=== PATIENT | female | born 1965 | race Caucasian/White ===

== ENCOUNTER → 2018-08-07 13:21 | Outpatient (CLI) | payer OTHER, SELFPAY ==
[2018-08-07 13:27] LABS: MANUAL DIFFERENTIAL MANUAL DIFFERENTIAL (MANUAL DIFF)
[2018-08-07 13:51] LABS: Basophils % 0.6 % (0.1-2.0); Eosinophils # 0.3 K/mm3 (0.0-0.4); Eosinophils % 3.3 % (0.1-12.0); Lymphocytes # 1.8 K/mm3 (0.7-4.5); Lymphocytes % 22.5 % (10-50); Monocytes # 0.5 K/mm3 (0.1-1.0); Monocytes % 5.6 % (1.7-9.3); Neutrophils # 5.5 K/mm3 (1.8-7.8); Platelet Count 286 K/mm3 (142-424); Red Blood Count 4.84 M/mm3 (4.20-5.40); Red Cell Distribution Width 13.7 % (11.5-17.5); White Blood Count 8.1 K/mm3 (4.8-10.8)
[2018-08-07 14:05] LABS: Alanine Aminotransferase 40 U/L (12-78); Albumin/Globulin Ratio 1.1 (1.1-1.8); Alkaline Phosphatase 102 U/L (46-116); Anion Gap 13.7 mEq/L (5-15); Aspartate Amino Transferase 18 U/L (15-37); Bilirubin,Total 0.4 mg/dL (0.2-1.0); Blood Urea Nitrogen 17 mg/dL (7-18); Calcium 9.5 mg/dL (8.5-10.1); Carbon Dioxide 28 mmol/L (21.0-32.0); Chloride 103 mmol/L (98-107); Chol/HDL Ratio 3.2 (1-3.5); Cholesterol 177 mg/dL (140-200); Creatinine,Serum 0.75 mg/dL (0.55-1.02); Estimated Glomerular Filt Rate 81 ml/min (>60); Free T4 (Free Thyroxine) 1.14 ng/dl (0.76-1.46); GFR (African American) 99 ML/MIN (>60); Globulin 3.5 gm/dl (1.3-3.2); Glucose 96 mg/dL (74-106); HDL Cholesterol 55 mg/dL (29-89); LDL Cholesterol 100 mg/dL (0-130); Potassium 4.7 mmoL/L (3.5-5.1); Sodium 140 mmol/L (136-145); Thyroid Stimulating Hormone 3.02 uIU/ml (0.358-3.740); Total Protein,Serum 7.5 gm/dL (6.4-8.2); Triglycerides 112 mg/dL (30-200); VLDL Cholesterol 22 mg/dL (0-40)
[2018-08-07 17:03] LABS: Lymphocytes % 17 % (10-50); Monocytes % 11 % (2-9); Neutrophils % 69 % (42-76); Total Cells Counted 100
[2018-08-07 17:07] LABS: Platelet Estimate Normal; RBC Morphology Normal
[2018-08-13 17:09] LABS: 1,25-Dihydroxy, Vitamin D-2 <10 pg/mL (.)
[2018-08-14 12:56] LABS: 1,25 Dihydroxy Vitamin D 43 pg/mL (.); 1,25-Dihydroxy, Vitamin D-3 43 pg/mL (.)
== END ==
PROVIDERS: Visit Provider Physician Assistant
DX: E03.9 Hypothyroidism, unspecified (principal); I10 Essential (primary) hypertension; K21.9 Gastro-esophageal reflux disease without esophagitis; E66.01 Morbid (severe) obesity due to excess calories; Z68.41 Body mass index [BMI] 40.0-44.9, adult
CPT/HCPCS: 80053; 80061; 82652; 84439; 84443; 85007; 85014; 85018; 85048; 85049

== ENCOUNTER → 2019-01-30 11:03 | Outpatient (CLI) | payer OTHER, SELFPAY ==
--- NOTE | 2019-01-30 11:10 | XR_ITS ---
PROCEDURE: XR FOOT LT MIN 3V CLINICAL INDICATION: pain COMPARISON: No exams were available for comparison FINDINGS: No fracture or dislocation. No lytic or blastic change. There is normal mineralization. Mild osteoarthritic changes are present at the talonavicular joint and at the posterior subtalar joint with a prominent posterior talar process of the talus. There is mild osteoarthritis also of the anterior aspect of the ankle joint. There is a small calcaneal spur Other findings:None. IMPRESSION: Osteoarthritic changes as described above Dictated by: Luis Keita MD 01/30/2019 15:17 Electronically signed by Luis Keita MD in [place] 01/30/2019 15:17
== END ==
PROVIDERS: PCP Emergency Medicine; Visit Provider Nurse Practitioner Family
DX: M79.672 Pain in left foot (principal)
CPT/HCPCS: 73630

== ENCOUNTER → 2019-02-09 14:46 | Outpatient (CLI) | payer OTHER, SELFPAY ==
--- NOTE | 2019-02-09 14:48 | US_ITS ---
APPROVED REPORT Exam Type: Lower Extremity Segmental Pressures Exhibitions Curator: Jadyn Blankenship RDCS Indications Claudication: Rest Pain: Edema Current Smoker Risk Factors Obesity Pressures/Indices Right Indices Left Indices Brachial 129.00 mmHg Brachial 127.00 mmHg Low Thigh 141.00 mmHg 1.09 Low Thigh 138.00 mmHg 1.07 Calf 117.00 mmHg 0.91 Calf 120.00 mmHg 0.93 Ankle(PT) 132.00 mmHg 1.02 Ankle(PT) 130.00 mmHg 1.01 Ankle(DP) 132.00 mmHg 1.02 Ankle(DP) 125.00 mmHg 0.97 Digit 99.00 mmHg 0.77 Digit 116.00 mmHg 0.90 Findings R DANIELITO 1.0 L DANIELITO 1.0 R TBI .8 L TBI .9 NORMAL PULSES AND WAVEFORMS Conclusion No evidence significant arterial disease throughout the right and left lower extremities as evidenced by normal resting PVR waveforms and normal resting indices. Electronically signed by : Luis Keita MD 02/10/2019 15:45:23
== END ==
PROVIDERS: PCP Emergency Medicine; Visit Provider Nurse Practitioner Family
DX: R60.9 Edema, unspecified (principal); M79.604 Pain in right leg; M79.605 Pain in left leg
CPT/HCPCS: 93923

== ENCOUNTER → 2019-06-16 08:42 | Outpatient (CLI) | payer MEDICAID, SELFPAY ==
--- NOTE | 2019-06-16 08:45 | XR_ITS ---
PROCEDURE: XR KNEE LT 4V CLINICAL INDICATION: left knee pain COMPARISON: No exams were available for comparison FINDINGS: No fracture or dislocation. No lytic or blastic change. There is normal mineralization. There are mild tricompartmental osteoarthritic changes. IMPRESSION: Osteoarthritis Dictated by: Luis Keita MD 06/16/2019 15:08 Electronically signed by Luis Keita MD in [place] 06/16/2019 15:08
== END ==
PROVIDERS: PCP Emergency Medicine; Visit Provider Orthopaedic Surgery
DX: M25.562 Pain in left knee (principal)
CPT/HCPCS: 73564

== ENCOUNTER → 2019-06-29 12:52 | Outpatient (CLI) | payer MEDICAID, SELFPAY ==
--- NOTE | 2019-06-29 12:52 | MR_ITS ---
PROCEDURE: MR KNEE LT WO CON CLINICAL INDICATION: evaluate for a meniscal tear Knee pain and instability, anterior and posterior pain COMPARISON: XR KNEE LT 4V from 06/16/2019 TECHNIQUE: Routine multiplanar multi echo sequences are performed without gadolinium enhancement. FINDINGS: Cruciate ligaments are intact. Collateral ligaments, patellar tendon, and quadriceps tendon are intact. There is some scattered T2 hyperintensity in the patellar tendon and may be due to an area of tendinosis/tendinopathy. There is a complex tear involving the posterior horn of the medial meniscus. The lateral meniscus has an unremarkable appearance as does the anterior horn of the medial meniscus. There is thinning of the patellar cartilage with some increased T2 signal along the posterior aspect of the patella. There are osteoarthritic changes involving all 3 compartments with a small knee joint effusion noted. IMPRESSION: 1. Complex tear involves the posterior horn of the medial meniscus. 2. Tricompartmental osteoarthritis with knee joint effusion Dictated by: Luis Keita MD 06/30/2019 10:27 Electronically signed by Luis Keita MD in [place] 06/30/2019 10:27
== END ==
PROVIDERS: PCP Nurse Practitioner Family; Visit Provider Orthopaedic Surgery
DX: M25.562 Pain in left knee (principal)
CPT/HCPCS: 73721

== ENCOUNTER → 2019-07-13 12:54 | Outpatient (POV) | payer MEDICAID, SELFPAY ==
[2019-07-13 13:06] VITALS: BP 138/69; PULSE 85; RESP 18; O2SAT 99; BMI 42.7
--- NOTE | 2019-07-14 09:32 | HMH.PMCON ---
Assessment and Plan (1) Degenerative joint disease (DJD) of lumbar spine Current visit: Yes Status: Chronic Qualifiers: Spinal osteoarthritis complication: with radiculopathy Qualified Code(s): M47.26 - Other spondylosis with radiculopathy, lumbar region Category: Medical Code(s): M47.816 - Spondylosis without myelopathy or radiculopathy, lumbar region - Assessment and plan all Dx Assessment and Plan for all problems:: We will plan an L4-L5 lumbar epidural steroid injection for the patient. Given the efficacy of this in the past I believe it would be beneficial. Patient is not on any anticoagulation therapy. I will follow-up with her after injection reassess her symptoms at that time she has been instructed to call the office if she has any issues prior to her next appointment. Dr. Beck has reviewed this note and agrees with this plan of care. This note was dictated using voice recognition software and may contain errors or omissions HPI - Data of Consult Consult date: 07/13/19 Requesting Physician: Shanita Liang APRN Primary Care Provider: Adrian Johnson APRN - Consult Narrative Reason for consult: Back pain, leg pain History of present illness: Ms. Moody is a 54 year old female who presents today for consultation in regards to her low back and leg pain. Patient does have an MRI showing degenerative changes. She used to get epidural injections from Dr. Toure and did extremely well with that getting up to 80% relief of her symptomology. She would like to continue this plan of care at our office to see if it gives her the same benefit. She rates her pain today a 4 out of 10. She is tried physical therapy along with massage therapy and other therapies with minimal relief. She is not on any anticoagulation therapy. CC: Shanita Liang APRN [facility] History I have reviewed the patient's past medical history: Yes Medical History: Reports:: Depression, Gastroesophageal Reflux Disease(GERD), Hypertension, Ulcer *Have you ever received a pneumonia vaccine?: Yes *Have you received a flu vaccine this season?: Yes Other Medical History: Reports: Arthritis, Hypothyroidism Laterality Cases: Bilateral: Tonsillectomy Other Surgeries: Yes: Colonoscopy, Hysterectomy-Partial, Other Amputation: No Fractures: Yes (ring finger,left hand) - *Social History Smoking Status: Current every day smoker Tobacco Type: cigarettes # Packs/Day (cigarettes): 1 Alcohol Intake: never Alcohol Intake Frequency:: holidays/special occasions only Substance Use Type: denies use *Occupational Status:: other Housing: house Household Members: significant other *Travel in the last 8 weeks: None - Psychiatric History Pschychiatric History:: Reports:: Depression Family Hx:: Unable to obtain Review of Systems - Review of Systems ROS General: no recent weight change, no fever, no sleep disturbances Respiratory: no cough, no shortness of air, no recurring pulmonary infections Cardiovascular/Peripheral Vascular: No chest pain, No palpitations, no edema, no shortness of breath. Gastrointestinal: no new onset incontinence, normal bowel movements reported Genitourinary: no new onset incontinence Musculoskeletal: Back pain, leg pain Psychiatric: normal mood/ affect, Neurological: [denies new onset weakness in extremities], [denies new onset balance issues] Meds Home Medications Medication Instructions Recorded Confirmed Type fluticasone propionate 50 1 spray INTRANASAL QDAY 30 Days 10/17/18 06/16/19 Rx mcg/actuation nasal #9.9 g spray,suspension amitriptyline 10 mg tablet 10 mg PO QHS #90 tab 01/26/19 06/16/19 Rx diclofenac sodium 1 % topical gel 4 g TOPICAL QID PRN 30 Days #100 g 03/17/19 06/16/19 Rx magnesium oxide 400 mg (241.3 mg 400 mg PO #30 tab 03/17/19 06/16/19 History magnesium) tablet meloxicam 7.5 mg tablet 7.5 mg PO DAILY 30 Days #30 tab 03/17/19 06/16/19 Rx bupropion HCl 150 mg 24 hr tabl
== END ==
PROVIDERS: PCP Nurse Practitioner Family; Visit Provider Clinical Nurse Specialist Family Health
DX: M47.26 Other spondylosis with radiculopathy, lumbar region (principal)
CPT/HCPCS: 99202

== ENCOUNTER → 2019-07-17 11:36 | Outpatient (CLI) | payer MEDICAID, SELFPAY ==
--- NOTE | 2019-07-17 11:54 | ECG_ITS ---
APPROVED REPORT Exam: Resting ECG HR:75 bpm ECG Measurements Heart Rate 75 AXES CO 150 P 71 QRSd 86 QRS 79 QT 368 T 57 QTc 410 <Conclusion> Normal sinus rhythm Normal ECG Electronically signed by : Aleksandar Crum, 07/17/2019 18:26:31
--- NOTE | 2019-07-17 12:21 | XR_ITS ---
PROCEDURE: XR CHEST 2V CLINICAL HISTORY: HTN, TOBACCO USE, PREOP Tobacco use COMPARISON: No exams were available for comparison FINDINGS: The cardiomediastinal silhouette and pulmonary vascularity are within normal limits. The lungs are clear without infiltrates, suspicious nodules, or pleural effusions. No acute bony abnormalities. IMPRESSION: No acute findings. Dictated by: Luis Keita MD 07/17/2019 13:05 Electronically signed by uLis Keita MD in [place] 07/17/2019 13:05
[2019-07-17 13:01] LABS: Basophils # 0.1 K/mm3 (0-0.2); Basophils % 1.1 % (0.1-2.0); Eosinophils # 0.2 K/mm3 (0.0-0.4); Eosinophils % 1.9 % (0.1-12.0); Hematocrit 46.9 % (37.0-47.0); Lymphocytes # 2.3 K/mm3 (0.7-4.5); Lymphocytes % 24.8 % (10-50); Mean Corpuscular HGB Conc 32.1 g/dL (31.8-35.4); Mean Corpuscular Hemoglobin 30.7 pg (27.0-31.2); Mean Corpuscular Volume 95.7 fl (81-99); Monocytes # 0.6 K/mm3 (0.1-1.0); Monocytes % 5.9 % (1.7-9.3); Neutrophils # 6.2 K/mm3 (1.8-7.8); Neutrophils % 66.4 % (37.0-80.0); Platelet Count 316 K/mm3 (142-424); Red Blood Count 4.91 M/mm3 (4.20-5.40); Red Cell Distribution Width 13.3 % (11.5-17.5); White Blood Count 9.3 K/mm3 (4.8-10.8)
[2019-07-17 14:44] LABS: Alanine Aminotransferase 32 U/L (12-78); Albumin Level 4.5 g/dl (3.5-5.0); Albumin/Globulin Ratio 1.9 (1.1-1.8); Alkaline Phosphatase 82 U/L (38-126); Anion Gap 13.4 mEq/L (5-15); Aspartate Amino Transferase 27 U/L (14-36); Bilirubin,Total 0.2 mg/dl (0.2-1.3); Blood Urea Nitrogen 19 mg/dl (7-17); Calcium 9.6 mg/dl (8.4-10.2); Carbon Dioxide 26 mmol/L (22.0-30.0); Chloride 102 mmol/L (98-107); Estimated Glomerular Filt Rate 88 ml/min (>60); GFR (African American) 106 ML/MIN (>60); Globulin 2.4 g/dL (1.3-3.2); Glucose 77 mg/dl (74-100); Potassium 4.4 mmoL/L (3.5-5.1); Sodium 137 mmol/L (136-145); Total Protein,Serum 6.9 g/dl (6.3-8.2)
== END ==
PROVIDERS: PCP Emergency Medicine; Visit Provider Orthopaedic Surgery
DX: Z01.818 Encounter for other preprocedural examination (principal); S83.232D Complex tear of medial meniscus, current injury, left knee, subsequent encounter; M25.562 Pain in left knee
CPT/HCPCS: 36415; 71046; 80053; 85025; 93005

== ENCOUNTER → 2019-08-18 11:27 | Outpatient (POV) | payer MEDICAID, SELFPAY ==
--- NOTE | 2019-08-18 12:37 | HMH.VVPMSO ---
[facility] Virtual Visit SOAP Consent for virtual visit:: With the recent concerns about the COVID-19, we are trying to minimize exposure to you by shifting to telehealth appointments whenever possible. It restricts me from seeing you in person, but the trade off is protecting you during this pandemic. Can you see and hear me okay, and do you consent to this option? If not, I would be happy to see if we can reschedule your appointment in the future, when feasible. Has patient consented to this virtual visit?: Yes Subjective:: This visit was performed via telemedicine. The patient has chosen to have telemedicine visit for his/her symptoms due to risk associated with COVID19 Patient is a pleasant 54-year-old white female who presents today via telemedicine visit. She is being treated for low back pain with lower extremity pain. Patient recently underwent a lumbar epidural steroid injection for which she does says she got approximately 90% relief for up to 2 weeks. She says her pain has slowly returned over the last 2 to 3 days. She says that it is worse in her low back. The pain does worsen in her lower extremities with walking and standing. Patient says that her pain is a 6 out of 10 today. She has taken diclofenac in the past which is giving her some relief for her arthritic pain. She says it does not give a great deal of relief for her low back pain, however. She would like to resume diclofenac, if possible. She denies any allergies to any medications. Patient says that she does not have any renal insufficiency or history of bleeding. She continues with a home stretching program and ice and heat therapies. She has undergone physical therapy. Review of Systems General: No recent weight changes, no fever, no sleep disturbances Respiratory: No cough, no shortness of air, no recurring pulmonary infections Cardiovascular/peripheral vascular: No chest pain, no palpitations, no edema, no shortness of breath Gastrointestinal: No new onset incontinence, normal bowel movements reported Genitourinary: No new onset incontinence Musculoskeletal: Low back pain, leg pain Psychiatric: Normal mood/affect Neurological: [Denies weakness in extremities], [denies balance issues] Objective:: Constitutional: Healthy appearing, well-developed, alert and oriented, no acute distress noted Psychiatric: Judgment and insight intact. Mood normal, affect appropriate Head: Normocephalic, atraumatic, extraocular movement intact Respiratory: Nonlabored, non-dyspneic Cardiovascular: No cyanosis, no clubbing, no edema observed Skin: Head and neck, no lesions or rashes noted. Bilateral upper extremities no lesions or rashes noted Gait: Able to walk without assist of heel and toe walk Neurological: Sensation grossly intact per patient C3-T1 Musculoskeletal: Full range of motion, positive straight leg raise Assessment:: Degenerative disc disease lumbar spine with lumbar radiculopathy symptoms Plan:: The patient would likely benefit from another lumbar epidural steroid injection at L4-L5. She did get relief with the initial injection, however, her pain has returned. Unfortunately, we are unable to perform any injective therapies at this time secondary to the pandemic restrictions. She does understand once the restrictions are lifted, we will proceed with a lumbar epidural steroid injection at L4-L5. She is not on any anticoagulation therapy. We will prescribe the patient diclofenac 75 mg 1 tablet p.o. twice daily and Flexeril 10 mg 1 tablet p.o. 3 times daily. We will give HER-2 months worth of medication. We will plan to follow-up with the patient following her injection to reassess her symptoms. She has been instructed to contact clinic if she has any concerns before next appointment. Dr. Beck has reviewed this note and agrees with this plan of care. This note was dictated using voice recognition software and make contain errors or omission
== END ==
PROVIDERS: Visit Provider Clinical Nurse Specialist Family Health
DX: M51.16 Intervertebral disc disorders with radiculopathy, lumbar region (principal)
CPT/HCPCS: 99211

== ENCOUNTER → 2019-09-22 09:33 | Outpatient (CLI) | payer MEDICAID, SELFPAY ==
[2019-09-22 10:33] LABS: Basophils # 0.1 K/mm3 (0-0.2); Basophils % 0.8 % (0.1-2.0); Eosinophils # 0.1 K/mm3 (0.0-0.4); Eosinophils % 1.7 % (0.1-12.0); Hematocrit 44.7 % (37.0-47.0); Hemoglobin 14.9 g/dL (12.2-16.2); Lymphocytes # 1.8 K/mm3 (0.7-4.5); Lymphocytes % 22.3 % (10-50); Mean Corpuscular HGB Conc 33.4 g/dL (31.8-35.4); Mean Corpuscular Hemoglobin 31.7 pg (27.0-31.2); Mean Corpuscular Volume 94.8 fl (81-99); Mean Platelet Volume 9.2 fl (7.4-10.4); Monocytes # 0.4 K/mm3 (0.1-1.0); Monocytes % 4.6 % (1.7-9.3); Neutrophils # 5.6 K/mm3 (1.8-7.8); Neutrophils % 70.5 % (37.0-80.0); Platelet Count 266 K/mm3 (142-424); Red Blood Count 4.72 M/mm3 (4.20-5.40); Red Cell Distribution Width 13.1 % (11.5-17.5)
[2019-09-22 11:17] LABS: Alanine Aminotransferase 39 U/L (12-78); Albumin Level 4.7 g/dl (3.5-5.0); Albumin/Globulin Ratio 1.7 (1.1-1.8); Alkaline Phosphatase 96 U/L (38-126); Anion Gap 9.3 mEq/L (5-15); Aspartate Amino Transferase 29 U/L (14-36); Bilirubin,Total 0.2 mg/dl (0.2-1.3); Blood Urea Nitrogen 19 mg/dl (7-17); Calcium 10.3 mg/dl (8.4-10.2); Carbon Dioxide 30 mmol/L (22.0-30.0); Chloride 101 mmol/L (98-107); Estimated Glomerular Filt Rate 75 ml/min (>60); GFR (African American) 91 ML/MIN (>60); Globulin 2.7 g/dL (1.3-3.2); Glucose 107 mg/dl (74-100); Potassium 4.3 mmoL/L (3.5-5.1); Sodium 136 mmol/L (136-145); Total Protein,Serum 7.4 g/dl (6.3-8.2)
[2019-09-23 13:53] LABS: Covid-19 Nasal PCR Sendout Lex NOT DETECTED
--- NOTE | 2019-09-23 15:42 | PC.NURSE ---
notified pt and Maureen RN of negative COVID 19 results.
== END ==
PROVIDERS: Visit Provider Orthopaedic Surgery
DX: Z01.818 Encounter for other preprocedural examination (principal)
CPT/HCPCS: 36415; 80053; 85025; U0003

== ENCOUNTER 2019-09-24 07:44 | Day surgery (SDC) | payer MEDICAID, SELFPAY ==
--- NOTE | 2019-09-21 12:45 | SUR.PREOP ---
09/21/19 @ 1462--PHONE CALL MADE TO PATIENT. PATIENT UNDERSTANDS THAT LAB WORK AND COVID TESTING NEEDS TO BE COMPLETED @ 0930 ON 09/22/19. PATIENT UNDERSTANDS IF LAB WORK AND COVID-19 TESTS ARE NOT COMPLETED BY 12PM ON THAT DATE, THE SURGERY SCHEDULED WILL BE CANCELLED AND RESCHEDULED FOR ANOTHER TIME.
[2019-09-22 13:24] VITALS: BMI 41.1
[2019-09-24] VITALS (16 sets, daily range): BP systolic 107–148; BP diastolic 61–86; PULSE 70–103; RESP 14–18; TEMP 36.4–43; O2SAT 92–98
--- NOTE | 2019-09-24 11:14 | P.PN_ITS ---
[facility] Anesthesia Checklist - Patient Identification Patient Identification: Arm Band, Verbal (Name & ) - Structural Data Admitted From: Home Planned Operative Procedure/s: Left knee arthroscopy Verified Documents: Surgical Consent, History and Physical - NPO Status Verified Time NPO: 00:00 - Chart Verification Results Verified: CBC (Negative Covid19), BMP - Additional verifications Anesthesia Reactions: No Hx Blood Transfusions: No Blood Transfusion Reaction: No - Airway Assessment C-Spine Mobility Assessed: Yes TMJ Mobility Assessed: Yes Dentition: Dentures-good fit (upper denture, lower paritail both removed) - Neurological Assessment Level of Consciousness: Awake, Alert, Appropriate, Follows Commands Hx Seizures: No Numbness or tingling in extremities: No - Anesthesia Plan Anesthesia Risk discussed: Yes Anesthesia Plan: Verified ASA Class: III Anesthesia Type: General (LMA) [facility] History I have reviewed the patient's past medical history: Yes Medical History: Reports:: Anxiety, Gastroesophageal Reflux Disease(GERD), Hypertension, Ulcer Denies:: Cancer, Diabetes Mellitus Type 1, Diabetes Mellitus Type 2, Internal Pacemaker, MRSA, Seizures *Have you ever received a pneumonia vaccine?: No *Have you received a flu vaccine this season?: No Other Medical History: Reports: Arthritis, Hypothyroidism. Denies: Blood Transfusion Reaction Comment:: morbid obesity, KARLI complaint use of CPAP Anesthesia experience/problems:: none Laterality Cases: Bilateral: Tonsillectomy Other Surgeries: Yes: Colonoscopy, Hysterectomy-Partial, Other. No: Pacemaker Amputation: No Fractures: Yes (ring finger,left hand) - *Social History Educational Level: Attended High School Smoking Status: Current every day smoker Tobacco Type: cigarettes # Packs/Day (cigarettes): 1 Alcohol Intake: current Alcohol Intake Frequency:: holidays/special occasions only Substance Use Type: denies use *Occupational Status:: unemployed Housing: [facility] Household Members: significant other *Travel in the last 8 weeks: None - Psychiatric History Pschychiatric History:: Reports:: Depression Family Hx:: Hypertension, Thyroid Disorder
--- NOTE | 2019-09-24 12:54 | HMH.ANESI ---
[facility] Anesthesia Record Part I Intake, IV Amount: 900 Estimated blood loss (mL): 25 Urine output (mL): 0 (NM) Blood Products used (#): none Blood Pressure: 148/86 SaO2: 94 Pulse Rate: 88 Respiratory Rate: 14 Temperature: 98.0 F Patient is:: Awake, Drowsy, Stable Stable to PACU at:: 12:47
--- NOTE | 2019-09-24 14:50 | SUR.PHASEII ---
1440 Dr. Hartmann up to see pt prior to discharge, polar marah was ordered and retrieved. Instructions given to pt and SO on use.Sent with pt at discharge. T-scope brace on pt at discharge and crutches with pt. All discharge info discussed with SO at car, verbalized understanding to all.
--- NOTE | 2019-09-24 14:56 | HMH.OPNOTE ---
Date of procedure: 09/24/19 Pre-op Diagnosis:: 1. Medial meniscal tear, LEFT knee 2. Osteoarthritis, LEFT knee Post-op Diagnosis:: 1. Complex degenerative tear of medial meniscus, LEFT knee 2. Osteoarthritis, LEFT knee 3. Pathological medial plica, LEFT knee Procedure performed:: 1. Examination of LEFT knee under anesthesia 2. Partial medial meniscectomy, LEFT knee 3. Chondroplasty, LEFT knee 4. Microfracture to medial femoral condyle, left knee 5. Resection of medial plica, LEFT knee Surgeon:: Roc Hartmann MD Form Raiser(s):: Karla Hale GRANITE FABRICATOR:: Tomas Castellanos Anesthesia: LMA Estimated blood loss (mL): 5 Clinical Note:: The patient is a 54-year-old male with chronic LEFT knee pain unresponsive to conservative management and evidence of a complex medial meniscal tear and early arthritic changes on imaging. Clinically her symptoms are consistent with the above diagnosis. Resection of the torn medial meniscus, chondroplasty and debridement is indicated to relieve the pain and improve function of the knee. Please refer to my office note for full details. Operative findings:: Examination of the left knee under anesthesia, showed a stable knee joint. There is small amount of knee joint effusion. Knee range of motion is from 0-120? of flexion. Operative findings showed diffuse grade 2-3 degenerative changes over the patellofemoral articular surfaces and medial compartment; an area of focal full-thickness cartilage loss was present over the medial femoral condyle. The lateral compartment was relatively well preserved. A fairly large thickened and hyperemic medial plica was noted and its corresponding abrasion area on the edge of the medial femoral condyle noted as well. The medial meniscus had a complex degenerate tear involving the body and posterior horn. The medial tibial plateau articular surface was also relatively well preserved. The anterior cruciate ligament and posterior cruciate ligaments were intact. No loose bodies were noted. Moderate synovitis was noted in the knee. Operative note:: On the day of the procedure the patient was met in the preoperative area and positively identified. A physical examination was performed and documented. The operative site and side was marked and initialed by me. I again discussed the diagnosis, management options including both nonsurgical and surgical. I discussed the proposed surgical procedure, risks and benefits and alternatives in detail. The complications discussed include but are not limited to infection, injury to nerves and blood vessels, injury to the ligaments and tendons, knee stiffness, arthrofibrosis, incomplete relief, incomplete functional recovery, DVT, PE, CRPS, complications related to anesthesia including heart attack, stroke and even . I have also discussed about the likely need for further surgery in future. I told her that there were no guarantees with surgery; she could be no better or even worse. We also discussed the postoperative recovery and rehabilitation protocol. I believe the patient to be well informed with regard to the proposed surgery. I told her that it would take few months for full recovery of the knee after surgery. She expressed a full understanding and wished to proceed with the planned surgery. Patient understood the risks, agreed to proceed with surgery, and no guarantees or assurances were given or implied. Patient was brought to the operating room and placed supine on the operating table. All the bony prominences were appropriately padded. A general anesthesia was administered by the roll panner. A well-padded tourniquet cuff was placed over the left upper thigh. Examination of the left knee under anesthesia was performed. A small knee effusion was noted. Knee range of motion was 0-120 degrees of flexion. Knee joint is noted to be ligamentously stable. The left knee was then prepped and draped in the usual sterile fashion. A preprocedure timeout was performed as pe
--- NOTE | 2019-09-24 15:25 | SUR.PHASEI ---
Patient to be transferred to post op at 1317, but Dr Hartmann in to PACU with verbal order requesting T-scope knee brace and crutches. Physical therapy was called and Tyron Montague came up to PACU with T-scope knee brace and asked what the settings would be, Dr Hartmann had to be contacted. Once brace was applied and paperwork copied for insurance, it was [id number]. Then patient became nauseous on way to post op.
--- NOTE | 2019-09-24 16:50 | P.PN_ITS ---
[facility] Anesthesia Record Part II Discharge Time: 14:40 Destination: home PACU nurse assessment reviewed?: Yes Patient Condition:: Good Anesthesia Complications:: None Swallowing reflex intact?: Yes Cyanosis?: No Blood Pressure: 120/80 Pulse Rate: 70 Temperature: 97.6 F Mental Status: Alert & Oriented Pain level:: 0 Nausea and/or vomitting:: Nauseated Intake, IV Amount: 0
== END 2019-09-24 14:40 | disposition home or self-care (01) ==
LOC: OR 07:45
PROVIDERS: PCP Emergency Medicine; Visit Provider Orthopaedic Surgery
PROC: (CPT 29870; principal; 2019-09-24 09:30)
DX: M17.12 Unilateral primary osteoarthritis, left knee (principal); M23.232 Derangement of other medial meniscus due to old tear or injury, left knee; M67.52 Plica syndrome, left knee
CPT/HCPCS: 29879; 29881; 96374; J2405

== ENCOUNTER 2019-11-13 09:41 | Day surgery (SDC) | payer MEDICAID, SELFPAY ==
[2019-11-13 10:12] VITALS: BP 168/81; PULSE 87; RESP 18; TEMP 36.6; O2SAT 96; BMI 41.1
[2019-11-13 10:45] VITALS: BP 151/87; PULSE 81; RESP 18
[2019-11-13 10:46] VITALS: BP 152/87; PULSE 85; RESP 18; O2SAT 98
--- NOTE | 2019-11-13 10:48 | P.PCN_ITS ---
- Procedure Date: 11/13/19 Time: 10:49 Anesthesiologist:: Dionte Beck MD Complications:: None Pre-procedure Diagnosis:: Degenerative disc disease of lumbar spine with lumbar radiculopathy symptoms Post-procedure Diagnosis:: Same Indications for Procedure:: This patient is a pleasant 54-year-old white female who we are treating for low back pain with lumbar radiculopathy symptoms. She did great after her last lumbar epidural steroid injection she was 80 to 90% better for up to 2 weeks. Her pain is now returning. We will do repeat lumbar epidural steroid injection under fluoroscopy today. Procedure Details:: Lumbar epidural steroid injection under fluoroscopy Informed consent was obtained and the risk and benefits of the procedure was explained to the patient. The patient was taken to the procedure room. The patient was placed prone on the procedure table. The patient was prepped and draped in sterile fashion. C-arm fluoroscopy was used to view the lumbar spine. Skin and subcutaneous tissues were anesthetized using lidocaine. I placed an 18-gauge epidural needle and advanced into the L4-L5 interspace using fluoroscopic guidance and [id number] to air. After confirmation of needle placement in the epidural space with dye I injected 2 mL of lidocaine 1.5% with Depo-Medrol 80 mg. Patient tolerated the procedure well with no co mplications. Plan and Disposition:: We will follow-up with her in 2 weeks. Will reevaluate her symptoms at that time.
[2019-11-13 10:55] VITALS: BP 124/69; PULSE 80; RESP 18; O2SAT 96
== END 2019-11-13 10:55 | disposition home or self-care (01) ==
LOC: SC.PAINP 09:42
PROVIDERS: PCP Emergency Medicine; Visit Provider Anesthesiology
DX: M51.16 Intervertebral disc disorders with radiculopathy, lumbar region (principal); I10 Essential (primary) hypertension; Z72.0 Tobacco use; Z87.19 Personal history of other diseases of the digestive system; Z90.89 Acquired absence of other organs; Z87.39 Personal history of other diseases of the musculoskeletal system and connective tissue; G25.81 Restless legs syndrome; G47.33 Obstructive sleep apnea (adult) (pediatric); E03.9 Hypothyroidism, unspecified; Z79.899 Other long term (current) drug therapy
CPT/HCPCS: 62323; J1040; Q9966

== ENCOUNTER → 2019-12-03 11:46 | Outpatient (POV) | payer MEDICAID, SELFPAY ==
[2019-12-03 12:18] VITALS: BP 136/58; PULSE 71; RESP 18; TEMP 36.9; O2SAT 98; BMI 41.1
--- NOTE | 2019-12-03 13:27 | HMH.PAINSOAP ---
[facility] Pain Management SOAP Note Subjective:: Patient is a pleasant 54-year-old white female who presents today for follow-up after a lumbar epidural steroid injection. Patient is being treated for low back pain with lumbar radiculopathy symptoms. Patient says she did get relief up to 90% following her injection, however, she is having some low back pain with radiation into bilateral hips. She says the pain is different than it was prior to the injection. Patient also reports to have undergone a left knee replacement over the last year. She says that she thinks this is contributed to a lot of the pain in her low back area. She does rate her pain a 6 out of 10 today. Patient does have point tenderness noted over her bilateral SI joints. She also has a positive Elda, Renetta's, distraction test. Review of Systems General: No recent weight changes, no fever, no sleep disturbances Respiratory: No cough, no shortness of air, no recurring pulmonary infections Cardiovascular/peripheral vascular: No chest pain, no palpitations, no edema, no shortness of breath Gastrointestinal: No new onset incontinence, normal bowel movements reported Genitourinary: No new onset incontinence Musculoskeletal: Low back pain with radiation into her bilateral hips Psychiatric: Normal mood/affect Neurological: [Denies weakness in extremities], [denies balance issues] Objective:: Physical exam General: Alert and oriented x3, no acute distress, pleasant and cooperative, [on room air] Lungs: Respirations even and unlabored, symmetrical chest expansion Eyes: PERRL Musculoskeletal: Flexion and extension of lumbar spine somewhat guarded secondary to pain, deep tendon reflexes normal, strength in upper and lower extremities [5/5], gait noted, positive Renetta's test, distraction test, positive Tupelo's test Neurological: Speech clear, 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 We will schedule her for bilateral SI joint injections. She is taking diclofenac. We will give her some Zanaflex 4 mg 1 tablet p.o. twice daily. She will stop taking her Flexeril. She says this has caused her to get very groggy when taking the medication. We will see if this gives her any relief until her injection. We will see her back in the clinic after her injection to reassess her symptoms. The patient and I specifically discussed risk factors for COVID19. These risks include, but are not limited to age greater than 60, heart or lung disease, diabetes, immunosuppression, and travel. We also discussed NSAIDs may worsen COVID19 infection or symptoms. Patient should not use NSAIDs to treat COVID19 signs or symptoms. Patient was also informed that any type of corticosteroid of any form (oral or injection) will decrease the patient's immune system response and may increase the likelihood of COVID19 [address] symptoms[address] Beck has reviewed this note and agrees with this plan of care. This note was dictated using voice recognition software and make contain errors or omissions. [facility] History I have reviewed the patient's past medical history: Yes Medical History: Reports:: Anxiety, Depression, Gastroesophageal Reflux Disease(GERD), Hypertension, Ulcer Denies:: Cancer, Diabetes Mellitus Type 1, Diabetes Mellitus Type 2, Internal Pacemaker, MRSA, Seizures *Have you ever received a pneumonia vaccine?: Yes *Have you received a flu vaccine this season?: Yes Other Medical History: Reports: Arthritis, Hypothyroidism, Thyroid Disease. Denies: Blood Transfusion Reaction Laterality Cases: Left: Arthroscopy Knee, Bilateral: Tonsillectomy Other Surgeries: Yes: Colonoscopy, Hysterectomy-Partial, Sinus Surgery, Other. No: Pacemaker Amputation: No Fractures: Yes (ring finger,le
== END ==
PROVIDERS: PCP Emergency Medicine; Visit Provider Clinical Nurse Specialist Family Health
DX: M51.16 Intervertebral disc disorders with radiculopathy, lumbar region (principal); M46.1 Sacroiliitis, not elsewhere classified
CPT/HCPCS: 99212

== ENCOUNTER → 2019-12-09 12:36 | Outpatient (CLI) | payer MEDICAID, SELFPAY ==
--- NOTE | 2019-12-09 12:39 | XR_ITS ---
PROCEDURE: XR KNEE LT 4V CLINICAL INDICATION: sp LT knee scope Pain COMPARISON: XR KNEE LT 4V from 06/16/2019 FINDINGS: No fracture or dislocation. No lytic or blastic change. There is normal mineralization. There are mild osteoarthritic changes of the medial compartment and to lesser degree of the lateral compartment and patellofemoral joint. No acute fracture or dislocation is evident. There are small calcific densities along the posterior aspect of the proximal tibia suggesting small loose bodies 1 of which projects over the medial aspect of the medial tibial spine. Other findings:None. IMPRESSION: Mild osteoarthritis with loose bodies as described above. Dictated by: Luis Keita MD 12/09/2019 13:43 Electronically signed by Luis Keita MD in [place] 12/09/2019 13:43
== END ==
PROVIDERS: PCP Emergency Medicine; Visit Provider Orthopaedic Surgery
DX: Z09 Encounter for follow-up examination after completed treatment for conditions other than malignant neoplasm (principal)
CPT/HCPCS: 73564

== ENCOUNTER 2019-12-11 13:30 | Outpatient (RCR) | payer MEDICAID, SELFPAY ==
--- NOTE | 2019-11-10 17:41 | HMH.PTOPEV ---
PT Outpatient Evaluation Rehab PT Outpatient Evaluation Start: 11/10/19 17:08 Freq: Status: Active Protocol: Document 11/10/19 17:19 MIASHOK (Rec: 11/10/19 17:41 DENNYGEORGE [id number]) Electronically Signed By Mehul Montague PT 11/10/19 17:19 Outpatient Therapy Subjective History Subjective History This is the initial Physical Therapy evaluation for Saritha Moody due to L knee pain s/p sx. Pt reports she had L knee surgery ~ 7 weeks ago. MD order states pt had partial medial menisectomy, chondroplasty, medial femoral microfx, and medial plica resection. Pt reports she does not know when or what the original injury was but she thinks it was due to stepping down onto concrete hard. Pt reports she was NWB for ~ 2 weeks, then TTWB for 2 weeks with continuation to FWB. Pt now reports to PT for c/o L knee pain, weakness and decreased ROM Chief Complaint Pain,Stiff,Swelling Symptom Type Ache,Throb Symptoms Relieved By Rest/Positioning,Ice Symptoms Aggravated By Standing,Physical Activity, Walking Prior Functional Limitations None Current Functional Limitations Housework,Standing,Squatting, Recreation Activity,Walking, Stairs Symptom Description Constant but Variable Level of pain today (0-10) 6 Pain scale - at its best (0-10) 3 Pain scale - at its worst (0-10) 9 Hip/Knee Eval Gait Observation General Gait Pattern Observation Antalgic Gait,Decrease Weight Bear (L) Palpation Tenderness left Knee Palpation Finding Tenderness MMT Knee Extension Strength Grade 4- Good- Knee Flexion Strength Grade 4 Good ROM Knee Extension Active Range of Motion ( 0 degrees) Knee Flexion Active Range of Motion ( 105 degrees) Outpatient Therapy Assessment Impairments Problems/Impairmments Palpation Tenderness,Impaired Range of Motion,Impaired Strength,Impaired Walking, Impaired Standing,Impaired Household Care,Impaired Stair Climbing,Impai
== END 2019-12-11 13:35 | disposition home or self-care (01) ==
LOC: PT 13:30
PROVIDERS: PCP Emergency Medicine; Visit Provider Orthopaedic Surgery
DX: M25.562 Pain in left knee (principal)
CPT/HCPCS: 97010; 97014; 97016; 97033; 97110; 97163; G0283

== ENCOUNTER 2019-12-14 13:52 | Day surgery (SDC) | payer MEDICAID, SELFPAY ==
[2019-12-14 14:21] VITALS: BP 131/53; PULSE 73; RESP 18; TEMP 36.7; O2SAT 98; BMI 41.1
[2019-12-14 14:37] VITALS: BP 125/88; BP 128/89; PULSE 85; PULSE 89; RESP 18; O2SAT 98
--- NOTE | 2019-12-14 14:40 | P.PCN_ITS ---
- Procedure Date: 12/14/19 Time: 14:40 Anesthesiologist:: Laverne Wiggins APRN Complications:: None Pre-procedure Diagnosis:: Bilateral sacroiliitis Post-procedure Diagnosis:: Same Indications for Procedure:: Patient is a 54-year-old white female who presents today for bilateral SI joint injections. She is having bilateral lower back pain with radiation into her buttocks bilaterally as well as her hips. She rates her pain an 8 out of 10 today. She will undergo bilateral SI injection see if she gets relief. Patient says she is having some tenderness over bilateral SI joints. She also has a positive Elda, Renetta's, distraction test. 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 The patient was taken to the procedure room on the right and noninvasive monitors were placed including a noninvasive blood pressure cuff and pulse oximeter. Patient was placed prone on the procedure table. The lower back was cleansed using chlorhexidine as a cleansing solution. C-arm fluoroscopy was used to view the right sacroiliac joint. The skin and subcutaneous tissues were anesthetized Using lidocaine 1.5% and a 25-gauge needle. After this, a 22-gauge spinal needle was inserted using fluoroscopic guidance into the inferior aspect of the right sacroiliac joint. Omnipaque dye was injected and good spread was seen throughout the joint. After this, approximately mL of bupivacaine 0.25% and Depo-Medrol 0 40 mg was incrementally injected into the right sacroiliac joint. We then moved to the left sacroiliac joint. The skin and subcutaneous tissues were anesthetized using lidocaine 1.5% and a 25-gauge needle. After this a 22- gauge spinal needle was inserted under fluoroscopic guidance into the inferior aspect of the left sacroiliac joint. After this approximately 5 mL of bupivacaine 0.25% and Depo-Medrol 40 mg was incrementally injected into the left sacroiliac joint. The patient tolerated the procedure well without complications. The patient was observed in the pain clinic for period of time and was then discharged home neurologically intact. Plan and Disposition:: We will see the patient back in the clinic in 2 weeks to reassess her symptoms. She has been instructed to contact the clinic if she has any concerns before her next appointment. The patient and I specifically discussed risk factors for COVID19. These risks include, but are not limited to age greater than 60, heart or lung disease, diabetes, immunosuppression, and travel. We also discussed NSAIDs may worsen COVID19 infection or symptoms. Patient should not use NSAIDs to treat COVID19 signs or symptoms. Patient was also informed that any type of corticosteroid of any form (oral or injection) will decrease the patient's immune system response and may increase the likelihood of COVID19 infection [address] symptoms[address] Beck has reviewed this note and agrees with this plan of care. This note was dictated using voice recognition software and make contain errors or omissions.
[2019-12-14 14:50] VITALS: BP 146/71; PULSE 69; RESP 18; O2SAT 98
== END 2019-12-14 14:50 | disposition home or self-care (01) ==
LOC: SC.PAINP 13:54
PROVIDERS: PCP Emergency Medicine; Visit Provider Clinical Nurse Specialist Family Health
DX: M46.07 Spinal enthesopathy, lumbosacral region (principal); Z72.0 Tobacco use; I10 Essential (primary) hypertension; Z90.89 Acquired absence of other organs; Z87.39 Personal history of other diseases of the musculoskeletal system and connective tissue; Z79.899 Other long term (current) drug therapy; F32.9 Major depressive disorder, single episode, unspecified; Z87.898 Personal history of other specified conditions; M47.816 Spondylosis without myelopathy or radiculopathy, lumbar region; E03.9 Hypothyroidism, unspecified; G47.33 Obstructive sleep apnea (adult) (pediatric); M47.26 Other spondylosis with radiculopathy, lumbar region
CPT/HCPCS: 27096; G0260; J1030; Q9966

== ENCOUNTER → 2019-12-31 14:54 | Outpatient (CLI) | payer MEDICAID, SELFPAY ==
[2019-12-31 16:10] LABS: Free T4 (Free Thyroxine) 1.36 ng/dl (0.78-2.19)
[2019-12-31 16:25] LABS: Thyroid Stimulating Hormone 1.79 uIU/mL (0.465-4.68)
[2020-01-02 13:06] LABS: Thyroid Peroxidase Antibodies 125 IU/mL (0-34)
[2020-01-05 02:54] LABS: Thyroid Stimulating Immunoglob <0.10 IU/L (0.00-0.55)
== END ==
PROVIDERS: Visit Provider Otolaryngology
DX: E03.9 Hypothyroidism, unspecified (principal)
CPT/HCPCS: 36415; 84439; 84443; 84445; 86376

== ENCOUNTER → 2020-01-06 09:26 | Outpatient (CLI) | payer MEDICAID, SELFPAY ==
--- NOTE | 2020-01-06 09:26 | US_ITS ---
PROCEDURE: US THYROID CLINICAL INDICATION: hypothyroidism COMPARISON: No exams were available for comparison FINDINGS: Right lobe: 2.6 x 0.9 x 0.9 cm Left lobe: 2.5 x 0.8 x 0.9 cm Isthmus: 3 mm in thickness Additional findings: There is heterogeneous echogenicity bilaterally but no discrete nodule or mass evident. No abnormal fluid collections. IMPRESSION: Heterogeneous echogenicity of the thyroid gland without discrete nodule. Dictated by: Luis Keita MD 01/06/2020 15:57 Luis Keita MD in [place] 01/06/2020 15:57
== END ==
PROVIDERS: PCP Emergency Medicine; Visit Provider Otolaryngology
DX: E03.9 Hypothyroidism, unspecified (principal)
CPT/HCPCS: 76536

== ENCOUNTER → 2020-01-07 15:43 | Outpatient (POV) | payer MEDICAID, SELFPAY ==
[2020-01-07 15:50] VITALS: BP 132/77; PULSE 74; RESP 18; TEMP 36.2; O2SAT 98; BMI 41.1
--- NOTE | 2020-01-07 16:00 | HMH.PAINSOAP ---
[facility] Pain Management SOAP Note Subjective:: Patient is a pleasant 54-year-old white female who presents today for follow-up after bilateral SI joint injections. She is being treated for low back pain with radiation into her bilateral hips and legs. Patient rates her pain a 5 out of 10. She says she did not get any relief after the injections. She says her pain is actually worse following the injections. Patient says that her pain is with walking and standing and does improve with sitting, however, she does have to reposition often with sitting. He has tried anti-inflammatories along with a continued home stretching program. Review of Systems General: No recent weight changes, no fever, no sleep disturbances Respiratory: No cough, no shortness of air, no recurring pulmonary infections Cardiovascular/peripheral vascular: No chest pain, no palpitations, no edema, no shortness of breath Gastrointestinal: No new onset incontinence, normal bowel movements reported Genitourinary: No new onset incontinence Musculoskeletal: Low back pain radiating into bilateral hips and legs Psychiatric: Normal mood/affect Neurological: [Denies weakness in extremities], [denies balance issues] Objective:: Physical exam General: Alert and oriented x3, no acute distress, pleasant and cooperative, [on room air] Lungs: Respirations even and unlabored, symmetrical chest expansion Eyes: PERRL Musculoskeletal: Flexion and extension of lumbar spine somewhat guarded secondary to pain, deep tendon reflexes normal, strength in upper and lower extremities [5/5], [abnormal gait noted] Neurological: Speech clear, glass bulb silverer equal, no gross sensory deficit Assessment:: Degenerative disc disease lumbar spine with lumbar radiculopathy symptoms Plan:: We will schedule the patient for a lumbar epidural steroid injection at L4-L5. Patient did not get relief from her bilateral SI joint injections. We will plan to see her back in the clinic after her injections to reassess her symptoms. She is not on any anticoagulation therapy. She has been instructed to contact clinic if she has any concerns before next appointment. The patient and I specifically discussed risk factors for COVID19. These risks include, but are not limited to age greater than 60, heart or lung disease, diabetes, immunosuppression, and travel. We also discussed NSAIDs may worsen COVID19 infection or symptoms. Patient should not use NSAIDs to treat COVID19 signs or symptoms. Patient was also informed that any type of corticosteroid of any form (oral or injection) will decrease the patient's immune system response and may increase the likelihood of COVID19 [address] Beck has reviewed this note and agrees with this plan of care. This note was dictated using voice recognition software and make contain errors or omissions. [facility] History I have reviewed the patient's past medical history: Yes Medical History: Reports:: Anxiety, Depression, Gastroesophageal Reflux Disease(GERD), Hypertension, Ulcer Denies:: Cancer, Diabetes Mellitus Type 1, Diabetes Mellitus Type 2, Internal Pacemaker, MRSA, Seizures *Have you ever received a pneumonia vaccine?: Yes *Have you received a flu vaccine this season?: Yes Other Medical History: Reports: Arthritis, Hypothyroidism, Thyroid Disease. Denies: Blood Transfusion Reaction Laterality Cases: Left: Arthroscopy Knee, Bilateral: Tonsillectomy Other Surgeries: Yes: Colonoscopy, Hysterectomy-Partial, Sinus Surgery, Other. No: Pacemaker Amputation: No Fractures: Yes (ring finger,left hand) - *Social History Smoking Status: Current every day smoker Tobacco Type: cigarettes # Packs/Day (cigarettes): 1 Alcohol Intake: never Alcohol Intake Frequency:: holidays/special occasions only Substance Use Type: denies use *Occupational Status:: other [facility]: [facility] Household Members: significant other *Travel in the last 8 weeks: None - Psychiatric History
== END ==
PROVIDERS: PCP Emergency Medicine; Visit Provider Clinical Nurse Specialist Family Health
DX: M51.16 Intervertebral disc disorders with radiculopathy, lumbar region (principal)
CPT/HCPCS: 99212

== ENCOUNTER 2020-01-22 09:49 | Day surgery (SDC) | payer MEDICAID, SELFPAY ==
[2020-01-22 10:25] VITALS: BP 138/81; PULSE 78; RESP 18; TEMP 36.7; O2SAT 99; BMI 41.1
[2020-01-22 11:15] VITALS: BP 142/77; PULSE 74; RESP 18; O2SAT 99
[2020-01-22 11:16] VITALS: BP 143/79; PULSE 85; RESP 18; O2SAT 99
[2020-01-22 11:35] VITALS: BP 150/90; PULSE 68; RESP 18; O2SAT 99
--- NOTE | 2020-01-22 12:11 | HMH.PMPROC ---
- Procedure Date: 01/22/20 Time: 12:11 Anesthesiologist:: Dionte Beck MD Complications:: None Pre-procedure Diagnosis:: Degenerative disc disease of lumbar spine with lumbar radiculopathy symptoms Post-procedure Diagnosis:: Same Indications for Procedure:: This patient is a pleasant 54-year-old white female who we are treating for low back pain with lumbar radiculopathy symptoms and bilateral hip pain with sacroiliitis bilaterally. She did get bilateral SI joint injections. This did not give her much relief of her pain symptoms. She presents for lumbar epidural steroid injection under fluoroscopy today. Procedure Details:: Lumbar epidural steroid injection under fluoroscopy Informed consent was obtained and the risk and benefits of the procedure was explained to the patient. The patient was taken to the procedure room. The patient was placed prone on the procedure table. The patient was prepped and draped in sterile fashion. C-arm fluoroscopy was used to view the lumbar spine. Skin and subcutaneous tissues were anesthetized using lidocaine. I placed an 18-gauge epidural needle and advanced into the L4-L5 interspace using fluoroscopic guidance and [id number] to air. After confirmation of needle placement in the epidural space with dye I injected 2 mL of lidocaine 1.5% with Depo-Medrol 80 mg. Patient tolerated the procedure well with no complications. Plan and Disposition:: We will follow-up with her in 2 weeks. Will reevaluate symptoms at that time.
== END 2020-01-22 11:35 | disposition home or self-care (01) ==
LOC: SC.PAINP 09:50
PROVIDERS: PCP Emergency Medicine; Visit Provider Anesthesiology
DX: M51.16 Intervertebral disc disorders with radiculopathy, lumbar region (principal); I10 Essential (primary) hypertension; E03.9 Hypothyroidism, unspecified; Z72.0 Tobacco use; F41.9 Anxiety disorder, unspecified; F32.9 Major depressive disorder, single episode, unspecified; Z87.39 Personal history of other diseases of the musculoskeletal system and connective tissue; Z90.89 Acquired absence of other organs; Z79.899 Other long term (current) drug therapy
CPT/HCPCS: 62323; J1040; Q9966

== ENCOUNTER → 2020-02-18 10:42 | Outpatient (POV) | payer MEDICAID, SELFPAY ==
[2020-02-18 11:11] VITALS: BP 158/74; PULSE 85; RESP 18; TEMP 37; O2SAT 98; BMI 41.1
--- NOTE | 2020-02-18 12:14 | HMH.PAINSOAP ---
[facility] Pain Management SOAP Note Subjective:: Patient is a 55-year-old white female who presents today for follow-up. She is being treated for low back pain with lumbar radiculopathy symptoms. Patient recently had a lumbar epidural steroid injection for which she did get some relief, however, she is continued to have right low back pain with radiation into her right buttock and right hip. The pain does radiate into her right leg. Patient says that the pain is gradually worsening. She says she got about 60% relief with the epidural steroid injection. She feels her pain is now different. She rates her pain an 8 out of 10. She is currently taking diclofenac that she says is not helping her. Continue with a home stretching program and has tried physical therapy in the past with no relief. She also uses ice and heat therapies. Review of Systems General: No recent weight changes, no fever, no sleep disturbances Respiratory: No cough, no shortness of air, no recurring pulmonary infections Cardiovascular/peripheral vascular: No chest pain, no palpitations, no edema, no shortness of breath Gastrointestinal: No new onset incontinence, normal bowel movements reported Genitourinary: No new onset incontinence Musculoskeletal: Right low back pain with radiation into right buttock and right hip. Psychiatric: Normal mood/affect Neurological: [Denies weakness in extremities], [denies balance issues] Objective:: Physical exam General: Alert and oriented x3, no acute distress, pleasant and cooperative, [on room air] Lungs: Respirations even and unlabored, symmetrical chest expansion Eyes: PERRL Musculoskeletal: Flexion and extension of lumbar spine somewhat guarded secondary to pain, deep tendon reflexes normal, strength in upper and lower extremities [5/5], [abnormal gait noted], positive Orma's test, positive Renetta's test, positive distraction test Neurological: Speech clear, fig caprifier equal, no gross sensory deficit Assessment:: Right sacroiliitis Plan:: We will schedule the patient for a right SI joint injection to see if she gets relief. We will also order her Celebrex 100 mg 1 tablet p.o. daily. Patient has been encouraged to stop taking other anti-inflammatories as well as the diclofenac that was prescribed. She is in agreement. We will see if this gives her relief. Patient has been instructed to contact clinic if she has an concerns for her next ointment. The patient and I specifically discussed risk factors for COVID19. These risks include, but are not limited to age greater than 60, heart or lung disease, diabetes, immunosuppression, and travel. We also discussed NSAIDs may worsen COVID19 infection or symptoms. Patient should not use NSAIDs to treat COVID19 signs or symptoms. Patient was also informed that any type of corticosteroid of any form (oral or injection) will decrease the patient's immune system response and may increase the likelihood of COVID19 [address] Beck has reviewed this note and agrees with this plan of care. This note was dictated using voice recognition software and make contain errors or omissions. [facility] History I have reviewed the patient's past medical history: Yes Medical History: Reports:: Anxiety, Depression, Gastroesophageal Reflux Disease(GERD), Hypertension, Ulcer Denies:: Cancer, Diabetes Mellitus Type 1, Diabetes Mellitus Type 2, Internal Pacemaker, MRSA, Seizures *Have you ever received a pneumonia vaccine?: Yes *Have you received a flu vaccine this season?: Yes Other Medical History: Reports: Arthritis, Hypothyroidism, Sinus Problems, Thyroid Disease. Denies: Blood Transfusion Reaction Laterality Cases: Left: Arthroscopy Knee, Bilateral: Tonsillectomy Other Surgeries: Yes: Colonoscopy, Hysterectomy-Partial, Sinus Surgery, Other. No: Pacemaker Amputation: No Fractures: Yes (ring finger,left hand) - *Social History Smoking Status: Current every day smoker Tobacco Type: c
== END ==
PROVIDERS: PCP Emergency Medicine; Visit Provider Clinical Nurse Specialist Family Health
DX: M46.1 Sacroiliitis, not elsewhere classified (principal)
CPT/HCPCS: 99212

== ENCOUNTER 2020-03-04 11:37 | Day surgery (SDC) | payer MEDICAID, SELFPAY ==
[2020-03-04 12:00] VITALS: BP 155/73; PULSE 80; TEMP 36.7; O2SAT 99; BMI 41.1
[2020-03-04 12:16] VITALS: BP 133/88; PULSE 85; RESP 18; O2SAT 98
[2020-03-04 12:17] VITALS: BP 136/89; PULSE 85; RESP 18
[2020-03-04 12:25] VITALS: BP 154/80; PULSE 82; RESP 18; O2SAT 99
--- NOTE | 2020-03-04 12:35 | HMH.PMPROC ---
- Procedure Date: 03/04/20 Time: 12:36 Anesthesiologist:: Dionte Beck MD Complications:: None Pre-procedure Diagnosis:: Sacroiliitis Post-procedure Diagnosis:: Same Indications for Procedure:: This patient is a pleasant 55-year-old white female who we have been treating for low back pain and right-sided hip pain. She did very well after her last lumbar epidural steroid injection with about 60 to 70% relief in her pain symptoms. She still has some residual pain over her right hip. She is tender over her right SI joint. She has a positive Renetta's test on right side. She has positive SI joint compression test on right side. We will do a right SI joint injection under fluoroscopy today to help her with her pain symptoms. Procedure Details:: Right SI joint injection under fluoroscopy Informed consent was obtained and the risks and benefits of the procedure was going to the patient. Patient was taken to the procedure room. Patient was placed prone on the procedure table. The right hip was prepped using ChloraPrep. The skin and subcutaneous tissues were anesthetized using lidocaine. I placed a 22-gauge spinal needle into the inferior aspect of the right SI joint. Needle placement was confirmed with dye. After this we injected 5 mL bupivacaine 0.25% and Depo-Medrol 40 mg into the right SI joint. The patient tolerated the procedure well with no complication. Plan and Disposition:: We will follow-up with her in 2 weeks. Will reevaluate symptoms at that time.
== END 2020-03-04 12:25 | disposition home or self-care (01) ==
LOC: SC.PAINP 11:37
PROVIDERS: PCP Emergency Medicine; Visit Provider Anesthesiology
DX: M46.1 Sacroiliitis, not elsewhere classified (principal); I10 Essential (primary) hypertension; F32.9 Major depressive disorder, single episode, unspecified; E03.9 Hypothyroidism, unspecified; F41.9 Anxiety disorder, unspecified; Z87.39 Personal history of other diseases of the musculoskeletal system and connective tissue; Z90.89 Acquired absence of other organs
CPT/HCPCS: 27096; G0260; J1040; Q9966

== ENCOUNTER → 2020-03-31 12:53 | Outpatient (POV) | payer MEDICAID, SELFPAY ==
[2020-03-31 13:28] VITALS: BP 125/93; PULSE 77; RESP 18; TEMP 36.6; O2SAT 98; BMI 42.9
--- NOTE | 2020-04-03 14:03 | HMH.PAINSOAP ---
[facility] Pain Management SOAP Note Subjective:: Patient is a pleasant 55-year-old white female who we are treating for low back pain and right-sided hip pain. Patient is following up after right SI joint injection. Patient got significant relief with her injection. Patient overall doing well. She would like to repeat this injection in several weeks when her pain begins to slowly return. She does write her pain a 6 out of 10. She got 80% relief of her symptomology after her injection. Patient does have a positive SI joint compression test Renetta's test Elda test and distraction test on the right side.\ ROS General: no recent weight change, no fever, no sleep disturbances Respiratory: no cough, no shortness of air, no recurring pulmonary infections Cardiovascular/Peripheral Vascular: No chest pain, No palpitations, no edema, no shortness of breath. Gastrointestinal: no new onset incontinence, normal bowel movements reported Genitourinary: no new onset incontinence Musculoskeletal: Right SI joint pain Psychiatric: normal mood/ affect Neurological: [denies new onset weakness in extremities], [denies new onset balance issues] Objective:: physical Exam General: Alert and oriented x3, no acute distress, pleasant and cooperative, [on room air] Lungs: Resps E/U, Symmetrical chest expansion, Eyes: PERRL Musculoskeletal: Flexion and extension of lumbar spine somewhat guarded secondary to pain, deep tendon reflexes normal, strength in upper and lower extremities [5/5], slightly antalgic gait noted Neurological: 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 I will follow-up with her after this reassess her symptoms at that time she has been instructed to call the office if she has any issues prior to her next appointment. Dr. Beck has reviewed this note and agrees with this plan of care. This note was dictated using voice recognition software and may contain errors or omissions [facility] History I have reviewed the patient's past medical history: Yes Medical History: Reports:: Anxiety, Depression, Gastroesophageal Reflux Disease(GERD), Hypertension, Ulcer Denies:: Cancer, Diabetes Mellitus Type 1, Diabetes Mellitus Type 2, Internal Pacemaker, MRSA, Seizures *Have you ever received a pneumonia vaccine?: Yes *Have you received a flu vaccine this season?: Yes Other Medical History: Reports: Arthritis, Hypothyroidism, Sinus Problems, Thyroid Disease. Denies: Blood Transfusion Reaction Laterality Cases: Left: Arthroscopy Knee, Bilateral: Tonsillectomy Other Surgeries: Yes: Colonoscopy, Hysterectomy-Partial, Sinus Surgery, Other. No: Pacemaker Amputation: No Fractures: Yes (ring finger,left hand) - *Social History Smoking Status: Current every day smoker Tobacco Type: cigarettes # Packs/Day (cigarettes): 1 Alcohol Intake: never Alcohol Intake Frequency:: holidays/special occasions only Substance Use Type: denies use *Occupational Status:: other Housing: house Household Members: significant other *Travel in the last 8 weeks: None - Psychiatric History Pschychiatric History:: Reports:: Anxiety, Depression Family Hx:: Hypertension, Thyroid Disorder
== END ==
PROVIDERS: PCP Emergency Medicine; Visit Provider Clinical Nurse Specialist Family Health
DX: M46.1 Sacroiliitis, not elsewhere classified (principal)
CPT/HCPCS: 99212

== ENCOUNTER 2020-04-11 14:54 | Day surgery (SDC) | payer MEDICAID, SELFPAY ==
[2020-04-11 15:00] VITALS: BP 136/62; PULSE 82; RESP 18; TEMP 36.4; O2SAT 99; BMI 41.1
--- NOTE | 2020-04-11 15:22 | HMH.PMPROC ---
- Procedure Date: 04/11/20 Time: 15:30 Anesthesiologist:: Shanita Liang APRN Complications:: None Pre-procedure Diagnosis:: sacroiliitis Post-procedure Diagnosis:: same Indications for Procedure:: Patient is a pleasant 55-year-old white female who presents today for right SI joint injection. Patient got significant relief with her last right SI joint injection, her pain is beginning to come back. We will repeat a SI joint injection today. Procedure Details:: Informed consent was obtained and the risks and benefits of the procedure were explained to the patient. Patient was taken to the procedure room. Patient was placed prone on the procedure table. The [right] hip was prepped using ChloraPrep as a cleansing solution. The skin and subcutaneous tissues were anesthetized using lidocaine. Using fluoroscopic guidance I placed a 22-gauge spinal needle into the inferior aspect of the [right] SI joint. After this I injected 5 mL bupivacaine 0.25% and Depo-Medrol 40 mg into the [right] SI joint. The patient tolerated the procedure well with no complication. Plan and Disposition:: we will see the patient back in several weeks and reasses her at that time. she has been instructed to call the office if she has any issues prior to this. Dr. Beck has reviewed this note and agrees with this plan of care. This note was dictated using voice recognition software and may contain errors or omissions
[2020-04-11 15:27] VITALS: BP 138/85; PULSE 85; RESP 18
[2020-04-11 15:28] VITALS: BP 140/78; PULSE 85; RESP 18; O2SAT 98
[2020-04-11 15:40] VITALS: BP 121/54; PULSE 77; RESP 18; O2SAT 99
== END 2020-04-11 15:35 | disposition home or self-care (01) ==
LOC: SC.PAINP 14:55
PROVIDERS: PCP Emergency Medicine; Visit Provider Clinical Nurse Specialist Family Health
DX: M46.1 Sacroiliitis, not elsewhere classified (principal); Z72.0 Tobacco use; I10 Essential (primary) hypertension; K21.9 Gastro-esophageal reflux disease without esophagitis; E07.9 Disorder of thyroid, unspecified
CPT/HCPCS: 27096; G0260; J1040; Q9966

== ENCOUNTER → 2020-07-07 14:37 | Outpatient (POV) | payer MEDICAID, SELFPAY ==
[2020-07-07 14:49] VITALS: BP 135/88; PULSE 88; RESP 18; O2SAT 98; BMI 42.9
--- NOTE | 2020-07-07 15:12 | HMH.PAINSOAP ---
[facility] Pain Management SOAP Note Subjective:: Pleasant 55-year-old white female who presents today for follow-up. At her last visit she had a SI joint injection back in March 2020. Patient got good relief her pain is starting to come back at this time. She has had over 3 months relief up to 80%. Patient would like to repeat this injection given the efficacy of it. Patient has a positive Elda test Renetta's test SI joint compression test and distraction test on the right side. Patient also is continuing her Celebrex. Patient is having muscle spasms in her neck along with pain rating it a 5 out of 10. We will start her on some Flexeril to see if this is beneficial if it is not we will move forward with an MRI in the future. ROS General: no recent weight change, no fever, no sleep disturbances Respiratory: no cough, no shortness of air, no recurring pulmonary infections Cardiovascular/Peripheral Vascular: No chest pain, No palpitations, no edema, no shortness of breath. Gastrointestinal: no new onset incontinence, normal bowel movements reported Genitourinary: no new onset incontinence Musculoskeletal: Neck pain, muscle pain, SI joint pain Psychiatric: normal mood/ affect Neurological: [denies new onset weakness in extremities], [denies new onset balance issues] Objective:: Physical Exam General: Alert and oriented x3, no acute distress, pleasant and cooperative, [on room air] Lungs: Resps E/U, Symmetrical chest expansion, Eyes: PERRL Musculoskeletal: Flexion and extension of cervical and lumbar spine somewhat guarded secondary to pain, deep tendon reflexes normal, strength in upper and lower extremities [5/5], slightly antalgic gait noted Neurological: speech clear, life sciences manager equal, no gross sensory deficits Assessment:: SI joint pain, sacroiliitis, neck pain, myofascial pain Plan:: We will continue her Celebrex and add Flexeril 10 mg 1 p.o. twice daily. We will set her up for right SI joint injection. I will follow-up with her after this reassess her symptoms at that time if she is continuing to have neck pain at that time we will move forward with a neck MRI. Patient's been instructed to call the office if she has any issues prior to her next appointment. Dr. Beck has reviewed this note and agrees with this plan of care. This note was dictated using voice recognition software and may contain errors or omissions [facility] History I have reviewed the patient's past medical history: Yes Medical History: Reports:: Anxiety, Depression, Gastroesophageal Reflux Disease(GERD), Hypertension, Ulcer Denies:: Cancer, Diabetes Mellitus Type 1, Diabetes Mellitus Type 2, Internal Pacemaker, MRSA, Seizures *Have you ever received a pneumonia vaccine?: Yes *Have you received a flu vaccine this season?: Yes Other Medical History: Reports: Arthritis, Hypothyroidism, Sinus Problems, Thyroid Disease. Denies: Blood Transfusion Reaction Laterality Cases: Left: Arthroscopy Knee, Bilateral: Tonsillectomy Other Surgeries: Yes: Colonoscopy, Hysterectomy-Partial, Sinus Surgery, Other (deviated septum repair). No: Pacemaker Amputation: No Fractures: Yes (ring finger,left hand) - *Social History Smoking Status: Current every day smoker Tobacco Type: cigarettes # Packs/Day (cigarettes): 1 Alcohol Intake: never Alcohol Intake Frequency:: holidays/special occasions only Substance Use Type: denies use *Occupational Status:: employed Housing: house Household Members: significant other *Travel in the last 8 weeks: None - Psychiatric History Pschychiatric History:: Reports:: Anxiety, Depression Family Hx:: Hypertension, Thyroid Disorder
[2020-07-07 16:16] LABS: Free T4 (Free Thyroxine) 0.91 ng/dl (0.78-2.19)
[2020-07-07 16:30] LABS: Thyroid Stimulating Hormone 2.38 uIU/mL (0.465-4.68)
== END ==
PROVIDERS: Otolaryngology; PCP Emergency Medicine; Visit Provider Clinical Nurse Specialist Family Health
DX: M46.1 Sacroiliitis, not elsewhere classified (principal); M79.18 Myalgia, other site; E03.9 Hypothyroidism, unspecified; I10 Essential (primary) hypertension
CPT/HCPCS: 36415; 84439; 84443; 84445; 86376; 99212; G0463

== ENCOUNTER 2020-07-15 11:02 | Day surgery (SDC) | payer MEDICAID, SELFPAY ==
[2020-07-15 11:15] VITALS: BP 128/67; PULSE 80; RESP 18; TEMP 37.2; O2SAT 96
[2020-07-15 11:54] VITALS: BP 135/85; PULSE 85; RESP 18; O2SAT 98
[2020-07-15 11:57] VITALS: BP 140/78; PULSE 89; RESP 18; O2SAT 98
--- NOTE | 2020-07-15 12:00 | HMH.PMPROC ---
- Procedure Date: 07/15/20 Time: 12:00 Anesthesiologist:: Dionte Beck MD Complications:: None Pre-procedure Diagnosis:: Sacroiliitis Post-procedure Diagnosis:: Same Indications for Procedure:: Patient is a pleasant 55-year-old white female who we are treating for sacroiliitis. She is tender over her right SI joint. She has had SI joint injections in the past with up to 80% relief in her pain symptoms for several months. Her pain returned in her right SI joint. She has a positive Renetta's test on the right side. She is positive Elda test on the right side. She is positive SI joint compression test on the right side. She is positive distraction test on the right side. We will do a right SI joint injection under fluoroscopy today to help her with her pain symptoms. Procedure Details:: Right SI joint injection under fluoroscopy Informed consent was obtained and the risks and benefits of the procedure was going to the patient. Patient was taken to the procedure room. Patient was placed prone on the procedure table. The right hip was prepped using ChloraPrep. The skin and subcutaneous tissues were anesthetized using lidocaine. I placed a 22-gauge spinal needle into the inferior aspect of the right SI joint. Needle placement was confirmed with dye. After this we injected 5 mL bupivacaine 0.25% and Depo-Medrol 40 mg into the right SI joint. The patient tolerated the procedure well with no complication. Plan and Disposition:: We will follow-up with her in 2 weeks. Will reevaluate symptoms at that time.
[2020-07-15 12:09] VITALS: BP 144/73; PULSE 70; RESP 20; O2SAT 96
== END 2020-07-15 12:10 | disposition home or self-care (01) ==
LOC: SC.PAINP 11:05
PROVIDERS: PCP Emergency Medicine; Visit Provider Anesthesiology
DX: M46.1 Sacroiliitis, not elsewhere classified (principal); K21.9 Gastro-esophageal reflux disease without esophagitis; E03.9 Hypothyroidism, unspecified; I10 Essential (primary) hypertension; F41.9 Anxiety disorder, unspecified; F32.9 Major depressive disorder, single episode, unspecified; Z72.0 Tobacco use; Z79.899 Other long term (current) drug therapy
CPT/HCPCS: 27096; G0260; J1040; Q9966

== ENCOUNTER → 2020-08-04 13:40 | Outpatient (POV) | payer MEDICAID, SELFPAY ==
[2020-08-04 13:56] VITALS: BP 132/71; PULSE 77; RESP 18; O2SAT 98; BMI 42.0
--- NOTE | 2020-08-04 14:10 | HMH.PAINSOAP ---
[facility] Pain Management SOAP Note Subjective:: 55-year-old white female presents today for follow-up after right SI joint injection. Patient is doing much better rating her symptoms 80% improved. She is having some cervical neck pain and trapezius pain myofascial in nature. She has palpable trigger points in this area we discussed trigger point injection she is interested in moving forward with this. ROS General: no recent weight change, no fever, no sleep disturbances Respiratory: no cough, no shortness of air, no recurring pulmonary infections Cardiovascular/Peripheral Vascular: No chest pain, No palpitations, no edema, no shortness of breath. Gastrointestinal: no new onset incontinence, normal bowel movements reported Genitourinary: no new onset incontinence Musculoskeletal: Neck pain, myofascial pain Psychiatric: normal mood/ affect Neurological: [denies new onset weakness in extremities], [denies new onset balance issues] Objective:: Physical Exam General: Alert and oriented x3, no acute distress, pleasant and cooperative, [on room air] Lungs: Resps E/U, Symmetrical chest expansion Eyes: PERRL Musculoskeletal: Flexion and extension of cervical spine somewhat guarded secondary to pain, deep tendon reflexes normal, strength in upper and lower extremities [5/5], antalgic gait noted Neurological: speech clear, data specialist equal, no gross sensory deficits Assessment:: Sacroiliitis, myofascial pain syndrome Plan:: We will schedule her for bilateral cervical paraspinous and trapezius muscle trigger points I will follow-up with her after this reassess her symptoms at that time she has been instructed to call the office if she has any issues prior to her next appointment. Dr. Beck has reviewed this note and agrees with this plan of care. This note was dictated using voice recognition software and may contain errors or omissions [facility] History I have reviewed the patient's past medical history: Yes Medical History: Reports:: Anxiety, Depression, Gastroesophageal Reflux Disease(GERD), Hypertension, Ulcer Denies:: Cancer, Diabetes Mellitus Type 1, Diabetes Mellitus Type 2, Internal Pacemaker, MRSA, Seizures *Have you ever received a pneumonia vaccine?: Yes *Have you received a flu vaccine this season?: Yes Other Medical History: Reports: Arthritis, Hypothyroidism, Sinus Problems, Thyroid Disease. Denies: Blood Transfusion Reaction Laterality Cases: Left: Arthroscopy Knee, Bilateral: Tonsillectomy Other Surgeries: Yes: Colonoscopy, Hysterectomy-Partial, Sinus Surgery, Other (deviated septum repair). No: Pacemaker Amputation: No Fractures: Yes (ring finger,left hand) - *Social History Smoking Status: Current every day smoker Tobacco Type: cigarettes # Packs/Day (cigarettes): 1 Alcohol Intake: never Alcohol Intake Frequency:: holidays/special occasions only Substance Use Type: denies use *Occupational Status:: employed Housing: house Household Members: significant other *Travel in the last 8 weeks: None - Psychiatric History Pschychiatric History:: Reports:: Anxiety, Depression Family Hx:: Hypertension, Thyroid Disorder
== END ==
PROVIDERS: PCP Emergency Medicine; Visit Provider Clinical Nurse Specialist Family Health
DX: M46.1 Sacroiliitis, not elsewhere classified (principal); M79.18 Myalgia, other site
CPT/HCPCS: 99212; G0463

== ENCOUNTER 2020-08-15 14:54 | Day surgery (SDC) | payer MEDICAID, SELFPAY ==
[2020-08-15 15:01] VITALS: BP 132/75; PULSE 80; RESP 18; TEMP 36.4; O2SAT 97; BMI 41.1
[2020-08-15 15:20] VITALS: BP 132/88; PULSE 85; RESP 18; O2SAT 98
[2020-08-15 15:21] VITALS: BP 135/85; PULSE 85; RESP 18; O2SAT 98
--- NOTE | 2020-08-15 15:25 | P.PCN_ITS ---
- Procedure Date: 08/15/20 Time: 15:25 Anesthesiologist:: Shanita Liang APRN Complications:: None Pre-procedure Diagnosis:: Myofascial pain syndrome Post-procedure Diagnosis:: Same Indications for Procedure:: Patient is a pleasant 55-year-old white female who presents today for trigger point injections of her upper trapezius muscles and cervical paraspinous. Patient has palpable trigger points in these areas she rates her pain today 6 out of 10. We will move forward with trigger point injections. Procedure Details:: Procedure: Informed consent was obtained and the risk and benefits of the procedure were explained to the patient. Patient was taken to the procedure room. Bilateral cervical paraspinous and trapezius was prepped using ChloraPrep as a cleansing solution. Trigger points were palpated and marked. Each of these trigger points were injected with 3 mL's of bupivacaine 0.25 and Depo- Medrol 10 mg. A total of 80 milligrams of Depo-Medrol was used for 8 trigger points in the cervical paraspinous and bilateral trapezius muscles. Bandages were placed over the injection sites. Patient tolerated the procedure well with no complications. Plan and Disposition:: We will follow up with the patient in several weeks reassess her symptoms at that time she has been instructed to call the office if she has any issues prior to her next appointment. Dr. Beck has reviewed this note and agrees with this plan of care. This note was dictated using voice recognition software and may contain errors or omissions
[2020-08-15 15:28] VITALS: BP 147/80; PULSE 78; RESP 20; O2SAT 97
== END 2020-08-15 15:29 | disposition home or self-care (01) ==
LOC: SC.PAINP 14:55
PROVIDERS: PCP Emergency Medicine; Visit Provider Clinical Nurse Specialist Family Health
DX: M79.18 Myalgia, other site (principal); E78.5 Hyperlipidemia, unspecified; I10 Essential (primary) hypertension; K21.9 Gastro-esophageal reflux disease without esophagitis; Z87.19 Personal history of other diseases of the digestive system; M19.90 Unspecified osteoarthritis, unspecified site; G25.81 Restless legs syndrome; E03.9 Hypothyroidism, unspecified; Z79.899 Other long term (current) drug therapy
CPT/HCPCS: 20553; J1030

== ENCOUNTER → 2020-09-15 15:24 | Outpatient (CLI) | payer MEDICAID, SELFPAY ==
--- NOTE | 2020-09-15 15:26 | XR_ITS ---
PROCEDURE: XR FOOT WT BEARING RT 3V CLINICAL INDICATION: pain COMPARISON: DX XR FOOT LT MIN 3V from 01/30/2019 FINDINGS: No fracture or dislocation. No lytic or blastic change. There is normal mineralization. There is a small spur along the dorsal and distal aspect of the 1st metatarsal. Lucency is present along the proximal and anterior aspect of the navicular suggesting an ununited ossification center. There is a small calcaneal spur. IMPRESSION: Degenerative spurring of the distal 1st metatarsal Dictated by: Luis Keita MD 09/15/2020 17:38 Luis Keita MD in [place] 09/15/2020 17:38
--- NOTE | 2020-09-15 15:26 | XR_ITS ---
PROCEDURE: XR FOOT WT BEARING LT 3V CLINICAL INDICATION: pain COMPARISON: DX XR FOOT LT MIN 3V from 01/30/2019 CR XR FOOT WT BEARING RT 3V from 09/15/2020 FINDINGS: No fracture or dislocation. No lytic or blastic change. There is normal mineralization. Osteoarthritic change at the talonavicular joint with borderline pes planus. Small calcaneal spur. IMPRESSION: Mild degenerative changes with mild pes planus Dictated by: Luis Keita MD 09/15/2020 17:39 Luis Keita MD in [place] 09/15/2020 17:39
== END ==
PROVIDERS: PCP Emergency Medicine; Visit Provider Nurse Practitioner
DX: M79.671 Pain in right foot (principal); M79.672 Pain in left foot
CPT/HCPCS: 73630

== ENCOUNTER → 2020-10-04 17:10 | Outpatient (CLI) | payer MEDICAID, SELFPAY ==
[2020-10-04 17:39] LABS: Basophils # 0.1 K/mm3 (0-0.2); Basophils % 0.6 % (0.1-2.0); Eosinophils # 0.2 K/mm3 (0.0-0.4); Hematocrit 46.3 % (37.0-47.0); Hemoglobin 15.2 g/dL (12.2-16.2); Lymphocytes # 2.1 K/mm3 (0.7-4.5); Lymphocytes % 17.9 % (10-50); Mean Corpuscular HGB Conc 32.8 g/dL (31.8-35.4); Mean Corpuscular Hemoglobin 31.6 pg (27.0-31.2); Mean Corpuscular Volume 96.4 fl (81-99); Mean Platelet Volume 9.2 fl (7.4-10.4); Monocytes # 0.6 K/mm3 (0.1-1.0); Monocytes % 5.2 % (1.7-9.3); Neutrophils # 8.6 K/mm3 (1.8-7.8); Neutrophils % 74.4 % (37.0-80.0); Platelet Count 263 K/mm3 (142-424); Red Blood Count 4.81 M/mm3 (4.20-5.40); Red Cell Distribution Width 13.5 % (11.5-17.5); White Blood Count 11.6 K/mm3 (4.8-10.8)
[2020-10-04 17:55] LABS: Alanine Aminotransferase 33 U/L (12-78); Albumin Level 4.5 g/dl (3.5-5.0); Albumin/Globulin Ratio 1.7 (1.1-1.8); Alkaline Phosphatase 112 U/L (38-126); Anion Gap 12.5 mEq/L (5-15); Aspartate Amino Transferase 23 U/L (14-36); Bilirubin,Total 0.6 mg/dl (0.2-1.3); Blood Urea Nitrogen 15 mg/dl (7-17); Calcium 9.6 mg/dl (8.4-10.2); Carbon Dioxide 27 mmol/L (22.0-30.0); Chloride 103 mmol/L (98-107); Cholesterol 192 mg/dl (140-200); Estimated Glomerular Filt Rate 88 ml/min (>60); GFR (African American) 106 ML/MIN (>60); Globulin 2.7 g/dL (1.3-3.2); Glucose 94 mg/dl (74-100); HDL Cholesterol 65 mg/dl (40-60); Potassium 4.5 mmoL/L (3.5-5.1); Sodium 138 mmol/L (136-145); Total Protein,Serum 7.2 g/dl (6.3-8.2); Triglycerides 115 mg/dl (30-150); VLDL Cholesterol 23 mg/dL (0-40)
[2020-10-04 18:04] LABS: Erythrocyte Sedimentation Rate 13 mm/hr (0-30)
[2020-10-04 18:06] LABS: Direct LDL Cholesterol 96.97 mg/dL (100-129)
[2020-10-04 18:11] LABS: Free T4 (Free Thyroxine) 1.31 ng/dl (0.78-2.19)
[2020-10-04 18:27] LABS: Thyroid Stimulating Hormone 3.69 uIU/mL (0.465-4.68)
== END ==
PROVIDERS: Visit Provider Emergency Medicine
DX: I10 Essential (primary) hypertension (principal); E03.9 Hypothyroidism, unspecified; G25.81 Restless legs syndrome; E55.9 Vitamin D deficiency, unspecified
CPT/HCPCS: 80053; 80061; 82306; 84439; 84443; 85025; 85651

== ENCOUNTER → 2020-10-05 12:57 | Outpatient (CLI) | payer MEDICAID, SELFPAY ==
--- NOTE | 2020-10-05 13:01 | XR_ITS ---
PROCEDURE: XR KNEE LT 4V CLINICAL INDICATION: left knee pain, sp left knee scope 09/24/2019 COMPARISON: DX XR KNEE LT 4V from 06/16/2019 CR XR KNEE LT 4V from 12/09/2019 FINDINGS: No fracture or dislocation. No lytic or blastic change. There is normal mineralization. Mild osteoarthritic changes are present involving the medial compartment and patellofemoral joint. Small loose body is suspected posteriorly medially. There may be a small suprapatellar effusion.. Other findings:None. IMPRESSION: Mild osteoarthritis with suspected small loose body and small suprapatellar effusion Dictated by: Luis Keita MD 10/05/2020 13:32 Luis Keita MD in [place] 10/05/2020 13:32
== END ==
PROVIDERS: PCP Emergency Medicine; Visit Provider Orthopaedic Surgery
DX: M25.562 Pain in left knee (principal)
CPT/HCPCS: 73564

== ENCOUNTER → 2021-03-10 10:39 | Outpatient (CLI) | payer MEDICAID, SELFPAY ==
--- NOTE | 2021-03-10 10:42 | XR_ITS ---
PROCEDURE: XR FOOT WT BEARING RT 3V CLINICAL INDICATION: pain COMPARISON: DX XR FOOT LT MIN 3V from 01/30/2019 CR XR FOOT WT BEARING RT 3V from 09/15/2020 CR XR FOOT WT BEARING LT 3V from 09/15/2020 FINDINGS: Mild osteoarthritic changes are present at the 1st MTP joint. Mild bony hypertrophy along the anterior aspect of the navicular and along the anterior distal 1st metatarsal. There is a small calcaneal spur. Borderline pes planus. No fracture or dislocation. No lytic or blastic change IMPRESSION: Degenerative changes with borderline pes planus as described above Dictated by: Luis Keita MD 03/10/2021 11:13 Luis Keita MD in [place] 03/10/2021 11:13
--- NOTE | 2021-03-10 10:42 | XR_ITS ---
PROCEDURE: XR FOOT WT BEARING LT 3V CLINICAL INDICATION: pain COMPARISON: DX XR FOOT LT MIN 3V from 01/30/2019 CR XR FOOT WT BEARING RT 3V from 09/15/2020 CR XR FOOT WT BEARING LT 3V from 09/15/2020 FINDINGS: No fracture or dislocation. No lytic or blastic change. There is normal mineralization. There is pes planus. Osteoarthritic changes are present at the talonavicular and navicular cuneiform joint with bony hypertrophy of the anterior aspect of the cuneiform. There is a small calcaneal spur and a small spur along the anterior distal tibia. Other findings:None. IMPRESSION: Pes planus with degenerative changes. Dictated by: Luis Keita MD 03/10/2021 11:11 Luis Keita MD in [place] 03/10/2021 11:11
== END ==
PROVIDERS: PCP Emergency Medicine; Visit Provider Nurse Practitioner
DX: M79.672 Pain in left foot (principal); M79.671 Pain in right foot
CPT/HCPCS: 73630

== ENCOUNTER 2021-06-08 14:35 | Emergency (ER) | payer MEDICAID, SELFPAY ==
--- NOTE | 2021-06-08 16:54 | ED_ITS ---
[facility] [place]position Referrals: Mark Cid MD [Primary Care Provider] - [facility] [place] HPI - General Stated complaint: sinus pressure, cough Time Seen by Provider: 06/08/21 16:54 - Related Data Home Medications Medication Instructions Recorded Confirmed Fluticasone Propionate 1 spray INTRANASAL QDAY 07/24/19 04/24/21 Tizanidine HCl [Zanaflex 4mg 4 mg PO BID 12/14/19 04/24/21 tab] methocarbamol 750 mg tablet 750 mg PO tab 10/31/20 04/24/21 cetirizine 10 mg tablet 10 mg PO tab 01/09/21 04/24/21 azelastine 137 mcg (0.1 %) nasal 1 spray INTRANASAL ml 04/24/21 04/24/21 spray aerosol epinephrine 0.3 mg/0.3 mL 0.3 ml IM each 04/24/21 04/24/21 injection, auto-injector levocetirizine 5 mg tablet 5 mg PO tab 04/24/21 04/24/21 nicotine 14 mg/24 hr daily patch TRANSDERMA 04/24/21 04/24/21 transdermal patch Previous Rx's Medication Instructions Recorded cholecalciferol (vitamin D3) 25 25 mcg PO DAILY #90 tab 10/10/20 mcg (1,000 unit) chewable tablet ergocalciferol (vitamin D2) 1,250 1,250 mcg PO WEEKLY #15 cap 10/10/20 mcg (50,000 unit) capsule fexofenadine 180 mg tablet 180 mg PO DAILY #90 tab 10/31/20 bupropion HCl 150 mg 24 hr tablet, 150 mg PO DAILY #90 tab 12/21/20 extended release clonazepam 0.5 mg tablet 0.5 mg PO BID #60 tab 01/03/21 diclofenac sodium 1 % topical gel 4 g TOPICAL QID PRN 30 Days #100 g 01/09/21 meloxicam 7.5 mg tablet 7.5 mg PO DAILY #30 tab 01/09/21 hydrochlorothiazide 12.5 mg tablet 12.5 mg PO QAM #30 tab 01/13/21 levothyroxine 100 mcg tablet 100 mcg PO DAILY #90 tab 01/13/21 losartan 50 mg tablet See Rx Instructions .ROUTE 04/18/21 .COMPLEX #90 tab Allergies Allergy/AdvReac Type Severity Reaction Status Date / Time No Known Allergies Allergy Verified 04/24/21 09:45 [facility] History - Hepatitis A Screen Attestation statement:: This patient has been screened for Hepatitis A risk factors. Medical History: Reports:: Anxiety, Depression, Gastroesophageal Reflux Disease(GERD), Hyperlipidemia, Hypertension, Ulcer Denies:: Cancer, Diabetes Mellitus Type 1, Diabetes Mellitus Type 2, Internal Pacemaker, MRSA, Seizures Other Medical History: Reports: Arthritis, Hypothyroidism, Sinus Problems, Thyroid Disease. Denies: Blood Transfusion Reaction Comment: morbid obesity, KARLI complaint use of CPAP Laterality Cases: Left: Arthroscopy Knee, Bilateral: Tonsillectomy Other Surgeries: Yes: Colonoscopy, Hysterectomy-Partial, Sinus Surgery, Other (LSO). No: Pacemaker Amputation: No Fractures: Yes (ring finger,left hand) Comment: nasal Septoplasty - Social History Smoking Status: Current every day smoker Tobacco Type: cigarettes # Packs/Day (cigarettes): 1 Alcohol Intake: never Alcohol Intake Frequency:: other Substance Use Type: denies use Occupational Status: other Housing: house Household Members: spouse - Psychiatric History Pschychiatric History:: Reports:: Anxiety, Depression Family Hx:: Hypertension, Thyroid Disorder
[2021-06-08 17:16] VITALS: BP 0/0; PULSE 0; RESP 0; TEMP -17.7; TEMP 0
== END 2021-06-08 17:16 | disposition left against medical advice (07) ==
LOC: UTC 14:56
PROVIDERS: Emergency Provider Nurse Practitioner Family; PCP Emergency Medicine
DX: Z53.21 Procedure and treatment not carried out due to patient leaving prior to being seen by health care provider (principal)

== ENCOUNTER → 2021-06-09 17:45 | Outpatient (CLI) | payer MEDICAID, SELFPAY | PROVIDERS: Visit Provider Nurse Practitioner Family | DX: Z20.822 Contact with and (suspected) exposure to COVID-19 (principal); R05.9 Cough, unspecified | CPT/HCPCS: C9803; U0003; U0005 ==

== ENCOUNTER → 2021-07-21 08:15 | Outpatient (CLI) | payer MEDICAID, SELFPAY ==
--- NOTE | 2021-07-21 08:16 | MM_ITS ---
PROCEDURE INFORMATION: Exam: MG Bilateral Screening 3D Mammography Exam date and time: 07/21/2021 8:16 AM Age: 56 years old Clinical indication: Encounter for screening mammogram for malignant neoplasm of breast TECHNIQUE: Imaging protocol: Bilateral Screening tomosynthesis and 2D mammography including computer-aided detection (CAD) when performed. COMPARISON: No relevant prior studies available. FINDINGS: MAMMOGRAPHY: Breast composition: The breasts are almost entirely fatty. Mass: None. Architectural distortion: None. Calcifications: No suspicious calcifications. Asymmetric density: None. Skin thickening: None. Axillary adenopathy: None. IMPRESSION: No mammographic evidence of malignancy. Annual screening is recommended unless otherwise clinically indicated. ASSESSMENT: BI-RADS Category 1: Negative
== END ==
PROVIDERS: PCP Emergency Medicine; Visit Provider Emergency Medicine
DX: Z12.31 Encounter for screening mammogram for malignant neoplasm of breast (principal)
CPT/HCPCS: 77063; 77067

== ENCOUNTER → 2021-08-28 10:59 | Outpatient (POV) | payer MEDICAID, SELFPAY ==
[2021-08-28 11:32] VITALS: BP 148/70; PULSE 78; RESP 18; TEMP 36.3; O2SAT 99; BMI 42.4
--- NOTE | 2021-08-28 12:38 | HMH.PMCON ---
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 She cannot tolerate any prolonged activitie such as sitting, walking, and standing. She has tried physical therapy in the past with minimal relief and worsening of symptoms. Right SI is positive for TJ, [place]'s, [place]'s, [place]'s, compression, and distraction. We will schedule the patient for a right SI injection. Risks and benefits of the procedure have been explained to the patient. Patient would like to proceed with the procedure. Regarding her left knee, I discussed with the patient that we can do left genicular nerve blocks and then genicular nerve ablation when the intra-articular injections are only providing minimal relief. Follow-up after the injection. Patient has been instructed to contact the clinic with any concerns before the next appointment. Dr. Beck has reviewed this note and agrees with this plan of care. This note was dictated using voice recognition software and make contain errors or omissions. HPI - Data of Consult Patient: new to practice Consult date: 08/28/21 Requesting Physician: DEYA Wise - Consult Narrative Reason for consult: Hip pain, knee pain History of present illness: Ms. Moody is a 56 year old female who [facility] Patient is referred by Dr. Cid. Thank you for the referral. Patient presents today with worsening right hip/SI pain. We have treated this patient before with lumbar epidural steroid injection that provided significant relief. Today, patient states that she has been trouble with getting up from sitting position and with her daily activities. She cannot tolerate any prolonged activity such as sitting, standing, and walking. She states that she has radiating pain from her right upper buttock that radiates to her right posterior thigh and does not cross her knee. Denies any recent falls or traumas. Denies any loss of bowel and bladder functions. Rates pain today 7 out of 10. She is taking meloxicam for pain. Patient is also complaining of left knee pain. She is following up with Dr. Hartmann for this. She has previously had a left knee replacement. At times, she feels like her knees are getting give out on her. She is not on any scheduled medications. She does get intra-articular injections from time to time. CC: DEYA Wise [facility] History I have reviewed the patient's past medical history: Yes Medical History: Reports:: Anxiety, Depression, Gastroesophageal Reflux Disease(GERD), Hyperlipidemia, Hypertension, Ulcer Denies:: Cancer, Diabetes Mellitus Type 1, Diabetes Mellitus Type 2, Internal Pacemaker, MRSA, Seizures *Have you ever received a pneumonia vaccine?: No *Have you received a flu vaccine this season?: No Other Medical History: Reports: Arthritis, Hypothyroidism, Sinus Problems, Thyroid Disease. Denies: Blood Transfusion Reaction Laterality Cases: Left: Arthroscopy Knee, Bilateral: Tonsillectomy Other Surgeries: Yes: Colonoscopy, Hysterectomy-Partial, Sinus Surgery, Other (LSO). No: Pacemaker Amputation: No Fractures: Yes (ring finger,left hand) - *Social History Smoking Status: Current every day smoker Tobacco Type: cigarettes # Packs/Day (cigarettes): 1 Alcohol Intake: never Alcohol Intake Frequency:: other S
== END ==
PROVIDERS: Visit Provider Student in an Organized Health Care Education/Training Program
DX: M46.1 Sacroiliitis, not elsewhere classified (principal); M17.12 Unilateral primary osteoarthritis, left knee; M47.26 Other spondylosis with radiculopathy, lumbar region
CPT/HCPCS: 99202; G0463

== ENCOUNTER → 2021-08-28 16:44 | Outpatient (CLI) | payer MEDICAID, SELFPAY ==
--- NOTE | 2021-08-28 16:44 | MR_ITS ---
PROCEDURE INFORMATION: Exam: MR Lumbar Spine Without Contrast Exam date and time: 08/28/2021 4:48 PM Age: 56 years old Clinical indication: Low back pain TECHNIQUE: Imaging protocol: Multiplanar magnetic resonance images of the lumbar spine without intravenous contrast. COMPARISON: No relevant prior studies available. FINDINGS: Vertebrae: Unremarkable. Spinal cord: The conus extends inferiorly to the mid body of L1. L1-L2: No significant disc disease. No significant spinal canal stenosis. No neural foraminal stenosis. L2-L3: No significant disc disease. No significant spinal canal stenosis. No neural foraminal stenosis. L3-L4: 4 mm broad-based predominant right posterolateral combined disc protrusion and osteophytic ridge. Moderate-moderately severe right mild left neural foraminal stenosis. Small left greater than right facet joint effusions. Mild effacement of the descending right L4 nerve. L4-L5: 2.5-3 mm broad based and left lateral combined disc bulge and osteophytic ridge . Moderate-moderately severe left lateral recess and moderate left neural foraminal stenosis. Small left facet joint effusion. L5-S1: 3-3.5 mm left lateral disc protrusion. Moderate left facet hypertrophy. Moderate-moderately severe left neural foraminal stenosis with left L5 nerve impingement. Soft tissues: See L4-L5 finding. Kidneys and ureters: 2.6 cm cyst incompletely visualized arising from the lateral aspect of the midpole of the left kidney. Scoliosis of the lumbar spine convexity to the left. IMPRESSION: 1. At L3-4: 4 mm broad-based predominant right posterolateral combined disc protrusion and osteophytic ridge. Moderate-moderately severe right, mild left neural foraminal stenosis. Mild right L4 nerve effacement. 2. At L5-S1: 3-3.5 mm left lateral disc protrusion. Moderate-moderately severe left neural foraminal stenosis with left L5 nerve impingement. 3. At L4-5: 2.5-3 mm broad based and left lateral combined disc bulge and osteophytic ridge. Moderate-moderately severe left lateral recess and moderate left neural foraminal stenosis. 4. 2.6 cm cyst midpole lateral aspect left kidney.
== END ==
PROVIDERS: PCP Emergency Medicine; Visit Provider Emergency Medicine
DX: M54.50 Low back pain, unspecified (principal)
CPT/HCPCS: 72148; 76376

== ENCOUNTER 2021-09-01 08:49 | Day surgery (SDC) | payer MEDICAID, SELFPAY ==
[2021-09-01 08:58] VITALS: BP 130/67; PULSE 76; RESP 18; TEMP 36.4; O2SAT 98; BMI 42.4
[2021-09-01 09:21] VITALS: BP 165/86; PULSE 79; RESP 20; O2SAT 100
[2021-09-01 09:22] VITALS: BP 165/86; PULSE 74; RESP 20; O2SAT 100
--- NOTE | 2021-09-01 09:23 | HMH.PMPROC ---
- Procedure Date: 09/01/21 Time: 09:23 Anesthesiologist:: Ruperto Osborne CRNA Complications:: None Pre-procedure Diagnosis:: Right sacroiliitis Post-procedure Diagnosis:: Same Indications for Procedure:: Very pleasant 56-year-old white female who is having some right SI joint symptoms. She describes her right SI joint pain is constant, dull, aching. Pain increases significantly when standing and or sitting for any length of time. We will inject her right SI joint today. Procedure Details:: Procedure: Right sacroliliac joint injection under fluoroscopy Informed consent was obtained and the risk and benefits of the procedure were explained to the patient.~ The patient was taken to the procedure room and noninvasive monitors were placed including noninvasive blood pressure cuff and pulse oximeter.~ The patient was placed prone on the procedure table.~ The~ right hip was cleansed using Betadine as a cleansing solution.~ C-arm fluorosocpy was used to view the right SI joint.~ The skin and subcutaneous tissues were anesthetized using Lidocaine 1.5% and a 25-gauge needle.~ After this, a 22-gauge spinal needle was inserted under fluoroscopic guidance into the inferior aspect of the right SI joint.~ Omnipaque dye was injected and a good spread was seen throughout the joint.~ After this, approximately 5 mL of bupivacaine 0.25% and Depo-Medrol 40 mg was incrementally injected into the sacroiliac joint.~ The patient tolerated the procedure well with no complications.~ The patient was observed in the Pain Clinic, then discharged home neurologically intact.~ Plan and Disposition:: Patient was discharged 20 minutes following procedure. She reports significant provement terms of the right hip pain that she typically has day in and day out.
[2021-09-01 09:27] VITALS: BP 143/65; PULSE 76; RESP 18; O2SAT 99
== END 2021-09-01 09:28 | disposition home or self-care (01) ==
LOC: SC.PAINP 08:50
PROVIDERS: PCP Emergency Medicine; Visit Provider Nurse Anesthetist, Certified Registered
DX: M46.1 Sacroiliitis, not elsewhere classified (principal); M47.26 Other spondylosis with radiculopathy, lumbar region; K21.9 Gastro-esophageal reflux disease without esophagitis; E78.5 Hyperlipidemia, unspecified; I10 Essential (primary) hypertension; E03.9 Hypothyroidism, unspecified; M17.32 Unilateral post-traumatic osteoarthritis, left knee; F32.A Depression, unspecified; F41.9 Anxiety disorder, unspecified; Z72.0 Tobacco use
CPT/HCPCS: 27096; G0260; J1040

== ENCOUNTER → 2021-09-07 08:46 | Outpatient (CLI) | payer MEDICAID, SELFPAY ==
--- NOTE | 2021-09-07 08:48 | XR_ITS ---
FINAL REPORT CLINICAL HISTORY: knee pain COMPARISON: October 05, 2020 FINDINGS: LEFT KNEE 4 views of the left knee were obtained. There is no acute fracture or dislocation. There are stable mild degenerative changes. Soft tissues are unremarkable. IMPRESSION: Degenerative changes with no acute bony abnormality. Reviewed, Interpreted and Dictated by Elie Zhang III, MD Transcribed by Saba Macias Authenticated by Elie Zhang III, MD on 09/07/2021 09:21:[address] [facility]
== END ==
PROVIDERS: PCP Emergency Medicine; Visit Provider Orthopaedic Surgery
DX: M25.562 Pain in left knee (principal)
CPT/HCPCS: 73564

== ENCOUNTER 2021-09-25 09:11 | Emergency (ER) | payer MEDICAID, SELFPAY ==
[2021-09-25 09:15] VITALS: BP 131/60; PULSE 93; RESP 23; TEMP 37; O2SAT 97; BMI 42.4
--- NOTE | 2021-09-25 09:38 | HMH.EDUTC ---
[facility] Disposition Clinical Impression: Otitis media Qualifiers: Otitis media type: unspecified Laterality: right Qualified Code(s): H66.91 - Otitis media, unspecified, right ear Disposition: Home, Self-Care Condition on Discharge: Good Instructions: Sinusitis, Middle Ear Infection Additional Instructions: *Monitor Temp, Over the counter Motrin or Tylenol as directed/as needed Tylenol every 4 hours and Motrin every 6 hours (as long as your family doctor has told you that you can take it) for fever or pain. and straight to ER if unable to lower temp less than 101.0 after medication given *Warm salt water gargles may help to soothe the throat *Throat Lozenges *Warm fluids like tea with honey may help to soothe the throat *Sleep elevated *Humidifier/Vaporizer *Flonase 2 sprays in each nostril daily but be aware that it may take 2-3 days before you notice improvement Take your medication as prescribe *Promethazine DM cough syrup will cause drowsiness. Use only at night. No driving, operating machinery or caring for small children after taking it Follow up IMMEDIATELY for new or worsening symptoms or no Noticeable improvement over the next 48-72 hours. 911 for difficulty breathing or swallowing Prescriptions: Amoxicillin/Potassium Clav [Amox-Clav 875-125 mg Tablet] 1 tab PO BID #20 tab [facility] predniSONE [Deltasone 10mg tablet] 10 mg PO BID #10 tab Transmission Status: [facility] Promethazine/Dextromethorphan [Promethazine-Dm Syrup] 2.5 - 5 ml PO Q6H PRN #80 ml PRN Reason: Cough Transmission Status: Pending to [facility] Referrals: Mark Cid MD [Primary Care Provider] - As needed Time of Disposition: 09:47 Medical Decision Making - Daljit Inquiry Pt receiving controlled substance: No Daljit was queried for this patient: No Vital Signs: 09/25/21 09:15 Temperature 98.6 F Temperature Source Oral Pulse Rate [Right Brachial] 93 H Respiratory Rate 23 Blood Pressure [Right Arm] 131/60 Blood Pressure Mean [Right Arm] 83 Blood Pressure Source [Right Arm] Automatic Cuff Blood Pressure Position [Right Arm] Sitting 02 Sat by Pulse Oximetry 97 Oxygen Delivery Method Room Air [facility] HPI - General Stated complaint: congestion, bilateral ear pain, cough Time Seen by Provider: 09/25/21 09:38 Mode of Arrival: Ambulatory Source of Information: Patient Limitations: No Limitations Description of Symptoms (Recalled from Triage Doc. by RN): PATIENT C/O COUGH WITH GREEN/YELLOW SPUTUM, SINUS PRESSURE, HEADACHE, EAR PAIN AND WEAKNESS X 1 WEEK HEENT Symptoms (Recalled from RN notes): Yes Resp Symptoms (Recalled from RN notes): Yes Skin Symptoms (Recalled from RN notes): No MS Symptoms (Recalled from RN notes): No Functional Status (Recalled from RN notes): WNL - History of Present Illness Provider Complaint: Patient states that she has been having sinus pain and pressure along with pain in both ears and feeling of fullness States that she thought it would get better but has got worse over the last couple of days So today when she was still having pain she came in to get checked - Related Data Home Medications Medication Instructions Recorded Confirmed Fluticasone Propionate 1 spray INTRANASAL QDAY 07/24/19 09/07/21 Tizanidine HCl [Zanaflex 4mg 4 mg PO BID 12/14/19 09/07/21 tab] cetirizine 10 mg tablet 10 mg PO NEEDED PRN tab 01/09/21 09/07/21 epinephrine 0.3 mg/0.3 mL 0.3 ml IM NEEDED PRN each 04/24/21 09/07/21 injection, auto-injector levocetirizine 5 mg tablet 5 mg PO NEEDED PRN tab 04/24/21 09/07/21 albuterol sulfate 90 mcg/actuation 2 inh INHALATION NEEDED PRN g 06/19/21 09/07/21 aerosol inhaler Cholecalciferol (Vitamin D3) 25 mcg PO DAILY 08/28/21 09/07/21 [Vitamin D3 1,000 unit Chew. Tab] Ergocalciferol (Vitamin D2) 1,250 mcg PO WEEKLY 08/28/21 09/07/21 [Drisdol] Losartan Potassium [Cozaar 50
[2021-09-25 09:45] VITALS: BP 131/60; PULSE 93; RESP 23; TEMP 37; O2SAT 97
== END 2021-09-25 09:50 | disposition home or self-care (01) ==
PROVIDERS: Emergency Provider Nurse Practitioner; PCP Emergency Medicine
DX: H66.91 Otitis media, unspecified, right ear (principal)
CPT/HCPCS: 99212; G0463

== ENCOUNTER → 2021-10-02 10:17 | Outpatient (POV) | payer MEDICAID, SELFPAY ==
[2021-10-02 11:47] VITALS: BP 132/94; PULSE 71; RESP 20; TEMP 36.6; O2SAT 98; BMI 43.6
--- NOTE | 2021-10-02 12:55 | HMH.PAINSOAP ---
[facility] Pain Management SOAP Note Subjective:: Patient is a pleasant 56-year-old female who presents today for follow-up after a right SI injection on September 01, 2021. Patient is currently being treated for degenerative disc disease of the lumbar spine with lumbar radiculopathy symptoms, sacroiliitis, osteoarthritis of the left knee. After the procedure, patient had significant relief of 80 to 90%. She has done well with injective therapy in the past. We also have done lumbar epidural steroid injection that provided significant relief as well. Patient denies any issues after her procedure. She has been able to increase her activity since the injection. Rates her pain today as 6 out of 10. She is complaining more of pain around her left knee. She had a left TKA in the past. This was done by Dr. Hartmann. She was doing intra-articular injections in this knee that was providing minimal relief. [facility] [phone] with an active morphine equivalent of 0 Review of Systems: General: No recent weight changes, no fever, no sleep disturbances Respiratory: No cough, no shortness of air, no recurring pulmonary infections Cardiovascular/peripheral vascular: No chest pain, no palpitations, no edema, no shortness of breath Gastrointestinal: No new onset incontinence, normal bowel movements reported Genitourinary: No new onset incontinence Musculoskeletal: Low back pain, left knee pain, right hip pain Psychiatric: [Normal mood/affect] Neurological: [Denies weakness in extremities], [denies balance issues] Objective:: Physical Exam: General: Alert and oriented x3, no acute distress, pleasant and cooperative Lungs: Respirations even and unlabored, symmetrical chest expansion Eyes: PERRL Musculoskeletal: Flexion and extension of lumbar [spine] somewhat guarded secondary to pain, [antalgic gait noted] Neurological: Speech clear, no gross sensory deficit Assessment:: Degenerative disc disease of the lumbar spine with lumbar radiculopathy symptoms Facet arthropathy Sacroiliitis Osteoarthritis of the left knee Lumbar spondylosis Plan:: Patient had significant relief after the right-sided SI injection. Denies any issues after his procedure. She has been complaining of pain around her left knee. She had a left TKA in the past. We will schedule the patient for a left genicular nerve block. The risk and benefits of this procedure has been discussed with the patient. Patient would like to proceed with this procedure. Patient also had a recent MRI of her lumbar spine. She has been referred to neurosurgery for October 11, 2021. Lumbar MRI shows multilevel moderate to moderately severe neuroforaminal stenosis. She also has an incidental finding of a 2.6 cm cyst on her left kidney. She will follow-up with her primary care regarding this. Patient has been instructed to contact the clinic with any concerns before the next appointment. Dr. Beck has reviewed this note and agrees with this plan of care. This note was dictated using voice recognition software and make contain errors or omissions. [facility] History Medical History: Reports:: Anxiety, Depression, Gastroesophageal Reflux Disease(GERD), Hyperlipidemia, Hypertension, Ulcer Denies:: Cancer, Diabetes Mellitus Type 1, Diabetes Mellitus Type 2, Internal Pacemaker, MRSA, Seizures *Have you ever received a pneumonia vaccine?: No *Have you received a flu vaccine this season?: No Other Medical History: Reports: Arthritis, Hypothyroidism, Sinus Problems, Thyroid Disease. Denies: Blood Transfusion Reaction Laterality Cases: Left: Arthroscopy Knee, Bilateral: Tonsillectomy Other Surgeries: Yes: Colonoscopy, Hysterectomy-Partial, Sinus Surgery, Other (LSO). No: Pacemaker Amputation: No Fractures: Yes (ring finger,left hand) - *Social History Smoking Status: Current every day smoker Tobacco Type: cigarettes # Packs/Day (cigarettes): 1 Alcohol Intake: never Alcohol Intake Frequency:: other Substance Use Type: denies use
== END ==
PROVIDERS: Visit Provider Student in an Organized Health Care Education/Training Program
DX: M51.16 Intervertebral disc disorders with radiculopathy, lumbar region (principal); M46.1 Sacroiliitis, not elsewhere classified; M47.896 Other spondylosis, lumbar region; M17.12 Unilateral primary osteoarthritis, left knee
CPT/HCPCS: 99212; G0463

== ENCOUNTER 2021-10-06 11:06 | Day surgery (SDC) | payer MEDICAID, SELFPAY ==
[2021-10-06 11:18] VITALS: BP 128/70; BP 135/71; BP 141/61; PULSE 68; PULSE 76; PULSE 77; RESP 18; RESP 20; TEMP 36.7; O2SAT 100; O2SAT 98; O2SAT 99; BMI 42.4
[2021-10-06 11:41] VITALS: BP 155/86; PULSE 73; RESP 20; O2SAT 98
--- NOTE | 2021-10-06 11:44 | P.PCN_ITS ---
- Procedure Date: 10/06/21 Time: 11:44 Anesthesiologist:: Ruperto Osborne CRNA Complications:: None Pre-procedure Diagnosis:: Osteoarthritis left knee. Post-procedure Diagnosis:: Same Indications for Procedure:: This patient is a pleasant 56-year-old female who was seen in our clinic regarding chronic left knee pain. She describes the pain as constant, dull, aching. Patient reports she is unable to walk for long distance secondary to the pain in the left knee. She has tried cortisone intra-articular injections with some degree of success. However, her last injection did not last more than few days. She rates the pain 9/10. Procedure Details:: Details of the procedure were explained to the patient. The patient was placed in the supine position on the fluoroscopy table. The left knee was positioned at the 45 degree angle. The left knee was cleansed using chlorhexidine as a cleansing solution. Using fluoroscopy guidance markers were placed over the superior genicular nerve areas medial and lateral. Also inferior genicular nerve area on the lateral anterior tibia. Using a 22-gauge spinal needle the above described areas were accessed without difficulty. 3 cc of injectate containing 0.25% Marcaine +20 mg of Depo-Medrol was injected at each site. Patient tolerated the procedure without difficulty. There are no complications. Plan and Disposition:: Patient was discharged without incident. Patient was reevaluated 10 minutes post procedure. She reports essentially no pain in the left knee joint with amb ulation. Flexion and/or extension.
== END 2021-10-06 11:42 | disposition home or self-care (01) ==
LOC: SC.PAINP 11:07
PROVIDERS: PCP Emergency Medicine; Visit Provider Nurse Anesthetist, Certified Registered
DX: M17.12 Unilateral primary osteoarthritis, left knee (principal); E78.5 Hyperlipidemia, unspecified; I10 Essential (primary) hypertension; K21.9 Gastro-esophageal reflux disease without esophagitis; F41.9 Anxiety disorder, unspecified; F32.A Depression, unspecified; E03.9 Hypothyroidism, unspecified; M19.90 Unspecified osteoarthritis, unspecified site; G25.81 Restless legs syndrome
CPT/HCPCS: 64454; J1040

== ENCOUNTER → 2021-10-24 12:06 | Outpatient (CLI) | payer MEDICAID, SELFPAY ==
[2021-10-24 12:23] LABS: Basophils # 0.1 K/mm3 (0-0.2); Basophils % 1.5 % (0.1-2.0); Eosinophils # 0.2 K/mm3 (0.0-0.4); Eosinophils % 1.8 % (0.1-12.0); Hematocrit 49.1 % (37.0-47.0); Hemoglobin 15.7 g/dL (12.2-16.2); Lymphocytes # 1.7 K/mm3 (0.7-4.5); Lymphocytes % 17.3 % (10-50); Mean Corpuscular HGB Conc 31.9 g/dL (31.8-35.4); Mean Corpuscular Hemoglobin 31.5 pg (27.0-31.2); Mean Corpuscular Volume 98.7 fl (81-99); Mean Platelet Volume 9.1 fl (7.4-10.4); Monocytes # 0.6 K/mm3 (0.1-1.0); Monocytes % 6.6 % (1.7-9.3); Neutrophils # 6.9 K/mm3 (1.8-7.8); Neutrophils % 72.8 % (37.0-80.0); Platelet Count 245 K/mm3 (142-424); Red Blood Count 4.98 M/mm3 (4.20-5.40); Red Cell Distribution Width 14.1 % (11.5-17.5); White Blood Count 9.5 K/mm3 (4.8-10.8)
[2021-10-24 13:17] LABS: Chloride 104 mmol/L (98-107); Potassium 4.8 mmoL/L (3.5-5.1); Sodium 138 mmol/L (136-145)
[2021-10-24 13:19] LABS: Alanine Aminotransferase 35 U/L (12-78); Aspartate Amino Transferase 26 U/L (14-36); Blood Urea Nitrogen 10 mg/dl (7-17); Estimated Glomerular Filt Rate 87 ml/min (>60); GFR (African American) 106 ML/MIN (>60)
[2021-10-24 13:20] LABS: Albumin Level 4.3 g/dl (3.5-5.0); Albumin/Globulin Ratio 1.7 (1.1-1.8); Alkaline Phosphatase 92 U/L (38-126); Anion Gap 8.8 mEq/L (5-15); Bilirubin,Total 0.5 mg/dl (0.2-1.3); Calcium 9.7 mg/dl (8.4-10.2); Carbon Dioxide 30 mmol/L (22.0-30.0); Globulin 2.6 g/dL (1.3-3.2); Glucose 99 mg/dl (74-100); Total Protein,Serum 6.9 g/dl (6.3-8.2)
== END ==
PROVIDERS: PCP Emergency Medicine; Visit Provider Podiatrist
DX: M79.672 Pain in left foot (principal); R60.0 Localized edema; M19.072 Primary osteoarthritis, left ankle and foot
CPT/HCPCS: 36415; 80053; 83735; 85025

== ENCOUNTER → 2021-10-27 09:15 | Outpatient (CLI) | payer MEDICAID, SELFPAY ==
--- NOTE | 2021-10-27 09:15 | US_ITS ---
FINAL REPORT TECHNIQUE: Sonographic images were obtained of the retroperitoneum. CLINICAL HISTORY: .mass seen on recent mri FINDINGS: The right kidney measures 11.2 cm. The left kidney measures 11.1 cm. There is a 2.8 cm cyst in the left kidney. The spleen is borderline in size at 12.1 cm. There is mild fatty infiltration of the liver. IMPRESSION: Left renal cyst. Mild fatty liver. Reviewed, Interpreted and Dictated by Elie Zhang III, MD Transcribed by Angelo Franco Authenticated and [facility]
== END ==
PROVIDERS: PCP Emergency Medicine; Visit Provider Emergency Medicine
DX: N28.1 Cyst of kidney, acquired (principal)
CPT/HCPCS: 76770

== ENCOUNTER → 2021-10-31 10:55 | Outpatient (POV) | payer MEDICAID, SELFPAY ==
[2021-10-31 11:40] VITALS: BP 185/98; PULSE 66; RESP 18; TEMP 36.6; O2SAT 100; BMI 42.5
--- NOTE | 2021-10-31 12:10 | HMH.PAINSOAP ---
[facility] Pain Management SOAP Note Subjective:: This patient is a pleasant 56-year-old female who comes our clinic today regarding her left knee chronic pain. She is status post genicular nerve block on the left side at 10/06/2021. She reports 70% improvement. However, still complain of some left lateral knee pain when walking a long distance. Patient describes her left lateral knee pain as dull, aching. No sharp stabbing pain. Patient has not interested in knee replacement. She has tried intra-articular cortisone as well as hyaluronic acid into the left knee. She states that genicular nerve block gave her the most relief. I discussed the repeat genicular nerve block left side. She would like to repeat this however not at this time. She said is doing quite well. We have also seen the patient in the past for lumbar back pain as well as bilateral hip and leg radicular symptoms. We have given her lumbar epidural steroid injection in the past with significant improvement. Patient has undergone recent lumbar MRI August 2021. IMPRESSION: 1. At L3-4: 4 mm broad-based predominant right posterolateral combined disc protrusion and osteophytic ridge. Moderate-moderately severe right, mild left neural foraminal stenosis. Mild right L4 nerve effacement. 2. At L5-S1: 3-3.5 mm left lateral disc protrusion. Moderate-moderately severe left neural foraminal stenosis with left L5 nerve impingement. 3. At L4-5: 2.5-3 mm broad based and left lateral combined disc bulge and osteophytic ridge. Moderate-moderately severe left lateral recess and moderate left neural foraminal stenosis. She wishes to repeat the lumbar epidural steroid injection if possible. Patient currently is taking clonazepam 0.5 mg 3 times daily. Also hydrocodone 5 mg 1 p.o. twice daily. These come from her PCP. On reviewing her Daljit today #[id number] it is appropriate. Objective:: Patient is awake alert Donna x3. In no acute distress. Flexion-extension lumbar spine somewhat guarded secondary to pain. Deep tendon reflexes upper and lower extremities normal. Motor strength upper and lower extremities normal. There is no gross sensory deficit. Gait is normal. Assessment:: Degenerative disc disease lumbar spine multilevels. Lumbar radiculopathy. Osteoarthritis left knee. Plan:: We will plan for lumbar epidural steroid injection at the L4-5 level. We discussed a repeat of the genicular nerve block left knee. We will do this at a later date. Patient wants to concentrate on the low back at this time. [facility] History Medical History: Reports:: Anxiety, Depression, Gastroesophageal Reflux Disease(GERD), Hyperlipidemia, Hypertension, Ulcer Denies:: Cancer, Diabetes Mellitus Type 1, Diabetes Mellitus Type 2, Internal Pacemaker, MRSA, Seizures *Have you ever received a pneumonia vaccine?: No *Have you received a flu vaccine this season?: Yes Other Medical History: Reports: Arthritis, Hypothyroidism, Sinus Problems, Thyroid Disease. Denies: Blood Transfusion Reaction Laterality Cases: Left: Arthroscopy Knee, Bilateral: Tonsillectomy Other Surgeries: Yes: Colonoscopy, Hysterectomy-Partial, Sinus Surgery, Other (LSO). No: Pacemaker Amputation: No Fractures: Yes (ring finger,left hand) - *Social History Smoking Status: Current every day smoker Tobacco Type: cigarettes # Packs/Day (cigarettes): 1 Alcohol Intake: never Alcohol Intake Frequency:: other Substance Use Type: denies use *Occupational Status:: other Housing: house Household Members: spouse *Travel in the last 8 weeks: None - Psychiatric History Pschychiatric History:: Reports:: Anxiety, Depression Family Hx:: No significant family history
== END ==
PROVIDERS: Visit Provider Nurse Anesthetist, Certified Registered
DX: M17.12 Unilateral primary osteoarthritis, left knee (principal); M51.16 Intervertebral disc disorders with radiculopathy, lumbar region; Z72.0 Tobacco use
CPT/HCPCS: 99212; G0463

== ENCOUNTER 2021-11-10 11:42 | Day surgery (SDC) | payer MEDICAID, SELFPAY ==
[2021-11-10 11:47] VITALS: BP 125/73; PULSE 74; RESP 20; TEMP 37; O2SAT 97; BMI 42.5
[2021-11-10 11:54] VITALS: BP 140/79; PULSE 78; RESP 20; O2SAT 98
[2021-11-10 12:04] VITALS: BP 123/67; PULSE 74; RESP 18; O2SAT 98
--- NOTE | 2021-11-10 12:07 | P.PCN_ITS ---
- Procedure Date: 11/10/21 Time: 12:07 Anesthesiologist:: Dionte Beck MD Complications:: None Pre-procedure Diagnosis:: Degenerative disc disease of lumbar spine with lumbar radiculopathy symptoms Post-procedure Diagnosis:: Same Indications for Procedure:: Patient is a pleasant 56-year-old white female who we are treating for low back pain with lumbar radiculopathy symptoms. She has increasing pain radiating from her back into both hips and both legs. We will seek approval and plan on lumbar pleural steroid injection under fluoroscopy today. She has had genicular nerve blocks to her knee. Her knee is doing very well after the genicular nerve block. Procedure Details:: Informed consent was obtained and the risk and benefits of the procedure was exp lained to the patient. The patient was taken to the procedure room. The patient was placed prone on the procedure table. The patient was prepped and draped in sterile fashion. C-arm fluoroscopy was used to view the lumbar spine. Skin and subcutaneous tissues were anesthetized using lidocaine. I placed an 18-gauge epidural needle and advanced into the L4-L5 interspace using fluoroscopic guidance and [id number] to air. After confirmation of needle placement in the epidural space with dye I injected 2 mL of lidocaine 1.5% with Depo-Medrol 80 mg. Patient tolerated the procedure well with no complications. Plan and Disposition:: We will follow-up with her in 2 weeks. Will reevaluate symptoms at that time.
== END 2021-11-10 12:05 | disposition home or self-care (01) ==
LOC: SC.PAINP 11:42
PROVIDERS: PCP Emergency Medicine; Visit Provider Anesthesiology
DX: M51.16 Intervertebral disc disorders with radiculopathy, lumbar region (principal)
CPT/HCPCS: 62323; J1040; Q9966

== ENCOUNTER 2021-11-27 10:00 | Outpatient (RCR) | payer MEDICAID, SELFPAY | END 2021-11-27 10:05 | disposition home or self-care (01) | LOC: PT 10:00 | PROVIDERS: PCP Emergency Medicine; Visit Provider Podiatrist | DX: M79.672 Pain in left foot (principal); M19.072 Primary osteoarthritis, left ankle and foot | CPT/HCPCS: 97010; 97014; 97033; 97035; 97110; 97140; 97163; 97530; 97535; G0283 ==

== ENCOUNTER → 2021-11-30 09:10 | Outpatient (POV) | payer MEDICAID, SELFPAY ==
[2021-11-30 09:51] VITALS: BP 140/70; PULSE 78; RESP 20; TEMP 36.6; O2SAT 100; BMI 42.5
--- NOTE | 2021-11-30 13:34 | HMH.PAINSOAP ---
[facility] Pain Management SOAP Note Subjective:: Patient is a pleasant 56-year-old female who presents today for follow-up after a lumbar epidural steroid injection. Patient is currently being treated for degenerative disc disease of lumbar spine with lumbar radiculopathy symptoms, bilateral knee pain, sacroiliitis, greater trochanteric bursitis. After her injection, patient had significant relief of 60-70% on her back pain. Denies any side effects after this injection. Patient has been able to increase her activity since the injection. Today, she is complaining more of pain around her lower right hip/leg. She cannot tolerate any full activity such as sitting, standing, and walking. She has radiating pain from her right upper buttock that radiates down to her right posterior knee. She previously had an SI injection that significantly helped her pain. She is wanting to get a repeat injection today. Rates her pain today as 7 out of 10. Daljit [id number] with an active morphine equivalent of 0. G3 pain, Dr. Cid started her on Cary 5 mg twice a day that is somewhat helping her pain. Additionally, patient states that she has been having skin thinning and itchiness around her bilateral upper extremity especially around the forearm. She is not taking any blood thinners. She states that this started around a year ago. She is following up with her primary care regards to this. Review of Systems: General: No recent weight changes, no fever, no sleep disturbances Respiratory: No cough, no shortness of air, no recurring pulmonary infections Cardiovascular/peripheral vascular: No chest pain, no palpitations, no edema, no shortness of breath Gastrointestinal: No new onset incontinence, normal bowel movements reported Genitourinary: No new onset incontinence Musculoskeletal: Low back pain, right hip pain, bilateral knee pain Psychiatric: [Normal mood/affect] Neurological: [Denies weakness in extremities], [denies balance issues] Objective:: Physical Exam: General: Alert and oriented x3, no acute distress, pleasant and cooperative Lungs: Respirations even and unlabored, symmetrical chest expansion Eyes: PERRL Musculoskeletal: Flexion and extension of lumbar [spine] somewhat guarded secondary to pain, [antalgic gait noted]; right SI positive for TJ, Tulio's, [place]'s, Gaenslen's, compression, and distraction. Tender to palpation around the right greater trochanteric bursa. Limited range of motion bilateral knees secondary to pain Neurological: Speech clear, no gross sensory deficit Assessment:: Degenerative disease of lumbar spine with lumbar radiculopathy symptoms, bilateral knee pain, right-sided sacroiliitis, right greater trochanteric bursitis. Plan:: Patient is significant relief and continues to have relief after the lumbar epidural steroid injection. She is complaining of pain around her right hip today. She does have a positive SI exam. She has a point of tenderness around the right SI joint and right greater trochanteric bursa. We will schedule the patient for a right SI injection and record trochanteric bursa injection. Patient has been having considerable pain. I will start the patient on diclofenac 75 mg twice a day #30 tabs as needed. We will continue the patient's Cary 5 mg twice a day. Patient has been instructed to contact the clinic with any concerns before the next appointment. Dr. Beck has reviewed this note and agrees with this plan of care. This note was dictated using voice recognition software and make contain errors or omissions. [facility] History Medical History: Reports:: Anxiety, Depression, Gastroesophageal Reflux Disease(GERD), Hyperlipidemia, Hypertension, Ulcer Denies:: Cancer, Diabetes Mellitus Type 1, Diabetes Mellitus Type 2, Internal Pacemaker, MRSA, Seizures *Have you ever received a pneumonia vaccine?: No *Have you received a flu vaccine this season?: No Other Medical History: Reports: Arthritis, Hypothyroidis
== END ==
PROVIDERS: Visit Provider Student in an Organized Health Care Education/Training Program
DX: M51.16 Intervertebral disc disorders with radiculopathy, lumbar region (principal); M46.1 Sacroiliitis, not elsewhere classified; M70.61 Trochanteric bursitis, right hip; M70.62 Trochanteric bursitis, left hip; M25.562 Pain in left knee; M25.561 Pain in right knee
CPT/HCPCS: 99212; G0463

== ENCOUNTER 2021-12-08 09:02 | Day surgery (SDC) | payer MEDICAID, SELFPAY ==
[2021-12-08 09:10] VITALS: BP 142/72; PULSE 78; RESP 18; TEMP 36.4; O2SAT 96; BMI 42.5
[2021-12-08 09:23] VITALS: BP 142/86; PULSE 63; RESP 20
--- NOTE | 2021-12-08 09:30 | P.PCN_ITS ---
- Procedure Date: 12/08/21 Time: 09:30 Anesthesiologist:: Ruperto Osborne CRNA Complications:: None Pre-procedure Diagnosis:: Right sacroiliitis. Right trochanteric bursitis. Post-procedure Diagnosis:: Same Indications for Procedure:: Very pleasant 56-year-old female we been treating for quite some time for low back pain. Bilateral hip and leg radicular symptoms. Right sacroiliitis. Right trochanteric bursitis. Today she presents for right SI joint injection as well as right trochanteric bursa injection. She rates her pain 7/10. Procedure Details:: Procedure: Right sacroliliac joint injection under fluoroscopy Informed consent was obtained and the risk and benefits of the procedure were explained to the patient.~ The patient was taken to the procedure room and noninvasive monitors were placed including noninvasive blood pressure cuff and pulse oximeter.~ The patient was placed prone on the procedure table.~ The~ right hip was cleansed using Betadine as a cleansing solution.~ C-arm fluorosocpy was used to view the right SI joint.~ The skin and subcutaneous tissues were anesthetized using Lidocaine 1.5% and a 25-gauge needle.~ After this, a 22-gauge spinal needle was inserted under fluoroscopic guidance into the inferior aspect of the right SI joint.~ Omnipaque dye was injected and a good spread was seen throughout the joint.~ After this, approximately 5 mL of bupivacaine 0.25% and Depo-Medrol 40 mg was incrementally injected into the sacroiliac joint.~ The patient tolerated the procedure well with no complications.~ The patient was observed in the Pain Clinic, then discharged home neurologically intact.~ Procedure: Right trochanteric bursa injection under fluoroscopy We then moved to the right trochanteric bursa.~ C-arm fluoroscopy was used to view the left greater trochanter.~ The skin and subcutaneous tissues overlying the right greater trochanter were anesthetized using lidocaine, 1.5% and a 25- gauge needle.~ After this, a 22-gauge spinal needle was inserted and advanced until it contacted the right greater trochanter.~ Dye was injected and good spread was seen throughout the right trochanteric bursa. After this, approximately 5 mL of bupivacaine, 0.25% and Depo-Medrol, 40 mg was incrementally injected into the right right trochanteric bursa.~ The patient tolerated the procedure well with no complications. Plan and Disposition:: Patient was discharged from the without incident.
[2021-12-08 09:33] VITALS: BP 137/72; PULSE 70; RESP 18; O2SAT 99
== END 2021-12-08 09:34 | disposition home or self-care (01) ==
LOC: SC.PAINP 09:02
PROVIDERS: PCP Emergency Medicine; Visit Provider Nurse Anesthetist, Certified Registered
DX: M46.1 Sacroiliitis, not elsewhere classified (principal); M70.62 Trochanteric bursitis, left hip; K21.9 Gastro-esophageal reflux disease without esophagitis; F41.9 Anxiety disorder, unspecified; F32.A Depression, unspecified; Z72.0 Tobacco use
CPT/HCPCS: 20610; 27096; G0260; J1040

== ENCOUNTER → 2022-01-23 13:16 | Outpatient (CLI) | payer MEDICAID, SELFPAY ==
[2022-01-23 14:39] LABS: Free T4 (Free Thyroxine) 0.95 ng/dl (0.78-2.19)
[2022-01-23 14:53] LABS: Thyroid Stimulating Hormone 2.04 uIU/mL (0.465-4.68)
== END ==
PROVIDERS: PCP Emergency Medicine; Visit Provider Otolaryngology
DX: E03.9 Hypothyroidism, unspecified (principal)
CPT/HCPCS: 36415; 84439; 84443

== ENCOUNTER → 2022-02-05 13:43 | Outpatient (POV) | payer MEDICAID, SELFPAY ==
[2022-02-05 14:29] VITALS: BP 135/66; PULSE 78; RESP 18; TEMP 36.7; O2SAT 96; BMI 42.4
--- NOTE | 2022-02-05 14:40 | EXP.PAIN.SOA ---
[facility] Pain Management SOAP Note Subjective:: Patient is a pleasant 57-year-old female who presents today for follow-up. We are currently treating the patient for right trochanteric bursitis, right sacroiliitis, degenerative disc disease of lumbar spine with lumbar radiculopathy symptoms, osteoarthritis left knee. Today the patient rates her pain a 9 out of 10. She states the pain is primarily in her bilateral feet. Patient denies any new trauma or injury to the site. She states this is the same pain she has been experiencing. Patient does see Dr. Pantoja and has recently had steroid injections in her bilateral feet however she stated she did not notice any improvement of her symptoms. She states Dr. Spears is ordering her a MRI of her bilateral feet. Patient describes this as a aching sensation that is worse with increased activity. She states the pain is worse in the mornings however every step she makes causes painful sensations. Patient states she has ordered some compression socks to try at home for her pain and edema. she has tried heat and ice with some improvement of her symptoms. She is also prescribed compounding cream however she does not notice a big difference in her symptoms as well as using Biofreeze as needed. Patient has gone to physical therapy in the past that provided some improvement of her symptoms. Patient has had injective therapy in the past that is provided significant improvement of her symptoms. Recently she had a right SI and right bursa injection on 12/08/2021. Patient stated that she had significant improvement of her symptoms rating it about 70 to 80% relief and states that she feels like she is still getting continued improvement. Patient is not currently taking any scheduled medications. Her Daljit is [id number] with a morphine equivalent of 0. It is been reviewed and appropriate. Review of Systems: General: No recent weight changes, no fever, no sleep disturbances Respiratory: No cough, no shortness of air, no recurring pulmonary infections Cardiovascular/peripheral vascular: No chest pain, no palpitations, no edema, no shortness of breath Gastrointestinal: No new onset incontinence, normal bowel movements reported Genitourinary: No new onset incontinence Musculoskeletal: Bilateral feet pain Psychiatric: [Normal mood/affect] Neurological: [Denies weakness in extremities], [denies balance issues] Objective:: Physical Exam: General: Alert and oriented x3, no acute distress, pleasant and cooperative Lungs: Respirations even and unlabored, symmetrical chest expansion Eyes: PERRL Musculoskeletal: Flexion and extension of bilateral feet somewhat guarded secondary to pain, [antalgic gait noted] Neurological: Speech clear, no gross sensory deficit Assessment:: Degenerative disc disease of lumbar spine with lumbar radiculopathy symptoms, greater trochanteric bursitis, sacroiliitis, plantar fasciitis, osteoarthritis left knee Plan:: Patient continues to have significant pain in her bilateral feet due to her plantar fasciitis. I have discussed with the patient regarding a epidural steroid injection. Risk and benefits were discussed with the patient. She would like to proceed forward with this injection. She is not currently on any blood thinners. We will schedule her for a LE SI L4-L5 at today's visit. Patient has been instructed to contact the clinic with any concerns before the next appointment. Dr. Beck has reviewed this note and agrees with this plan of care. This note was dictated using voice recognition software and make contain errors or omissions. [facility] Medical History (Updated 01/23/22 @ 12:58 by Carin Moreno RN) Arthritis Asthma Chronic pain of both ears Depression Hx of ulcer disease Hypertension Hypothyroidism Obesity RLS (restless legs syndrome) Sciatica Sleep apnea TMJ (sprain of temporomandibular joint) Social History Smoking Status: Current every day smoker tobacco type: cigarettes pac
== END ==
PROVIDERS: PCP Emergency Medicine; Visit Provider Nurse Practitioner Family
DX: M51.16 Intervertebral disc disorders with radiculopathy, lumbar region (principal); M70.61 Trochanteric bursitis, right hip; M46.1 Sacroiliitis, not elsewhere classified; M72.2 Plantar fascial fibromatosis; M17.12 Unilateral primary osteoarthritis, left knee
CPT/HCPCS: 99212; G0463

== ENCOUNTER 2022-02-20 08:49 | Day surgery (SDC) | payer MEDICAID, SELFPAY ==
[2022-02-20 09:12] VITALS: BP 146/77; BP 152/81; PULSE 71; PULSE 72; RESP 18; RESP 20; TEMP 36.5; O2SAT 98; O2SAT 99; BMI 42.4
[2022-02-20 09:21] VITALS: BP 147/76; PULSE 62; RESP 18; O2SAT 99
--- NOTE | 2022-02-20 09:49 | P.PCN_ITS ---
Procedure Date: 02/20/22 Time: 09:30 Anesthesiologist:: Ruperto Osborne CRNA Complications:: None Pre-procedure Diagnosis:: Degenerative disc disease lumbar spine multilevels. Lumbar radiculopathy symptoms Post-procedure Diagnosis:: Same. Indications for Procedure:: Very pleasant 57-year-old female comes today for repeat lumbar epidural steroid injection of the 4 5 level. Patient complains of low back pain. However, more complaint regarding bilateral feet pain. She rates her pain 8/10. Procedure Details:: Procedure: Lumbar epidural steroid injection under fluoroscopy Informed consent was obtained and the risks and benefits of the procedure were explained to the patient. The patient was taken to the procedure room and noninvasive monitors placed, including noninvasive blood pressure cuff and pulse oximeter. The back was viewed using C-arm Fluoroscopy and prepped using Betadine as a cleansing solution and the L4-L5 interspace was palpated. Skin and subcutaneous tissues were anesthetized using lidocaine 1.5% and a 25-gauge nee dle. After this, an 18-gauge Touhy epidural needle was placed into the L4-L5 interspace and advanced using fluoroscopic guidance and loss of resistance to air until the epidural space was encountered. After confirmation of needle placement in the epidural space, with dye, a solution containing lidocaine 1.5%, 4 mL and Depo-Medrol 80 mg were incrementally injected into the lumbar epidural space. The patient tolerated the procedure well with no complications. The patient was observed in the Pain Clinic and then discharged home neurologically intact. Plan and Disposition:: Patient was discharged without incident
== END 2022-02-20 09:22 | disposition home or self-care (01) ==
LOC: SC.PAINP 08:50
PROVIDERS: PCP Emergency Medicine; Visit Provider Nurse Anesthetist, Certified Registered
DX: M51.16 Intervertebral disc disorders with radiculopathy, lumbar region (principal)
CPT/HCPCS: 62323; J1040

== ENCOUNTER → 2022-03-19 11:05 | Outpatient (POV) | payer MEDICAID, SELFPAY ==
[2022-03-19 11:25] VITALS: BP 148/69; PULSE 78; RESP 18; TEMP 36.6; O2SAT 98; BMI 42.0
--- NOTE | 2022-03-19 11:45 | EXP.PAIN.SOA ---
[facility] Pain Management SOAP Note Subjective:: Patient is a pleasant 57-year-old female who presents today for follow-up of lumbar epidural steroid injection on 02/20/2022. We are currently treating the patient for degenerative disc disease of lumbar spine with lumbar radiculopathy symptoms, osteoarthritis left knee, right greater trochanteric bursitis, right sacroiliitis. Today the patient states she has had at least 45% improvement following this injection and feels like it is still helping some. Today she rates her pain 8 out of 10 and states she has a lot of continued pain in her bilateral feet as well as her low back and hips. Patient denies any new trauma or injury. Patient denies any change location or type of pain she experiences. Patient states she does use a CPAP at night and often is a side sleeper which is what she contributes to her hip pain. patient has had physical therapy this year that did provide some improvement of her symptoms however she was limited how frequently she could go due to gas prices. Patient does state the pain in her feet is a numbing, tingling sensation. She does have some left foot swelling at today's visit. Patient is prescribed compounding cream from Dr. Pantoja's office that she states has not provided significant improvement of her symptoms. Patient does currently manage her pain symptoms with [id number] Aleve as needed. Patient denies any cardiac history or kidney issues. Her Daljit is [id number]. It has been reviewed and appropriate. Review of Systems: General: No recent weight changes, no fever, no sleep disturbances Respiratory: No cough, no shortness of air, no recurring pulmonary infections Cardiovascular/peripheral vascular: No chest pain, no palpitations, no edema, no shortness of breath Gastrointestinal: No new onset incontinence, normal bowel movements reported Genitourinary: No new onset incontinence Musculoskeletal: Low back pain, hip pain, feet pain Psychiatric: [Normal mood/affect] Neurological: [Denies weakness in extremities], [denies balance issues] Objective:: Physical Exam: General: Alert and oriented x3, no acute distress, pleasant and cooperative Lungs: Respirations even and unlabored, symmetrical chest expansion Eyes: PERRL Musculoskeletal: Flexion and extension of lumbar [spine] somewhat guarded secondary to pain, [antalgic gait noted] Neurological: Speech clear, no gross sensory deficit Assessment:: Degenerative disc disease of lumbar spine with lumbar radiculopathy symptoms, osteoarthritis left knee, greater trochanteric bursitis, right sacroiliitis, bilateral feet pain Plan:: Patient continues to have significant pain in her feet as well as her low back and bilateral hips. I have discussed with the patient regarding having a repeat epidural injection. Risk and benefits were discussed with the patient. She would like to proceed forward with this injection. I have also discussed with the patient regarding starting diclofenac 75 mg twice daily. I have counseled the patient to take this medication with food to help prevent GI upset as well as discontinuing all other NSAIDs while taking this medication. I will order the patient diclofenac 75 mg twice daily and provide a 1 month supply of this medication. We will schedule the patient for a lumbar epidural steroid injection at L4-L5. Patient has been instructed to contact the clinic with any concerns before the next appointment. Dr. Beck has reviewed this note and agrees with this plan of care. This note was dictated using voice recognition software and make contain errors or omissions. [facility] Medical History (Updated 02/20/22 @ 09:16 by Lucia Bah RN) Arthritis Asthma Chronic pain of both ears Depression Hx of ulcer disease Hypertension Hypothyroidism Loose total knee arthroplasty Obesity RLS (restless legs syndrome) Sciatica Sleep apnea TMJ (sprain of temporomandibular joint) Social History (Updated 02/20/22 @ 09:17 by
== END | disposition home or self-care (01) ==
PROVIDERS: PCP Emergency Medicine; Visit Provider Nurse Practitioner Family
DX: M51.16 Intervertebral disc disorders with radiculopathy, lumbar region (principal); M46.1 Sacroiliitis, not elsewhere classified; M70.60 Trochanteric bursitis, unspecified hip; M79.671 Pain in right foot; M79.672 Pain in left foot
CPT/HCPCS: 99212; G0463

== ENCOUNTER 2022-03-27 10:27 | Day surgery (SDC) | payer MEDICAID, SELFPAY ==
[2022-03-27 10:38] VITALS: BP 146/71; PULSE 76; RESP 18; TEMP 36.4; O2SAT 98; BMI 42.0
[2022-03-27 10:42] VITALS: BP 140/68; PULSE 72; RESP 18; O2SAT 97
[2022-03-27 10:43] VITALS: BP 140/68; PULSE 72; RESP 18; O2SAT 98
[2022-03-27 10:53] VITALS: BP 133/71; PULSE 75; RESP 18; O2SAT 98
--- NOTE | 2022-03-27 11:48 | P.PCN_ITS ---
Procedure Date: 03/27/22 Time: 11:00 Anesthesiologist:: Ruperto Osborne CRNA Complications:: None Pre-procedure Diagnosis:: Degenerative disc disease lumbar spine multilevels. Lumbar radiculopathy Post-procedure Diagnosis:: Same. Indications for Procedure:: Very pleasant 57-year-old female that comes our clinic today for lumbar epidural steroid injection at the L4-5 level. Patient describes low back pain as constant, dull, aching. She also complains of bilateral hip and leg radicular s ymptoms at times. She rates her pain 7/10. Procedure Details:: Procedure: Lumbar epidural steroid injection under fluoroscopy Informed consent was obtained and the risks and benefits of the procedure were explained to the patient. The patient was taken to the procedure room and noninvasive monitors placed, including noninvasive blood pressure cuff and pulse oximeter. The back was viewed using C-arm Fluoroscopy and prepped using Chloraprep as a cleansing solution and the L4-L5 interspace was palpated. Skin and subcutaneous tissues were anesthetized using lidocaine 1.5% and a 25-gauge needle. After this, an 18-gauge Touhy epidural needle was placed into the L4-L5 interspace and advanced using fluoroscopic guidance and loss of resistance to a ir until the epidural space was encountered. After confirmation of needle placement in the epidural space, with dye, a solution containing normal saline, 3 mL and Depo-Medrol 80 mg were incrementally injected into the lumbar epidural space. The patient tolerated the procedure well with no complications. The patient was observed in the Pain Clinic and then discharged home neurologically intact. Plan and Disposition:: Patient was discharged without incident.
== END 2022-03-27 10:53 | disposition home or self-care (01) ==
LOC: SC.PAINP 10:28
PROVIDERS: PCP Emergency Medicine; Visit Provider Nurse Anesthetist, Certified Registered
DX: M51.16 Intervertebral disc disorders with radiculopathy, lumbar region (principal); Z72.0 Tobacco use
CPT/HCPCS: 62323; J1040

== ENCOUNTER → 2022-04-10 14:39 | Outpatient (POV) | payer MEDICAID, SELFPAY ==
--- NOTE | 2022-04-10 14:42 | EXP.PAIN.SOA ---
[facility] Pain Management SOAP Note Subjective:: Patient is a pleasant 57-year-old female who presents today for follow-up of lumbar epidural steroid injection at L4-L5 on 03/27/2022. We are currently treating the patient for degenerative disc disease of lumbar spine with lumbar radiculopathy symptoms, osteoarthritis left knee, right greater trochanteric bursitis, right sacroiliitis. Patient states she has had at least 50% improvement following this injection lasting 1-1/2 weeks. Patient does rate her pain today a 7 out of 10. She states the pain is primarily along her right hip that radiates in and around the anterior and posterior aspect. Patient denies any new trauma or injury. Patient denies any change in location or type of pain she experiences. Patient also states that the neuropathy in her feet which had subsided following this injection did start back where it was more noticeable yesterday. Patient states she was prescribed cream from Dr. Spears's office however this did not provide significant improvement of her symptoms. At our last visit I did order her diclofenac 75 mg twice daily however she states she did not notice significant improvement and feels like the ibuprofen helped better. Patient also states she frequently has cramping in her feet and lower calves that occurs more frequently at night often causing her to get up and walk in order to relieve some of those symptoms. Her Daljit is [id number]. It has been reviewed and appropriate. Review of Systems: General: No recent weight changes, no fever, no sleep disturbances Respiratory: No cough, no shortness of air, no recurring pulmonary infections Cardiovascular/peripheral vascular: No chest pain, no palpitations, no edema, no shortness of breath Gastrointestinal: No new onset incontinence, normal bowel movements reported Genitourinary: No new onset incontinence Musculoskeletal: Low back pain Psychiatric: [Normal mood/affect] Neurological: [Denies weakness in extremities], [denies balance issues] Objective:: Physical Exam: General: Alert and oriented x3, no acute distress, pleasant and cooperative Lungs: Respirations even and unlabored, symmetrical chest expansion Eyes: PERRL Musculoskeletal: Flexion and extension of lumbar [spine] somewhat guarded secondary to pain, [antalgic gait noted] Neurological: Speech clear, no gross sensory deficit Assessment:: degenerative disc disease of lumbar spine with lumbar radiculopathy symptoms, osteoarthritis left knee, right greater trochanteric bursitis, right sacroiliitis. Plan:: Patient is experiencing significant pain in her right hip as well as continued neuropathy symptoms in her feet and cramping in her lower calves at night. I have discussed with the patient that she may benefit from a right hip intra-articular injection. Risk and benefits were discussed with the patient. She would like to proceed forward with this plan of care. I will also order the patient tizanidine 4 mg at bedtime and ibuprofen 800 mg 3 times daily as needed and provide a 30-day supply of these medications. I will also order the patient ropinirole 0.25 mg at bedtime and provide a 14-day supply of this medication. We will schedule the patient for a right hip intra-articular injection. Patient has been instructed to contact the clinic with any concerns before the next appointment. Dr. Beck has reviewed this note and agrees with this plan of care. This note was dictated using voice recognition software and make contain errors or omissions. [facility] Medical History Arthritis Asthma Chronic pain of both ears Depression Hx of ulcer disease Hypertension Hypothyroidism Loose total knee arthroplasty Obesity RLS (restless legs syndrome) Sciatica Sleep apnea TMJ (sprain of temporomandibular joint) Family History (Updated 03/27/22 @ 10:39 by Yulias Allen RN) Other No significant family history Social
[2022-04-10 14:44] VITALS: BP 135/51; PULSE 86; RESP 18; O2SAT 98; BMI 41.8
== END | disposition home or self-care (01) ==
PROVIDERS: PCP Emergency Medicine; Visit Provider Nurse Practitioner Family
DX: M51.16 Intervertebral disc disorders with radiculopathy, lumbar region (principal); M46.1 Sacroiliitis, not elsewhere classified; M70.61 Trochanteric bursitis, right hip; M17.12 Unilateral primary osteoarthritis, left knee
CPT/HCPCS: 99212; G0463

== ENCOUNTER 2022-04-24 08:48 | Day surgery (SDC) | payer MEDICAID, SELFPAY ==
[2022-04-24 09:03] VITALS: BP 119/68; PULSE 83; RESP 18; TEMP 36.9; O2SAT 100; BMI 42.0
[2022-04-24 09:14] VITALS: BP 144/75; PULSE 72; RESP 18; O2SAT 97
[2022-04-24 09:15] VITALS: BP 144/75; PULSE 72; RESP 18; O2SAT 97
[2022-04-24 09:19] VITALS: BP 151/80; PULSE 78; RESP 18; O2SAT 99
--- NOTE | 2022-04-24 12:55 | P.PCN_ITS ---
Procedure Date: 04/24/22 Time: 12:55 Anesthesiologist:: Ruperto Osborne CRNA Complications:: None Pre-procedure Diagnosis:: Osteoarthritis right hip Post-procedure Diagnosis:: Same Indications for Procedure:: Very pleasant 57-year-old female comes our clinic today for right intra- articular hip injection. Patient describes right hip pain as constant, dull, sharp and stabbing at times she rates pain 7/10. Procedure Details:: Details of the procedure were explained to the patient. The patient was taken to procedure room placed in the supine position. The area over the right hip was cleaned using chlorhexidine as a cleansing solution. Using fluoroscopy guidance a 3 and half inch 22-gauge spinal needle was used to access the right hip joint without difficulty. After negative aspiration 3 cc of 1% lidocaine +3 cc of 0.25% Marcaine and 40 mg of Depo-Medrol was injected. Needle was withdrawn. Band-Aid applied. Patient tolerated procedure without difficulty. There are no complications. Plan and Disposition:: Patient was discharged without incident.
--- NOTE | 2022-05-07 14:06 | PC.NURSE ---
called in Rx for Ibuprofen 800mg TIDP pain with no refills and Tizanadine 4mg po HS with no refills to patient's pharmacy per provider order.
== END 2022-04-24 09:19 | disposition home or self-care (01) ==
LOC: SC.PAINP 08:50
PROVIDERS: PCP Emergency Medicine; Visit Provider Nurse Anesthetist, Certified Registered
DX: M16.11 Unilateral primary osteoarthritis, right hip (principal)
CPT/HCPCS: 20610; J1040

== ENCOUNTER → 2022-06-20 11:00 | Outpatient (CLI) | payer MEDICAID, SELFPAY ==
[2022-06-20 19:12] LABS: Basophils # 0.1 K/mm3 (0-0.2); Basophils % 1.5 % (0.1-2.0); Eosinophils # 0.2 K/mm3 (0.0-0.4); Eosinophils % 1.8 % (0.1-12.0); Hematocrit 46.8 % (37.0-47.0); Hemoglobin 14.7 g/dL (12.2-16.2); Lymphocytes # 2.3 K/mm3 (0.7-4.5); Lymphocytes % 24.5 % (10-50); Mean Corpuscular HGB Conc 31.3 g/dL (31.8-35.4); Mean Corpuscular Hemoglobin 30.9 pg (27.0-31.2); Mean Corpuscular Volume 98.7 fl (81-99); Mean Platelet Volume 10.4 fl (7.4-10.4); Monocytes # 0.5 K/mm3 (0.1-1.0); Monocytes % 5.3 % (1.7-9.3); Neutrophils # 6.4 K/mm3 (1.8-7.8); Neutrophils % 66.9 % (37.0-80.0); Platelet Count 291 K/mm3 (142-424); Red Blood Count 4.75 M/mm3 (4.20-5.40); Red Cell Distribution Width 13.3 % (11.5-17.5); White Blood Count 9.5 K/mm3 (4.8-10.8)
[2022-06-20 19:23] LABS: Alanine Aminotransferase 40 U/L (12-78); Albumin Level 4.1 g/dl (3.5-5.0); Albumin/Globulin Ratio 1.6 (1.1-1.8); Alkaline Phosphatase 114 U/L (38-126); Anion Gap 9.1 mEq/L (5-15); Aspartate Amino Transferase 31 U/L (14-36); Bilirubin,Total 0.3 mg/dl (0.2-1.3); Blood Urea Nitrogen 16 mg/dl (7-17); Carbon Dioxide 27 mmol/L (22.0-30.0); Chloride 109 mmol/L (98-107); Estimated Glomerular Filt Rate 104 ml/min (>60); GFR (African American) 126 ML/MIN (>60); Globulin 2.5 g/dL (1.3-3.2); Glucose 139 mg/dl (74-100); Potassium 4.1 mmoL/L (3.5-5.1); Sodium 141 mmol/L (136-145); Total Protein,Serum 6.6 g/dl (6.3-8.2)
[2022-06-20 19:40] LABS: 25-OH Vitamin D, Total 30.9 ng/mL (30-100)
[2022-06-20 19:54] LABS: Thyroid Stimulating Hormone 2.37 uIU/mL (0.465-4.68)
[2022-06-20 20:13] LABS: Erythrocyte Sedimentation Rate 14 mm/hr (0-30); Vitamin B12 538 pg/mL (239-931)
[2022-06-21 18:35] LABS: Hemoglobin A1C 6.6 % (4.0-6.0)
[2022-06-22 18:08] LABS: Anti-Centromere B Antibodies <0.2 AI (0.0-0.9); Anti-Cyclic Citrullinated Pept 4 units (0-19); Anti-DNA (DS) Ab Qn <1 IU/mL (0-9); Anti-Jo-1 <0.2 AI (0.0-0.9); Anti-Smith Antibody <0.2 AI (0.0-0.9); Antichromatin Antibodies <0.2 AI (0.0-0.9); Antiscleroderma-70 Antibodies <0.2 AI (0.0-0.9); RA Latex Turbid. <10.0 IU/mL (<14.0); RNP Antibodies <0.2 AI (0.0-0.9); Sjogren's Anti-SS-A <0.2 AI (0.0-0.9); Sjogren's Anti-SS-B <0.2 AI (0.0-0.9)
== END ==
PROVIDERS: PCP Physician Assistant; Visit Provider Physician Assistant
DX: M25.50 Pain in unspecified joint (principal)
CPT/HCPCS: 80053; 82306; 82607; 83036; 84443; 85025; 85651; 86140; 86200; 86225; 86235; 86431

== ENCOUNTER → 2022-06-22 09:14 | Outpatient (POV) | payer MEDICAID, SELFPAY ==
[2022-06-22 09:20] VITALS: BP 153/77; PULSE 78; RESP 18; O2SAT 98; BMI 43.6
--- NOTE | 2022-06-22 09:31 | A.OFFVIS_ITS ---
[facility] Pain Management SOAP Note Subjective:: This patient is a very pleasant 57-year-old female that comes our clinic today for follow-up visit regarding chronic low back pain that she describes as constant, dull, aching. Also bilateral hip and leg radicular symptoms to the feet. Patient had lumbar epidural steroid injection 03/24/2022. She reports significant improvement in terms of her symptoms. Today she rates her pain 8/10. She recently visited with her primary care who started her on Lyrica 25 mg 1 p.o. twice daily. Patient describes some degree of relief in her radicular symptoms in her feet. Patient does have point tenderness over the midline lumbar spine. She has difficulty with flexion and/or extension. Patient de scribes ambulating is difficult due to the pain. Sitting for any length of time is difficult as well. I discussed in detail with the patient regarding a repeat of the lumbar epidural steroid injection of the L4-5 level. She wishes to proceed. Objective:: Patient is awake alert [place] x3. In no acute distress. Flexion-extension lumbar spine very guarded secondary to pain. Deep tendon reflexes upper lower extremities normal. Motor strength upper lower extremities normal. There is no gross sensory deficit. Gait is normal Assessment:: Degenerative disc disease lumbar spine multilevels. Lumbar radiculopathy. Plan:: We will plan a second lumbar epidural steroid injection of the L4-5 level. Again, patient received significant improvement 80 to 90% over her symptoms with her initial lumbar epidural steroid injection of the L4-5 level 04/10. Her Daljit #[id number] has been reviewed and appropriate. [facility] Disclaimer: The information contained in this section may have been updated after the patient was seen, as this information can be updated by other users. Medical History Arthritis Asthma Chronic pain of both ears Depression Hx of ulcer disease Hypertension Hypothyroidism Loose total knee arthroplasty Obesity RLS (restless legs syndrome) Sciatica Sleep apnea TMJ (sprain of temporomandibular joint) Family History Other No significant family history Social History Smoking Status: Current every day smoker tobacco type: cigarettes packs per day: 1 second hand exposure: Yes alcohol intake: never substance use type: denies use current occupational status: unemployed Travel in the last 8 weeks: None household members: spouse housing: house current occupational exposures/hazards: No caffeine: Yes
== END ==
PROVIDERS: PCP Emergency Medicine; Visit Provider Nurse Anesthetist, Certified Registered
DX: M51.16 Intervertebral disc disorders with radiculopathy, lumbar region (principal)
CPT/HCPCS: 99212; G0463

== ENCOUNTER 2022-07-03 08:35 | Day surgery (SDC) | payer MEDICAID, SELFPAY ==
[2022-07-03 08:40] VITALS: BP 123/84; PULSE 77; RESP 18; TEMP 36.7; O2SAT 98; BMI 42.5
[2022-07-03 08:49] VITALS: BP 142/72; PULSE 80; RESP 18; O2SAT 98
[2022-07-03 08:55] VITALS: BP 134/66; PULSE 74; RESP 18; O2SAT 98
--- NOTE | 2022-07-03 08:57 | P.PCN_ITS ---
Procedure Date: 07/03/22 Time: 09:00 Anesthesiologist:: Ruperto Osborne CRNA Complications:: None Pre-procedure Diagnosis:: Degenerative disc disease lumbar spine multilevels. Lumbar radiculopathy Post-procedure Diagnosis:: Same. Indications for Procedure:: This patient is a pleasant 57-year-old female that comes our clinic today for repeat lumbar epidural steroid injection at the L4-5 level. Patient has had this injection in the past with significant improvement terms of her low back a nd bilateral leg radicular symptoms. Today she rates her pain 6/10. Procedure Details:: Procedure: Lumbar epidural steroid injection under fluoroscopy Informed consent was obtained and the risks and benefits of the procedure were explained to the patient. The patient was taken to the procedure room and noninvasive monitors placed, including noninvasive blood pressure cuff and pulse oximeter. The back was viewed using C-arm Fluoroscopy and prepped using Chloraprep as a cleansing solution and the L4-L5 interspace was palpated. Skin and subcutaneous tissues were anesthetized using lidocaine 1.5% and a 25-gauge needle. After this, an 18-gauge Touhy epidural needle was placed into the L4-L5 interspace and advanced using fluoroscopic guidance and loss of resistance to air until the epidural space was encountered. After confirmation of needle placement in the epidural space, with dye, a solution containing normal saline, 3 mL and Depo-Medrol 80 mg were incrementally injected into the lumbar epidural space. The patient tolerated the procedure well with no complications. The patient was observed in the Pain Clinic and then discharged home n eurologically intact. Plan and Disposition:: Patient was discharged without incident.
== END 2022-07-03 08:55 | disposition home or self-care (01) ==
PROVIDERS: PCP Emergency Medicine; Visit Provider Nurse Anesthetist, Certified Registered
DX: M51.16 Intervertebral disc disorders with radiculopathy, lumbar region (principal); F17.210 Nicotine dependence, cigarettes, uncomplicated
CPT/HCPCS: 62323; J1040

== ENCOUNTER → 2022-07-17 14:03 | Outpatient (POV) | payer MEDICAID, SELFPAY ==
--- NOTE | 2022-07-17 14:58 | EXP.PAIN.SOA ---
[facility] Pain Management SOAP Note Subjective:: Patient is a pleasant 57-year-old female who presents today for follow-up of lumbar epidural steroid injection at L4-L5 on 07/03/2022. We are currently treating the patient for degenerative disc disease of lumbar spine multilevels with lumbar radiculopathy symptoms. Today she rates her pain a 7 out of 10. Patient states she had approximately 60 to 70% relief lasting 2 weeks following this injection. Patient states she was able to increase her activity and have better functionality overall following this injection. She does state that she is back to her baseline today and describes it as a aching, throbbing sensation that is worse with increased activity. Patient frequently has trouble performing activities of daily living such as cooking and cleaning. Patient does have limited flexion and extension of her lumbar spine. She was recently started on pregabalin 25 mg twice a day from her primary care doctor. She states this medication has provided significant improvement and she is requesting a refill from our office. Her Daljit is [id number]. Its been reviewed and appropriate. Review of Systems: General: No recent weight changes, no fever, no sleep disturbances Respiratory: No cough, no shortness of air, no recurring pulmonary infections Cardiovascular/peripheral vascular: No chest pain, no palpitations, no edema, no shortness of breath Gastrointestinal: No new onset incontinence, normal bowel movements reported Genitourinary: No new onset incontinence Musculoskeletal: Low back pain, leg pain Psychiatric: [Normal mood/affect] Neurological: [Denies weakness in extremities], [denies balance issues] Objective:: Physical Exam: General: Alert and oriented x3, no acute distress, pleasant and cooperative Lungs: Respirations even and unlabored, symmetrical chest expansion Eyes: PERRL Musculoskeletal: Flexion and extension of lumbar [spine] somewhat guarded secondary to pain, [antalgic gait noted] Neurological: Speech clear, no gross sensory deficit Assessment:: Degenerative disc disease of lumbar spine multilevels with lumbar radiculopathy symptoms Plan:: Patient is experiencing significant pain in her low back with radiating symptoms into her lower extremities. Patient did have 60 to 70% improvement following her last lumbar epidural steroid injection. I have discussed with the patient that she may benefit from a repeat epidural steroid injection. Risk and benefits were discussed with the patient and she would like to proceed forward with this plan of care. She is not on any blood thinners. I have counseled the patient that we will contact her primary care doctor to take over her pregabalin prescription. We will send in a refill of pregabalin 25 mg twice a day and provide a 1 month supply of this medication. We will schedule the patient for a lumbar epidural steroid injection at L4-L5. Patient has been instructed to contact the clinic with any concerns before the next appointment. Dr. Beck has reviewed this note and agrees with this plan of care. This note was dictated using voice recognition software and make contain errors or omissions. [facility] Disclaimer: The information contained in this section may have been updated after the patient was seen, as this information can be updated by other users. Medical History Arthritis Asthma Chronic pain of both ears Depression Hx of ulcer disease Hypertension Hypothyroidism Loose total knee arthroplasty Obesity RLS (restless legs syndrome) Sciatica Sleep apnea TMJ (sprain of temporomandibular joint) Family History Other No significant family history Social History Smoking Status: Current every day smoker tobacco type: cigarettes packs per day: 1 second hand exposure: Yes alcohol intake: nev
[2022-07-17 15:16] VITALS: BP 124/63; PULSE 70; RESP 20; BMI 42.9
== END | disposition home or self-care (01) ==
PROVIDERS: PCP Emergency Medicine; Visit Provider Nurse Practitioner Family
DX: M51.16 Intervertebral disc disorders with radiculopathy, lumbar region (principal)
CPT/HCPCS: 99212; G0463

== ENCOUNTER 2022-07-31 10:51 | Day surgery (SDC) | payer MEDICAID, SELFPAY ==
[2022-07-31 11:18] VITALS: BP 132/61; PULSE 70; RESP 18; TEMP 36.5; O2SAT 100; BMI 42.5
[2022-07-31 11:41] VITALS: BP 138/76; PULSE 85; RESP 18; O2SAT 96
[2022-07-31 11:42] VITALS: BP 138/76; PULSE 85; RESP 18; O2SAT 96
[2022-07-31 12:05] VITALS: BP 114/77; PULSE 73; RESP 18; O2SAT 100
--- NOTE | 2022-07-31 12:21 | EXP.PAIN.PRO ---
Procedure Date: 07/31/22 Time: 11:00 Anesthesiologist:: Ruperto Osborne CRNA Complications:: None Pre-procedure Diagnosis:: Degenerative disc disease lumbar spine multilevels. Lumbar radiculopathy. Post-procedure Diagnosis:: Same. Indications for Procedure:: Patient is a very pleasant 57-year-old female who presents today for repeat lumbar epidural steroid injections L4-5 level. Patient reports significant improvement in her low back pain as well as bilateral hip and leg radicular symptoms lasting 2 to 3 weeks with her previous lumbar epidural steroid injection. Procedure Details:: Procedure: Lumbar epidural steroid injection under fluoroscopy Informed consent was obtained and the risks and benefits of the procedure were explained to the patient. The patient was taken to the procedure room and noninvasive monitors placed, including noninvasive blood pressure cuff and pulse oximeter. The back was viewed using C-arm Fluoroscopy and prepped using Chloraprep as a cleansing solution and the L4-L5 interspace was palpated. Skin and subcutaneous tissues were anesthetized using lidocaine 1.5% and a 25-gauge needle. After this, an 18-gauge Touhy epidural needle was placed into the L4-L5 interspace and advanced using fluoroscopic guidance and loss of resistance to air until the epidural space was encountered. After confirmation of needle placement in the epidural space, with dye, a solution containing normal saline, 3 mL and Depo-Medrol 80 mg were incrementally injected into the lumbar epidural space. The patient tolerated the procedure well with no complications. The patient was observed in the Pain Clinic and then discharged home neurologically intact. Plan and Disposition:: Patient was discharged without incident.
== END 2022-07-31 12:05 | disposition home or self-care (01) ==
LOC: SC.PAINP 10:51
PROVIDERS: PCP Emergency Medicine; Visit Provider Nurse Anesthetist, Certified Registered
DX: M51.16 Intervertebral disc disorders with radiculopathy, lumbar region (principal)
CPT/HCPCS: 62323; J1040

== ENCOUNTER → 2022-08-17 11:24 | Outpatient (POV) | payer MEDICAID, SELFPAY ==
--- NOTE | 2022-08-17 11:41 | EXP.PAIN.SOA ---
[facility] Pain Management SOAP Note Subjective:: Patient is a pleasant 57-year-old female who presents today for follow-up of lumbar epidural steroid injection at L4-L5 on 07/31/2022. We are currently treating the patient for degenerative disc disease of lumbar spine multilevels with lumbar radiculopathy symptoms. Today she rates her pain an 8 out of 10. Patient denies any new trauma or injury. Patient denies any change location or type of pain she experiences. Patient does state that she had approximately 40% or more improvement following the epidural. Today she states her pain is more in her low back that runs into her hips and groin. Patient does describe this as an aching, throbbing sensation that is worse with increased activity. She cannot tolerate prolonged sitting, standing, walking due to the pain. Patient has had previous SI injections in the past that provided significant relief. Patient also states today that her left knee is starting to bother her again. She previously had a genicular nerve block at this site that provided significant relief. Patient is currently managed with pregabalin 25 mg twice a day and compounding cream. She denies any side effects from this medication however she states she has not been noticing as significant improvement with the pregabalin. Her Daljit is [id number]. Its been reviewed and appropriate. Review of Systems: General: No recent weight changes, no fever, no sleep disturbances Respiratory: No cough, no shortness of air, no recurring pulmonary infections Cardiovascular/peripheral vascular: No chest pain, no palpitations, no edema, no shortness of breath Gastrointestinal: No new onset incontinence, normal bowel movements reported Genitourinary: No new onset incontinence Musculoskeletal: Low back pain Psychiatric: [Normal mood/affect] Neurological: [Denies weakness in extremities], [denies balance issues] Objective:: Physical Exam: General: Alert and oriented x3, no acute distress, pleasant and cooperative Lungs: Respirations even and unlabored, symmetrical chest expansion Eyes: PERRL Musculoskeletal: Flexion and extension of lumbar [spine] somewhat guarded secondary to pain, [antalgic gait noted] extreme point tenderness along bilateral SIs and positive bilateral Renetta's, Tulio's, Gaenslen's, compression and distraction exam Neurological: Speech clear, no gross sensory deficit Assessment:: Degenerative disc disease of lumbar spine multilevels with lumbar radiculopathy symptoms, left knee osteoarthritis, low back pain Plan:: Patient is experiencing significant pain in her low back with limited range of motion. Patient had extreme point tenderness along bilateral SIs and positive bilateral Renetta's, Tulio's, Gaenslen's, compression and distraction exam. I have discussed with the patient that she may benefit from bilateral SI injections. Risk and benefits were discussed with the patient and she would like to proceed forward with this plan of care. I will also increase her pregabalin to 50 mg twice daily and provide a 1 month supply of this medication. I have also counseled the patient that she may benefit from a repeat left knee genicular nerve block in the future. Risk and benefits were discussed with the patient on this procedure and at the time of her upcoming injections we will discuss if she is still wanting to proceed forward with this injection next. We will schedule her for bilateral SI injections. Patient has been instructed to contact the clinic with any concerns before the next appointment. Dr. Beck has reviewed this note and agrees with this plan of care. This note was dictated using voice recognition software and make contain errors or omissions. [facility] Disclaimer: The information contained in this section may have been updated after the patient was seen, as this information can be updated by other users. Medical History Arthritis Asthma Chr
[2022-08-17 14:07] VITALS: BP 124/73; PULSE 79; RESP 18; O2SAT 97; BMI 42.0
== END | disposition home or self-care (01) ==
PROVIDERS: PCP Emergency Medicine; Visit Provider Nurse Practitioner Family
DX: M51.16 Intervertebral disc disorders with radiculopathy, lumbar region (principal); M17.12 Unilateral primary osteoarthritis, left knee
CPT/HCPCS: 99212; G0463

== ENCOUNTER 2022-08-28 09:25 | Day surgery (SDC) | payer MEDICAID, SELFPAY ==
[2022-08-28 09:44] VITALS: BP 148/70; BP 150/68; PULSE 66; PULSE 72; RESP 18; O2SAT 98; O2SAT 99; BMI 42.0
[2022-08-28 10:02] VITALS: BP 150/68; PULSE 66; RESP 18; O2SAT 98
--- NOTE | 2022-08-28 10:09 | P.PCN_ITS ---
Procedure Date: 08/28/22 Time: 09:45 Anesthesiologist:: Ruperto Osborne CRNA Complications:: None Pre-procedure Diagnosis:: Bilateral sacroiliitis. Post-procedure Diagnosis:: Same. Indications for Procedure:: Very pleasant 57-year-old female that comes our clinic today for bilateral sacroiliac joint injections. Patient has extreme point tenderness over the bilateral sacroiliac joints. She rates her pain 7/10. Patient also discussing with me regarding chronic left knee pain. She is status post 1 left genicular nerve block several months ago which she reports moderate to significant improvement terms of her overall left knee pain. Patient has had meniscal tear repair several years ago in the left knee. She has dull aching pain that she describes as 7/10. Patient has difficulty with ambulation. Patient complains of left knee pain when sitting. I discussed a repeat left genicular nerve block with her. She wishes to proceed. Procedure Details:: Procedure: Bilateral sacroiliac joint injections under fluoroscopy Informed consent was obtained and the risks and benefits of the procedure were explained to the patient.~ The patient was taken to the procedure room and noninvasive monitors were placed including a noninvasive blood pressure cuff and pulse oximeter.~ The patient was placed prone on the procedure table. Both hips were cleansed using Betadine as a cleansing solution. C-arm fluoroscopy was used to view the right sacroiliac joint.~ The skin and subcutaneous tissues were anesthetized using lidocaine 1.5% and a 25-gauge needle.~ After this, a 22-gauge spinal needle was inserted under fluoroscopic guidance into the inferior aspect of the right sacroiliac joint.~ Omnipaque dye was injected and good spread was seen throughout the joint.~ After this, approximately 5 mL of bupivacaine, 0.25% and Depo-Medrol, 40 mg was incrementally injected into the right sacroiliac joint. We then moved to the left sacroiliac joint.~ The skin and subcutaneous tissues were anesthetized using lidocaine 1.5% and a 25-gauge needle.~ After this, a 22- gauge spinal needle was inserted under fluoroscopic guidance into the inferior aspect of the left sacroiliac joint.~ Omnipaque dye was injected and good spread was seen throughout the joint. After this, approximately 5 mL of bupivacaine, 0.25% and Depo-Medrol, 40 mg was incrementally injected into the left sacroiliac joint.~ The patient tolerated the procedure well with no complications. The patient was observed in the Pain Clinic and then was discharged home neurologically intact. Plan and Disposition:: Patient was discharged without incident.
[2022-08-28 10:11] VITALS: BP 144/92; PULSE 78; RESP 18; O2SAT 98
== END 2022-08-28 10:11 | disposition home or self-care (01) ==
PROVIDERS: PCP Emergency Medicine; Visit Provider Nurse Anesthetist, Certified Registered
DX: M46.1 Sacroiliitis, not elsewhere classified (principal)
CPT/HCPCS: 27096; G0260; J1040

== ENCOUNTER 2022-09-11 08:33 | Day surgery (SDC) | payer MEDICAID, SELFPAY ==
[2022-09-11 08:42] VITALS: BP 123/60; PULSE 73; RESP 18; TEMP 36.6; O2SAT 99; BMI 41.1
[2022-09-11 08:48] VITALS: BP 147/62; PULSE 71; RESP 18; O2SAT 97
[2022-09-11 08:49] VITALS: BP 147/62; PULSE 71; RESP 18; O2SAT 97
[2022-09-11 08:57] VITALS: BP 119/63; PULSE 68; RESP 18; O2SAT 99
--- NOTE | 2022-09-11 09:00 | EXP.PAIN.PRO ---
Procedure Date: 09/11/22 Time: 08:40 Anesthesiologist:: Ruperto Osborne CRNA Complications:: None Pre-procedure Diagnosis:: Osteoarthritis left knee. Chronic left knee pain. Post-procedure Diagnosis:: Same. Indications for Procedure:: Patient is a very pleasant 57-year-old female comes our clinic today for left genicular nerve block. Patient had the same block several months ago with 90% relief in her chronic left knee pain lasting 3 months. Patient has difficulty with ambulation due to chronic left knee pain. Procedure Details:: Pre-procedure Diagnosis:: Left knee genicular block Informed consent was obtained and the risk and benefits of the procedure was explained to the patient. The patient was taken to the procedure room. The left knee was prepped using ChloraPrep. I placed 22-gauge needles into the area of the left superior medial genicular nerve, right superior lateral genicular nerve and left inferior medial genicular nerve. Needle placement was confirmed in AP and lateral views with dye. We then injected bupivacaine 0.25% 3 mL's and Depo-Medrol 25 mg into each area of the left superior medial genicular nerve, left superior lateral genicular nerve and left inferior medial genicular nerve. Patient tolerated the procedure well with no complications. Plan and Disposition:: We will follow-up with her in 2 weeks. Will reevaluate symptoms at that time. Plan and Disposition:: Patient was discharged without incident.
== END 2022-09-11 08:57 | disposition home or self-care (01) ==
PROVIDERS: PCP Emergency Medicine; Visit Provider Nurse Anesthetist, Certified Registered
DX: M17.12 Unilateral primary osteoarthritis, left knee (principal); M25.562 Pain in left knee
CPT/HCPCS: 64454; J1040

== ENCOUNTER → 2022-12-31 11:30 | Outpatient (CLI) | payer MEDICAID, SELFPAY | PROVIDERS: PCP Student in an Organized Health Care Education/Training Program; Visit Provider Student in an Organized Health Care Education/Training Program | DX: U07.1 COVID-19 (principal) | CPT/HCPCS: 87635 ==

== ENCOUNTER → 2023-01-16 23:48 | Outpatient (CLI) | payer MEDICAID, SELFPAY | PROVIDERS: PCP Nurse Practitioner Family; Visit Provider Nurse Practitioner Family | DX: U07.1 COVID-19 (principal) | CPT/HCPCS: 87635 ==

== ENCOUNTER → 2023-03-20 23:34 | Outpatient (CLI) | payer MEDICAID, SELFPAY ==
[2023-03-20 19:56] LABS: Coronavirus 19, PCR Not Detected (NotDetected); Influenza A, PCR Not Detected (NotDetected); Influenza B, PCR Not Detected (NotDetected)
== END ==
PROVIDERS: PCP Physician Assistant; Visit Provider Internal Medicine
DX: U07.1 COVID-19 (principal); Z79.899 Other long term (current) drug therapy
CPT/HCPCS: 87636

== ENCOUNTER 2023-04-14 11:29 | Emergency (ER) | payer MEDICAID, SELFPAY ==
[2023-04-14 12:30] VITALS: BP 131/72; PULSE 72; RESP 20; TEMP 36.8; O2SAT 99; BMI 37.8
--- NOTE | 2023-04-14 12:46 | EXP.UTC ---
Discharge Plan Disposition Patient Disposition: Home, Self-Care Condition: Good Prescriptions Prescriptions: New amoxicillin-pot clavulanate 875-125 mg Tablet 1 tab PO Q12H Qty: 20 0RF guaifenesin [Mucinex] 600 mg tablet extended release 12hr 600 mg PO BID PRN (Reason: cough) Qty: 20 0RF prednisone [prednisone] 20 mg tablet 20 mg PO BID 5 Days Qty: 10 0RF No Action epinephrine 0.3 mg/0.3 mL auto-injector 0.3 ml IM NEEDED PRN (Reason: .) ergocalciferol (vitamin D2) 1,250 mcg (50,000 unit) capsule 1,250 mcg PO WEEKLY Qty: 12 0RF ondansetron 4 mg tablet,disintegrating 4 mg PO Q8H Qty: 20 0RF meloxicam 15 mg tablet 15 mg PO gabapentin 300 mg capsule 300 mg PO fluticasone propionate [Flovent HFA] 220 mcg/actuation HFA aerosol inhaler 2 inh inhalation BID Qty: 12 0RF albuterol sulfate [ProAir HFA] 90 mcg/actuation HFA aerosol inhaler 2 inh IH NEEDED PRN (Reason: BREATHING) Qty: 8.5 2RF (DME) OneTouch Verio test strips Strip See Rx Instructions .ROUTE .COMPLEX Qty: 100 2RF Dose Instruction: USE TO TEST BLOOD GLUCOSE TWICE DAILY Rx Instructions: USE TO TEST BLOOD GLUCOSE TWICE DAILY cholecalciferol (vitamin D3) [Vitamin D3] 25 mcg (1,000 unit) tablet See Rx Instructions .ROUTE .COMPLEX Qty: 90 0RF Dose Instruction: TAKE 1 TABLET BY MOUTH EVERY DAY Rx Instructions: TAKE 1 TABLET BY MOUTH EVERY DAY levothyroxine 100 mcg tablet See Rx Instructions .ROUTE .COMPLEX Qty: 90 0RF Dose Instruction: TAKE 1 TABLET BY MOUTH EVERY MORNING BEFORE MEALS OR OTHER MEDICATIONS Rx Instructions: TAKE 1 TABLET BY MOUTH EVERY MORNING BEFORE MEALS OR OTHER MEDICATIONS sertraline 25 mg tablet See Rx Instructions .ROUTE .COMPLEX Qty: 90 0RF Dose Instruction: TAKE 1 TABLET BY MOUTH EVERY DAY Rx Instructions: TAKE 1 TABLET BY MOUTH EVERY DAY sulfasalazine 500 mg tablet See Rx Instructions .ROUTE .COMPLEX Qty: 30 1RF Dose Instruction: TAKE 2 TABLETS BY MOUTH ONCE DAILY WITH FOOD Rx Instructions: TAKE 2 TABLETS BY MOUTH ONCE DAILY WITH FOOD hydrochlorothiazide 12.5 mg tablet See Rx Instructions .ROUTE .COMPLEX Qty: 90 0RF Dose Instruction: TAKE 1 TABLET BY MOUTH EVERY MORNING Rx Instructions: TAKE 1 TABLET BY MOUTH EVERY MORNING losartan 50 mg tablet See Rx Instructions .ROUTE .COMPLEX Qty: 90 0RF Dose Instruction: TAKE 1 TABLET BY MOUTH EVERY DAY Rx Instructions: TAKE 1 TABLET BY MOUTH EVERY DAY Ozempic 0.25 mg or 0.5 mg (2 mg/3 mL) pen injector See Rx Instructions .ROUTE .COMPLEX Qty: 3 1RF Dose Instruction: INJECT 0.25MG SUBCUTANEOUSLY ONCE WEEKLY FOR 4 WEEKS THEN INCREASE TO INJECT 0.5MG SUBCUTANEOUSLY ONCE WEEKLY Rx Instructions: INJECT 0.25MG SUBCUTANEOUSLY ONCE WEEKLY FOR 4 WEEKS THEN INCREASE TO INJECT 0.5MG SUBCUTANEOUSLY ONCE WEEKLY ropinirole 0.25 mg tablet See Rx Instructions .ROUTE .COMPLEX Qty: 90 3RF Dose Instruction: TAKE 1 TABLET BY MOUTH AT BEDTIME. ADMINISTER 1-3 HOURS BEFORE BEDTIME Rx Instructions: TAKE 1 TABLET BY MOUTH AT BEDTIME. ADMINISTER 1-3 HOURS BEFORE BEDTIME cetirizine 10 mg tablet See Rx Instructions .ROUTE .COMPLEX Qty: 90 3RF Dose Instruction: TAKE 1 TABLET BY MOUTH ONCE A DAY Rx Instructions: TAKE 1 TABLET BY MOUTH ONCE A DAY azelastine 137 mcg (0.1 %) aerosol,spray See Rx Instructions .ROUTE .COMPLEX Qty: 30 12RF Dose Instruction: SPRAY 1-2 SPRAY INTO BOTH NOSTRILS TWICE A DAY NEEDED Rx Instructions: SPRAY 1-2 SPRAY INTO BOTH NOSTRILS TWICE A DAY NEEDED fluticasone propionate 50 mcg/actuation spray,suspension See Rx Instructions .ROUTE .COMPLEX Qty: 16 12RF Dose Instruction: INHALE 2 PUFFS IN EACH NOSTRIL EVERY DAY Rx Instructions: INHALE 2 PUFFS IN EACH NOSTRIL EVERY DAY (DME) lancets [Accu-Chek Softclix Lancets] [facility] [place]
[2023-04-14 12:57] VITALS: BP 131/72; PULSE 72; RESP 20; TEMP 36.8; O2SAT 99
== END 2023-04-14 13:00 | disposition home or self-care (01) ==
PROVIDERS: Emergency Provider Nurse Practitioner; PCP Emergency Medicine
DX: J20.9 Acute bronchitis, unspecified (principal); J01.90 Acute sinusitis, unspecified; R51.9 Headache, unspecified; R50.9 Fever, unspecified; R05.9 Cough, unspecified; R09.81 Nasal congestion; R09.89 Other specified symptoms and signs involving the circulatory and respiratory systems; F17.210 Nicotine dependence, cigarettes, uncomplicated; J45.909 Unspecified asthma, uncomplicated; E11.9 Type 2 diabetes mellitus without complications; I10 Essential (primary) hypertension; E03.9 Hypothyroidism, unspecified; E66.9 Obesity, unspecified; Z79.85 Long-term (current) use of injectable non-insulin antidiabetic drugs
CPT/HCPCS: 99212; 99214; G0463

== ENCOUNTER 2023-09-04 11:29 | Outpatient (CLI) | payer MEDICAID, SELFPAY ==
--- NOTE | 2023-09-04 11:32 | XR_ITS ---
FINAL REPORT CLINICAL HISTORY: neck pain x1 month COMPARISON: None FINDINGS: Three views of the cervical spine were obtained. There is no fracture present. There is no malalignment. There is mild anterior osteophyte formation at C5-6. There is moderate anterior osteophyte formation at C6-7. The vertebrae are normal in height. IMPRESSION: No acute process. Reviewed, Interpreted and Dictated by Wm Knox MD Transcribed by Mayr Price Authenticated and [facility]
--- NOTE | 2023-09-04 11:32 | XR_ITS ---
FINAL REPORT CLINICAL HISTORY: left shoulder pain x 1 month COMPARISON: None FINDINGS: LEFT SHOULDER 3 views of the left shoulder were obtained. There is no acute fracture or dislocation. There are mild hypertrophic changes of the acromioclavicular and glenohumeral joints. Visualized joint spaces are normally aligned. Soft tissues are unremarkable. IMPRESSION: Mild hypertrophic changes without acute bony abnormality. Reviewed, Interpreted and Dictated by Wm Knox MD Transcribed by Mary Price Authenticated and [facility]
[2023-09-04 18:20] LABS: Basophils # 0.1 K/mm3 (0-0.2); Basophils % 0.8 % (0.1-2.0); Eosinophils # 0.1 K/mm3 (0.0-0.4); Eosinophils % 1.9 % (0.1-12.0); Hematocrit 44.7 % (37.0-47.0); Hemoglobin 14.1 g/dL (12.2-16.2); Lymphocytes # 1.8 K/mm3 (0.7-4.5); Lymphocytes % 23.9 % (10-50); Mean Corpuscular HGB Conc 31.6 g/dL (31.8-35.4); Mean Corpuscular Hemoglobin 32.2 pg (27.0-31.2); Mean Corpuscular Volume 101.7 fl (81-99); Mean Platelet Volume 10.5 fl (7.4-10.4); Monocytes # 0.5 K/mm3 (0.1-1.0); Monocytes % 6.1 % (1.7-9.3); Neutrophils # 5.1 K/mm3 (1.8-7.8); Neutrophils % 67.3 % (37.0-80.0); Platelet Count 240 K/mm3 (142-424); Red Cell Distribution Width 13.6 % (11.5-17.5); White Blood Count 7.6 K/mm3 (4.8-10.8)
[2023-09-04 18:34] LABS: Alanine Aminotransferase 23 U/L (12-78); Albumin/Globulin Ratio 1.7 (1.1-1.8); Alkaline Phosphatase 100 U/L (38-126); Anion Gap 9.3 mEq/L (5-15); Aspartate Amino Transferase 26 U/L (14-36); Bilirubin,Total 0.4 mg/dl (0.2-1.3); Blood Urea Nitrogen 14 mg/dl (7-17); Calcium 9.1 mg/dl (8.4-10.2); Carbon Dioxide 26 mmol/L (22.0-30.0); Chloride 109 mmol/L (98-107); Chol/HDL Ratio 3.5 (1-3.5); Cholesterol 163 mg/dl (140-200); Estimated Glomerular Filt Rate 128 ml/min (>60); GFR (African American) 154 ML/MIN (>60); Globulin 2.3 g/dL (1.3-3.2); Glucose 90 mg/dl (74-100); HDL Cholesterol 46 mg/dl (40-60); Potassium 4.3 mmoL/L (3.5-5.1); Sodium 140 mmol/L (136-145); Total Protein,Serum 6.3 g/dl (6.3-8.2); Triglycerides 114 mg/dl (30-150); VLDL Cholesterol 23 mg/dL (0-40)
[2023-09-04 18:43] LABS: Hemoglobin A1C 5.6 % (4.0-6.0)
[2023-09-04 18:44] LABS: Direct LDL Cholesterol 82.94 mg/dL (100-129)
[2023-09-04 18:51] LABS: 25-OH Vitamin D, Total 31.4 ng/mL (30-100)
[2023-09-04 19:05] LABS: Thyroid Stimulating Hormone 1.25 uIU/mL (0.465-4.68)
== END 2023-09-04 23:59 | disposition home or self-care (01) ==
LOC: RAD 11:29
PROVIDERS: PCP Physician Assistant; Visit Provider Family Medicine
DX: M54.2 Cervicalgia (principal); R20.0 Anesthesia of skin; R20.2 Paresthesia of skin; E11.9 Type 2 diabetes mellitus without complications; E66.9 Obesity, unspecified; Z68.39 Body mass index [BMI] 39.0-39.9, adult; Z79.84 Long term (current) use of oral hypoglycemic drugs; M25.512 Pain in left shoulder
CPT/HCPCS: 72040; 73030; 80053; 80061; 82306; 83036; 84443; 85025

== ENCOUNTER 2023-09-26 11:03 | Outpatient (CLI) | payer MEDICAID, SELFPAY ==
--- NOTE | 2023-09-26 11:04 | MR_ITS ---
FINAL REPORT CLINICAL HISTORY: neck pain, numbness and tingling in arms x2 months FINDINGS: Multiplanar MR imaging of the cervical spine was performed without and with contrast. Motion artifact is identified on many of the images. On the sagittal T2-weighted images, disc degeneration is seen throughout. There is mild kyphosis centered on C4. The vertebral alignment is normal. There is no evidence of fracture. No bony mass is identified. The cervical spinal cord has an unremarkable appearance without evidence of mass, edema or syrinx. There is no evidence of significant canal stenosis. C2-3: No significant canal stenosis or neural foraminal narrowing is identified. C3-4: Small central disc protrusion is present. No significant canal stenosis or neural foraminal narrowing is identified. C4-5: An annular disc bulge is present with mild right neural foraminal narrowing. C5-6: Disc osteophyte complex is present with moderate right and mild left neural foraminal narrowing. C6-7: Disc osteophyte complex is present with moderate bilateral neural foraminal narrowing. C7-T1: No significant canal stenosis or neural foraminal narrowing is identified. No abnormal contrast enhancement is seen on the postcontrast images. IMPRESSION: Multilevel degenerative disc disease. Small central disc protrusion at C3-4. Reviewed, Interpreted and Dictated by Elie Zhang III, MD Transcribed by Latisha Michaud Authenticated and . [facility]
--- NOTE | 2023-09-26 11:29 | MR_ITS ---
FINAL REPORT CLINICAL HISTORY: arm pain/ left shoulder pain, limited ROM x2 months FINDINGS: Multiplanar MR imaging of the left shoulder was performed without contrast. Motion artifact is identified on many of the images. There is a focal full-thickness tear at the anterior footprint of the supraspinatus tendon measuring 7 mm in AP dimension. There is mild AC joint arthrosis. Spurring is seen along the undersurface of the acromion. There is a small amount of fluid in the subacromial/subdeltoid bursa. Mild glenohumeral joint degenerative changes are noted. The glenoid labrum is intact. The long head of the biceps tendon is intact. Small glenohumeral joint effusion is seen. There is no evidence of fracture or dislocation. The musculature is intact. There is no evidence of soft tissue mass. IMPRESSION: Full-thickness tear of the supraspinatus tendon. Reviewed, Interpreted and Dictated by Elie Zhang III, MD Transcribed by Latisha Michaud Authenticated and [facility]
[2023-09-26] MEDS: SODIUM CHLORIDE 0.9% 10ML SYR (RAD ONLY) 10 ML IV (12:50)
[2023-09-26] MEDS: GADOTERIDOL INJ 17ML SYRINGE 22 ML IV (12:50)
== END 2023-09-26 23:59 | disposition home or self-care (01) ==
LOC: RAD 11:04
PROVIDERS: PCP Family Medicine; Visit Provider Family Medicine
DX: M54.2 Cervicalgia (principal); M25.612 Stiffness of left shoulder, not elsewhere classified; M25.512 Pain in left shoulder; R20.0 Anesthesia of skin; R20.2 Paresthesia of skin
CPT/HCPCS: 72156; 73221; A9576

== ENCOUNTER 2023-10-22 11:00 | Outpatient (RCR) | payer MEDICAID, SELFPAY | END 2023-10-22 12:00 | disposition home or self-care (01) | LOC: OT 11:00 | PROVIDERS: Visit Provider Family Medicine | DX: M25.512 Pain in left shoulder (principal); M25.612 Stiffness of left shoulder, not elsewhere classified; R20.2 Paresthesia of skin | CPT/HCPCS: 97010; 97014; 97110; 97140; 97164; 97165; 97530; G0283 ==

== ENCOUNTER 2023-10-24 09:27 | Outpatient (CLI) | payer MEDICAID, SELFPAY ==
--- NOTE | 2023-10-24 09:30 | XR_ITS ---
FINAL REPORT CLINICAL HISTORY: left shoulder pain FINDINGS: LEFT SHOULDER 2 views of the left shoulder were obtained. There is no acute fracture or dislocation. There are mild degenerative changes of the acromioclavicular and glenohumeral joints. Visualized joint spaces are normally aligned. Soft tissues are unremarkable. IMPRESSION: No acute bony abnormality. Reviewed, Interpreted and Dictated by Elie Zhang III, MD Transcribed by Alena Davila Authenticated and [facility]
== END 2023-10-24 23:59 | disposition home or self-care (01) ==
LOC: RAD 09:27
PROVIDERS: PCP Physician Assistant; Visit Provider Orthopaedic Surgery
DX: M25.512 Pain in left shoulder (principal)
CPT/HCPCS: 73030

== ENCOUNTER 2023-11-11 08:05 | Outpatient (CLI) | payer MEDICAID, SELFPAY ==
[2023-11-11 08:20] LABS: Basophils # 0.1 K/mm3 (0-0.2); Basophils % 1.3 % (0.1-2.0); Eosinophils # 0.2 K/mm3 (0.0-0.4); Eosinophils % 2.4 % (0.1-12.0); Hematocrit 45.3 % (37.0-47.0); Hemoglobin 14.2 g/dL (12.2-16.2); Lymphocytes # 1.7 K/mm3 (0.7-4.5); Mean Corpuscular HGB Conc 31.4 g/dL (31.8-35.4); Mean Corpuscular Hemoglobin 31.3 pg (27.0-31.2); Mean Corpuscular Volume 99.7 fl (81-99); Mean Platelet Volume 9.3 fl (7.4-10.4); Monocytes # 0.4 K/mm3 (0.1-1.0); Monocytes % 4.9 % (1.7-9.3); Neutrophils # 6.3 K/mm3 (1.8-7.8); Neutrophils % 72.4 % (37.0-80.0); Platelet Count 275 K/mm3 (142-424); Red Blood Count 4.54 M/mm3 (4.20-5.40); Red Cell Distribution Width 13.9 % (11.5-17.5); White Blood Count 8.7 K/mm3 (4.8-10.8)
--- NOTE | 2023-11-11 08:21 | ECG_ITS ---
APPROVED REPORT Exam: Resting ECG HR:68 bpm ECG Measurements Heart Rate 68 AXES WV 176 P 70 QRSd 95 QRS 75 QT 385 T 57 QTc 403 Conclusion SINUS RHYTHM NORMAL ECG UNCONFIRMED REPORT Electronically signed by : James Farr MD 11/11/2023 17:19:07
[2023-11-11 08:29] LABS: Chloride 108 mmol/L (98-107); Potassium 4.4 mmoL/L (3.5-5.1); Sodium 141 mmol/L (136-145)
[2023-11-11 08:32] LABS: Alanine Aminotransferase 25 U/L (12-78); Albumin/Globulin Ratio 1.5 (1.1-1.8); Alkaline Phosphatase 88 U/L (38-126); Anion Gap 7.4 mEq/L (5-15); Aspartate Amino Transferase 26 U/L (14-36); Bilirubin,Total 0.4 mg/dl (0.2-1.3); Blood Urea Nitrogen 14 mg/dl (7-17); Carbon Dioxide 30 mmol/L (22.0-30.0); Estimated Glomerular Filt Rate 103 ml/min (>60); GFR (African American) 125 ML/MIN (>60); Globulin 2.6 g/dL (1.3-3.2); Total Protein,Serum 6.6 g/dl (6.3-8.2)
[2023-11-11 08:33] LABS: Calcium 9.1 mg/dl (8.4-10.2); Glucose 91 mg/dl (74-100)
== END 2023-11-11 23:59 | disposition home or self-care (01) ==
LOC: LAB 08:05
PROVIDERS: PCP Physician Assistant; Visit Provider Orthopaedic Surgery
DX: M75.122 Complete rotator cuff tear or rupture of left shoulder, not specified as traumatic (principal)
CPT/HCPCS: 36415; 80053; 85025; 93005

== ENCOUNTER 2023-11-18 06:03 | Day surgery (SDC) | payer MEDICAID, SELFPAY ==
[2023-11-18] VITALS (9 sets, daily range): BP systolic 121–165; BP diastolic 65–98; PULSE 64–81; RESP 16–18; TEMP 35.8–36.6; O2SAT 93–99; BMI 40.1
[2023-11-18] MEDS: LACTATED RINGERS 1000ML 1,000 ML 100 ML IV (07:23)
[2023-11-18 08:09] LABS: POC Glucose,Bedside 99 (70-110)
--- NOTE | 2023-11-18 08:48 | EXP.ANES.CKL ---
[facility] Disclaimer: The information contained in this section may have been updated after the patient was seen, as this information can be updated by other users. Medical History Diabetes mellitus Loose total knee arthroplasty TMJ (sprain of temporomandibular joint) Chronic pain of both ears Asthma Otitis media Patient left without being seen Pedal edema Obesity Sciatica Hx of ulcer disease Depression Arthritis RLS (restless legs syndrome) Hypothyroidism Hypertension Sleep apnea Surgical History (Updated 11/18/23 @ 07:25 by Timothy Orellana RN) History of knee surgery History of sinus surgery History of hysterectomy Family History Other No significant family history Social History (Updated 11/18/23 @ 07:27 by Timothy Orellana RN) Smoking Status: Current every day smoker tobacco type: cigarettes packs per day: 1 second hand exposure: Yes alcohol intake: never substance use type: denies use current occupational status: unemployed Travel in the last 8 weeks: None household members: spouse housing: house current occupational exposures/hazards: No caffeine: Yes [facility] Anesthesia Checklist Patient Identification Patient Identification: Arm Band and Verbal (Name & ) Structural Data Admitted From: Home Planned Operative Procedure/s: Left Shoulder sope w/RC Repair Consent for Planned Operative Procedure(s) Verified: Yes Verified Documents: Surgical Consent and History and Physical NPO Status Verified Time NPO: 22:00 Chart Verification Results Verified: CBC, BMP, ECG and Chest Xray Additional verifications Patient : No Anesthesia Reactions: No Hx Blood Transfusions: No Blood Transfusion Reaction: No Cardiovascular Assessment Heart Sounds: S1 & S2 Pulse Rhythm: Irregular Peripheral Edema: No Airway Assessment Mallampati Score:: Class II C-Spine Mobility Assessed: Yes (FROM) TMJ Mobility Assessed: Yes Dentition: Dentures-good fit (Upper only. Removed) Neurological Assessment Level of Consciousness: Awake, Alert, Appropriate and Follows Commands Hx Seizures: No Numbness or tingling in extremities: No Anesthesia Plan Anesthesia Risk discussed: Yes Anesthesia Plan: Verified ASA Class: III Anesthesia Type: General w/block
[2023-11-18] MEDS: CEFAZOLIN SODIUM 2 GM in 0.9 % SODIUM CHLORIDE 100 ML IV (09:00)
[2023-11-18] MEDS: SODIUM CHLORIDE IRRIG SOLUTION 6,000 ML 25 ML IR (09:45)
[2023-11-18] MEDS: EPINEPHrine 1 MG/ML AMPUL 2 MG (09:45)
--- NOTE | 2023-11-18 10:28 | P.OP_ITS ---
Date of procedure: 11/18/23 Pre-op Diagnosis:: Left shoulder rotator cuff tear Post-op Diagnosis:: Left shoulder full-thickness rotator cuff tear supraspinatus Left shoulder intra-articular loose bodies cartilage Left shoulder fraying anterior labrum and biceps Procedure performed:: 1. Left shoulder arthroscopy with rotator cuff repair 2. Left shoulder arthroscopy with extensive debridement anterior labrum and biceps 3. Left shoulder arthroscopy with removal of intra-articular loose bodies Surgeon:: Mark Cuevas DO [employer] SUPERVISOR:: Linnea Erwin Anesthesia: GETA and regional Estimated blood loss (mL): 0 Operative findings:: Full-thickness rotator cuff tear intra-articular loose bodies and fraying of the anterior labrum and biceps Operative note:: Patient was identified preoperatively. Left shoulder marked with yes and my initials. Transported operative suite after undergoing a block with anesthesia. Placed upon the operating bed. General anesthesia administered airway secured. Patient was then placed in a lateral position with a beanbag all bony prominences well-padded and an axillary roll placed. Left arm was held inline traction with the fishing pole arm lambert left shoulder was then prepped and draped normal sterile fashion. Once prepped and draped final operative timeout performed to identify proper patient procedure and extremity. Everyone involved the case agreed. There were no counter indications to beginning. Patient did receive preoperative antibiotics Marking pen was used to osvaldo the bony landmarks of the shoulder and standard portal sites. Skin knife is used to incise posterior viewing portal and blunt with trocar was placed in the glenohumeral joint exchange with a camera. Within the glenohumeral joint and moved just anterior and above the subscapularis tendon where the anterior working portal was made and switch with a purple cannula. Within the shoulder there was fraying of the anterior labrum sublabral recess and fraying of the anterior inferior aspect of the labrum using a sucker shaver debridement of the labrum was performed. Attention was then brought intra- articular to the biceps tendon there was no full-thickness tearing of the biceps tendon but there was some tearing of the undersurface and fraying this was debrided. This involve a small portion of the biceps tendon Within the glenohumeral joint there is also several intra-articular loose bodies which appear to be coming from cartilage at the anterior inferior aspect of the glenoid. These were removed with a sucker shaver. Undersurface of the rotator cuff was seen and there is evidence of tearing. Attention was then brought the subacromial space within the subacromial space there was mild bursitis which was debrided with the sucker shaver. The edges of the rotator cuff were debrided. A tendon grasper was used to reduce the rotator cuff. Full-thickness component present. Lateral portal was made under direct visualization and switch with a passport cannula Debridement of the edges rotator cuff completed using the scorpion fiber tape was placed through the rotator cuff tear and brought into a anchor for a speed fix repair of the supraspinatus tendon. This gave good repair of the tendon and coverage of the rotator cuff tear. No further pathology was seen the camera was removed the joint was drained skin was closed with nylon stitch sterile dressing placed patient placed in sling and pillow taken recovery stable condition. Condition: stable Disposition: PACU Complications:: None apparent
--- NOTE | 2023-11-18 10:41 | P.PNANES_ITS ---
[facility] Anesthesia Record Part I Anesthesia Record I Intake, IV Amount: 800 Hydration: Adequate Estimated blood loss (mL): 20 Urine output (mL): 0 Blood Products used (#): none Blood Pressure: 148/65 SaO2: 94 Pulse Rate: 81 Airway Patency: Patent Respiratory Rate: 16 Temperature: 96.5 F Patient is:: Awake (Talking) and Stable Stable to PACU at:: 10:40
[2023-11-18] MEDS: ONDANSETRON 4MG/2ML VIAL 4 MG IV (11:30)
--- NOTE | 2023-11-19 07:46 | P.PNANES_ITS ---
[facility] Anesthesia Record Part II Anesthesia Record Part II Discharge Time: 11:05 Destination: Surgical Day Care (OP Surgery) PACU nurse assessment reviewed?: Yes Patient Condition:: Good Anesthesia Complications:: None Swallowing reflex intact?: Yes Airway Patency: Patent Cyanosis?: No Blood Pressure: 129/75 SaO2: 94 Respiratory Rate: 16 Pulse Rate: 69 Temperature: 96.5 F Mental Status: Alert & Oriented Pain level:: 0 Nausea and/or vomitting:: None Intake, IV Amount: 800 Hydration: Adequate
[2023-11-19 07:47] VITALS: BP 129/75; PULSE 69; RESP 16; TEMP 35.8; O2SAT 94
== END 2023-11-18 11:36 | disposition home or self-care (01) ==
PROVIDERS: PCP Physician Assistant; Visit Provider Orthopaedic Surgery
PROC: (CPT 29827; principal; 2023-11-18 08:30)
DX: E11.9 Type 2 diabetes mellitus without complications; Z79.4 Long term (current) use of insulin; Z79.899 Other long term (current) drug therapy; F17.210 Nicotine dependence, cigarettes, uncomplicated; M75.122 Complete rotator cuff tear or rupture of left shoulder, not specified as traumatic
CPT/HCPCS: 29827; 29828; 29826; 82962; 96374; J3490; C1713; J0690; J1100; J2250; J2405; J3010; J7120

== ENCOUNTER 2024-01-17 09:51 | Emergency (ER) | payer MEDICAID, SELFPAY ==
[2024-01-17 10:10] VITALS: BP 129/62; PULSE 70; RESP 20; TEMP 36.8; O2SAT 100; BMI 40.8
--- NOTE | 2024-01-17 10:28 | EXP.UTC ---
Discharge Plan Disposition Patient Disposition: Home, Self-Care Condition: Good Prescriptions Prescriptions: New methylprednisolone [Medrol (Joseph)] 4 mg tablets,dose pack See Rx Instructions .Route .COMPLEX 6 Days Qty: 21 0RF Rx Instructions: taper pack; amoxicillin-pot clavulanate 875-125 mg Tablet 1 tab PO Q12H 7 Days Qty: 14 0RF No Action (DME) OneTouch Verio test strips Strip See Rx Instructions .ROUTE .COMPLEX Qty: 100 2RF Dose Instruction: USE TO TEST BLOOD GLUCOSE TWICE DAILY Rx Instructions: USE TO TEST BLOOD GLUCOSE TWICE DAILY (DME) lancets [Accu-Chek Softclix Lancets] Misc See Rx Instructions .Route Rx Instructions: FS BID losartan 50 mg tablet 50 mg PO DAILY cetirizine 10 mg tablet 10 mg PO DAILY meloxicam 15 mg tablet 15 mg PO DAILY ropinirole 0.25 mg tablet 0.25 mg PO HS gabapentin 300 mg capsule 300 mg PO DAILY sertraline 25 mg tablet 25 mg PO DAILY azelastine 137 mcg (0.1 %) spray,non-aerosol 1 spray INTRANASAL DAILY fluticasone propionate 50 mcg/actuation spray,suspension 2 spray INTRANASAL DAILY cholecalciferol (vitamin D3) [Vitamin D3] 25 mcg (1,000 unit) tablet 25 mcg PO DAILY Ozempic 0.25 mg or 0.5 mg (2 mg/3 mL) pen injector 0.25 mg SQ WEEKLY (DME) Accu-Chek Ameena Plus test strp Strip See Rx Instructions .Route Rx Instructions: FS BID Referrals Follow up/Referrals: Melanie Dc PA [Primary Care Provider] - See instructions Activity Restrictions/Add. Instructions Additional Instructions/Restrictions: *Monitor Temp, Over the counter Motrin or Tylenol as directed/as needed Tylenol every 4 hours and Motrin every 6 hours (as long as your family doctor has told you that you can take it) for fever or pain. and straight to ER if unable to lower temp less than 101.0 after medication given *Warm salt water gargles may help to soothe the throat *Throat Lozenges? *Warm fluids like tea with honey may help to soothe the throat? *Sleep elevated *Humidifier/Vaporizer Take medication as prescribe Follow up IMMEDIATELY for new or worsening symptoms or no Noticeable improvement over the next 48-72 hours. 911 for difficulty breathing or swallowing Clinical Impressions Clinical Impression: Sinusitis Instructions Patient Instructions: DI for Sinusitis, Sinusitis Print Language Print Language: Kittitian Discharge ED Provider: lEizabeth Pisano [facility] HPI General Stated complaint: congestion, headache, sore throat, draininage Mode of Arrival: Ambulatory Source of Information: Patient Limitations: No Limitations Time Seen by Provider: 01/17/24 10:28 Description of Symptoms (Recalled from Triage Doc. by RN): PATIENT C/O HEADACHE, CONGESTION, AND DRAINAGE FOR APPROX 1.5 WEEKS HEENT Symptoms (Recalled from RN notes): Yes Resp Symptoms (Recalled from RN notes): No Skin Symptoms (Recalled from RN notes): No MS Symptoms (Recalled from RN notes): No Functional Status (Recalled from RN notes): WNL History of Present Illness Provider Complaint: Patient states that she has been having sinus issues for about a week and half States that she has been having sinus pain and pressure, drainage in the back of her throat and pressure behind her eyes States today it is not any better so she came in Related Data Home Medications ?Medication ?Instructions ?Recorded ?Confirmed blood sugar diagnostic (Accu-Chek 07/17/22 01/17/24 Ameena Plus test strips) lancets (Accu-Chek Softclix 07/31/22 01/17/24 Lancets) azelastine 137 mcg (0.1 %) nasal 1 spray intranasal DAILY 01/17/24 01/17/24 spray cetirizine 10 mg tablet 10 mg PO DAILY 01/17/24 01/17/24 cholecalciferol (vitamin D3) 25 25 mcg PO DAILY 01/17/24 01/17/24 mcg (1,000 unit) tablet (Vitamin D3) fluticasone propionate 50 2 spray intranasal DAILY 01/17/24 01/17/24 mcg/act
[2024-01-17 10:49] VITALS: BP 129/62; PULSE 70; RESP 20; TEMP 36.8; O2SAT 100
== END 2024-01-17 10:51 | disposition home or self-care (01) ==
PROVIDERS: Emergency Provider Nurse Practitioner; PCP Physician Assistant
DX: J01.90 Acute sinusitis, unspecified (principal); R09.82 Postnasal drip
CPT/HCPCS: 99212; 99214; G0463

== ENCOUNTER 2024-03-16 16:48 | Outpatient (CLI) | payer MEDICAID, SELFPAY ==
--- NOTE | 2024-03-16 16:49 | MM_ITS ---
PROCEDURE INFORMATION: Exam: MG Bilateral Screening 3D Mammography Exam date and time: 03/16/2024 4:33 PM Age: 59 years old Clinical indication: Screening. No family history of breast cancer. TECHNIQUE: Imaging protocol: Bilateral Screening tomosynthesis and 2D mammography including computer-aided detection (CAD) when performed. COMPARISON: MG MM DIG SCREENING MAMM BI W/CAD 07/21/2021 8:18 AM FINDINGS: MAMMOGRAPHY: Breast composition: The breasts are almost entirely fatty. Mass: No suspicious mass. Architectural distortion: None. Calcifications: No suspicious calcifications. Asymmetric density: None. Skin thickening: None. Axillary adenopathy: None. IMPRESSION: No mammographic evidence of malignancy. Annual screening is recommended unless otherwise clinically indicated. ASSESSMENT: BI-RADS Category 1: Negative.
== END 2024-03-16 23:59 | disposition home or self-care (01) ==
LOC: RAD 16:49
PROVIDERS: PCP Nurse Practitioner Family; Visit Provider Nurse Practitioner Family
DX: Z12.31 Encounter for screening mammogram for malignant neoplasm of breast (principal)
CPT/HCPCS: 77063; 77067

== ENCOUNTER 2024-06-11 08:00 | Day surgery (SDC) | payer MEDICAID, SELFPAY ==
[2024-06-08 15:29] VITALS: BMI 42.0
[2024-06-11] MEDS: LACTATED RINGERS 1000ML 1,000 ML 50 ML IV (08:44)
[2024-06-11 08:48] VITALS: BP 133/68; PULSE 79; RESP 17; TEMP 36.6; O2SAT 99
[2024-06-11 09:39] VITALS: O2SAT 100
--- NOTE | 2024-06-11 09:41 | P.HP_ITS ---
History of Present Illness *Admission Date: 06/11/24 *Reason for visit:: Personal history of colon polyps *History of present illness: Mrs. Moody is a 59-year-old female who is here for follow-up surveillance colonoscopy secondary to a personal history of adenomatous polyps. She had a co lonoscopy 5 years ago and had 2 polyps removed. The examination is deemed medically necessary for surveillance colonoscopy. The patient has been seen, interviewed and examined prior to the procedure by both myself and the anesthesia provider. [facility] Disclaimer: The information contained in this section may have been updated after the patient was seen, as this information can be updated by other users. Medical History (Updated 06/11/24 @ 09:42 by Dakota Tirado II, MD) Diabetes mellitus Loose total knee arthroplasty TMJ (sprain of temporomandibular joint) Chronic pain of both ears Asthma Otitis media Patient left without being seen Pedal edema Obesity Sciatica Hx of ulcer disease Depression Arthritis RLS (restless legs syndrome) Hypothyroidism Hypertension Sleep apnea Surgical History History of arthroscopy of left shoulder History of tonsillectomy History of knee surgery History of sinus surgery History of hysterectomy Family History Other No significant family history Social History Smoking Status: Current every day smoker tobacco type: cigarettes packs per day: 1 second hand exposure: Yes alcohol intake: never substance use type: denies use current occupational status: unemployed Travel in the last 8 weeks: None household members: spouse housing: house current occupational exposures/hazards: No caffeine: Yes Have you lived/traveled outside US in past 30 days?: No Contact w/someone who lives/traveled outside US past 30 days?: No Exposure to someone with infectious disease in past 14 days?: No Do you have a fever (greater than 100.4 F or 38 C)?: No Have you tested positive for COVID-19: No Exposed to someone with COVID-19 in past 14 days?: No Do you have a sore throat?: No Do you have a cough?: No Do you have any weakness?: No Do you have any diarrhea?: No Are you experiencing any unusual bleeding?: No Do you have any muscle aches/pain?: No Do you have any abdominal pain?: No Are you experiencing loss of taste or smell?: No Other Medical History Have you received the Flu Vaccine for this season: No Have you received the Pneumonia Vaccine: No Review of Systems Review of Systems Review of systems (narrative): Negative *Cardiovascular Comments: Negative *Gastrointestinal Comments: Negative *Genitourinary Comments: Negative *Musculoskeletal Comments: Negative *Neurologic Comments: Negative Meds Home Medications and Allergies Home Medications ?Medication ?Instructions ?Recorded ?Confirmed ?Type blood sugar diagnostic (Accu-Chek 07/17/22 02/13/24 History Ameena Plus test strips) lancets (Accu-Chek Softclix 07/31/22 02/13/24 History Lancets) blood sugar diagnostic (OneTouch #100 ea 12/26/22 02/13/24 Rx Verio test strips) cetirizine 10 mg tablet 10 mg PO DAILY 01/17/24 06/11/24 History fluticasone propionate 50 2 spray intranasal DAILY 01/17/24 06/11/24 History mcg/actuation nasal spray,suspension gabapentin 300 mg capsule 300 mg PO DAILY 01/17/24 06/11/24 History losartan 50 mg tablet 50 mg PO DAILY 01/17/24 06/11/24 History meloxicam 15 mg tablet 15 mg PO DAILY 01/17/24 06/11/24 History ropinirole 0.25 mg tablet 0.25 mg PO HS 01/17/24 06/11/24 History sertraline 25 mg tablet 25 mg PO DAILY 01/17/24 06/11/24 History cholecalciferol (vitamin D3) 25 See Rx Instructions .Route 03/03/24 06/11/24 Rx mcg (1,000 unit) tablet (Vitamin .COMPLEX #90 tabs D3) hydroxyzine pamoate 25 mg capsule See Rx Instructions .Route 05/27/24 06/11/24 Rx .COMPLEX #90 caps hydrochlorothiazide 12.5 mg tablet 12.5 mg PO DAILY 06/08/24 06/11/24 History levothyroxine 100 mcg tablet 112 mcg PO DAILY 06/08/24 06/11/24 History metformin 500 mg tablet 500 mg PO DAILY 06/08/24 06/11/24 History tolmetin 400 mg capsule 400 mg PO TID 06/08/24 06/11/24 History New Prescriptions to Start Prescriptions: Allergies Allergy/AdvReac Type Severity Reaction Status Date / Time No Known Allergies Allergy Verified 06/11/24 08:45 Exam Data for Last 24 hours Vital signs and Labs for Last 24 Hours: Temp Pulse Resp BP Pulse Ox O2 Del Method O2 Flow Rate 98 F 79 17 133/68 99 Nasal Cannula 5 06/11/24 08:48 06/11/24 08:48 06/11/24 08:48 06/11/24 08:48 06/11/24 08:48 06/11/24 09:39 06/11/24 09:39 I & O for Last 24 hours: Intake & Output 06/08/24 06/09/24 06/10/24 06/11/24 23:59 23:59 23:59 23:59 Weight 245 lb *Routine HEENT Exam Head: Present normocephalic Eye: Present EOMI and PERRL ENT: Present mucous membranes moist *Routine Neck Exam Neck: Present supple *Routine Respiratory Exam Respiratory: Present CTA bilaterally *Routine Cardiovascular Exam Cardiovascular: Present RRR *Routine Abdominal Exam Abdominal: Present soft and normoactive bowel sounds; Absent tenderness *Routine Rectal Exam Rectal:: deferred *Routine Genitalia Exam Genitalia:: deferred *Routine Extremities Exam Extremities: Absent cyanosis, clubbing or edema *Routine Skin Exam Skin: Present warm; Absent rash *Routine Neurological Exam Neurological: Present alert and oriented X3 Assessment and Plan *Assessment and plan (1) Personal history of colon polyps, unspecified: Status: Acute Category: Medical Code(s): Z86.0100 - Personal history of colon polyps, unspecified Plan A/P: 1. Personal history of colon polyps is the preprocedural diagnosis. The patient will be anesthetized/sedated using MAC sedation. The patient has been seen and examined. Cardiac and lung assessment prior to the examination is stable. Proceed with planned surveillance colonoscopy
--- NOTE | 2024-06-11 09:42 | P.PCN_ITS ---
[facility] Procedure Note Date: 06/11/24 Time: 10:07 Procedure Note:: Colonoscopy Procedure Report: Colonoscopy with cold snare polypectomy and cold biopsies Endoscopist: Dakota Tirado II, MD Referring physician: Mary Khan, [facility], [address] [place], [place] [address] Date of Procedure: June 11, 2024 Equipment: Olympus 190 variable stiffness pediatric colonoscope Sedation: MAC sedation Indication: Mrs. Moody is a 59-year-old female who is here for follow-up surveillance colonoscopy. She did have a colonoscopy 5 years ago at which time 2 polyps were removed and was told to have repeat surveillance at 5 years. The report and pathology are not available. The patient reports no abdominal pain, weight loss, change in her bowel habits or rectal bleeding. She reports no family history of colon cancer. Procedure: Prior to the procedure, a history and physical exam was performed, and patient's medications and allergies were reviewed. The risks, benefits and alternatives of the sedation and procedure were discussed with the patient. All questions were answered and informed consent was obtained. The patient was brought to the procedure room. Patient identification and proposed procedure were verified by the physician and the nurse. The patient was placed in a left lateral decubitus position and the scope was passed under direct vision. Throughout the procedure, the patient's blood pressure, pulse, and oxygen saturations were monitored continuously. The colonoscopy was accomplished without difficulty. The patient tolerated the procedure well. Findings: On digital rectal examination there was normal rectal tone. There were no external hemorrhoids. The colonoscope was introduced through the anal canal to the rectum and advanced to the cecum. The ileocecal valve and appendiceal orifice were identified. The scope was advanced a short distance into the ileum. The ileum was primarily normal but there was one thickened fold with some surface erosion that was biopsied. The scope was then withdrawn into the colon. There were 5 diminutive polyps (descending x 2 (3 and 5 mm), sigmoid x 1 (4 mm) and rectum x 2 (3 and 4 mm)). These were all removed via cold snare polypectomy. The remaining cecum, ascending and transverse colon and mucosa were grossly normal. There were scattered diverticuli throughout the descending and sigmoid colon (LEFT colon). The rectum itself was normal. Upon retroflexion within the rectum there were grade 2 internal hemorrhoids. The preparation was excellent throughout with [place] Preparation Score of 9. The cecal time was 14 minutes. Impression: 1. Diminutive colonic polyps x 5 2. Left-sided diverticulosis 3. Grade 2 internal hemorrhoids 4. Mild ileitis Plan: I will follow-up the polyp histology and recommend repeat surveillance colonoscopy again in 3 to 5 years based upon the pathology. I would encourage psyllium bulking fiber supplementation on a long-term daily maintenance basis.
[2024-06-11 10:10] VITALS: BP 115/62; PULSE 82; RESP 16; TEMP 36.5; O2SAT 99
--- NOTE | 2024-06-11 10:16 | EXP.ANES.CKL ---
[facility] Disclaimer: The information contained in this section may have been updated after the patient was seen, as this information can be updated by other users. Medical History (Updated 06/11/24 @ 09:42 by Dakota Tirado II, MD) Diabetes mellitus Loose total knee arthroplasty TMJ (sprain of temporomandibular joint) Chronic pain of both ears Asthma Otitis media Patient left without being seen Pedal edema Obesity Sciatica Hx of ulcer disease Depression Arthritis RLS (restless legs syndrome) Hypothyroidism Hypertension Sleep apnea Surgical History History of arthroscopy of left shoulder History of tonsillectomy History of knee surgery History of sinus surgery History of hysterectomy Family History Other No significant family history Social History Smoking Status: Current every day smoker tobacco type: cigarettes packs per day: 1 second hand exposure: Yes alcohol intake: never substance use type: denies use current occupational status: unemployed Travel in the last 8 weeks: None household members: spouse housing: house current occupational exposures/hazards: No caffeine: Yes Have you lived/traveled outside [place] in past 30 days?: No Contact w/someone who lives/traveled outside [place] past 30 days?: No Exposure to someone with infectious disease in past 14 days?: No Do you have a fever (greater than 100.4 F or 38 C)?: No Have you tested positive for COVID-19: No Exposed to someone with COVID-19 in past 14 days?: No Do you have a sore throat?: No Do you have a cough?: No Do you have any weakness?: No Do you have any diarrhea?: No Are you experiencing any unusual bleeding?: No Do you have any muscle aches/pain?: No Do you have any abdominal pain?: No Are you experiencing loss of taste or smell?: No [facility] Anesthesia Checklist Patient Identification Patient Identification: Arm Band Structural Data Admitted From: Home Planned Operative Procedure/s: Colonoscopy Consent for Planned Operative Procedure(s) Verified: Yes Verified Documents: Surgical Consent and History and Physical NPO Status Verified Time NPO: 00:00 Additional verifications Anesthesia Reactions: No Hx Blood Transfusions: No Blood Transfusion Reaction: No Airway Assessment Mallampati Score:: Class II C-Spine Mobility Assessed: Yes TMJ Mobility Assessed: Yes Dentition: Good Dentition Neurological Assessment Level of Consciousness: Awake, Alert and Appropriate Anesthesia Plan Anesthesia Risk discussed: Yes Anesthesia Plan: Verified ASA Class: III Anesthesia Type: MAC
[2024-06-11 10:20] VITALS: BP 109/58; PULSE 85; RESP 16; O2SAT 96
[2024-06-11 10:27] VITALS: BP 112/61; PULSE 80; RESP 16; O2SAT 100
[2024-06-11 10:40] VITALS: BP 126/60; PULSE 84; RESP 16; O2SAT 100
[2024-06-12 18:44] LABS: POC Glucose,Bedside 91 (70-110)
== END 2024-06-11 10:46 | disposition home or self-care (01) ==
PROVIDERS: PCP Nurse Practitioner Family; Visit Provider Internal Medicine Gastroenterology
PROC: (CPT 45380; principal; 2024-06-11 09:30)
DX: K63.5 Polyp of colon (principal); K57.30 Diverticulosis of large intestine without perforation or abscess without bleeding; K64.1 Second degree hemorrhoids; K52.9 Noninfective gastroenteritis and colitis, unspecified; Z86.0100 Personal history of colon polyps, unspecified
CPT/HCPCS: 45380; 45385; 82962; J7120

== ENCOUNTER 2024-06-23 12:43 | Outpatient (CLI) | payer MEDICAID, SELFPAY ==
--- NOTE | 2024-06-23 12:47 | XR_ITS ---
FINAL REPORT CLINICAL HISTORY: lt knee pain COMPARISON: None FINDINGS: LEFT KNEE 3 views of the left knee were obtained. There is no acute fracture or dislocation. Mild to moderate medial compartment narrowing is present. Small osteophytes are present projecting from the patella. A small joint effusion is noted. Soft tissues are unremarkable. IMPRESSION: Mild degenerative change as described, with a small joint effusion. No acute bony abnormality. Reviewed, Interpreted and Dictated by Wm Knox MD Transcribed by Anali Hernandez Authenticated and [facility]
== END 2024-06-23 23:59 | disposition home or self-care (01) ==
LOC: RAD 12:46
PROVIDERS: PCP Physician Assistant; Visit Provider Orthopaedic Surgery
DX: M25.562 Pain in left knee (principal)
CPT/HCPCS: 73562

== ENCOUNTER 2024-11-02 07:47 | Outpatient (CLI) | payer MEDICAID, SELFPAY ==
--- OUTSIDE RECORDS SUMMARY | 2024-11-02 07:50 | XMS_ITS | Encounter Summary ---
Author Organization Healthcare Address [address] [place] [address] Care Team Providers Care Box Order Person Name Role Phone Moriah Morgan APRN Unavailable [phone] Mark Cid MD Primary Care Provider [phone] Reason for Referral * Consultation (Routine) - Closed Specialty Diagnoses / Procedures Referred By Contac t Referred To Contact Neurosurgery Diagnoses Lumbar radiculopathy Melanie Dc PA [address] [place] [address] Phone: tel: fax: Referral ID Status Reason Start Date Expiration Date V isits Requested Visits Authorized [id number] Closed Specialty Services Required 09/12/2021 03/14/2023 1 1 Encounter Details Date Type Department Care Team (Latest Contact Info) Description 09/12/2021 [facility] [address] [place] [address] Melanie Dc PA [address] [place] [address] Lumbar radiculopathy (Primary Dx) Social History Tobacco Use Types Packs/Day Years Used Date Smoking Tobacco: Never Assessed Comments Unknown Sex and Gender Information Value Date Recorded Sex Assigned at Not on file Legal Sex Female 3:38 PM EDT Gender Identity Not on file Sexual Orientation Not on file documented as of this encounter Plan of Treatment Scheduled Referrals Name Type Priority Associated Diagnoses Orde r Schedule Ambulatory Referral to Neurosurgery Outpatient Referral Routine Lumbar radiculopathy 1 Occurrences starting 09/12/2021 until 12/12/2021 documented as of this encounter Visit Diagnoses Diagnosis Lumbar radiculopathy- Primary Thoracic or lumbosacral neuritis or radiculitis, unspecified documented in this encounter Care Teams Box Order Person Relationship Specialty Start Date End Date Mark Cid MD [address] [place] [address] PCP - General 10/11/21 Moriah Morgan APRN [address] [place] [id number] Nurse Practitioner Neurosurgery 10/11/21 documented as of this encounter
--- OUTSIDE RECORDS SUMMARY | 2024-11-02 07:50 | XMS_ITS | Continuity of Care Document ---
Author Organization [facility] New Address [address] [place] [address] Care Team Providers Care Roll Weigher Name Role Phone GWYN EDWARD Primary Care Provider [phone] GWYN EDWARD Referring Provider [phone] GWYN EDWARD Primary Care Provider Assessment Encounter Date Assessment Date Assessment LastModified by Organization Details LastModified Time 09/16/2024 09/16/2024 This patient presents with increasing left-sided hip pain over her left SI joint. She did have a left SI joint injection done in January of last year. She got 80% relief for almost 6 months from this injection. She was doing very well. Her pain just now recently returned. She does continue to do a home exercise therapy program and stretching. She is tender over the left SI joint. She does have a positive Renetta's test on the left side. She has a positive Elda test on the left side. She has positive SI joint compression test on the left side. She has positive distraction test on the left side. We will seek approval for repeat therapeutic left SI joint injection under fluoroscopy. Again her last injection was done last year she got 80% relief for 6 months. She does continue to do a home exercise program. She is approved for her spinal cord stimulator. This is planned to be implanted on December 04. In the meantime we will prescribe her prednisone 20 mg twice a day to help with her increased in pain symptoms over her left SI joint. abux Not available 09/16/2024 12:59:06 Plan of Treatment Reminders Order Date Submit Date Provider Last Modified By Organization Details Last Modified Time Details Appointments Post Op/Wound Check 2024 09:30A Foreign Beck MD Not available Not available Not available Follow Up 2024 10:00A M Dionte Beck MD Not available Not available Not available Lab None recorded. Referral None recorded. Procedures sacroilia c joint injection (PROC) 2024 025 [email or web address] Not available 09/21/2024 08:50:02 Surgeries None recorded. Imaging None recorded. Medication Orders prednison e 20 mg tablet 2024 025 [facility], [address] [place], [address], 09/16/2024 13:07:36 Patient TargetsNo targets recorded. Patient Instructions Encounter Date Encounter Id Patient Instructions Last Modified By Organization Details Last Modified Time 09/16/2024 [id number] leg pain: care instructions abux Not available 09/16/2024 13:00:33 Reason for Referral None Reported. Problems Name Problem SNOMED Code Status Onset Date Resolution Date Notes Provider Name and Address Organization Details Recorded Time Pain of right shoulder joint 7947499622378 9100 Active 2023 Dionte Beck MD [address] [facility],[address], [address], [place] [facility] 4 11:01:26 Osteoarthri tis of left knee joint 5352257605780 09 Active 2023 Dionte Beck MD [address] [facility],[address], [address], [place] [facility] 4 11:01:26 Pain of left knee joint 9518149094435 07 Active 2023 Dionte Beck MD [address] [facility],[address], [address], [place] [facility] 4 11:01:29 Full thickness rotator cuff tear 552163218 Active 2023 Dionte Beck MD [address] [facility],[address], [address], [place] [facility] 4 11:27:54 Trochanteri c bursitis of right hip 0019796015726 00 Active 2023 Elvi Cuevas NP [address] [facility],[address] [address], [place], [address], [place] [facility] 4 13:48:06 Cervical radiculopat hy 08147454 Active 2023 Elvi Cuevas, [facility] [address] [facility],[address] [address], [place], [address], [place] [facility] 4 10:41:02 Degeneratio n of cervical interverteb ral disc 06601540 Active 2023 Elvi Cuevas, [facility] [address] [facility],[address] [address], [place], [address], [place] [facility] 4 10:41:22 Lumbar radiculopat hy 357178344 Active 2024 Dionte Beck MD [address] [facility],[address], [address], [place] [facility] 5 21:33:00 Inflammatio n of sacroiliac joint 31800375 Active 2024 Dionte Beck MD [address], [address], [place] [facility] 5 09:16:39 Edema of lower extremity 458286008 Active Chapis stamper null, [place] - [facility] 3 08:29:39 Pain in lower limb 42075516 Active Chapis stamper null, [place] [facility] 3 08:29:40 Bilateral spider veins of lower limbs 7370053780553 9105 Active Chapis stamper null, [place] [facility] 3 08:29:40 Bilateral earache 516601534 Active Chapis stamper null, [place] [facility] 3 08:29:40 Asthma 756215413 Active Chapis stamper null, [place] [facility] 3 08:29:40 Sciatica 05604610 Active Chapis stamper null, [place] [facility] 3 08:29:40 Venous insufficien cy of leg 623515152 Active Chapis stamper null, [place] [facility] 3 08:29:40 Obese abdomen 444718235 Active Chapis stamper null, [place] [facility] 3 08:29:40 Dislocation of temporomand ibular joint 749045974 Active Chapis stamper null, [place] [facility] 3 08:29:40 History of Disorder 024912074 Active Chapis stamper null, [place] [facility] 3 08:29:40 Restless legs 08836490 Active Chapis stamper null, [place] [facility] 3 08:29:40 Depressive disorder 85120568 Active Chapis stamper null, [place] [facility] 3 08:29:40 Arthritis 7335726 Active Chapis stamper null[place] [facility] 3 08:29:40 Hypertensiv e disorder 48400811 Active Chapis stamper null, [place] [facility] 3 08:29:40 Body mass index 40+ - severely obese 345502586 Active Chapis stamper null, [place] [facility] 3 08:29:40 Hypothyroid ism 43924490 Active Chapis stamper null, [place] [facility] 3 08:29:40 Obesity 903788154 Active Chapis stamper null, [place] [facility] 3 08:29:40 Varicose veins of lower extremity 42083776 Active Chapis stamper null[place] [facility] 3 08:29:40 Sleep apnea 97346490 Active Chapis stamper null, [place] [facility] 3 08:29:40 Degeneratio n of interverteb ral disc 34010489 Active Chapis stamper null, [place] [facility] 3 08:29:40 Lumbar spondylosis 051857249 Active 2022 Sayda Herrera null, [place] [facility] 3 13:33:44 Degeneratio n of lumbar interverteb ral disc 74686462 Active 2022 Dionte Beck MD [address],[place] [facility], [place], [address], [place] [facility] 3 17:00:40 Arthropathy of lumbar facet joint 971337316 Active 2022 Dionte Beck MD [address],[place] [address] [place] [address], [address], [place] [facility] 3 17:00:41 Problem Notes None recorded. Procedures Surgical History Date Name Laterality Status Provider Name and Address Organization Details Recorded Time 09/24/19 25 Therapeutic SI Joint Injection Under Fluoroscopy completed Dionte Beck MD [address],[place] [address] [place] [address], [address], [place] [facility] 09/23/2024 09:14:32 08/14/19 25 SCS Trial completed Dionte Beck MD [address],[place] [address] [place] [address], [address], [place] [facility] 08/13/2024 17:47:06 07/16/19 25 Peripheral nerve stimulator Knee completed Dionte Beck MD [address],[place] [address] [place] [address], [address], [place] [facility] 07/16/2024 12:19:53 06/18/19 25 Lumbar YOLANDA: Interlaminar completed Dionte Beck MD [address],[place] [address] [place] [address], [address], [place] [facility] 06/18/2024 20:47:41 05/22/19 25 Peripheral nerve block completed Dionte Beck MD [address],[place] [facility], [place], [address], [place] [facility] 05/22/2024 23:56:27 03/19/20 24 Cervical Epidural Steroid Injection Under Fluoroscopy completed Dionte Beck MD [address],[place] [address] [place] [address], [address], [place] [facility] 03/19/2024 11:04:19 02/19/20 24 Greater Trochanteric Bursa Steroid Injection completed Dionte Beck MD [address],[place] [address], [address], [place] [facility] 02/19/2024 13:04:59 02/13/20 24 Diagnostic SI Joint Injection Under Fluoroscopy completed Dionte Beck MD [address], [address], [place] [facility] 02/13/2024 12:34:47 07/24/19 24 Genicular Nerve Block completed Dionte Beck MD [address] [facility],[address], [address], [place] [facility] 07/24/2023 23:15:00 05/27/19 24 Knee Joint Injection completed Dionte Beck MD [address] [facility],[address], [address], [place] [facility] 05/27/2023 18:20:07 04/19/20 23 Lumbar YOLANDA: Interlaminar completed SHIRLEY MAGAÑA [place] - [facility] 03/26/2023 09:21:47 02/29/20 23 Medial Epicondyle Injection completed Dionte Beck MD [address] [facility],[address], [address], [place] [facility] 02/28/2023 21:56:28 02/14/20 23 BILAT 2LVL LUMBAR RFA completed Dionte Beck MD [address] [facility],[address], [address], [place] [facility] 02/13/2023 17:15:10 12/19/19 23 Diagnostic Lumbar MBB: 2 Level Bilateral completed Dionte Beck MD [address] [facility],[address], [address], [place] [facility] 12/18/2022 16:59:24 11/23/19 23 Diagnostic Lumbar MBB: 2 Level Bilateral completed Dionte Beck MD [address] [facility],[address], [address], [place] [facility] 11/22/2022 19:11:36 Imaging Results None recorded. Procedure Notes None recorded. Medical Equipment None Reported. Allergies No known drug allergies Medications Name Sig Start Date Stop Date Status Note LastModified by Organization Details LastModified Time TOLECTIN DS Please take 2-3 tablets daily. 2023 active Not Available Not Available Not Avai lable RX ALTERNATIVE S NEUROPATHIC PAIN CREAM 90gm 2023 active Not Available Not Available Not Avai lable glmp (rr) cream 09/27 completed Not Available Not Available Not Available glmp (rr) (g5/l5) cream 09/27 completed Not Available Not Available Not Available amantadine HCl 100 mg tablet active Not Available Not Available Not Available losartan 50 mg tablet (50 MG) active Not Available Not Available No t Available celecoxib 200 mg capsule active Not Available Not Available Not Available cyclobenzap rine 10 mg tablet 09/27 completed Not Available Not Available Not Available metformin 500 mg tablet 06/11 completed Not Available Not Available Not Available promethazin e-DM 6.25 mg-15 mg/5 mL oral syrup active Not Available Not Available Not Available neomycin-po lymyxin-hyd rocort 3.5 mg/mL-10,00 0 unit/mL-1 % ear solution INSTILL 2 DROPS INTO AFFECTED EARS TWICE DAILY DIRECTED FOR 3 DAYS 09/27 completed Not Available Not Available Not Available nicotine 14 mg/24 hr daily transdermal patch active Not Available Not Available Not Available sulfasalazi ne 500 mg tablet 03/11 completed Not Available Not Available Not Available cetirizine 10 mg tablet (10 MG) active Not Available Not Available Not Available ibuprofen 800 mg tablet (800 MG) 03/11 completed Not Available Not Available Not Available tizanidine 4 mg tablet TAKE 1 TABLET BY MOUTH AT BEDTIME NEEDED FOR MUSCLE SPASMS 09/27 completed Not Available Not Available Not Available benzonatate 200 mg capsule 09/23 completed Not Available Not Available Not Available hydrocodone 5 mg-acetamin ophen 325 mg tablet TAKE 1 TABLET BY MOUTH EVERY 4 HOURS NEEDED FOR POST OPERATIVE PAIN 09/23 completed Not Available Not Available Not Available meloxicam 15 mg tablet Take 1 tablet every day by oral route. active Not Available Not Available No t Available prednisone 20 mg tablet Take 1 tablet twice a day by oral route. active Not Available Not Available No t Available clonazepam 0.5 mg tablet TAKE 1 TABLET BY MOUTH THREE TIMES DAILY NEEDED FOR NERVOUSNE SS 09/27 completed Not Available Not Available Not Available sulfamethox azole 800 mg-trimetho prim 160 mg tablet Take 1 tablet every 12 hours by oral route. active Not Available Not Available No t Available tramadol 50 mg tablet Take 1 tablet twice a day by oral route for 7 days. 10/27 completed Not Available Not Available Not Available triamterene 37.5 mg-hydrochl orothiazide 25 mg capsule 09/27 completed Not Available Not Available Not Available triamcinolo ne acetonide 0.1 % topical cream active Not Available Not Available Not Available lidocaine-p rilocaine 2.5 %-2.5 % topical cream 09/27 completed Not Available Not Available Not Available levothyroxi ne 100 mcg tablet (100 MCG) 09/23 completed Not Available Not Available Not Available bupropion HCl 100 mg tablet TAKE 0.5 (HALF) TABLET BY MOUTH ONCE DAILY 09/27 completed Not Available Not Available Not Available magnesium oxide 400 mg (241.3 mg magnesium) tablet 09/27 completed Not Available Not Available Not Available methocarbam ol 750 mg tablet 09/27 completed Not Available Not Available Not Available trazodone 100 mg tablet active Not Available Not Available Not Available ropinirole 0.25 mg tablet (0.25 MG) active Not Available Not Available No t Available ciprofloxac in 0.3 % eye drops 09/23 completed Not Available Not Available Not Available amitriptyli ne 10 mg tablet 09/27 completed Not Available Not Available Not Available benzonatate 100 mg capsule 01/23 completed Not Available Not Available Not Available doxycycline monohydrate 100 mg capsule 06/11 completed Not Available Not Available Not Available cephalexin 500 mg capsule 09/27 completed Not Available Not Available Not Available levothyroxi ne 125 mcg tablet 09/23 completed Not Available Not Available Not Available hydrochloro thiazide 12.5 mg capsule active Not Available Not Available Not Available gabapentin 300 mg capsule Take 1 capsule 3 times a day by oral route for 30 days. 2024 active Not Available Not Available Not Avai lable sertraline 25 mg tablet (25 MG) active Not Available Not Available Not Available diclofenac sodium 75 mg tablet,homer yed release TAKE 1 TABLET BY MOUTH TWICE DAILY NEEDED FOR PAIN 09/27 completed Not Available Not Available Not Available azelastine 137 mcg (0.1 %) nasal spray SPRAY 1-2 SPRAY INTO BOTH NOSTRILS TWICE A DAY NEEDED active Not Available Not Available No t Available epinephrine 0.3 mg/0.3 mL injection, auto-inject or INJECT 1 INJECTOR INTRAMUSC ULARLY NEEDED INJECT INTO OUTER THIGH FOR SEVERE ALLERGIC REACTION. CALL 911 AFTER USE 09/27 completed Not Available Not Available Not Available methylpredn isolone 4 mg tablets in a dose pack TAKE DIRECTED PER PACKAGE INSTRUCTI ONS 09/23 completed Not Available Not Available Not Available albuterol sulfate HFA 90 mcg/actuati on aerosol inhaler INHALE 2 PUFFS BY MOUTH DAILY NEEDED active Not Available Not Available No t Available celecoxib 100 mg capsule 09/27 completed Not Available Not Available Not Available ondansetron 4 mg disintegrat ing tablet 03/11 completed Not Available Not Available Not Available cefdinir 300 mg capsule 09/23 completed Not Available Not Available Not Available tolmetin 400 mg capsule Take 1 capsule by mouth 2 to 3 times daily active Not Available Not Available No t Available fluticasone propionate 50 mcg/actuati on nasal spray,suspe nsion active Not Available Not Available Not Available metformin ER 500 mg tablet,exte nded release 24 hr active Not Available Not Available Not Available naproxen 500 mg tablet 09/27 completed Not Available Not Available Not Available levothyroxi ne 112 mcg tablet active Not Available Not Available Not Available amoxicillin 875 mg-potassiu m clavulanate 125 mg tablet 09/23 completed Not Available Not Available Not Available hydroxyzine pamoate 25 mg capsule active Not Available Not Available N ot Available Vitamin D3 25 mcg (1,000 unit) tablet TAKE 1 TABLET BY MOUTH EVERY DAY active Not Available Not Available No t Available bupropion HCl XL 150 mg 24 hr tablet, extended release 09/27 completed Not Available Not Available Not Available lancing device 09/27 completed Not Available Not Available Not Available Alcohol Prep Pads 02/06 completed Not Available Not Available Not Available Flovent HFA 220 mcg/actuati on aerosol inhaler active Not Available Not Available Not Available pregabalin 25 mg capsule (25 MG) 11/06 completed Not Available Not Available Not Available pregabalin 50 mg capsule Take 1 capsule twice a day by oral route for 30 days. 02/06 completed Not Available Not Available Not Available pregabalin 75 mg capsule Take 1 capsule twice a day by oral route for 30 days. 06/11 completed Not Available Not Available Not Available hydrochloro thiazide 12.5 mg tablet (12.5 MG) 09/23 completed Not Available Not Available Not Available cholecalcif clifford (vitamin D3) 1,250 mcg (50,000 unit) capsule active Not Available Not Available Not Available GaviLyte-G 236 gram-22.74 gram-6.74 gram-5.86 gram oral solution active Not Available Not Available Not Available Mucus Relief ER 600 mg tablet, extended release active Not Available Not Available Not Available OneTouch Verio test strips 02/06 completed Not Available Not Available Not Available One Daily Multivitami n 400 mcg tablet 09/27 completed Not Available Not Available Not Available Trelegy Ellipta 100 mcg-62.5 mcg-25 mcg powder for inhalation active Not Available Not Available N ot Available Pure Comfort Safety Lancets 30 gauge 02/06 completed Not Available Not Available Not Available OneTouch Verio Reflect Meter 09/27 completed Not Available Not Available Not Available [facility] COVID-19 Antigen Rapid Home Test kit 09/23 completed Not Available Not Available Not Available Paxlovid 300 mg (150 mg x 2)-100 mg tablets in a dose pack TAKE DIRECTED PER PACKAGE INSTRUCTI ONS 01/23 completed Not Available Not Available Not Available Ozempic 0.25 mg or 0.5 mg (2 mg/3 mL) subcutaneou s pen injector active Not Available Not Available Not Available Clenpiq 10 mg-3.5 gram-12 gram/175 mL oral solution active Not Available Not Available Not Available Vitals Date Recorded Body height Body mass index (BMI) Body weight Heart rate Oxygen saturation Oxygen saturation in Arterial blood by Pulse oximetry Systolic blood pressure Diastolic blood pressure Provider Name and Address Organization Details Last Updated DateTime 5 162.56 cm 41.2 kg/m2 749301. 17 g 78 /min 98 % 98 % 130 mm[Hg] 86 mm[Hg] SHIRLEY CHANG - [facility] 5 10:32:44 Social History Question Answer Notes LastModified by Organizat ion Details LastModified Time Tobacco Smoking Status Never Smoker [facility] 09/27/2022 08:30:43 Do You Have An Advance Directive? No Information n ot available 09/27/2022 In The 14 Days Before Symptom Onset, Have You Had Close Contact With A Laboratory-confirm ed COVID-19 While That Case Was Ill? No Information n ot available 09/27/2022 In The 14 Days Before Symptom Onset, Have You Had Close Contact With A Person Who Is Under Investigation For COVID-19 While That Person Was Ill? No Information not available 09/27/2022 Have You Been To An Area Known To Be High Risk For COVID-19? No Information not available 09/27/2022 Do You Have A Medical Power Of Sanitary Chemist? No Information not available 09/27/2022 Sex: Female Functional Status Question Answer Note LastModified by Organizat ion Details LastModified Time Do you use any illicit or recreational drugs? No Information not available 09/27/2022 Do you or have you ever used any other forms of tobacco or nicotine? No Information not available 09/27/2022 What is your level of alcohol consumption? None Information not available 09/27/2022 Are you currently employed? No Information not available 09/27/2022 Mental Status None recorded. Family History Nothing Reported. Medical History Condition Response Coronary Artery Disease N Gout N Hernia N Head Trauma/Injury N Depression N COPD N Anxiety Disorder N Arthritis N Acid Reflux (GERD) N Cancer N Stroke N Back Injury N High Cholesterol N Liver Disease N Headaches N Fibromyalgia N Kidney Disease N Thyroid Problems N Anemia N Ulcers N Heart Attack (PR) N Diabetes N Bleeding Disorder N Tuberculosis N AIDS/HIV N Asthma N Substance Abuse N Hepatitis N Heart Disease N Hypertension N Osteoporosis N Gynecological HistoryNo gynecological history recorded. Obstetrics History GPAL:G 0 P 0 0 0 0 Past Encounters Encounter ID Performer Location Encounter Start Date Encounter Closed Date Diagnosis/Indication Diagnosis SNOMED-CT Code Diagnosis ICD10 Code Diagnosis Note [id number] Dionte Beck MD [address] [place] [address] 08/20/2024 10:34:48 08/20/2024 11:41:35 Pain in lower limb 06356412 M79.606 Edema of l ower extremity 714270650 R60.0 Lumbar radiculopathy 128 127482 M54.16 Bilateral spider veins of lower limbs 1320688759 9237428 I78.1 Arthropath y of lumbar facet joint 831475075 M47.816 Cervical radiculopathy 30349025 M54.12 Degenerati on of cervical intervertebral disc 49972720 M50.30 Degenerati on of intervertebral disc 05812713 M51.9 Degenerati on of lumbar intervertebral disc 47604822 M51.369 Arthritis 4880953 M19.90 [id number] Dionte Beck MD [address] [place] [address] 09/16/2024 10:22:20 09/16/2024 11:57:07 Pain in lower limb 55151799 M79.606 Edema of l ower extremity 115225890 R60.0 Bilateral spider veins of lower limbs 7837449838 2972369 I78.1 Lumbar radiculopathy 128 259320 M54.16 Arthritis 3309193 M19.90 Arthropath y of lumbar facet joint 481179650 M47.816 Cervical radiculopathy 07971723 M54.12 Degenerati on of cervical intervertebral disc 36942258 M50.30 Degenerati on of intervertebral disc 08229403 M51.9 Degenerati on of lumbar intervertebral disc 08530319 M51.369 Osteoarthr itis of left knee joint 9100283350 51155 M17.12 Pain of le ft knee joint 0884358333 90921 M25.562 Trochanter ic bursitis of right hip 9137930411 61618 M70.61 Inflammati on of sacroiliac joint 32343219 M46.1 Health Concerns Section Related Observation LastModified by Organization Detai ls LastModified Time None Recorded Concern Status LastModified by Organization Details LastModified Time None Recorded Payers Encounter Date Sequence Insurance Name Policy Number Policy Green Covered Member ID Green Member ID Guarantor Name 09/16/2024 1 [facility] (MEDICAID REPLACEMENT - HMO) Saritha Moody [id number] Saritha M Fransisco Notes Date Note Type Note Provider Name and Address Organization Details Recorded Time 09/16/2024 text/html Low back painReported bypatient.Onset:gr adual onset Location:bilateral paraspinal; radiating down the bilateral lower extremities to the knees Context:started without cause Severity:current pain level: 8/10; worst pain level: 10/10 Alleviating Factors:rest Aggravating Factors:standing; walking Timing:constant Associated Symptoms:weakness; numbness;tingling Previous Lumbar Surgery:none Previous Injections:lumbar ESIs: helped temporarily; SI joint injections: no relief Previous physical therapy:completed all recommended PT visits; more than 6weeks of PT completed; response to therapy: no improvement in pain/symptoms Daily Activities:Living independently.;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 Dionte Beck MD [address], [address], [facility] 09/16/2024 13:00:54 OBGyn Episode No OBEpisode recorded.
--- OUTSIDE RECORDS SUMMARY | 2024-11-02 07:51 | XMS_ITS | Clinical Summary ---
Author Organization Healthcare Address [address] [place] [id number] Care Team Providers Care Director Of Regional Sales Name Role Phone Moriah Morgan APRN Unavailable [phone] Mark Cid MD Primary Care Provider [phone] Allergies No known active allergies Medications traZODone (Desyrel) 50 MG tablet TAKE 1/2 (ONE-HALF) TABLET BY MOUTH ONCE DAILY 2 Active losartan (Cozaar) 50 MG tablet Take 50 mg by mouth 1 (one) time each day. 2 Active clonazePAM (KlonoPIN) 0.5 MG tablet Take 0.5 mg by mouth 3 (three) times a day. 2 Active ProAir HFA 108 (90 Base) MCG/ACT inhaler INHALE 2 PUFFS BY MOUTH EVERY 4 TO 6 HOURS NEEDED FOR CHEST SYMPTOMS. MAY USE 15 MINUTES PRE-EXERCISE 2 Active ergocalciferol 1.25 MG (79355 UT) capsule Take 1 capsule by mouth 1 (one) time per week. 2 Active meloxicam (Mobic) 7.5 MG tablet Take 7.5 mg by mouth 1 (one) time each day. 2 Active cetirizine (ZyrTEC) 10 MG tablet TAKE 1 TABLET BY MOUTH ONCE DAILY AT NIGHT 2 Active Azelastine HCl 137 MCG/SPRAY solution USE 2 SPRAY(S) IN EACH NOSTRIL TWICE DAILY 1 Active diclofenac (Voltaren) 1 % topical gel APPLY 4 GRAMS TOPICALLY TO AFFECTED AREA 4 TIMES DAILY NEEDED FOR PAIN. APPLY TO SINGLE ANKLE OR FOOT. FOOT INCLUDES SOLE/TOES/TOP OF FOOT 2 Active EPINEPHrine (Epipen) 0.3 MG/0.3ML injection syringe INJECT CONTENTS OF 1 PEN NEEDED INTO OUTER THIGH FOR ALLERGIC REACTION. CALL 911 AFTER USE 1 Active Flovent HFA 110 MCG/ACT inhaler Inhale 2 puffs 2 (two) times a day. 2 Active hydroCHLOROthia zide (HYDRODiuril) 12.5 MG tablet Take 12.5 mg by mouth 1 (one) time each day in the morning. 2 Active levocetirizine (Xyzal) 5 MG tablet Take 5 mg by mouth 1 (one) time each day. 2 Active Euthyrox 100 MCG tablet TAKE 1 TABLET BY MOUTH ONCE DAILY FOR HYPOTHROIDISM. 2 Active methocarbamol (Robaxin) 750 MG tablet TAKE 1 TABLET BY MOUTH 4 TIMES DAILY 1 Active sertraline (Zoloft) 25 MG tablet Take 25 mg by mouth 1 (one) time each day. 2 Active Social History Tobacco Use Types Packs/Day Years Used Date Smoking Tobacco: Every Day Cigarettes Smokeless Tobacco: Never Alcohol Use Standard Drinks/Week Comments Yes 0 (1 standard drink = 0.6 oz pur e alcohol) Comments Unknown Sex and Gender Information Value Date Recorded Sex Assigned at Not on file Legal Sex Female 3:38 PM EDT Gender Identity Not on file Sexual Orientation Not on file Last Filed Vital Signs Vital Sign Reading Time Taken Comments Blood Pressure 142/90 10/11/2021 10:21 AM EDT Pulse - - Temperature - - Respiratory Rate - - Oxygen Saturation - - Inhaled Oxygen Concentration - - Weight 113 kg (248 lb 0.3 oz) 10/11/2021 10:21 A M EDT Height 162.6 cm (5' 4 ) 10/11/2021 10:21 AM EDT Body Mass Index 42.57 10/11/2021 10:21 AM EDT Plan of Treatment Health Maintenance Due Date Last Done Comments [facility]-Depression Screening 1967 [facility]-Infant/Child/Adol SDOH Screenings 1967 [facility]- SDOH Screenings 1985 [facility]-Adult SDOH Screenings 1985 [facility]-DTaP,Tdap,and Td Vaccine s (1 - Tdap) 1986 [facility]-Hepatitis B Vaccines (1 of 3 - 19+ 3-dose series) 1986 [facility]-Pap Smear 01/25/1988 [facility]-Cervical Cancer Screening 1997 [facility]-HPV/Cotest 1997 CT Colonography 01/25/2012 Colonoscopy 01/25/2012 FIT-DNA 01/25/2012 FIT 01/25/2012 FOBT 01/25/2012 Sigmoidoscopy 01/25/2012 [facility]-Colorectal Cancer Screening 01/25/2012 [facility]-Pneumococcal Vaccine: 50 + Years (1 of 1 - PCV) 2017 [facility]-Zoster Vaccines (1 of 2) 2017 [id number] Vaccine (1 - 20 24-25 season) 2024 [facility]-Influenza Vaccine ([place] Ended) 2025 [facility]-Hepatitis A Vaccines Aged Out 05/01/2018 No longer eligible based on patient's age to complete this topic HPV Vaccines Aged Out No longer eligi ble based on patient's age to complete this topic [facility]-HIB Vaccines Aged Out No longer e ligible based on patient's age to complete this topic [facility]-IPV Vaccines Aged Out No longer e ligible based on patient's age to complete this topic [facility]-Rotavirus Vaccines Aged Out No lo nger eligible based on patient's age to complete this topic Insurance [employer] Care Teams Director Of Regional Sales Relationship Specialty Start Date End Date Mark Cid MD [address] [place] [address] PCP - General 10/11/21 Moriah Morgan APRN [address] [facility] [id number] [phone] Nurse Practitioner Neurosurgery 10/11/21
--- OUTSIDE RECORDS SUMMARY | 2024-11-02 07:51 | XMS_ITS | Data Portability ---
Author Organization [facility] [employer] [facility] Address [address] [place] [address] Assessment No assessment recorded. Plan of Treatment Reminders Order Date Submit Date Provider Last Modified By Organization Details Last Modified Time Details Appointments FOLLOW UP 15 2024 08:30A Foreign Khan NP Not available Not available Not available Lab vitamin D, 25-hydrox y, total, serum 2024 [facility] [address] [place] [address], [address], 09/09/2024 11:11:51 HbA1c (hemoglob in A1c), blood [email or web address] [place] [address], [address] [facility], [place], [address], 09/07/2024 17:09:41 CBC w/ auto diff 2024 025 [facility] [address] [place] [address], [address], 09/09/2024 11:11:50 CMP, serum or plasma 2024 025 [facility] [address] [place] [address], [address], 09/09/2024 11:11:50 TSH + free T4, serum 2024 025 [facility] [address] [place] [address], [address], 09/09/2024 11:11:49 thyroid peroxidas e (tpo) Ab, serum 2024 025 [facility] [address] [place], [address], 09/09/2024 11:11:52 Hepatitis C IgG Ab, qual, serum 2024 025 [facility] [address] [place], [address], 08/11/2024 08:13:44 HIV 1 + 2, meaningfu l use set 2024 025 [facility] [address] [place], [address], 08/11/2024 08:13:45 rapid SARS CoV 2 Ag, QL, IA, upper respirato ry specimen [address], [address] [place], [address], 08/10/2024 14:33:08 rapid flu (A+B) [address], [address] [place], [address], 08/10/2024 14:33:08 vitamin D, 25-hydrox y, total, serum 2024 025 [facility]), [address] [place], [address], 08/11/2024 08:13:44 HbA1c (hemoglob in A1c), blood 2024 025 [facility], [address] [place], [address], 08/10/2024 14:55:36 CMP, serum or plasma 2024 025 [facility]), [address] [place], [address], 08/11/2024 08:13:43 CBC w/ auto diff 2024 025 [facility] ([facility]), [address] [place], [address], 08/11/2024 08:13:42 TSH + free T4, serum 2024 025 [facility] [address] [place], [address], 08/11/2024 08:13:42 Referral None recorded. Procedures None recorded. Surgeries None recorded. Imaging None recorded. Medication Orders atorvasta tin 10 mg tablet 2024 025 [facility], [address] [place] [address], [address], 09/07/2024 17:14:31 cefdinir 300 mg capsule 2024 025 [facility], [address] [place] [address], [address], 09/07/2024 16:03:51 Patient TargetsNo targets recorded. Patient Instructions Encounter Date Encounter Id Patient Instructions Last Modified By Organization Details Last Modified Time 08/10/2024 [id number] tetanus and diphtheria booster: care instructions Not available 08/10/2024 14:33:08 cough: care instructions Not available 08/10/2024 14:33:08 chronic obstructive pulmonary disease (COPD): care instructions Not available 08/10/2024 14:33:08 learning about copd and how to prevent lung infections Not available 08/10/2024 14:33:08 type 2 diabetes: care instructions Not available 08/10/2024 14:33:08 hypothyroidism: care instructions Not available 08/10/2024 14:33:07 09/07/2024 [id number] body mass index: care instructions Not available 09/07/2024 17:09:51 learning about healthy weight Not available 09/07/2024 17:09:51 high blood pressure: care instructions Not available 09/07/2024 16:38:24 learning about high blood pressure Not available 09/07/2024 16:38:24 hypothyroidism: care instructions Not available 09/07/2024 16:38:24 09/21/2024 [id number] desire's thyroiditis: care instructions Not available 09/21/2024 16:15:47 high blood pressure: care instructions Not available 09/21/2024 16:15:47 learning about high blood pressure Not available 09/21/2024 16:15:47 Reason for Referral None Reported. Results Created Date Observation Date Name Description Value Unit Range Abnormal Flag Note LastModifiedBy Organization Detail LastModifiedTime 05/18/20 24 05/19/2024 TSH+F REE T4 TSH 0.360 uIU/m L 0.450- 4.500 below low normal Not Available [facility] ([facility]) [address] [place], [address], 05/19/2024 08:12:26 05/18/20 24 05/19/2024 TSH+F REE T4 T4,free(dire ct) 1.38 NG/dL 0.82-1 .77 normal Not Available [facility] ([facility]) [address] [place], [address], 05/19/2024 08:12:26 05/18/20 24 05/19/2024 CBC WITH DIFFE RENTI AL/PL ATELE T WBC 8.2 x10e3 /uL 3.4-10 .8 normal Not Available [facility] ([facility]) [address] [place], [address], 05/19/2024 08:12:26 05/18/20 24 05/19/2024 CBC WITH DIFFE RENTI AL/PL ATELE T RBC 4.51 x10e6 /uL 3.77-5 .28 normal Not Available [facility] ([facility]) [address] [facility], [place], [address], 05/19/2024 08:12:26 05/18/20 24 05/19/2024 CBC WITH DIFFE RENTI AL/PL ATELE T hemoglobin 14.3 g/dL 11.1-1 5.9 normal Not Available [facility] ([facility]) [address] [facility], [place], [address], 05/19/2024 08:12:26 05/18/20 24 05/19/2024 CBC WITH DIFFE RENTI AL/PL ATELE T hematocrit 43.1 % 34.0-4 6.6 normal Not Available [facility] ([facility]) [address] [facility], [place], [address], 05/19/2024 08:12:26 05/18/20 24 05/19/2024 CBC WITH DIFFE RENTI AL/PL ATELE T MCV 96 fL 79-97 normal Not Available [facility] ([facility]) [address] [facility], [place], [address], 05/19/2024 08:12:26 05/18/20 24 05/19/2024 CBC WITH DIFFE RENTI AL/PL ATELE T MCH 31.7 pg 26.6-3 3.0 normal Not Available [facility] ([facility]) [address] [facility], [place], [address], 05/19/2024 08:12:26 05/18/20 24 05/19/2024 CBC WITH DIFFE RENTI AL/PL ATELE T MCHC 33.2 g/dL 31.5-3 5.7 normal Not Available [facility] ([facility]) [address] [place], [address], 05/19/2024 08:12:26 05/18/20 24 05/19/2024 CBC WITH DIFFE RENTI AL/PL ATELE T RDW 12.5 % 11.7-1 5.4 Not Available [facility] ([facility]) [address] [facility], [place], [address], 05/19/2024 08:12:26 05/18/20 24 05/19/2024 CBC WITH DIFFE RENTI AL/PL ATELE T platelets 273 x10e3 /uL 150-45 0 normal Not Available [facility] ([facility]) [address] [facility], [place], [address], 05/19/2024 08:12:26 05/18/20 24 05/19/2024 CBC WITH DIFFE RENTI AL/PL ATELE T neutrophils 66 % not estab. normal Not Available [facility] ([facility]) [address] [facility], [place], [address], 05/19/2024 08:12:26 05/18/20 24 05/19/2024 CBC WITH DIFFE RENTI AL/PL ATELE T lymphs 23 % not estab. normal Not Available [facility] ([facility]) [address] [facility], [place], [address], 05/19/2024 08:12:26 05/18/20 24 05/19/2024 CBC WITH DIFFE RENTI AL/PL ATELE T monocytes 8 % not estab. normal Not Available [facility] ([facility]) [address] [facility], [place], [address], 05/19/2024 08:12:26 05/18/20 24 05/19/2024 CBC WITH DIFFE RENTI AL/PL ATELE T eos 2 % not estab. normal Not Available [facility] ([facility]) [address] [facility], [place], [address], 05/19/2024 08:12:26 05/18/20 24 05/19/2024 CBC WITH DIFFE RENTI AL/PL ATELE T basos 1 % not estab. 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 0 normal Not Available [facility] ([facility]) [address] [facility], [place], [address], 05/19/2024 08:12:26 05/18/20 24 05/19/2024 CBC WITH DIFFE RENTI AL/PL ATELE T lymphs (absolute) 1.8 x10e3 /uL 0.7-3. 1 normal Not Available [facility] ([facility]) [address] [facility], [place], [address], 05/19/2024 08:12:26 05/18/20 24 05/19/2024 CBC WITH DIFFE RENTI AL/PL ATELE T monocytes(ab solute) 0.7 x10e3 /uL 0.1-0. 9 normal Not Available [facility] ([facility]) [address] [place], [address], 05/19/2024 08:12:26 05/18/20 24 05/19/2024 CBC WITH DIFFE RENTI AL/PL ATELE T eos (absolute) 0.2 x10e3 /uL 0.0-0. 4 normal Not Available [facility] ([facility]) [address] [place], [address], 05/19/2024 08:12:26 05/18/20 24 05/19/2024 CBC WITH DIFFE RENTI AL/PL ATELE T baso (absolute) 0.1 x10e3 /uL 0.0-0. 2 normal Not Available [facility] ([facility]) [address] [facility], [place], [address], 05/19/2024 08:12:26 05/18/20 24 05/19/2024 CBC WITH DIFFE RENTI AL/PL ATELE T immature granulocytes 0 % not estab. Not Available [facility] ([facility]) [address] [facility], [place], [address], 05/19/2024 08:12:26 05/18/20 24 05/19/2024 CBC WITH DIFFE RENTI AL/PL ATELE T immature grans (abs) 0.0 x10e3 /uL 0.0-0. 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 METAB OLIC PANEL (14) glucose 101 mg/dL 70-99 above high normal Not Available [facility] ([facility]) [address] [facility], [place], [address], 05/19/2024 08:12:27 05/18/20 24 05/19/2024 COMP. METAB OLIC PANEL (14) BUN 16 mg/dL 6-24 normal Not Available [facility] ([facility]) [address] [place], [address], 05/19/2024 08:12:27 05/18/20 24 05/19/2024 COMP. METAB OLIC PANEL (14) creatinine 0.55 mg/dL 0.57-1 .00 below low normal Not Available [facility] ([facility]) [address] [place], [address], 05/19/2024 08:12:27 05/18/20 24 05/19/2024 COMP. METAB OLIC PANEL (14) eGFR 107 mL/mi n/1.7 3 >59 normal Not Available [facility] ([facility]) [address] [place], [address], 05/19/2024 08:12:27 05/18/20 24 05/19/2024 COMP. METAB OLIC PANEL (14) BUN/creatini ne ratio 29 9-23 above high normal Not Available [facility] ([facility]) [address] [place], [address], 05/19/2024 08:12:27 05/18/20 24 05/19/2024 COMP. METAB OLIC PANEL (14) sodium 141 mmol/ L 134-14 4 normal Not Available [facility] ([facility]) [address] [place], [address], 05/19/2024 08:12:27 05/18/20 24 05/19/2024 COMP. METAB OLIC PANEL (14) potassium 4.5 mmol/ L 3.5-5. 2 normal Not Available [facility] ([facility]) [address] [place], [address], 05/19/2024 08:12:27 05/18/20 24 05/19/2024 COMP. METAB OLIC PANEL (14) chloride 106 mmol/ L 96-106 normal Not Available [facility] ([facility]) [address] [place], [address], 05/19/2024 08:12:27 05/18/20 24 05/19/2024 COMP. METAB OLIC PANEL (14) carbon dioxide, total 22 mmol/ L 20-29 normal Not Available [facility] ([facility]) [address] [place], [address], 05/19/2024 08:12:27 05/18/20 24 05/19/2024 COMP. METAB OLIC PANEL (14) calcium 9.0 mg/dL 8.7-10 .2 normal Not Available [facility] ([facility]) [address] [place], [address], 05/19/2024 08:12:27 05/18/20 24 05/19/2024 COMP. METAB OLIC PANEL (14) protein, total 6.3 g/dL 6.0-8. 5 normal Not Available [facility] ([facility]) [address] [place], [address], 05/19/2024 08:12:27 05/18/20 24 05/19/2024 COMP. METAB OLIC PANEL (14) albumin 4.0 g/dL 3.8-4. 9 normal Not Available [facility] ([facility]) [address] [place], [address], 05/19/2024 08:12:27 05/18/20 24 05/19/2024 COMP. METAB OLIC PANEL (14) globulin, total 2.3 g/dL 1.5-4. 5 Not Available [facility] ([facility]) [address] [place], [address], 05/19/2024 08:12:27 05/18/20 24 05/19/2024 COMP. METAB OLIC PANEL (14) bilirubin, total 0.3 mg/dL 0.0-1. 2 normal Not Available [facility] ([facility]) [address] [place], [address], 05/19/2024 08:12:27 05/18/20 24 05/19/2024 COMP. METAB OLIC PANEL (14) alkaline phosphatase 91 IU/L 44-121 normal Not Available [facility]) [address] [facility], [place], [address], 05/19/2024 08:12:27 05/18/20 24 05/19/2024 COMP. METAB OLIC PANEL (14) AST (SGOT) 16 IU/L 0-40 normal Not Available [facility] ([facility]) [address] [facility], [place], [address], 05/19/2024 08:12:27 05/18/20 24 05/19/2024 COMP. METAB OLIC PANEL (14) ALT (SGPT) 21 IU/L 0-32 normal Not Available [facility] ([facility]) [address] [facility], [place], [address], 05/19/2024 08:12:27 05/18/20 24 05/19/2024 LIPID PANEL WITH LDL/H DL RATIO cholesterol, total 144 mg/dL 100-19 9 normal Not Available [facility] ([facility]) [address] [facility], [place], [address], 05/19/2024 08:12:27 05/18/20 24 05/19/2024 LIPID PANEL WITH LDL/H DL RATIO triglyceride s 88 mg/dL 0-149 normal Not Available [facility]) [address] [facility], [place], [address], 05/19/2024 08:12:27 05/18/20 24 05/19/2024 LIPID PANEL WITH LDL/H DL RATIO HDL cholesterol 44 mg/dL >39 normal Not Available [facility]) [address] [facility] [place], [address], 05/19/2024 08:12:27 05/18/20 24 05/19/2024 LIPID PANEL WITH LDL/H DL RATIO VLDL cholesterol joes 17 mg/dL 5-40 Not Available [facility] ([facility]) [address] [facility], [place], [address], 05/19/2024 08:12:27 05/18/20 24 05/19/2024 LIPID PANEL WITH LDL/H DL RATIO LDL chol calc ([facility]) 83 mg/dL 0-99 Not Available [facility] ([facility]) [address] [place], [address], 05/19/2024 08:12:27 05/18/20 24 05/19/2024 LIPID PANEL WITH LDL/H DL RATIO LDL calc comment: 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 2 LDL/H DL Ratio Men Women 1/2 Avg.R isk 1.0 1.5 Avg.R isk 3.6 3.2 2X Avg.R isk 6.2 5.0 3X Avg.R isk 8.0 6.1 Not Available [facility] ([facility]) [address] [place], [address], 05/19/2024 08:12:27 05/18/20 24 05/19/2024 HEMOG LOBIN A1C hemoglobin A1C 6.0 % 4.8-5. 6 above high normal Predi abete s: 5.7 - 6.4 Diabe kai: >6.4 Glyce charan contr ol for adult s with diabe kai: <7.0 Not Available [facility] ([facility]) [address] [place], [address], 05/19/2024 08:12:28 05/18/20 24 05/19/2024 THYRO ID PEROX IDASE (TPO) AB thyroid peroxidase (tpo) Ab 110 IU/mL 0-34 above high normal Not Available [facility] ([facility]) [address] [facility], [place], [address], 05/19/2024 08:12:28 08/11/1908/11/2024 TSH+F REE T4 TSH 0.589 uIU/m L 0.450- 4.500 normal Not Available [facility] ([facility]) [address] [place], [address], 08/11/2024 08:13:42 08/11/1908/11/2024 TSH+F REE T4 T4,free(dire ct) 1.42 NG/dL 0.82-1 .77 normal Not Available [facility] ([facility]) [address] [place], [address], 08/11/2024 08:13:42 08/11/1908/11/2024 CBC WITH DIFFE RENTI AL/PL ATELE T WBC 9.4 x10e3 /uL 3.4-10 .8 normal Not Available [facility] ([facility]) [address] [place], [address], 08/11/2024 08:13:42 08/11/1908/11/2024 CBC WITH DIFFE RENTI AL/PL ATELE T RBC 5.01 x10e6 /uL 3.77-5 .28 normal Not Available [facility] ([facility]) [address] [place], [address], 08/11/2024 08:13:42 08/11/1908/11/2024 CBC WITH DIFFE RENTI AL/PL ATELE T hemoglobin 15.0 g/dL 11.1-1 5.9 normal Not Available [facility] ([facility]) [address] [place], [address], 08/11/2024 08:13:42 08/11/1908/11/2024 CBC WITH DIFFE RENTI AL/PL ATELE T hematocrit 45.8 % 34.0-4 6.6 normal Not Available [facility] ([facility]) [address] [facility], [place], [address], 08/11/2024 08:13:42 08/11/1908/11/2024 CBC WITH DIFFE RENTI AL/PL ATELE T MCV 91 fL 79-97 normal Not Available [facility] ([facility]) [address] [facility], [place], [address], 08/11/2024 08:13:42 08/11/1908/11/2024 CBC WITH DIFFE RENTI AL/PL ATELE T MCH 29.9 pg 26.6-3 3.0 normal Not Available [facility] ([facility]) [address] [facility], [place], [address], 08/11/2024 08:13:42 08/11/1908/11/2024 CBC WITH DIFFE RENTI AL/PL ATELE T MCHC 32.8 g/dL 31.5-3 5.7 normal Not Available [facility] ([facility]) [address] [facility], [place], [address], 08/11/2024 08:13:42 08/11/1908/11/2024 CBC WITH DIFFE RENTI AL/PL ATELE T RDW 12.8 % 11.7-1 5.4 Not Available [facility] ([facility]) [address] [place], [address], 08/11/2024 08:13:42 08/11/1908/11/2024 CBC WITH DIFFE RENTI AL/PL ATELE T platelets 286 x10e3 /uL 150-45 0 normal Not Available [facility] ([facility]) [address] [place], [address], 08/11/2024 08:13:42 08/11/1908/11/2024 CBC WITH DIFFE RENTI AL/PL ATELE T neutrophils 60 % not estab. normal Not Available [facility] ([facility]) [address] [facility], [place], [address], 08/11/2024 08:13:42 08/11/1908/11/2024 CBC WITH DIFFE RENTI AL/PL ATELE T lymphs 29 % not estab. normal Not Available [facility] ([facility]) [address] [facility], [place], [address], 08/11/2024 08:13:42 08/11/1908/11/2024 CBC WITH DIFFE RENTI AL/PL ATELE T monocytes 7 % not estab. normal Not Available [facility] ([facility]) [address] [facility], [place], [address], 08/11/2024 08:13:42 08/11/1908/11/2024 CBC WITH DIFFE RENTI AL/PL ATELE T eos 3 % not estab. normal Not Available [facility] ([facility]) [address] [facility], [place], [address], 08/11/2024 08:13:42 08/11/1908/11/2024 CBC WITH DIFFE RENTI AL/PL ATELE T basos 1 % not estab. 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 0 normal Not Available [facility] ([facility]) [address] [facility], [place], [address], 08/11/2024 08:13:42 08/11/1908/11/2024 CBC WITH DIFFE RENTI AL/PL ATELE T lymphs (absolute) 2.7 x10e3 /uL 0.7-3. 1 normal Not Available [facility] ([facility]) [address] [facility], [place], [address], 08/11/2024 08:13:42 08/11/1908/11/2024 CBC WITH DIFFE RENTI AL/PL ATELE T monocytes(ab solute) 0.7 x10e3 /uL 0.1-0. 9 normal Not Available [facility] ([facility]) [address] [facility], [place], [address], 08/11/2024 08:13:42 08/11/1908/11/2024 CBC WITH DIFFE RENTI AL/PL ATELE T eos (absolute) 0.3 x10e3 /uL 0.0-0. 4 normal Not Available [facility] ([facility]) [address] [facility], [place], [address], 08/11/2024 08:13:42 08/11/1908/11/2024 CBC WITH DIFFE RENTI AL/PL ATELE T baso (absolute) 0.1 x10e3 /uL 0.0-0. 2 normal Not Available [facility] ([facility]) [address] [facility], [place], [address], 08/11/2024 08:13:42 08/11/1908/11/2024 CBC WITH DIFFE RENTI AL/PL ATELE T immature granulocytes 0 % not estab. Not Available [facility] ([facility]) [address] [place], [address], 08/11/2024 08:13:42 08/11/1908/11/2024 CBC WITH DIFFE RENTI AL/PL ATELE T immature grans (abs) 0.0 x10e3 /uL 0.0-0. 1 Not Available [facility] ([facility]) [address], [place], [address], 08/11/2024 08:13:42 08/11/1908/11/2024 CBC WITH DIFFE RENTI AL/PL ATELE T NRBC MAINTENANCE GROUNDSKEEPER Not Available [facility] ([facility]) [address], [place], [address], 08/11/2024 08:13:42 08/11/1908/11/2024 CBC WITH DIFFE RENTI AL/PL ATELE T hematology comments: MAINTENANCE GROUNDSKEEPER Not Available [facility] ([facility]) [address], [place], [address], 08/11/2024 08:13:42 08/11/1908/11/2024 COMP. METAB OLIC PANEL (14) glucose 116 mg/dL 70-99 above high normal Not Available [facility] ([facility]) [address] [facility], [place], [address], 08/11/2024 08:13:43 08/11/1908/11/2024 COMP. METAB OLIC PANEL (14) BUN 13 mg/dL 6-24 normal Not Available [facility] ([facility]) [address] [facility], [place], [address], 08/11/2024 08:13:43 08/11/1908/11/2024 COMP. METAB OLIC PANEL (14) creatinine 0.72 mg/dL 0.57-1 .00 normal Not Available [facility] ([facility]) [address] [facility], [place], [address], 08/11/2024 08:13:43 08/11/1908/11/2024 COMP. METAB OLIC PANEL (14) eGFR 97 mL/mi n/1.7 3 >59 normal Not Available [facility] ([facility]) [address] [facility] [place], [address], 08/11/2024 08:13:43 08/11/1908/11/2024 COMP. METAB OLIC PANEL (14) BUN/creatini ne ratio 18 9-23 normal Not Available [facility] ([facility]) [address] [place], [address], 08/11/2024 08:13:43 08/11/1908/11/2024 COMP. METAB OLIC PANEL (14) sodium 138 mmol/ L 134-14 4 normal Not Available [facility] ([facility]) [address] [facility] [place], [address], 08/11/2024 08:13:43 08/11/1908/11/2024 COMP. METAB OLIC PANEL (14) potassium 4.2 mmol/ L 3.5-5. 2 normal Not Available [facility] ([facility]) [address] [place], [address], 08/11/2024 08:13:43 08/11/1908/11/2024 COMP. METAB OLIC PANEL (14) chloride 106 mmol/ L 96-106 normal Not Available [facility] ([facility]) [address] [place], [address], 08/11/2024 08:13:43 08/11/1908/11/2024 COMP. METAB OLIC PANEL (14) carbon dioxide, total 19 mmol/ L 20-29 below low normal Not Available [facility] ([facility]) [address] [place], [address], 08/11/2024 08:13:43 08/11/1908/11/2024 COMP. METAB OLIC PANEL (14) calcium 9.5 mg/dL 8.7-10 .2 normal Not Available [facility] ([facility]) [address] [place], [address], 08/11/2024 08:13:43 08/11/1908/11/2024 COMP. METAB OLIC PANEL (14) protein, total 6.5 g/dL 6.0-8. 5 normal Not Available [facility] ([facility]) [address] [facility] [place], [address], 08/11/2024 08:13:43 08/11/19 25 08/11/2024 COMP. METAB OLIC PANEL (14) albumin 4.2 g/dL 3.8-4. 9 normal Not Available [facility] ([facility]) [address] [facility] [place], [address], 08/11/2024 08:13:43 08/11/1908/11/2024 COMP. METAB OLIC PANEL (14) globulin, total 2.3 g/dL 1.5-4. 5 Not Available [facility] ([facility]) [address] [facility] [place], [address], 08/11/2024 08:13:43 08/11/19 25 08/11/2024 COMP. METAB OLIC PANEL (14) bilirubin, total 0.3 mg/dL 0.0-1. 2 normal Not Available [facility] ([facility]) [address] [place], [address], 08/11/2024 08:13:43 08/11/19 25 08/11/2024 COMP. METAB OLIC PANEL (14) alkaline phosphatase 102 IU/L 44-121 normal Not Available [facility] ([facility]) [address] [place], [address], 08/11/2024 08:13:43 08/11/19 25 08/11/2024 COMP. METAB OLIC PANEL (14) AST (SGOT) 24 IU/L 0-40 normal Not Available [facility] ([facility]) [address] [place], [address], 08/11/2024 08:13:43 08/11/19 25 08/11/2024 COMP. METAB OLIC PANEL (14) ALT (SGPT) 30 IU/L 0-32 normal Not Available [facility] ([facility]) [address] [facility], [place], [address], 08/11/2024 08:13:43 08/11/1908/11/2024 HCV ANTIB TANVIR RFX TO QUANT PCR HCV Ab Non Reacti ve non reacti ve Not Available [facility] ([facility]) [address] [facility], [place], [address], 08/11/2024 08:13:44 08/11/1908/11/2024 HCV ANTIB TANVIR RFX TO QUANT PCR interpretati on: Commen t Not infec [place] with HCV unles s early or acute infec tion is suspe cted (whic h may be delay ed in an immun ocomp romis ed indiv idual ), or other evide nce exist s to indic ate HCV infec tion. Not Available [facility] ([facility]) [address] [facility], [place], [address], 08/11/2024 08:13:44 08/11/1908/11/2024 VITAM IN D, 25-HY DROXY vitamin D, 25-hydroxy 64.9 NG/mL 30.0-1 00.0 Vitam in D defic iency has been defin ed by the Insti tute of Medic ine and an Endoc rine Socie ty pract ice guide line as a level of serum 25-OH vitam in D less than 20 ng/mL (1,2) . The Endoc rine Socie ty went on to furth er defin e vitam in D insuf ficie ncy as a level betwe en 21 and 29 ng/mL (2). 1. IOM (Inst itute of Medic ine). 2009. Dieta ry refer ence intak es for calci um and D. Yuly roman [place]: The Natio nal [facility] [facility] Press . 2. Cinthya mariee MF, Jose Manuel ey [place], Jyoti off-F errar i WHITE, et al. Evalu ation , treat ment, and preve ntion of vitam in D defic iency : an Endoc rine Socie ty clini jose pract ice guide line. JCEM. 2010; 96(9) :1911 -30. Not Available [facility] ([facility]) [address] [facility], [place], [address], 08/11/2024 08:13:44 08/11/19 25 08/11/2024 HIV AB/P2 4 AG WITH REFLE X HIV Ab/P24 Ag screen Non Reacti ve non reacti ve HIV Negat marco HIV-1 /HIV- 2 antib odies and HIV-1 p24 antig en were NOT detec [place]. There is no labor atory evide nce of HIV infec tion. Not Available [facility] ([facility]) [address] [facility], [place], [address], 08/11/2024 08:13:45 08/11/19 25 08/10/2024 HbA1c (hemo globi n A1c), blood HbA1c 5.[address] [facility] [address] [place] [address], [address], 08/10/2024 14:23:10 08/11/19 25 08/10/2024 rapid SARS CoV 2 Ag, QL, IA, upper respi rator y speci men SARS CoV Ag negati ve Not Available [facility] [address] [place] [address], [address], 08/10/2024 14:04:55 08/11/19 25 08/10/2024 rapid flu (A+B) Flu A negati ve Not Available [facility] [address] [place], [address], 08/10/2024 14:05:04 08/11/19 25 08/10/2024 rapid flu (A+B) Flu B negati ve Not Available [facility] [address] [place], [address], 08/10/2024 14:05:04 09/08/19 25 09/07/2024 HbA1c (hemo globi n A1c), blood HbA1c 6.[address] [facility] [address] [facility], [place], [address], 09/07/2024 16:09:36 09/09/19 25 09/09/2024 TSH+F REE T4 TSH 1.010 uIU/m L 0.450- 4.500 normal Not Available [facility] ([facility]) [address] [place], [address], 09/09/2024 11:11:49 09/09/19 25 09/09/2024 TSH+F REE T4 T4,free(dire ct) 1.33 NG/dL 0.82-1 .77 normal Not Available [facility] ([facility]) [address] [place], [address], 09/09/2024 11:11:49 09/09/19 25 09/09/2024 CBC WITH DIFFE RENTI AL/PL ATELE T WBC 12.2 x10e3 /uL 3.4-10 .8 above high normal Not Available [facility] ([facility]) [address] [place], [address], 09/09/2024 11:11:49 09/09/19 25 09/09/2024 CBC WITH DIFFE RENTI AL/PL ATELE T RBC 4.64 x10e6 /uL 3.77-5 .28 normal Not Available [facility] ([facility]) [address] [place], [address], 09/09/2024 11:11:49 09/09/19 25 09/09/2024 CBC WITH DIFFE RENTI AL/PL ATELE T hemoglobin 14.0 g/dL 11.1-1 5.9 normal Not Available [facility] ([facility]) [address] [place], [address], 09/09/2024 11:11:49 09/09/19 25 09/09/2024 CBC WITH DIFFE RENTI AL/PL ATELE T hematocrit 43.5 % 34.0-4 6.6 normal Not Available [facility] ([facility]) [address] [place], [address], 09/09/2024 11:11:49 09/09/19 25 09/09/2024 CBC WITH DIFFE RENTI AL/PL ATELE T MCV 94 fL 79-97 normal Not Available [facility] ([facility]) [address] [place], [address], 09/09/2024 11:11:49 09/09/19 25 09/09/2024 CBC WITH DIFFE RENTI AL/PL ATELE T MCH 30.2 pg 26.6-3 3.0 normal Not Available [facility] ([facility]) [address] [place], [address], 09/09/2024 11:11:49 09/09/19 25 09/09/2024 CBC WITH DIFFE RENTI AL/PL ATELE T MCHC 32.2 g/dL 31.5-3 5.7 normal Not Available [facility] ([facility]) [address] [place], [address], 09/09/2024 11:11:49 09/09/19 25 09/09/2024 CBC WITH DIFFE RENTI AL/PL ATELE T RDW 13.8 % 11.7-1 5.4 Not Available [facility] ([facility]) [address] [place], [address], 09/09/2024 11:11:49 09/09/19 25 09/09/2024 CBC WITH DIFFE RENTI AL/PL ATELE T platelets 305 x10e3 /uL 150-45 0 normal Not Available [facility] ([facility]) [address] [place], [address], 09/09/2024 11:11:49 09/09/19 25 09/09/2024 CBC WITH DIFFE RENTI AL/PL ATELE T neutrophils 64 % not estab. normal Not Available [facility] ([facility]) [address] [place], [address], 09/09/2024 11:11:49 09/09/19 25 09/09/2024 CBC WITH DIFFE RENTI AL/PL ATELE T lymphs 27 % not estab. normal Not Available [facility] ([facility]) [address] [place], [address], 09/09/2024 11:11:49 09/09/19 25 09/09/2024 CBC WITH DIFFE RENTI AL/PL ATELE T monocytes 7 % not estab. normal Not Available [facility] ([facility]) [address] [place], [address], 09/09/2024 11:11:49 09/09/19 25 09/09/2024 CBC WITH DIFFE RENTI AL/PL ATELE T eos 1 % not estab. normal Not Available [facility] ([facility]) [address] [place], [address], 09/09/2024 11:11:49 09/09/19 25 09/09/2024 CBC WITH DIFFE RENTI AL/PL ATELE T basos 1 % not estab. 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 0 above high normal Not Available [facility] ([facility]) [address] [place], [address], 09/09/2024 11:11:49 09/09/19 25 09/09/2024 CBC WITH DIFFE RENTI AL/PL ATELE T lymphs (absolute) 3.2 x10e3 /uL 0.7-3. 1 above high normal Not Available [facility] ([facility]) [address] [place], [address], 09/09/2024 11:11:49 09/09/19 25 09/09/2024 CBC WITH DIFFE RENTI AL/PL ATELE T monocytes(ab solute) 0.9 x10e3 /uL 0.1-0. 9 normal Not Available [facility] ([facility]) [address] [place], [address], 09/09/2024 11:11:49 09/09/19 25 09/09/2024 CBC WITH DIFFE RENTI AL/PL ATELE T eos (absolute) 0.2 x10e3 /uL 0.0-0. 4 normal Not Available [facility] ([facility]) [address] [place], [address], 09/09/2024 11:11:49 09/09/19 25 09/09/2024 CBC WITH DIFFE RENTI AL/PL ATELE T baso (absolute) 0.1 x10e3 /uL 0.0-0. 2 normal Not Available [facility] ([facility]) [address] [place], [address], 09/09/2024 11:11:49 09/09/19 25 09/09/2024 CBC WITH DIFFE RENTI AL/PL ATELE T immature granulocytes 0 % not estab. Not Available [facility] ([facility]) [address] [place], [address], 09/09/2024 11:11:49 09/09/19 25 09/09/2024 CBC WITH DIFFE RENTI AL/PL ATELE T immature grans (abs) 0.0 x10e3 /uL 0.0-0. 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 METAB OLIC PANEL (14) glucose 62 mg/dL 70-99 below low normal Not Available [facility] ([facility]) [address] [facility], [place], [address], 09/09/2024 11:11:50 09/09/19 25 09/09/2024 COMP. METAB OLIC PANEL (14) BUN 20 mg/dL 6-24 normal Not Available [facility] ([facility]) [address] [facility], [place], [address], 09/09/2024 11:11:50 09/09/19 25 09/09/2024 COMP. METAB OLIC PANEL (14) creatinine 0.59 mg/dL 0.57-1 .00 normal Not Available [facility] ([facility]) [address] [facility], [place], [address], 09/09/2024 11:11:50 09/09/19 25 09/09/2024 COMP. METAB OLIC PANEL (14) eGFR 105 mL/mi n/1.7 3 >59 normal Not Available [facility] ([facility]) [address] [facility] [place], [address], 09/09/2024 11:11:50 09/09/19 25 09/09/2024 COMP. METAB OLIC PANEL (14) BUN/creatini ne ratio 34 9-23 above high normal Not Available [facility] ([facility]) [address] [facility] [place], [address], 09/09/2024 11:11:50 09/09/19 25 09/09/2024 COMP. METAB OLIC PANEL (14) sodium 143 mmol/ L 134-14 4 normal Not Available [facility] ([facility]) [address] [facility], [place], [address], 09/09/2024 11:11:50 09/09/19 25 09/09/2024 COMP. METAB OLIC PANEL (14) potassium 4.7 mmol/ L 3.5-5. 2 normal Not Available [facility] ([facility]) [address] [place], [address], 09/09/2024 11:11:50 09/09/19 25 09/09/2024 COMP. METAB OLIC PANEL (14) chloride 103 mmol/ L 96-106 normal Not Available [facility] ([facility]) [address] [place], [address], 09/09/2024 11:11:50 09/09/19 25 09/09/2024 COMP. METAB OLIC PANEL (14) carbon dioxide, total 22 mmol/ L 20-29 normal Not Available [facility] ([facility]) [address] [place], [address], 09/09/2024 11:11:50 09/09/19 25 09/09/2024 COMP. METAB OLIC PANEL (14) calcium 9.5 mg/dL 8.7-10 .2 normal Not Available [facility] ([facility]) [address] [place], [address], 09/09/2024 11:11:50 09/09/19 25 09/09/2024 COMP. METAB OLIC PANEL (14) protein, total 6.5 g/dL 6.0-8. 5 normal Not Available [facility] ([facility]) [address] [place], [address], 09/09/2024 11:11:50 09/09/19 25 09/09/2024 COMP. METAB OLIC PANEL (14) albumin 4.2 g/dL 3.8-4. 9 normal Not Available [facility] ([facility]) [address] [facility] [place], [address], 09/09/2024 11:11:50 09/09/19 25 09/09/2024 COMP. METAB OLIC PANEL (14) globulin, total 2.3 g/dL 1.5-4. 5 Not Available [facility] ([facility]) [address] [place], [address], 09/09/2024 11:11:50 09/09/19 25 09/09/2024 COMP. METAB OLIC PANEL (14) bilirubin, total 0.2 mg/dL 0.0-1. 2 normal Not Available [facility] ([facility]) [address] [facility] [place], [address], 09/09/2024 11:11:50 09/09/19 25 09/09/2024 COMP. METAB OLIC PANEL (14) alkaline phosphatase 106 IU/L 44-121 normal Not Available [facility] ([facility]) [address] [facility] [place], [address], 09/09/2024 11:11:50 09/09/19 25 09/09/2024 COMP. METAB OLIC PANEL (14) AST (SGOT) 19 IU/L 0-40 normal Not Available [facility] ([facility]) [address] [facility], [place], [address], 09/09/2024 11:11:50 09/09/19 25 09/09/2024 COMP. METAB OLIC PANEL (14) ALT (SGPT) 30 IU/L 0-32 normal Not Available [facility] ([facility]) [address] [facility], [place], [address], 09/09/2024 11:11:50 09/09/19 25 09/09/2024 VITAM IN D, 25-HY DROXY vitamin D, 25-hydroxy 49.8 NG/mL 30.0-1 00.0 Vitam in D defic iency has been defin ed by the Insti tute of [facility] ine and an Endoc rine Socie ty pract ice guide line as a level of serum 25-OH vitam in D less than 20 ng/mL (1,2) . The Endoc rine Socie ty went on to furth er defin e vitam in D insuf ficie ncy as a level betwe en 21 and 29 ng/mL (2). 1. IOM (Inst itute of Medic ine). 2010. Dieta ry refer ence león es for calci um and D. Yuly roman [place]: The [facility] . 2. Cinthya mariee MF, Jose Manuel sheridan [place], Jyoti off-F errar i WHITE, et al. Evalu ation , treat ment, and preve ntion of vitam in D defic iency : an Endoc rine Socie ty clini jose pract ice guide line. JCEM. 2010; 96(7) :1911 -30. Not Available [facility] ([facility]) [address] [facility], [place], [address], 09/09/2024 11:11:51 09/09/19 25 09/09/2024 THYRO ID PEROX IDASE (TPO) AB thyroid peroxidase (tpo) Ab 170 IU/mL 0-34 above high normal Not Available [facility] ([facility]) [address] [facility], [place], [address], 09/09/2024 11:11:52 05/14/20 24 05/14/2024 XR, knee No observ ation record ed. [facility] (Radiology) [address] , [place], [address], 05/14/2024 16:58:56 Result Notes None recorded. Problems Name Problem SNOMED Code Status Onset Date Resolution Date Notes Provider Name and Address Organization Details Recorded Time Chronic obstructive pulmonary disease 63340566 Active 2023 Mary Khan NP [address] [place] [address], [address], [employer] 4 14:19:16 Acute exacerbatio n of chronic obstructive pulmonary disease 588412016 Active 2023 Mary Khan NP [address] [place] [address], 72[address] 8, [employer] 4 14:31:26 Acute sinusitis 99260705 Active 2023 Mary Khan NP [address] [place] [address], 78294[address]910 8, [employer] 4 11:11:39 Essential hypertensio n 17419714 Active 2023 Mary Khan NP [address] [place] [address], 832[address]878 8, [employer] 5 16:15:40 Fatigue 62020458 Active 2023 Mary Khan NP [address] [place] [address], 52[address]541 8, [employer] 4 10:40:53 Acute back pain with sciatica 694074838 Active 2023 Mary Khan NP [address] [place] [address], 64398[address]269 8, [employer] 4 10:42:24 Hypothyroid ism 20303297 Active 2023 Mary Khan NP [address] [place] [address], 23206[address]981 8, [employer] 4 11:16:52 Nicotine dependence 53533944 Active 2023 Mary Khan NP [address] [place] [address], 02825-269 8, [employer] 4 11:20:48 Type 2 diabetes mellitus without complicatio n 386767672 Active 2023 Mary Khan NP [address] [place] [address], 4[address]948 8, [employer] 4 15:54:53 Vitamin D deficiency 63450890 Active 2023 Mary Khan NP [address] [place] [address], 266[address] 8, [employer] 4 16:03:26 Laboratory test result abnormal 793233739 Active 2023 Mary Khan NP [address] [place] [address], 003[address]073 8, [employer] 4 10:35:37 Polyuria 98995879 Active 2023 Mary Khan NP [address] [place] [address], 07020-238 8, [employer] 4 10:26:36 Hyperlipide chana 10790037 Active 2023 Mary Khan NP [address] [place] [address], 18563[address]853 8, [employer] 4 08:20:26 Restless legs 78065850 Active 2023 Mary Khan NP [address] [place] [address], 71711-257 8, [employer] 4 08:38:05 Desire thyroiditis 30852929 Active 2024 Mary Khan NP [address] [place] [address], 48151-363 8, [employer] 5 16:15:10 Seasonal allergy 359620719 Active 2024 Mary Khan NP [address] [place] [address], 39340-403 8, [employer] 5 09:50:44 Acute bilateral otitis media 059247342 Active 2024 Mary Khan NP [address] [place] [address], 85184-842 8, [employer] 5 14:21:55 Prediabetes 798473115 Active 2024 Mary Khan NP [address] [place] [address], 53916-135 8, [employer] 5 16:09:26 Generalized chronic body pains 673643354 Active 2024 Mary Khan NP [address] [place] [address], 63181-547 8, [employer] 5 16:33:44 Chronic low back pain 906115491 Active 2024 Mary Khan NP [address] [place] [address], 56324-987 8, [employer] 5 17:07:21 Pain of left knee joint 3726544655928 07 Active 2024 Mary Khan NP [address] [place] [address], 13633-318 8, [employer] 5 16:14:21 Anxiety 79367557 Active 2024 Mary Khan NP [address] [place] [address], 30328-028 8, [employer] 5 10:57:43 Problem Notes None recorded. Procedures Surgical History Date Name Laterality Status Provider Name and Address Organization Details Recorded Time 03/16/20 Most Recent Mammogram completed Sayda Alfaro [email or web address] 03/18/2024 14:58:58 Tonsillectomy completed [employer] 03/02/2024 13:52:34 Partial Hysterectomy completed [employer] 03/02/2024 13:52:42 manipulation of displaced nasal septum completed [employer] 03/02/2024 13:52:53 procedure on shoulder completed [facility]. 03/02/2024 13:53:00 operative procedure on knee completed [employer] 03/02/2024 13:53:10 Imaging Results None recorded. Procedure Notes None recorded. Medical Equipment None Reported. Allergies No known drug allergies Medications Name Sig Start Date Stop Date Status Note LastModified by Organization Details LastModified Time amantadin e HCl 100 mg tablet 08/10 completed Not Available Not Available Not Available losartan 50 mg tablet Take 1 tablet every day by oral route for 30 days. active Not Available Not Available No t Available celecoxib 200 mg capsule active Not Available Not Available Not Available promethaz ine-DM 6.25 mg-15 mg/5 mL oral syrup Take 5 mL every 6 hours by oral route as needed for 6 days, for Cough. 03/18 completed Not Available Not Available Not Available nicotine 14 mg/24 hr daily transderm al patch Apply 1 patch every day by transder mal route for 30 days. active Not Available Not Available No t Available cetirizin e 10 mg tablet Take 1 tablet every day by oral route for 30 days. active Not Available Not Available No t Available atorvasta tin 10 mg tablet Take 1 tablet every day by oral route for 30 days. 2024 active Not Available Not Available Not Avai lable benzonata te 200 mg capsule 03/16 completed Not Available Not Available Not Available hydrocodo ne 5 mg-acetam inophen 325 mg tablet TAKE 1 TABLET BY MOUTH EVERY 4 HOURS NEEDED FOR POST OPERATIV E PAIN 03/02 completed Not Available Not Available Not Available meloxicam 15 mg tablet active Not Available Not Available Not Available prednison e 20 mg tablet active Not Available Not Available Not Available sulfameth oxazole 800 mg-trimet hoprim 160 mg tablet active Not Available Not Available Not Available triamcino lone acetonide 0.1 % topical cream 08/10 completed Not Available Not Available Not Available levothyro xine 100 mcg tablet 04/20 completed Not Available Not Available Not Available Klonopin 0.5 mg tablet Take 1 tablet 3 times a day by oral route as needed for 90 days. 2023 active Not Available Not Available Not Avai lable trazodone 100 mg tablet active Not Available Not Available Not Available ropinirol e 0.25 mg tablet Take 1 tablet every day by oral route at bedtime for 30 days. active Not Available Not Available No t Available ciproflox acin 0.3 % eye drops 03/02 completed Not Available Not Available Not Available doxycycli ne monohydra te 100 mg capsule 03/02 completed Not Available Not Available Not Available levothyro xine 125 mcg tablet TAKE 1 TABLET EVERY DAY BY ORAL ROUTE 08/10 completed Not Available Not Available Not Available hydrochlo rothiazid e 12.5 mg capsule TAKE 1 TABLET EVERY DAY BY ORAL ROUTE active Not Available Not Available No t Available gabapenti n 300 mg capsule TAKE 1 CAPSULE BY MOUTH TWICE DAILY active Not Available Not Available No t Available sertralin e 25 mg tablet active Not Available Not Available Not Available hydroxyzi ne HCl 25 mg tablet Take 1 tablet 3 times a day by oral route as needed for 30 days. 2024 active Not Available Not Available Not Avai lable azelastin e 137 mcg (0.1 %) nasal spray 08/10 completed Not Available Not Available Not Available methylpre dnisolone 4 mg tablets in a dose pack 03/02 completed Not Available Not Available Not Available cefdinir 300 mg capsule Take 1 capsule every 12 hours by oral route for 10 days. 09/07 completed Not Available Not Available Not Available dexametha sone sodium phosphate 10 mg/mL injection solution Take 8 mg by injectio n route. 03/02 completed administ ered one time dose Not Available Not Available Not Available tolmetin 400 mg capsule Take 1 capsule by mouth 2 to 3 times daily 09/07 completed Not Available Not Available Not Available fluticaso ne propionat e 50 mcg/actua tion nasal spray,jade pension active Not Available Not Available Not Available metformin ER 500 mg tablet,ex tended release 24 hr TAKE 1 TABLET BY MOUTH ONCE DAILY 2024 active Not Available Not Available Not Avai lable levothyro xine 112 mcg tablet TAKE 1 TABLET BY MOUTH EVERY DAY 2024 active Not Available Not Available Not Avai lable amoxicill in 875 mg-potass ium clavulana te 125 mg tablet 04/20 completed Not Available Not Available Not Available Ventolin HFA 90 mcg/actua tion aerosol inhaler INHALE 2 PUFFS BY MOUTH EVERY 4 HOURS NEEDED 2024 active Not Available Not Available Not Avai lable hydroxyzi ne pamoate 25 mg capsule active Not Available Not Available Not Available Vitamin D3 25 mcg (1,000 unit) tablet active Not Available Not Available Not Available Flovent HFA 220 mcg/actua tion aerosol inhaler active Not Available Not Available Not Available hydrochlo rothiazid e 12.5 mg tablet Take 1 tablet every day by oral route for 30 days. 2024 active Not Available Not Available Not Avai lable cholecalc iferol (vitamin D3) 1,250 mcg (50,000 unit) capsule TAKE 1 CAPSULE BY MOUTH EVERY WEEK active Not Available Not Available No t Available GaviLyte- G 236 gram-22.7 4 gram-6.74 gram-5.86 gram oral solution 08/10 completed Not Available Not Available Not Available Mucus Relief ER 600 mg tablet, extended release 03/02 completed Not Available Not Available Not Available Trelegy Ellipta 100 mcg-62.5 mcg-25 mcg powder for inhalatio n INHALE 1 PUFF BY MOUTH EVERY DAY FOR 30 DAYS. active Not Available Not Available No t Available [facility] COVID-19 Antigen Rapid Home Test kit 03/16 completed Not Available Not Available Not Available Mounjaro 2.5 mg/0.5 mL subcutane ous pen injector Inject 2.5mg SC every week x 4 weeks 04/20 completed Not Available Not Available Not Available Ozempic 0.25 mg or 0.5 mg (2 mg/3 mL) subcutane ous pen injector 03/16 completed Not Available Not Available Not Available Clenpiq 10 mg-3.5 gram-12 gram/175 mL oral solution 03/02 completed Not Available Not Available Not Available Vitals Date Recorded Body height Body mass index (BMI) Body weight Body temperature Heart rate Oxygen saturation Oxygen saturation in Arterial blood by Pulse oximetry Systolic blood pressure Diastolic blood pressure Provider Name and Address Organization Details Last Updated DateTime 5 162.56 cm 43.5 kg/m2 888422. 92 g 97.7 [degF] 74 /min 97 % 97 % 119 mm[Hg] 72 mm[Hg] [employer] 5 08:31:41 Date Recorded Body height Body mass index (BMI) Body weight Body temperature Heart rate Oxygen saturation Oxygen saturation in Arterial blood by Pulse oximetry Systolic blood pressure Diastolic blood pressure Provider Name and Address Organization Details Last Updated DateTime 5 162.56 cm 43.6 kg/m2 117582. 46 g 97.9 [degF] 75 /min 98 % 98 % 137 mm[Hg] 79 mm[Hg] [employer] 5 09:44:28 Date Recorded Body height Body mass index (BMI) Body weight Body temperature Heart rate Oxygen saturation Oxygen saturation in Arterial blood by Pulse oximetry Systolic blood pressure Diastolic blood pressure Provider Name and Address Organization Details Last Updated DateTime 5 162.56 cm 42.9 kg/m2 550540. 09 g 98.3 [degF] 85 /min 96 % 96 % 115 mm[Hg] 65 mm[Hg] [employer] 5 13:39:24 Date Recorded Body height Body mass index (BMI) Body weight Body temperature Heart rate Oxygen saturation Oxygen saturation in Arterial blood by Pulse oximetry Provider Name and Address Organization Details Last Updated DateTime 5 162.56 cm 44.1 kg/m2 132102. 24 g 97.8 [degF] 77 /min 97 % 97 % [employer] 5 16:01:07 Date Recorded Body height Body mass index (BMI) Body weight Body temperature Heart rate Oxygen saturation Oxygen saturation in Arterial blood by Pulse oximetry Systolic blood pressure Diastolic blood pressure Provider Name and Address Organization Details Last Updated DateTime 5 162.56 cm 43.3 kg/m2 912982. 28 g 98.7 [degF] 72 /min 97 % 97 % 138 mm[Hg] 73 mm[Hg] [employer] 15:44:10 Social History Question Answer Notes LastModified by Organizat ion Details LastModified Time Tobacco Smoking Status Current Every Day Smoker [facility] [employer] 03/02/2024 13:50:47 Do You Have An Advance Directive? No Information not available 03/02/2024 Is Your Home Air Conditioned? Yes Information not available 03/02/2024 If You Are , What Was Your Level Of Alcohol Consumption Prior To ? Occasional Information not available 04/20/2024 Do You Wear A Helmet When Biking? No Information not available 04/20/2024 Are You Blind Or Do You Have Difficulty Seeing? No Information not available 03/02/2024 What Is Your Level Of Caffeine Consumption? Moderate Information not available 03/02/2024 What Type Of Infantry Weapons Crewmember Do You Use? None Information not available 04/20/2024 In The 14 Days Before Symptom Onset, Have You Had Close Contact With A Laboratory-confir med COVID-19 While That Case Was Ill? No Information not available 03/02/2024 In The 14 Days Before Symptom Onset, Have You Had Close Contact With A Person Who Is Under Investigation For COVID-19 While That Person Was Ill? No Information not available 03/02/2024 Have You Been To An Area Known To Be High Risk For COVID-19? No Information not available 03/02/2024 Are You Deaf Or Do You Have Serious Difficulty Hearing? No Information not available 03/02/2024 What Type Of Diet Are You Following? REGULAR Information not available 03/02/2024 What Is The Highest Grade Or Level Of School You Have Completed Or The Highest Degree You Have Received? [id number] Information not available 03/16/2024 How Many Days Of Moderate To Strenuous Exercise, Like A Brisk Walk, Did You Do In The Last 7 Days? 5 Information not available 04/20/2024 Have There Been Any Changes To Your Family Or Social Situation? No Information no t available 03/16/2024 Are There Any Guns Present In Your Home? No Information not available 03/02/2024 Which Of Your Hands Is Dominant? Right Information not available 03/02/2024 What Is Your Home Situation? Other Information not available 04/20/2024 Do You Have A Medical Power Of Production Sampler? No Information not available 03/02/2024 What Was The Date Of Your Most Recent Tobacco Screening? 09/21/2024 [email or web address] Information not available 09/21/2024 Have You Ever Been Counseled For Unhealthy Alcohol Use? No Information not available 03/02/2024 Do You Have Any Pets? Yes Information not available 03/02/2024 What Is Your Relationship Status? Information not available 03/02/2024 Do You Use Your Seat Belt Or Car Seat Routinely? Yes Information not available 03/16/2024 Are You Sexually Active? No Information not available 04/20/2024 Do You Have Smoke And Carbon Monoxide Detectors In Your Home? Yes Information not available 03/02/2024 At What Age Did You Start Smoking Tobacco? 19 Information not available 03/02/2024 Are You Passively Exposed To Smoke? No Information no t available 03/02/2024 Are There Any Smokers In Your House? No Information not available 03/02/2024 How Much Tobacco Do You Smoke? 0.5 PPD Information not available 03/02/2024 Do You Participate In Social Media? Yes Information not available 03/16/2024 What Types Of Sporting Activities Do You Participate In? Treadmill Bike Information not available 04/20/2024 Do You Use Sunscreen Routinely? No Information not available 03/16/2024 Has Tobacco Cessation Counseling Been Provided? Yes Information not available 03/02/2024 On What Date Was Tobacco Cessation Counseling Provided? 09/21/2024 [email or web address] Information not available 09/21/2024 How Many Years Have You Smoked Tobacco? 20 Information not available 04/20/2024 Have You Recently Traveled Abroad? No Information not available 03/02/2024 Do You Have Difficulty Walking Or Climbing Stairs? No Information not available 03/02/2024 Are You Currently In School? No Information not available 03/02/2024 Do You Have Any Dietary Restrictions? No Information not available 03/09/2024 Sex: Female Functional Status Question Answer Note LastModified by Organizat ion Details LastModified Time Do you use any illicit or recreational drugs? No Information not available 03/02/2024 Do you or have you ever used any other forms of tobacco or nicotine? No Information not available 03/02/2024 What is your level of alcohol consumption? Occasional Information not available 03/02/2024 Are you currently employed? No Information not available 03/02/2024 Do you have transportation difficulties? No Information not available 03/02/2024 Are you able to walk? YESWOREST Information not available 03/02/2024 Do you have difficulty doing errands alone? No Information not available 03/02/2024 Are you able to care for yourself? Yes Information n ot available 03/02/2024 Do you have difficulty dressing or bathing? No Information not available 03/02/2024 What is your exercise level? Moderate Information not available 04/20/2024 Mental Status Question Answer Note LastModified by Organizat ion Details LastModified Time Do you feel stressed (tense, restless, nervous, or anxious, or unable to sleep at night)? [id number] Information not available 03/16/2024 Do you have difficulty concentrating, remembering or making decisions? No Information no t available 03/02/2024 Are you or have you been involved with bullying? No Information not available 04/20/2024 Family History Relationship Description Onset Age of this Age Resolved Age Notes LastModified by Organization Details LastModified Time Father No current problems or disability Not available 03/09 10:35:19 Mother No current problems or disability Not available 03/09 10:35:19 Medical History Condition Response Coronary Artery Disease N Other N Gout N Kidney Stones N Blood Diseases N Hyperthyroidism Y Blood Transfusion N Breast Cancer N Emergency room visit since last appointm ent. N COPD N Depression N Dermatologic Disorders N Lung Disease N Hypothyroidism N Developmental or Behavioral Disorders N Defects or Inherited Disease N Breast Problem N Difficulty Swallowing N Anesthesia Complications N History of STI N Anxiety Disorder N Meniere's disease N Autoimmune disease N Muscle, Joint, or Bone Problems N Vision or Eye Problems Y Arthritis Y Infertility N Polyps N Mental Disorder N Congenital Anomalies N Acid Reflux (GERD) Y Cancer N Stroke N Neurologic/Epilepsy N Endometriosis N Bladder or Kidney Problems N High Cholesterol N Liver Disease N Psychiatric/Mental Health Condition N Organ Transplant N Fibromyalgia N Headaches N Schizophrenia N Dialysis N Kidney Disease N Allergies/Hayfever N Heart Problems N Ear or Hearing Problems N Hospitalizations N Learning Disorder N Artificial Joints N Thyroid Problems N GI Problems N Acne N ADD/ADHD N Eating Disorder N Anemia N Constipation N Mental Illness N Ovarian Cancer N Diabetes N Bedwetting N Hepatitis/Liver Disease N Tuberculosis N Eczema N Diverticulitis N Abuse/Domestic Violence N Asthma N Trauma/Violence N Substance Abuse N Reflux/GERD N Depression/ depression N Hepatitis N Heart Disease N Pulmonary Embolism N Tourette Syndrome N Chronic Ear Infections N Pre-Eclampsia N Hypertension Y Chicken Pox N Autism Spectrum Disorder (ASD) N Osteoporosis N Thrombophilias N Gynecological History Statement/Question Response Menses Monthly N HPV Vaccine N Date of Last Pap Smear Most Recent Mammogram 03/16/2024 Age at First Child 20 Obstetrics History GPAL:G 2 P 2 0 0 2 Type Value Multiple Births 0 Full Term 2 Induced 0 Spontaneous 0 Premature 0 Living 2 Ectopics 0 Total 2 Immunizations Vaccine Type Date Status Note Provider Nam e and Address Organization Details Recorded Time zoster recombinant 4 completed Errol Nacho [employer], [email or web address] 04/29/2024 13:39:09 pneumococcal polysaccharide PPV23 4 completed Errol Nacho null, [email or web address] 04/29/2024 13:39:09 zoster recombinant 5 completed Errol Lincoln null, [email or web address] 06/29/2024 10:04:53 Tdap 5 completed Mary Khan, NANNET[address] [place], [address], [email or web address] 08/10/2024 15:11:36 Hep A, adult 8 completed Errol Lincoln null[facility] [email or web address] 09:42:10 Past Encounters Encounter ID Performer Location Encounter Start Date Encounter Closed Date Diagnosis/Indication Diagnosis SNOMED-CT Code Diagnosis ICD10 Code Diagnosis Note [id number] Mary Khan NP [facility] [address] [place] [address] 03/02/2024 13:06:42 03/02/2024 14:42:22 Screening mammography 23247463 Z12.31 Cough 85396479 R05.9 Chronic ob structive pulmonary disease 50869895 J44.9 Acute exac erbation of chronic obstructive pulmonary disease 833239236 J44.1 [id number] Mary Khan NP [address] [address] 03/09/2024 10:05:21 03/09/2024 11:09:10 Cough 41320085 R05.9 Essential hypertension 84639770 I10 Patient to keep bp log and return to clinic in 2 weeks Acute sinusitis 93522115 J01.90 [id number] Mary Khan NP [address] [address] 03/16/2024 09:14:07 03/16/2024 11:11:48 Adult health examination 063165628 Z00.00 Hyperlipid emia screening 960785748 Z13.220 Fatigue 22467687 R53.83 Acute back pain with sciatica 628140050 M54.42 Chronic ob structive pulmonary disease 32851042 J44.9 Stop flovent and start trelegy Screening colonoscopy 44 0488088 Z12.11 Hypothyroidism 40667294 E03.9 Continue levothyrox ine as prescribed Essential hypertension 24965088 I10 Continue losartan and hctz as prescribed Nicotine dependence 5629 4008 F17.553 [id number] NP [facility] [address] [place] [address] 03/18/2024 14:52:16 03/18/2024 15:31:47 Type 2 diabetes mellitus without complication 882783888 E11.9 Hypothyroidism 39911022 E03.9 Vitamin D deficiency 347 01941 E55.9 stop vitamin D3 25 mcg Nicotine dependence 5629 4008 F17.371 [id number] Mary Khan NP [address] [address] 03/30/2024 08:31:06 03/30/2024 09:01:50 Essential hypertension 39383255 I10 Continue losartan Type 2 shreya betes mellitus without complication 901203588 E11.9 [facility] denied. Body mass index 40+ - severely obese 101561080 Z68.41 [id number] Mary Khan NP [address] [address] 04/20/2024 08:49:23 04/20/2024 10:45:24 Body mass index 40+ - severely obese 864511738 Z68.41 Discussed weight loss and healthy diet and exercise. Recommende d food diary with [employer] kaylee. Patient voiced understand ing. Laboratory test result abnormal 121619168 R89.9 Discussed elevated ferritin. Will repeat labwork at next appt. Hypothyroidism 86343241 E03.9 Pt. states thinks she has Hashimotos , but is unsure. Will repeat lab work at next appt to include, TPO [id number] Mary Khan NP [address] [address] 04/29/2024 08:56:15 04/29/2024 11:40:29 Screening for malignant neoplasm of cervix 109238663 Z12.4 Type 2 shreya betes mellitus without complication 444874126 E11.9 Administra tion of viral vaccine 00636344 Z23 Polyuria 78535867 R35.89 Administra tion of pneumococcal vaccine 70925004 Z23 [id number] Mary Khan NP [address] [address] 05/18/2024 07:58:59 05/18/2024 08:50:58 Type 2 diabetes mellitus without complication 540314920 E11.9 Hyperlipidemia 74367314 E78.5 Hypothyroidism 37027355 E03.9 Restless legs 00238800 G 25.81 Essential hypertension 12885360 I10 Continue losartan [id number] Mary Khan NP [address] [address] 06/01/2024 08:25:43 06/01/2024 09:01:39 Herpes zoster vaccination given 0308528786 60568 Z23 [id number] Mary Khan NP [address] [address] 2 06/29/2024 09:30:45 06/29/2024 11:05:55 Herpes zoster vaccination given 8562846004 58611 Z23 [id number] Mary Khan NP [address] [address] 2 08/10/2024 13:26:42 08/10/2024 14:51:37 Cough 13422941 R05.9 Acute bila teral otitis media 991887086 H66.93 Type 2 shreya betes mellitus without complication 485355988 E11.9 Hypothyroidism 02006731 E03.9 Vitamin D deficiency 347 97642 E55.9 Chronic ob structive pulmonary disease 52083791 J44.9 Viral screening 76389024 4 Z11.59 Administra tion of diphtheria, pertussis, and tetanus vaccine 153234538 Z23 [id number] Mary Khan NP [address] [address] 09/07/2024 15:50:06 09/07/2024 17:14:02 Prediabetes 849949794 R73.03 Essential hypertension 17903462 I10 continue meds as prescribed . Hypothyroidism 25457377 E03.9 Generalize d chronic body pains 292334304 G89.29 Vitamin D deficiency 347 44235 E55.9 Screening for cardiovascular system disease 217538467 Z13.6 11.1% lifetime ASCVD Risk Discussed with patient Chronic low back pain 27 6448369 M54.50 Continue f/u with Dr. Beck at pain management . Body mass index 40+ - severely obese 288710666 Z68.41 Discussed weight loss and healthy diet and exercise. Recommende d food diary with [employer] kaylee. Recommende d pool exercises at [facility]. Patient voiced understand ing. [id number] Mary Khan NP [address] [address] 09/21/2024 15:30:08 09/21/2024 16:34:31 Pain of left knee joint 3687782971 36243 M25.562 keep appt with pain mgmt. Desire thyroiditis 21 526432 E06.3 continue medication as prescribed . Essential hypertension 16963156 I10 continue meds as prescribed . Health Concerns Section Related Observation LastModified by Organization Detai ls LastModified Time None Recorded Concern Status LastModified by Organization Details LastModified Time None Recorded Advance Directives Directive N: Payers Insurance Date Sequence Insurance Name Policy Number Policy Green Covered Member ID Green Member ID Guarantor Name 07/02/2024 1 UNSPECIFIED REMIT PAYOR Saritha Moody 03/11/2024 1 APOLONIA Saritha Moody [id number] Saritha Moody 09/18/2024 1 HUMANElizabeth - [place] (MEDICAID REPLACEMENT - HMO) Saritha Carrasquillo [place] [id number] Saritha Moody Notes Date Note Type Note Provider Name and Address Organization Details Recorded Time 06/29/2024 text/html Pt is here for 2 nd Shringrix shot. Errol temple, [email or web address], [employer] 06/29/2024 10:05:43 08/10/2024 text/html Patient presente d to clinic today to f/u on labs for chronic conditions and reports that she has been feeling bad for about 3 days and has pressure in both ears. Patient also complaints of cough. Patient reports had a fever on Saturday but has not had one since that time. Patient does report that her bs has been averaging about 90 fasting. Patient states that her vision has started to get a little blurry. Patient reports that trelegy continues to help with her COPD. Patient reports continues to smoke and does not want to quit at this time. Patient does want TDaP today. Pateint has no additional complaints or concerns for todays visit. Mary Khan NP [address], [place], [address], [email or web address] 08/10/2024 15:14:58 09/07/2024 text/html Patient presente d to clinic today complaining with overall joint pain. Patient complains of back pain, knee pain and foot pain. Patient states did have spinal cord stimulator placed approx [address] Beck who she sees for chronic pain. Patient states she is unsure if she wants to have that permanently placed. Patient reports is taking tolmetin and celebrex for osetoarthritis but states neither of them help much. Patient is concerned regarding weight gain and inability to lose weight. Patient does report that she went to [place] approx 2 weeks ago and her allergies have been acting up some with runny nose and some drainage. Patient denies any additional symtpoms, complaints or concerns for today's visit. Mary Khan NP [address] [place], [address], [email or web address] 09/07/2024 17:20:48 09/21/2024 text/html Patient presente d to clinic today to follow-up on lab results. Patient does complain of left knee but states has an appointment tomorrow with pain management and is likely to get knee injection. Patient reports that she would like to get new supplies for her CPAP machine but is unsure how to get those reordered or if she needs a new sleep study. Patient has no additional complaints or concerns for today's visit. Mary Khan NP [address], [place], [address], [employer] 09/21/2024 16:16:11 OBGyn Episode No OBEpisode recorded.
--- OUTSIDE RECORDS SUMMARY | 2024-11-02 07:51 | XMS_ITS | Data Portability ---
Author Organization [place] [facility] Address [address] [place] [address] Care Team Providers Care Jailkeeper Name Role Phone GWYN EDWARD Primary Care Provider GWYN EDWARD Referring Provider [phone] GWYN EDWARD Primary Care Provider Assessment Encounter Date Assessment Date Assessment LastModified by Organization Details LastModified Time 08/13/2024 08/13/2024 This patient had spinal cord stimulator trial done today. We did test on the table with good stimulation and all areas of pain. Patient was then program by the [employer] labor representative with good relief of pain symptoms. Will follow-up with her in 1 week to assess efficacy of this trial. If successful we will plan on permanent placement with the [employer] system. In the meantime we will give her Bactrim DS twice a day for 5 days as antibiotic prophylaxis. Patient did have a urine drug screen done today. abux Not available 08/13/2024 17:47:45 08/20/2024 08/20/2024 This is a pleasa nt 59-year-old female that presents today for SCS trial follow-up. Patient underwent [employer] spinal cord stimulator trial on 08/13/2024, patient endorses 80 to 90% pain relief during this trial. She states she was able to sweep, mop and increase her activity without pain. She was far more functional and is hoping to move forward with permanent placement today. Today patient is rating her pain a 4 out of 10, this is improvement from her last visit with a pain level of 6 out of 10. Patient typically has lumbar back pain with associated weakness numbness and tingling. He has obtained greatly with completing anthropometrist secondary to this pain, difficulty walking and does requires an pastrycook's assistant device to get around. With this SCS trial she did not require any assistance to get around she was far more functional and is hopeful to move forward with permanent placement today. Daljit #[id number], drug screen from 05/22/2024 was reviewed and is appropriate. We are currently prescribing patient gabapentin 300 mg twice daily. Conservative Therapy: Patientcarlos is currently enrolled in physical therapy in [facility], she states she attends 2-3 times per week at 60-minute intervals. She has been following with them for several weeks and will begin therapy for her knee once she completes her shoulder therapy. She has attempted at home stretching and exercise program without adequate relief in her symptoms. She reports exercising 2-3 times per week for the last 6 months without improvement. I do feel that sending patient to physical therapy would likely worsen her pain. Injections/Interve ntions: 08/13/2024: [employer] SCS Trial 07/16/2024: Peripheral nerve stimulator trial of the infrapatellar branch of the saphenous nerve, left knee. 50% relief. 06/18/2024: Lumbar epidural steroid injection, L4-L5 05/22/2024: Left knee infrapatellar branch of the saphenous nerve block 03/19/2024: Interlaminar cervical epidural steroid injection, C6-C7 02/19/2024: Right greater trochanteric bursa injection with this weathered I will choose whether to complete: 07/24/2023: Diagnostic block #1 genicular nerve block, left leg 05/27/2023: IA left knee 04/19/2023: Lumbar epidural steroid injection, L4-L5 02/13/2023: Bilateral lumbar RFA, L4-L5 and L5-S1 12/18/2022: Diagnostic block #2 lumbar medial branch block L4-L5 L5-S1 11/22/2022: Diagnostic block #1 bilateral lumbar L4-L5 and L5-S1 medial branch block Imaging: MRI lumbar spine: There is a mild left convexity scoliosis. There are normal vertebral body heights. There is moderately severe narrowing of the L3-L4 L4-L5 and L5-S1 disc interspaces. There is mild retrolisthesis of L3 on L4 and L4 on L5. There is vacuum phenomenon in the L3-L4 and L5-S1 disc interspaces. There is mild narrowing of the L1-L2 and L2-L3 disc interspaces with moderate spurring. L1-L2: Mild to moderate annular disc bulge without central stenosis L2-L3: Mild to moderate annular disc bulge without central stenosis L3-L4: Moderate annular disc bulge small right lateral canal disc protrusion mild central canal stenosis moderate right lateral recess stenosis moderate right neural foraminal narrowing L4-L5: Moderate annular disc bulge and facet arthropathy small left paracentral disc protrusion mild left lateral recess stenosis L5-S1: Mild annular disc bulge moderate left facet arthropathy moderate to severe left foraminal narrowing without central canal stenosis. Left knee x-ray, 03/18/2023: 3 view shows no evidence of acute displaced fracture or dislocation of the visualized bony architecture there is mild 3 compartment osteoarthritis. Plan: I am seeking approval for permanent placement of a [employer] spinal cord stimulator for this patient. Patient underwent successful SCS trial endorsing 80 to 90% pain relief during the trial, she was also able to complete activities of daily living without pain and was far more functional. Patient does have some significant lumbar radiculopathy with MRI findings of multilevel degenerative disc disease and annular disc bulging that is refractory to conservative measures such as physical therapy, injections, oral medications, a physician guided home stretching exercise program, heat/ice application and topical medications. She has undergone a peripheral nerve stimulator trial which did not provide significant relief in symptoms. She has attempted and failed several injections including epidurals, medial branch blocks, radiofrequency ablation, peripheral nerve blocks and bursa injections all without long-term relief in symptoms. She is not a surgical candidate for her back pain. She is currently enrolled in physical therapy, she attends 2-3 times per week at 60-minute intervals which has not resulted in significant improvement in pain. Over the past 6 months she does continue with a physician guided home stretching and exercise program 2-3 times per week at 20 to 30-minute intervals without long-term relief in symptoms. I do feel that she is a great candidate for the SCS as this will allow her to become more functional. She is not prescribed chronic anticoagulation. She is not prescribed GLP-1 agonist. The risk of benefits of the procedure were discussed in length with patient today and she is wishing move forward. We did provide her with a tentative surgical date of December 04, 2024. I also removed patient's SCS leads, she tolerated this procedure well without any complications. Patient was discharged neurovascularly intact with an antalgic gait. Patient had 5/5 motor strength in the lower extremities, no gross sensory deficits appreciated. I am also refilling patient's prescriptions for gabapentin 300 mg twice daily and meloxicam 15 mg once daily, I will provide the patient with a 3 month supply of these medications. We will see patient back in office in 2 months for her preoperative appointment. Patient was instructed to contact us should she have any further questions or concerns. Dr. Beck has reviewed this chart and agrees with this plan of care. This note was dictated with voice recognition software and may contain errors or omission Not available 08/20/2024 11:59:16 09/16/2024 09/16/2024 This patient presents with increasing [...] SI joint. abux Not available 09/16/2024 12:59:06 09/23/2024 09/23/2024 This patient had therapeutic left SI joint injection under fluoroscopy today. She usually does very well with these with 80% relief for 3 months or more. We had moved up her spinal cord stimulator implant to October 28. Patient is not on any Anticoagulation. We will see her back in 2 to 3 weeks for follow-up this will be her preop visit. We will assess efficacy of this left SI joint injection. Will reevaluate her symptoms at that time. abux Not available 09/23/2024 09:15:40 10/13/2024 10/13/2024 Patient is a pleasant 59-year-old female who presents today for preop visit and follow-up. She is currently being treated for degenerative disc disease of the lumbar spine with lumbar radiculopathy and sacroiliitis. The patient rates her pain today an 8 out of 10. She did receive a left sacroiliac joint injection on 09/23/2024. The patient reports that this injection did provide 80% relief in her symptoms for 2 weeks. She states now the pain is gradually started to return. Patient is scheduled for placement of her spinal cord stimulator October 28, 2024. She is eager to move forward with the procedure.Is currently managed with gabapentin 300 twice per day and meloxicam from our office. She is requesting increase to her medications. She states that she will soon be traveling to [place] for a tournament. She is requesting we will continue the patient's to help provide her with relief until placement of her spinal cord stimulator. [facility] #[id number]. Plan: We are increasing the patient's gabapentin to 303 times a day we are refilling meloxicam and we are adding tramadol 50 mg twice per day providing the patient 1 week supply of medication to help with discomfort while Traveling. Dr. Beck has reviewed this chart and agrees with this plan of care. This note was dictated with voice recognition software and may contain errors or omission [email or web address] Not available 10/13/2024 13:33:34 Plan of Treatment Reminders Order Date Submit Date Provider Last Modified By Organization Details Last Modified Time Details Appointments Post Op/Wound Check 2024 09:30A Foreign Beck MD Not available Not available Not available Follow Up 2024 10:00A Foreign Beck MD Not available Not available Not available Lab None recorded. Referral None recorded. Procedures sacroilia c joint injection (PROC) 2024 025 [email or web address] Not available 09/21/2024 08:50:02 Surgeries permanent placement of spinal cord stimulato r (SURG) 2024 025 Not available 08/26/2024 09:50:48 percutane ous implantat ion of neurostim ulator electrode array, epidural (SURG) 2024 025 Not available 10/29/2024 09:16:46 Imaging None recorded. Medication Orders gabapenti n 300 mg capsule 2024 025 [facility], [address] [place] [address], [id number], 10/13/2024 13:37:56 tramadol 50 mg tablet 2024 025 [facility], [address] [place] [address], [id number], 10/27/2024 05:00:48 meloxicam 15 mg tablet 2024 025 [facility], [address] [place] [address], [id number], 10/13/2024 13:37:49 prednison e 20 mg tablet 2024 025 [facility], [address] [place] [address], [id number], 09/16/2024 13:07:36 gabapenti n 300 mg capsule 2024 025 [facility], [address] [place] [address], [id number], 08/20/2024 14:06:16 meloxicam 15 mg tablet 2024 025 [facility], [address] [place] [address], [id number], 08/20/2024 14:06:14 Bactrim DS 800 mg-160 mg tablet 2024 025 [facility], [address] [place] [address], [id number], 08/13/2024 17:56:44 Patient TargetsNo targets recorded. Patient Instructions Encounter Date Encounter Id Patient Instructions Last Modified By Organization Details Last Modified Time 08/13/2024 [id number] leg pain: care instructions abux Not available 08/13/2024 17:48:39 09/16/2024 [id number] leg pain: care instructions abux Not available 09/16/2024 13:00:33 Reason for Referral None Reported. Results Created Date Observation Date Name Description Value Unit Range Abnormal Flag Note LastModifiedBy Organization Detail LastModifiedTime Result Notes None recorded. Problems Name Problem SNOMED Code Status Onset Date Resolution Date Notes Provider Name and Address Organization Details Recorded Time Pain of right shoulder joint 7289077525398 9100 Active 2023 Dionte Beck MD [address] [facility],[address], [address], [place] [facility] 11:01:26 Osteoarthri tis of left knee joint 5863437361524 09 Active 2023 Dionte Beck MD [address] [facility],[address], [address], [place] [facility] 11:01:26 Pain of left knee joint 8595951259002 07 Active 2023 Dionte Beck MD [address] [facility],[address], [address], [place] [facility] 11:01:29 Full thickness rotator cuff tear 990109747 Active 2023 Dionte Beck MD [address] [facility],[address], [address], [place] [facility] 4 11:27:54 Trochanteri c bursitis of right hip 7175388216966 00 Active 2023 Elvi Cuevas NP [address] [facility],[address], [address], [place] [facility] 4 13:48:06 Cervical radiculopat hy 81236003 Active 2023 Elvi Cuevas NP [address] [facility],[address], [address], [place] [facility] 4 10:41:02 Degeneratio n of cervical interverteb ral disc 35904703 Active 2023 Elvi Cuevas NP [address] [facility],[address], [address], [place] [facility] 4 10:41:22 Lumbar radiculopat hy 498358578 Active 2024 Dionte Beck MD [address] [address], [place], [address], [place] [facility] 5 21:33:00 Inflammatio n of sacroiliac joint 02363467 Active 2024 Dionte Beck MD [address] [address], [place], [address], [place] [facility] 09:16:39 Edema of lower extremity 839144579 Active Chapis stamper null, [place] [facility] 3 08:29:39 Pain in lower limb 39130918 Active Chapis stamper null, [place] [facility] 3 08:29:40 Bilateral spider veins of lower limbs 5959660265898 9105 Active Chapis stamper null, [place] [facility] 08:29:40 Bilateral earache 840488070 Active Chapis stamper null, [place] [facility] 08:29:40 Asthma 259742513 Active Chapis stamper null, [place] [facility] 08:29:40 Sciatica 39281036 Active Chapis stamper null, [place] [facility] 08:29:40 Venous insufficien cy of leg 503121293 Active Chapis stamper null, [place] [facility] 08:29:40 Obese abdomen 682144736 Active Chapis stamper null, [place] [facility] 08:29:40 Dislocation of temporomand ibular joint 947804057 Active Chapis stamper null, [place] [facility] 08:29:40 History of Disorder 218865802 Active Chapis stamper null, [place] [facility] 08:29:40 Restless legs 42335024 Active Chapis stamper null, [place] [facility] 08:29:40 Depressive disorder 05166909 Active Chapis stamper null, [place] [facility] 08:29:40 Arthritis 6881022 Active Chapis stamper null, [place] [facility] 08:29:40 Hypertensiv e disorder 07155611 Active Chapis stamper null, [place] [facility] 08:29:40 Body mass index 40+ - severely obese 454146076 Active Chapis stamper null, [place] [facility] 08:29:40 Hypothyroid ism 58068400 Active Chapis stamper null, [place] [facility] 08:29:40 Obesity 212246996 Active Chapis stamper null, [place] [facility] 08:29:40 Varicose veins of lower extremity 98627210 Active Chapis stamper null, [place] [facility] 08:29:40 Sleep apnea 96531872 Active Chapis stamper null, [place] [facility] 08:29:40 Degeneratio n of interverteb ral disc 22579152 Active Chapis stamper null, [place] [facility] 3 08:29:40 Lumbar spondylosis 583424798 Active 2022 Sayda Herrera null, [place] [facility] 13:33:44 Degeneratio n of lumbar interverteb ral disc 96336571 Active 2022 Dionte Beck MD [address], [address], [place] [facility] 17:00:40 Arthropathy of lumbar facet joint 489928506 Active 2022 Dionte Beck MD [address], [address], [place] [facility] 17:00:41 Problem Notes None recorded. Procedures Surgical History Date Name Laterality Status Provider Name and Address Organization Details Recorded Time 09/24/19 25 Therapeutic SI Joint Injection Under Fluoroscopy completed Dionte Beck MD [address] [facility], [place], [address], [place] [facility] 09/23/2024 09:14:32 08/14/19 25 SCS Trial completed Dionte Beck MD [address] [address] [facility], [place], [address], [place] [facility] 08/13/2024 17:47:06 07/16/19 25 Peripheral nerve stimulator Knee completed Dionte Beck MD [address] [address] [facility], [place], [address], [place] [facility] 07/16/2024 12:19:53 06/18/19 25 Lumbar YOLANDA: Interlaminar completed Dionte Beck MD [address],[place] [address] [place] [address], [address], [place] [facility] 06/18/2024 20:47:41 05/22/19 25 Peripheral nerve block completed Dionte Beck MD [address],[place] [address] [place] [address], [address], [place] [facility] 05/22/2024 23:56:27 03/19/20 24 Cervical Epidural Steroid Injection Under Fluoroscopy completed Dionte Beck MD [address],[place] [address] [place] [address], [address], [place] [facility] 03/19/2024 11:04:19 02/19/20 24 Greater Trochanteric Bursa Steroid Injection completed Dionte Beck MD [address],[place] [address] [place] [address], [address], [place] [facility] 02/19/2024 13:04:59 02/13/20 24 Diagnostic SI Joint Injection Under Fluoroscopy completed Dionte Beck MD [address],[place] [address] [place] [address], [address], [place] [facility] 02/13/2024 12:34:47 07/24/19 24 Genicular Nerve Block completed Dionte Beck MD [address],[place] [address] [place] [address], [address], [place] [facility] 07/24/2023 23:15:00 05/27/19 24 Knee Joint Injection completed Dionte Beck MD [address] [facility],[address] [facility], [place], [address], [place] [facility] 05/27/2023 18:20:07 04/19/20 23 Lumbar YOLANDA: Interlaminar completed SHIRLEY MAGAÑA [place] [facility] 03/26/2023 09:21:47 02/29/20 23 Medial Epicondyle Injection completed Dionte Beck MD [address] [facility] [address],[place] [address] [place] [address], [address], [place] [facility] 02/28/2023 21:56:28 02/14/20 23 BILAT 2LVL LUMBAR RFA completed Dionte Beck MD [address] [facility],[place] [address] [place] [address], [address], [place] [facility] 02/13/2023 17:15:10 12/19/19 23 Diagnostic Lumbar MBB: 2 Level Bilateral completed Dionte Beck MD [address] [facility],[address], [address], [place] [facility] 12/18/2022 16:59:24 11/23/19 23 Diagnostic Lumbar MBB: 2 Level Bilateral completed Dionte Beck MD [address] [facility],[address], [address], [place] [facility] 11/22/2022 [...] completed Not Available Not Available Not Available [facility] COVID-19 Antigen Rapid Home Test kit [...] Not Available Vitals Date Recorded Body height Heart rate Respiratory rate Body mass index (BMI) Body weight Heart rate Oxygen saturation Oxygen saturation in Arterial blood by Pulse oximetry Systolic blood pressure Diastolic blood pressure Provider Name and Address Organization Details Last Updated DateTime 5 162.56 cm 78 /min 18 /min 41.2 kg/m2 838534. 17 g 73 /min 98 % 98 % 130 mm[Hg] 86 mm[Hg] Feli Srivastava [place] [facility] 5 08:50:09 Date Recorded Body height Body mass index (BMI) Body weight Heart rate Oxygen saturation Oxygen saturation in Arterial blood by Pulse oximetry Systolic blood pressure Diastolic blood pressure Provider Name and Address Organization Details Last Updated DateTime 5 162.56 cm 41.2 kg/m2 887988. 17 g 78 /min 98 % 98 % 130 mm[Hg] 86 mm[Hg] SHIRLEY MAGAÑA [place] [facility] 5 10:47:22 Date Recorded Body height Body mass index (BMI) Body weight Heart rate Oxygen saturation Oxygen saturation in Arterial blood by Pulse oximetry Systolic blood pressure Diastolic blood pressure Provider Name and Address Organization Details Last Updated DateTime 5 162.56 cm 41.2 kg/m2 113313. 17 g 78 /min 98 % 98 % 130 mm[Hg] 86 mm[Hg] SHIRLEY MAGAÑA [place] [facility] 5 10:32:44 Date Recorded Body height Body mass index (BMI) Body weight Heart rate Oxygen saturation Oxygen saturation in Arterial blood by Pulse oximetry Systolic blood pressure Diastolic blood pressure Provider Name and Address Organization Details Last Updated DateTime 5 162.56 cm 41.2 kg/m2 501224. 17 g 78 /min 98 % 98 % 128 mm[Hg] 86 mm[Hg] SHIRLEY MAGAÑA [place] [facility] 5 08:10:30 Date Recorded Body height Body mass index (BMI) Body weight Heart rate Oxygen saturation Oxygen saturation in Arterial blood by Pulse oximetry Systolic blood pressure Diastolic blood pressure Provider Name and Address Organization Details Last Updated DateTime 5 162.56 cm 41.2 kg/m2 709101. 17 g 78 /min 98 % 98 % 126 mm[Hg] 86 mm[Hg] SHIRLEY MAGAÑA [place] [facility] 5 13:01:11 Social History Question Answer Notes LastModified by Organizat ion Details LastModified Time Tobacco Smoking Status Never Smoker [facility], [place] [facility] 09/27/2022 08:30:43 Do You Have [...] Do You Have A Medical Power Of Supply Chain Analyst? No Information not available 09/27/2022 Sex: Female [...] Response Coronary Artery Disease N Gout N Head Trauma/Injury N Hernia N Thyroid Problems N COPD N Depression N Anemia N Heart Attack (IA) N Ulcers N Anxiety Disorder N Diabetes N Bleeding Disorder N Arthritis N Tuberculosis N AIDS/HIV N Acid Reflux (GERD) N Cancer N Stroke N Asthma N Substance Abuse N Back Injury N High Cholesterol N Hepatitis N Liver Disease N Heart Disease N Headaches N Fibromyalgia N Hypertension N Osteoporosis N Kidney Disease N Gynecological HistoryNo gynecological history recorded. Obstetrics History GPAL:G 0 P 0 0 0 0 Past Encounters Encounter ID Performer Location Encounter Start Date Encounter Closed Date Diagnosis/Indication Diagnosis SNOMED-CT Code Diagnosis ICD10 Code Diagnosis Note [id number] Dionte Beck MD [facility] [address] [place] [address] 09/27/2022 08:22:28 09/27/2022 10:31:29 Lumbar radiculopathy 302144493 M54.16 Lumbar spondylosis 33344 0009 M47.896 Degenerati on of lumbar intervertebral disc 05447346 M51.36 [id number] Dionte Beck MD [facility] [address] [facility] [address] [place] [address] 10/11/2022 10:14:10 10/11/2022 11:04:25 Degeneration of intervertebral disc 67750774 M51.9 Lumbar spondylosis 83852 0009 M47.896 Arthropath y of lumbar facet joint 831413766 M47.816 [id number] Dionte Beck MD [facility] [address] [place] [address] [place] [address] 11/08/2022 11:23:17 11/08/2022 12:02:23 Lumbar radiculopathy 485513268 M54.16 Lumbar spondylosis 53603 0009 M47.896 Degenerati on of lumbar intervertebral disc 38299597 M51.36 [id number] Dionte Beck MD [address] [place] [address] 3 11/22/2022 12:01:17 11/22/2022 12:39:30 Lumbar spondylosis 536684907 M47.896 Degenerati on of intervertebral disc 12288822 M51.9 Arthropath y of lumbar facet joint 629341436 M47.816 [id number] Dionte Beck MD [address] [place] [address] 3 12/06/2022 15:03:07 12/06/2022 16:09:54 Lumbar radiculopathy 538890485 M54.16 Lumbar spondylosis 53762 0009 M47.896 Degenerati on of lumbar intervertebral disc 50322453 M51.36 [id number] Dionte Beck MD [address] [place] [address] 3 12/18/2022 14:52:29 12/18/2022 16:28:34 Lumbar spondylosis 853026956 M47.896 Degenerati on of intervertebral disc 73222132 M51.9 Arthropath y of lumbar facet joint 078233861 M47.816 Degenerati on of lumbar intervertebral disc 47007685 M51.36 [id number] Dionte Beck MD [address] [place] [address] 3 01/25/2023 12:53:08 01/25/2023 13:20:59 Lumbar radiculopathy 997753195 M54.16 Lumbar spondylosis 45792 0009 M47.896 Degenerati on of lumbar intervertebral disc 05234179 M51.36 Degenerati on of intervertebral disc 42027295 M51.9 [id number] Dionte Beck MD [address] [place] [address] 3 02/13/2023 14:04:15 02/13/2023 16:04:18 Arthropathy of lumbar facet joint 869594773 M47.816 Degenerati on of lumbar intervertebral disc 07516459 M51.36 Lumbar spondylosis 29924 0009 M47.896 Medial epicondylitis 532 60624 M77.00 [id number] Dionte Beck MD [address] [place] [address] 3 02/28/2023 14:17:31 02/28/2023 15:24:12 Arthropathy of lumbar facet joint 256245955 M47.816 Degenerati on of lumbar intervertebral disc 41721318 M51.36 Lumbar spondylosis 68081 0009 M47.896 Medial epicondylitis 532 98780 M77.00 Bilateral spider veins of lower limbs 2595203153 1696153 I78.1 Pain in lower limb 31126 006 M79.606 Edema of l ower extremity 802648225 R60.0 Lumbar radiculopathy 128 402406 M54.16 [id number] Dionte Beck MD [address] [place]Y [place] [address] 03/15/2023 10:00:13 03/15/2023 10:39:44 Arthropathy of lumbar facet joint 597447306 M47.816 Degenerati on of lumbar intervertebral disc 83708004 M51.36 Lumbar spondylosis 90908 0009 M47.896 Medial epicondylitis 532 35547 M77.00 Bilateral spider veins of lower limbs 8711958094 5527841 I78.1 Pain in lower limb 96763 006 M79.606 Edema of l ower extremity 021724139 R60.0 Lumbar radiculopathy 128 977156 M54.16 Bilateral earache 963440 003 H92.03 Pain of le ft knee joint 0752843176 81107 M25.562 Arthritis 5900255 M19.90 18068 Dionte Beck MD [address] [place]Y [place] [address] 04/19/2023 11:04:42 04/19/2023 12:41:23 Arthropathy of lumbar facet joint 308069399 M47.816 Degenerati on of lumbar intervertebral disc 76319068 M51.36 Lumbar spondylosis 05433 0009 M47.896 Medial epicondylitis 532 47791 M77.00 Bilateral spider veins of lower limbs 6100301013 4162873 I78.1 Pain in lower limb 40921 006 M79.606 Edema of l ower extremity 476275595 R60.0 Lumbar radiculopathy 128 938273 M54.16 Bilateral earache 063544 003 H92.03 Pain of le ft knee joint 8839367091 39526 M25.562 Arthritis 1890246 M19.90 Osteoarthr itis of knee 751109992 M17.9 40542 Dionte Beck MD [address] [place] [address] 3 05/27/2023 14:27:51 05/27/2023 15:27:12 Lumbar spondylosis 616379578 M47.896 Arthritis 5048306 M19.90 Arthropath y of lumbar facet joint 094546010 M47.816 Degenerati on of intervertebral disc 70410090 M51.9 Degenerati on of lumbar intervertebral disc 34427162 M51.36 Sciatica 81015466 M54.30 Osteoarthr itis of knee 158276018 M17.9 Pain of le ft knee joint 4175735697 85738 M25.562 Lumbar radiculopathy 128 552658 M54.16 [id number] Jeremy Osborne CRNA [address] [place] [address] 3 07/05/2023 14:21:42 07/05/2023 14:59:08 Edema of lower extremity 063910557 R60.0 Pain in lower limb 68326 006 M79.606 Bilateral spider veins of lower limbs 8417638102 9373889 I78.1 Bilateral earache 844662 003 H92.03 Arthritis 0343520 M19.90 Lumbosacra l radiculopathy 8003877 M54.17 Degenerati on of intervertebral disc 62224189 M51.27 Osteoarthr itis of left knee joint 0433259494 17986 M17.12 [id number] Dionte Beck MD [address] ANNE MARIE [address] [place] [address] 3 07/24/2023 14:46:02 07/24/2023 16:56:03 Arthritis 6917378 M19.90 Lumbar spondylosis 96169 0009 M47.896 Arthropath y of lumbar facet joint 443988060 M47.816 Degenerati on of intervertebral disc 72335599 M51.9 Degenerati on of lumbar intervertebral disc 64349577 M51.36 Osteoarthr itis of left knee joint 3949293434 17271 M17.12 Pain of le ft knee region 8884213108 72702 M25.562 Pain of le ft shoulder joint 1871226784 1380684 M25.512 Osteoarthr itis of joint of left shoulder region 9948002826 47296 M19.012 [id number] Dionte Beck MD [address] KENNEY [address] [place] [address] 09/05/2023 10:18:38 09/05/2023 10:59:28 Edema of lower extremity 319425547 R60.0 Arthritis 8633366 M19.90 Arthropath y of lumbar facet joint 273973537 M47.816 Degenerati on of intervertebral disc 84900104 M51.9 Degenerati on of lumbar intervertebral disc 89882775 M51.36 Pain of le ft knee joint 4441186370 24712 M25.562 Osteoarthr itis of left knee joint 6567241891 63197 M17.12 Pain of ri ght shoulder joint 5680842048 0730460 M25.511 [id number] Dionte Beck MD [address]ENNEY [address] [place] [address] 10/03/2023 10:16:45 10/03/2023 11:16:00 Edema of lower extremity 011685405 R60.0 Pain in lower limb 93905 006 M79.606 Bilateral spider veins of lower limbs 3867464800 5603763 I78.1 Pain of ri ght shoulder joint 4401974115 5722864 M25.511 Bilateral earache 552977 003 H92.03 Arthritis 9670754 M19.90 Asthma 332219158 J45.90 9 Osteoarthr itis of left knee joint 6158809136 06816 M17.12 Pain of le ft knee joint 9516267380 74451 M25.562 Pain of sh oulder region 53277099 M25.519 Full thick ness rotator cuff tear 796731927 M75.122 Degenerati on of lumbar intervertebral disc 79628775 M51.36 65732 Dionte Beck MD [address] [place] [address] 10/31/2023 10:20:43 10/31/2023 11:16:41 Edema of lower extremity 257469580 R60.0 Arthropath y of lumbar facet joint 098558395 M47.816 Degenerati on of lumbar intervertebral disc 68559967 M51.36 Degenerati on of intervertebral disc 65637510 M51.9 Depressive disorder 3548 9007 F32.A Pain of ri ght shoulder joint 8881078068 4763865 M25.511 Pain of le ft knee joint 4554729026 01373 M25.562 Pain in lower limb 12303 006 M79.606 Osteoarthr itis of left knee joint 9841743376 47702 M17.12 Full thick ness rotator cuff tear 814725933 M75.122 Arthritis 2985089 M19.90 91148 Elvi Cuevas NP [address] 3 12/06/2023 13:52:14 12/06/2023 14:19:38 Edema of lower extremity 489512432 R60.0 Arthritis 1098282 M19.90 Degenerati on of lumbar intervertebral disc 87866835 M51.36 72706 Elvi Cuevas NP [address] [place] [address] 12/30/2023 13:11:59 12/30/2023 13:34:29 Edema of lower extremity 466602287 R60.0 Pain in lower limb 48873 006 M79.606 Bilateral spider veins of lower limbs 6902781772 4252606 I78.1 Pain of ri ght shoulder joint 3307567959 9926315 M25.511 Bilateral earache 655687 003 H92.03 Asthma 498875390 J45.90 9 Pain of sa croiliac joint 037552048 M53.3 Trochanter ic bursitis of right hip 7953537801 30797 M70.61 Arthritis 5033049 M19.90 [id number] Dionte Beck MD [address]ENNEY [address] [place] [address] 02/13/2024 10:49:09 02/13/2024 11:50:57 Edema of lower extremity 055279409 R60.0 Arthropath y of lumbar facet joint 974104736 M47.816 Degenerati on of intervertebral disc 15663353 M51.9 Degenerati on of lumbar intervertebral disc 48248576 M51.36 Trochanter ic bursitis of right hip 7118757131 59315 M70.61 Pain of ri ght shoulder joint 1374443900 0830005 M25.511 Pain of le ft knee joint 6127907424 42736 M25.562 Pain in lower limb 60144 006 M79.606 Osteoarthr itis of left knee joint 5148393472 20102 M17.12 [id number] Dionte Beck MD [address]ENNEY [address] [place] [address] 02/19/2024 11:09:00 02/19/2024 11:41:12 Arthritis 0661064 M19.90 Arthropath y of lumbar facet joint 395058518 M47.816 Degenerati on of lumbar intervertebral disc 32295151 M51.369 Trochanter ic bursitis of right hip 4122673806 89252 M70.61 Sciatica 41504703 M54.30 Pain of ri ght shoulder joint 8745646595 8452749 M25.511 Pain of le ft knee joint 8800444488 58108 M25.562 [id number] Elvi Cuevas NP [address] [place] [address] 03/03/2024 10:18:11 03/03/2024 10:46:55 Trochanteric bursitis of right hip 8632563425 95397 M70.61 Edema of l ower extremity 227443325 R60.0 Pain in lower limb 93229 006 M79.606 Bilateral spider veins of lower limbs 2657005376 6389819 I78.1 Pain of ri ght shoulder joint 7437342764 9643186 M25.511 Bilateral earache 453327 003 H92.03 Arthritis 7214660 M19.90 Cervical radiculopathy 67945612 M54.12 Degenerati on of cervical intervertebral disc 28912046 M50.30 67129 Dionte Beck MD [address] [place] [address] 03/19/2024 08:14:41 03/19/2024 09:52:08 Edema of lower extremity 693303963 R60.0 Arthropath y of lumbar facet joint 065106300 M47.816 Cervical radiculopathy 63112189 M54.12 Degenerati on of cervical intervertebral disc 86353503 M50.30 Degenerati on of intervertebral disc 79809238 M51.9 Degenerati on of lumbar intervertebral disc 16223150 M51.369 Sciatica 54610932 M54.30 61562 EDYA MCCRAY [address] [place] [address] 05/01/2024 11:10:08 05/01/2024 11:42:38 Edema of lower extremity 617684681 R60.0 Osteoarthr itis of left knee joint 2554977353 85248 M17.12 Pain of le ft knee joint 9536297358 13936 M25.562 Arthritis 9498117 M19.90 Arthropath y of lumbar facet joint 673483725 M47.816 Body mass index 40+ - severely obese 392535455 Z68.42 Cervical radiculopathy 73817799 M54.12 Degenerati on of cervical intervertebral disc 67332719 M50.30 Degenerati on of intervertebral disc 66735094 M51.9 Pain of ri ght shoulder joint 4138192508 0764687 M25.511 Sciatica 58327337 M54.30 Trochanter ic bursitis of right hip 2638568262 67054 M70.61 [id number] Dionte Beck MD [address] [place] [address] 05/22/2024 11:19:02 05/22/2024 12:19:15 Edema of lower extremity 881465528 R60.0 Arthritis 0262326 M19.90 Arthropath y of lumbar facet joint 529275857 M47.816 Cervical radiculopathy 35729898 M54.12 Degenerati on of cervical intervertebral disc 89896867 M50.30 Degenerati on of lumbar intervertebral disc 66525978 M51.369 Degenerati on of intervertebral disc 32062119 M51.9 Sciatica 25467077 M54.30 Restless legs 67899807 G 25.81 Pain of ri ght shoulder joint 9992295715 8801110 M25.511 Pain of le ft knee joint 1310491176 59106 M25.562 Pain in lower limb 42696 006 M79.606 Pain of ri ght hip joint 9155054663 01613 M25.551 [id number] Dionte Beck MD [address] KENNEY [address] [place] [address] 06/05/2024 11:04:26 06/05/2024 13:19:41 Edema of lower extremity 130753004 R60.0 Arthropath y of lumbar facet joint 016924099 M47.816 Cervical radiculopathy 51103196 M54.12 Degenerati on of cervical intervertebral disc 28896973 M50.30 Degenerati on of intervertebral disc 15708699 M51.9 Trochanter ic bursitis of right hip 8038103201 13494 M70.61 Sciatica 19584908 M54.30 Pain in lower limb 79352 006 M79.606 Osteoarthr itis of left knee joint 4723939664 65549 M17.12 Pain of le ft knee joint 1431219417 97736 M25.562 Pain of ri ght shoulder joint 8538801314 4581263 M25.511 Degenerati on of lumbar intervertebral disc 36605529 M51.369 Lumbar radiculopathy 128 207498 M54.16 63963 Dionte Beck MD [address] KENNEY [address] [place], [place] [address] 06/18/2024 10:04:10 06/18/2024 11:20:14 Edema of lower extremity 309343973 R60.0 Arthritis 3732399 M19.90 Arthropath y of lumbar facet joint 796338600 M47.816 Cervical radiculopathy 38661281 M54.12 Degenerati on of cervical intervertebral disc 67793560 M50.30 Degenerati on of intervertebral disc 41911398 M51.9 Degenerati on of lumbar intervertebral disc 23595073 M51.369 Osteoarthr itis of left knee joint 3514101762 33618 M17.12 Pain in lower limb 25277 006 M79.606 Pain of le ft knee joint 8254998262 28160 M25.562 Pain of ri ght shoulder joint 2334012790 0105366 M25.511 Lumbar spondylosis 51098 0009 M47.896 Lumbar radiculopathy 128 949273 M54.16 95967 Dionte Beck MD [facility] [address] [place] [address] 07/16/2024 10:20:38 07/16/2024 12:41:26 Edema of lower extremity 684796085 R60.0 Pain in lower limb 52718 006 M79.606 Lumbar radiculopathy 128 716858 M54.16 Bilateral spider veins of lower limbs 5265575755 4026609 I78.1 Arthropath y of lumbar facet joint 017949941 M47.816 Degenerati on of cervical intervertebral disc 02376554 M50.30 Degenerati on of intervertebral disc 01864232 M51.9 Degenerati on of lumbar intervertebral disc 69408542 M51.369 Trochanter ic bursitis of right hip 2441985997 69111 M70.61 Sciatica 64759260 M54.30 Pain of le ft knee joint 7972541532 33353 M25.562 Pain of ri ght shoulder joint 4010680308 3907860 M25.511 Osteoarthr itis of left knee joint 6277145666 96488 M17.12 Arthritis 7766527 M19.90 65723 DEYA MCCRAY [facility] [address] [place] [address] 07/23/2024 08:38:46 07/23/2024 09:33:04 Edema of lower extremity 936177724 R60.0 Pain in lower limb 42914 006 M79.606 Lumbar radiculopathy 128 990634 M54.16 Bilateral spider veins of lower limbs 1399897684 8520449 I78.1 Arthropath y of lumbar facet joint 689596939 M47.816 Cervical radiculopathy 84633652 M54.12 Degenerati on of cervical intervertebral disc 91895040 M50.30 Degenerati on of intervertebral disc 94359139 M51.9 Degenerati on of lumbar intervertebral disc 04002651 M51.369 Osteoarthr itis of left knee joint 9615826317 99355 M17.12 Sciatica 66863619 M54.30 Trochanter ic bursitis of right hip 7937767540 00416 M70.61 Long-term drug therapy 487561880 Z79.891 61496 Dionte Beck MD [address] [place] [address] 08/13/2024 08:46:05 08/13/2024 11:33:05 Edema of lower extremity 196494420 R60.0 Pain in lower limb 45894 006 M79.606 Lumbar radiculopathy 128 097876 M54.16 Bilateral spider veins of lower limbs 9936823704 6937437 I78.1 Arthritis 0221094 M19.90 Arthropath y of lumbar facet joint 977746508 M47.816 Asthma 207235543 J45.90 9 Bilateral earache 483891 003 H92.03 Cervical radiculopathy 75122289 M54.12 Degenerati on of intervertebral disc 31829693 M51.9 Degenerati on of lumbar intervertebral disc 65761014 M51.369 Degenerati on of cervical intervertebral disc 63300222 M50.30 Pain of ri ght shoulder joint 1213343162 6568113 M25.511 Pain of le ft knee joint 2795538177 17196 M25.562 Trochanter ic bursitis of right hip 5817496535 75536 M70.61 Sciatica 82370872 M54.30 Postoperative care 33036 9007 Z48.89 Long-term drug therapy 511405493 Z79.891 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 48847 Dionte Beck MD [address] [place] [address] 08/20/2024 10:34:48 08/20/2024 11:41:35 Pain in lower limb 43076876 M79.606 Edema of l ower extremity 372897755 R60.0 Lumbar radiculopathy 128 940910 M54.16 Bilateral spider veins of lower limbs 7849612677 5682718 I78.1 Arthropath y of lumbar facet joint 588731622 M47.816 Cervical radiculopathy 34362143 M54.12 Degenerati on of cervical intervertebral disc 46823150 M50.30 Degenerati on of intervertebral disc 60657029 M51.9 Degenerati on of lumbar intervertebral disc 02094695 M51.369 Arthritis 7143891 M19.90 93762 Dionte Beck MD [address] [place] [address] 09/16/2024 10:22:20 09/16/2024 11:57:07 Pain in lower limb 44063714 M79.606 Edema of l ower extremity 664242922 R60.0 Bilateral spider veins of lower limbs 9196900291 0421955 I78.1 Lumbar radiculopathy 128 222237 M54.16 Arthritis 4521217 M19.90 Arthropath y of lumbar facet joint 714613210 M47.816 Cervical radiculopathy 31040880 M54.12 Degenerati on of cervical intervertebral disc 84118981 M50.30 Degenerati on of intervertebral disc 62013907 M51.9 Degenerati on of lumbar intervertebral disc 58722475 M51.369 Osteoarthr itis of left knee joint 9728036655 17121 M17.12 Pain of le ft knee joint 9589767879 01197 M25.562 Trochanter ic bursitis of right hip 6001264734 48067 M70.61 Inflammati on of sacroiliac joint 09618960 M46.1 17930 Dionte Beck MD [address] [place] [address] 09/23/2024 08:08:40 09/23/2024 09:02:08 Arthritis 6362133 M19.90 Lumbar spondylosis 13608 0009 M47.896 Arthropath y of lumbar facet joint 286881743 M47.816 Asthma 554243963 J45.90 9 Cervical radiculopathy 29010039 M54.12 Degenerati on of cervical intervertebral disc 23831741 M50.30 Degenerati on of intervertebral disc 73854652 M51.9 Degenerati on of lumbar intervertebral disc 94716904 M51.369 Depressive disorder 3548 9007 F32.A Trochanter ic bursitis of right hip 7833068424 42198 M70.61 Pain of ri ght shoulder joint 9989625648 5268677 M25.511 Pain of le ft knee joint 6482008448 89148 M25.562 Osteoarthr itis of left knee joint 6427495674 50219 M17.12 Pain in lower limb 37276 006 M79.606 Inflammati on of sacroiliac joint 66391690 M46.1 92586 TAMMI SHARMA NP [address] [place] [address] 10/13/2024 12:58:24 10/13/2024 13:19:35 Pain in lower limb 23716222 M79.606 Edema of l ower extremity 542331322 R60.0 Bilateral spider veins of lower limbs 3377949950 7634487 I78.1 Lumbar radiculopathy 128 654231 M54.16 Arthritis 6849401 M19.90 Health Concerns Section Related Observation LastModified by Organization Detai ls LastModified Time None Recorded Concern Status LastModified by Organization Details LastModified Time None Recorded Advance Directives Directive N: Payers Insurance Date Sequence Insurance Name Policy Number Policy Green Covered Member ID Green Member ID Guarantor Name 05/23/2022 1 [employer] ([place]) Saritha Moody [id number] Saritha Moody 05/23/2022 2 [employer] [place] - [place] [id number] Saritha Moody [id number] Saritha Moody 11/01/2024 1 [employer] [place] - [place]) Saritha Moody [id number] aSritha Moody Notes Date Note Type Note Provider Name and Address Organization Details Recorded Time 08/13/2024 text/html Low back painReported bypatient.Onset:gr adual onset Location:bilateral paraspinal; radiating down the bilateral lower extremities to the knees Context:started without cause Severity:current pain level: 6/10; worst pain level: 10/10 Alleviating Factors:rest Aggravating Factors:standing; walking Timing:constant Associated Symptoms:weakness; numbness;tingling Previous Lumbar Surgery:none Previous Injections:lumbar ESIs: helped temporarily; SI joint injections: no relief Previous physical therapy:completed all recommended PT visits; more than 6weeks of PT completed; response to therapy: no improvement in pain/symptoms Daily Activities:Living independently.;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 Dionte Beck MD [address], [address], [facility] 08/13/2024 17:48:51 08/20/2024 text/html Low back painReported bypatient.Onset:gr adual onset Location:bilateral paraspinal; radiating down the bilateral lower extremities to the knees Context:started without cause Severity:current pain level: 4/10; worst pain level: 10/10 Alleviating Factors:rest Aggravating Factors:standing; walking Timing:constant Associated Symptoms:weakness; numbness;tingling Previous Lumbar Surgery:none Previous Injections:lumbar ESIs: helped temporarily; SI joint injections: no relief Previous physical therapy:completed all recommended PT visits; more than 6weeks of PT completed; response to therapy: no improvement in pain/symptoms Daily Activities:Living independently.;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 Dionte Beck MD [address], [address], [place] [facility] 09/16/2024 13:00:54 09/23/2024 text/html Low back painReported bypatient.Onset:gr adual onset Location:bilateral paraspinal; radiating down the bilateral lower extremities to the knees Context:started without cause Severity:current pain level: 6/10; worst pain level: 10/10 Alleviating Factors:rest Aggravating Factors:standing; walking Timing:constant Associated Symptoms:weakness; numbness;tingling Previous Lumbar Surgery:none Previous Injections:lumbar ESIs: helped temporarily; SI joint injections: no relief Previous physical therapy:completed all recommended PT visits; more than 6weeks of PT completed; response to therapy: no improvement in pain/symptoms Daily Activities:Living independently.;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 Dionte Beck MD [address], [address], [place] [facility] 09/23/2024 09:17:29 10/13/2024 text/html Low back painReported bypatient.Onset:gr adual onset Location:bilateral paraspinal; radiating down the bilateral lower extremities to the knees Context:started without cause Severity:current pain level: 6/10; worst pain level: 10/10 Alleviating Factors:rest Aggravating Factors:standing; walking Timing:constant Associated Symptoms:weakness; numbness;tingling Previous Lumbar Surgery:none Previous Injections:lumbar ESIs: helped temporarily; SI joint injections: no relief Previous physical therapy:completed all recommended PT visits; more than 6weeks of PT completed; response to therapy: no improvement in pain/symptoms Daily Activities:Living independently.;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 TAMMI SHARMA NP [address], [address], [place] [facility] 10/13/2024 13:34:57 OBGyn Episode No OBEpisode recorded.
--- OUTSIDE RECORDS SUMMARY | 2024-11-02 07:51 | XMS_ITS | Continuity of Care Document ---
Author Organization [place] - [employer] [facility] Address [address] [place] [address] Assessment No assessment recorded. Plan of Treatment Reminders Order Date Submit Date Provider Last Modified By Organization Details Last Modified Time Details Appointments FOLLOW UP 15 2024 08:30A Foreign Khan NP Not available Not available Not available Lab vitamin D, 25-hydrox y, total, serum 2024 025 [facility] ([place]), [facility] [place], [address], 09/09/2024 11:11:51 HbA1c (hemoglob in A1c), blood 2024 025 [email or web address] [facility], [address] [facility], [place], [address], 09/07/2024 17:09:41 CBC w/ auto diff 2024 025 [facility] ([place]), [address] [place] [address], [address], 09/09/2024 11:11:50 CMP, serum or plasma 2024 025 [facility] ([place]), [address] [place] [address], [address], 09/09/2024 11:11:50 TSH + free T4, serum 2024 025 [facility] ([place]), [address] [place] [address], [address], 09/09/2024 11:11:49 thyroid peroxidas e (tpo) Ab, serum 2024 025 [facility], [address] [place] [address], [place], [address], 09/09/2024 11:11:52 Referral None recorded. Procedures None recorded. Surgeries None recorded. Imaging None recorded. Medication Orders atorvasta tin 10 mg tablet 2024 025 [facility], [facility] [place], [address], 09/07/2024 17:14:31 Patient TargetsNo targets recorded. Patient Instructions Encounter Date Encounter Id Patient Instructions Last Modified By Organization Details Last Modified Time 09/07/2024 [id number] body mass index: [facility] Not available 09/07/2024 17:09:51 learning about healthy weight [place] [id number] Not available 09/07/2024 17:09:51 high blood pressure: [facility] Not available 09/07/2024 16:38:24 learning about high blood pressure [facility] Not available 09/07/2024 16:38:24 hypothyroidism: care instructions [facility] [place] Not available 09/07/2024 16:38:24 Reason for Referral None Reported. Results Created Date Observation Date Name Description Value Unit Range Abnormal Flag Note LastModifiedBy Organization Detail LastModifiedTime 09/08/19 25 09/07/2024 HbA1c (hemo globi n A1c), blood HbA1c 6.0 Not Available [address], [address], 09/07/2024 16:09:36 Result Notes None recorded. Problems Name Problem SNOMED Code Status Onset Date Resolution Date Notes Provider Name and Address Organization Details Recorded Time Chronic obstructive pulmonary disease 09535131 Active 2023 Mary Khan NP [address] [place], [address], [facility] [employer] 14:19:16 Acute exacerbatio n of chronic obstructive pulmonary disease 312980402 Active 2023 Mary Khan NP [address] [place] [address], [address], [employer] 14:31:26 Acute sinusitis 89275885 Active 2023 Mary Khan NP [address] [place] [address], [address], [employer] 4 11:11:39 Essential hypertensio n 65139604 Active 2023 Mary Khan NP [address] [place] [address], [address], [employer] 5 16:15:40 Fatigue 65260530 Active 2023 Mary Khan NP [address] [place] [address], [address], [employer] 4 10:40:53 Acute back pain with sciatica 085709123 Active 2023 Mary Khan NP [address] [place] [address], [address], [employer] 4 10:42:24 Hypothyroid ism 90364999 Active 2023 Mary Khan NP [address] [place] [address], [address], [employer] 4 11:16:52 Nicotine dependence 95709737 Active 2023 Mary Khan NP [address] [place] [address], [address], [employer] 4 11:20:48 Type 2 diabetes mellitus without complicatio n 035120164 Active 2023 Mary Khan NP [address] [place] [address], [address], [employer] 15:54:53 Vitamin D deficiency 29957861 Active 2023 Mary Khan NP [address] [place] [address], [address], [employer] 4 16:03:26 Laboratory test result abnormal 395962036 Active 2023 Mary Khan NP [address] [place] [address], [address], [employer] 4 10:35:37 Polyuria 52079806 Active 2023 Mary Khan NP [address] [place] [address], [address], [employer] 4 10:26:36 Hyperlipide chana 90187378 Active 2023 Mary Khan NP [address] [place] [address], [address], [employer] 4 08:20:26 Restless legs 23225441 Active 2023 Mary Khan NP [address] [place] [address], [address], [employer] 4 08:38:05 [place] thyroiditis 16761484 Active 2024 Mary Khan NP [address] [place] [address], [address], [employer] 5 16:15:10 Seasonal allergy 463315813 Active 2024 Mary Khan NP [address] [place] [address], [address], [employer] 5 09:50:44 Acute bilateral otitis media 754052693 Active 2024 Mary Khan NP [address] [place] [address], [address], [employer] 5 14:21:55 Prediabetes 345647952 Active 2024 Mary Khan NP [address] [place] [address], [address], [employer] 5 16:09:26 Generalized chronic body pains 281160849 Active 2024 Mary Khan NP [address] [place], [address], [employer] 16:33:44 Chronic low back pain 294732274 Active 2024 Mary Khan NP [address] [place], [address], [employer] 5 17:07:21 Pain of left knee joint 5562635400247 07 Active 2024 Mary Khan NP [address] [place], [address], [employer] 16:14:21 Anxiety 08259395 Active 2024 Mary Khan NP [address] [place] [address], [address], [employer] 10:57:43 Problem Notes None recorded. Procedures Surgical History Date Name Laterality Status Provider Name and Address Organization Details Recorded Time 03/16/20 Most Recent Mammogram completed [employer] 03/18/2024 14:58:58 Tonsillectomy completed [employer] 03/02/2024 13:52:34 Partial Hysterectomy completed [employer] 03/02/2024 13:52:42 manipulation of displaced nasal septum completed [employer] 03/02/2024 13:52:53 procedure on shoulder completed [employer] 03/02/2024 13:53:00 operative procedure on knee completed [employer]. 03/02/2024 13:53:10 Imaging Results None recorded. Procedure [...] Not Available Not Available No t Available [facility] COVID-19 Antigen Rapid Home Test kit 03/16 [...] Updated DateTime 5 162.56 cm 44.1 kg/m2 095398. 24 g 97.8 [degF] 77 /min 97 % 97 % Errol [place] [employer] 5 16:01:07 Social History Question Answer Notes LastModified by Organizat ion Details LastModified Time Tobacco Smoking Status Current Every Day Smoker [employer] 03/02/2024 13:50:47 Do You Have An Advance [...] Information not available 03/02/2024 What Type Of Arresting Gear Operator Do You Use? None Information not available [...] Or The Highest Degree You Have Received? [id number] Information not available 03/16/2024 How Many Days [...] Do You Have A Medical Power Of Lawn Mower Operator? No Information not available 03/02/2024 What Was The Date Of Your Most Recent Tobacco Screening? 09/21/2024 [email or web address] Information not available 09/21/2024 Have You Ever [...] Date Was Tobacco Cessation Counseling Provided? 09/21/2024 [email or web address] Information not available 09/21/2024 How Many Years [...] anxious, or unable to sleep at night)? [id number] Information not available 03/16/2024 Do you have [...] Time zoster recombinant 4 completed Errol Nacho null, [employer] 04/29/2024 13:39:09 pneumococcal polysaccharide PPV23 4 completed Errol [place] null, [employer] 04/29/2024 13:39:09 zoster recombinant 5 completed Errol [place] null, [employer] 06/29/2024 10:04:53 Tdap 5 completed Mary Khan NP [address] [place] [address], [address], [employer] 08/10/2024 15:11:36 Hep A, adult 8 completed Errol [place] null, [employer] 06/29/2024 09:42:10 Past Encounters Encounter ID Performer Location Encounter Start Date Encounter Closed Date Diagnosis/Indication Diagnosis SNOMED-CT Code Diagnosis ICD10 Code Diagnosis Note [id number] Mary Khan NP [facility] [address] [place] [address] 08/10/2024 13:26:42 08/10/2024 14:51:37 Cough 28298347 R05.9 Acute bila teral otitis media 345072134 H66.93 Type 2 shreya betes mellitus without complication 869873543 E11.9 Hypothyroidism 86502132 E03.9 Vitamin D deficiency 347 [address]141 E55.9 Chronic ob structive pulmonary disease 24281451 J44.9 Viral screening 33501562 4 Z11.59 Administra tion of diphtheria, pertussis, and tetanus vaccine 767318664 Z23 [id number] Mary Khan NP [facility] [address] [place], [place] [address] [address] 09/07/2024 15:50:06 09/07/2024 17:14:02 Prediabetes 314414314 R73.03 Essential hypertension 96567964 I10 continue meds as prescribed . Hypothyroidism 06527955 E03.9 Generalize d chronic body pains 833064742 G89.29 Vitamin D deficiency 347 91486 E55.9 Screening for cardiovascular system disease 581548071 Z13.6 11.1% lifetime ASCVD Risk Discussed with patient Chronic low back pain 27 3916071 M54.50 Continue f/u with Dr. Beck at pain management . Body mass index 40+ - severely obese 049315966 Z68.41 Discussed weight loss and healthy diet and exercise. Recommende d food diary with [employer] [facility]. Recommende d pool exercises at [facility]. Patient voiced understand ing. Health Concerns Section Related Observation LastModified by Organization Detai ls LastModified Time None Recorded Concern Status LastModified by Organization Details LastModified Time None Recorded Payers Encounter Date Sequence Insurance Name Policy Number Policy Green Covered Member ID Green Member ID Guarantor Name 09/07/[address] [place] [address] (MEDICAID REPLACEMENT - HMO) Saritha Moody [id number] Saritha Moody Notes Date Note Type Note Provider Name and Address Organization Details Recorded Time 09/07/2024 text/html Patient presente d to clinic [...] concerns for today's visit. Mary Khan NP [address] [place] [address], [place], [address], [facility] [employer] 09/07/2024 17:20:48 OBGyn Episode No OBEpisode recorded.
--- OUTSIDE RECORDS SUMMARY | 2024-11-02 07:51 | XMS_ITS | Continuity of Care Document ---
Author Organization [facility] Office New Address [address] [place] [address] Care Team Providers Care Audio Visual Engineer Name Role Phone GWYN EDWARD Primary Care Provider GWYN EDWARD Referring Provider [phone] GWYN EDWARD Primary Care Provider [phone] Assessment Encounter Date Assessment Date Assessment LastModified by Organization Details LastModified Time 10/13/2024 10/13/2024 Patient is a pleasant 59-year-old [...] that she will soon be traveling to [place] for a tournament. She is requesting we will continue the patient's to help provide her with relief until placement of her spinal cord stimulator. [facility] #[id number]. Plan: We are increasing the patient's gabapentin [...] Details Appointments Post Op/Wound Check 2024 09:30A M Dionte Beck MD Not available Not available Not available Follow Up 2024 10:00A M Dionte Beck MD Not available Not available Not available Lab None recorded. Referral None recorded. Procedures None recorded. Surgeries None recorded. Imaging None recorded. Medication Orders gabapenti n 300 mg capsule 2024 025 [facility], [address] [place] [address], [address], 10/13/2024 13:37:56 tramadol 50 mg tablet 2024 025 [facility], [address] [place] [address], [address], 10/27/2024 05:00:48 meloxicam 15 mg tablet 2024 025 [facility], [address] [place] [address], [address], 10/13/2024 13:37:49 Patient TargetsNo targets recorded. Patient InstructionsNo instructions recorded. Reason for Referral None Reported. Problems Name Problem SNOMED Code Status Onset Date Resolution Date Notes Provider Name and Address Organization Details Recorded Time Pain of right shoulder joint 5260377146556 9100 Active 2023 Dionte Beck MD [address], [address], [place] [facility] 4 11:01:26 Osteoarthri tis of left knee joint 2299110237218 09 Active 2023 Dionte Beck MD [address], [address], [place] [facility] 4 11:01:26 Pain of left knee joint 4453630133447 07 Active 2023 Dionte Beck MD [address] [place], [address], [place] [facility] 4 11:01:29 Full thickness rotator cuff tear 159351156 Active 2023 Dionte Beck MD [address], [address], [place] [facility] 4 11:27:54 Trochanteri c bursitis of right hip 2513604276637 00 Active 2023 Elvi Cuevas NP [address], [address], [place] [facility] 4 13:48:06 Cervical radiculopat hy 08890307 Active 2023 Elvi Cuevas NP [address], [address], [place] [facility] 4 10:41:02 Degeneratio n of cervical interverteb ral disc 35989531 Active 2023 Elvi Cuevas NP [address], [address], [place] [facility] 4 10:41:22 Lumbar radiculopat hy 006695894 Active 2024 Dionte Beck MD [address], [address], [place] [facility] 5 21:33:00 Inflammatio n of sacroiliac joint 98036239 Active 2024 Dionte Beck MD [address], [address], [place] [facility] 5 09:16:39 Edema of lower extremity 564535902 Active Chapisangle levi null, [place] - [facility] 3 08:29:39 Pain in lower limb 82396014 Active Chapis levi null, [place] [facility] 3 08:29:40 Bilateral spider veins of lower limbs 8499697885828 9105 Active Chapis levi null, [place] [facility] 3 08:29:40 Bilateral earache 046781220 Active Chapis stamper null, [place] [facility] 3 08:29:40 Asthma 113255973 Active Chapis stamper null, [place] [facility] 3 08:29:40 Sciatica 25998636 Active Chapis stamper null, [place] [facility] 3 08:29:40 Venous insufficien cy of leg 467335491 Active Chapis stamper null, [place] [facility] 3 08:29:40 Obese abdomen 064802245 Active Chapis stamper null, [place] [facility] 3 08:29:40 Dislocation of temporomand ibular joint 148261739 Active Chapis stamper null, [place] [facility] 3 08:29:40 History of Disorder 946755349 Active Chapis stamper null, [place] [facility] 3 08:29:40 Restless legs 13466934 Active Chapis stamper null, [place] [facility] 3 08:29:40 Depressive disorder 69055550 Active Chapis stamper null[place] [facility] 3 08:29:40 Arthritis 6199973 Active Chapis stamper null, [place] [facility] 3 08:29:40 Hypertensiv e disorder 73174830 Active Chapis stamper null, [place] [facility] 3 08:29:40 Body mass index 40+ - severely obese 636255488 Active Chapis stamper null, [place] [facility] 3 08:29:40 Hypothyroid ism 21620948 Active Chapis stamper null, [place] [facility] 3 08:29:40 Obesity 431643719 Active Chapis stamper null, [place] [facility] 3 08:29:40 Varicose veins of lower extremity 26373001 Active Chapis stamper null, [place] [facility] 3 08:29:40 Sleep apnea 26625461 Active Chapis stamper null, [place] [facility] 3 08:29:40 Degeneratio n of interverteb ral disc 06546769 Active Chapis levi null, [place] [facility] 3 08:29:40 Lumbar spondylosis 935748039 Active 2022 Sayda Herrera null, [place] [facility] 3 13:33:44 Degeneratio n of lumbar interverteb ral disc 57627425 Active 2022 Dionte Beck MD [address] [facility],[place] [address] [place] [address], [address], [place] [facility] 3 17:00:40 Arthropathy of lumbar facet joint 686445340 Active 2022 Dionte Beck MD [address] [facility],[place] [address] [place] [address], [address], [place] [facility] 3 17:00:41 Problem Notes None recorded. Procedures Surgical History Date Name Laterality Status Provider Name and Address Organization Details Recorded Time 09/24/19 25 Therapeutic SI Joint Injection Under Fluoroscopy completed Dionte Beck MD [address] [facility],[place] [address] [place] [address], [address], [place] [facility] 09/23/2024 09:14:32 08/14/19 25 SCS Trial completed Dionte Beck MD [address] ,[place] [facility], [place], [address], [place] [facility] 08/13/2024 17:47:06 07/16/19 25 Peripheral nerve stimulator Knee completed Dionte Beck MD [address],[place] [facility], [place], [address], [place] [facility] 07/16/2024 12:19:53 06/18/19 25 Lumbar YOLANDA: Interlaminar completed Dionte Beck MD [address],[place] [facility], [place], [address], [place] [facility] 06/18/2024 20:47:41 05/22/19 25 Peripheral nerve block completed Dionte Beck MD [address],[place] [facility] [place], [address], [place] [facility] 05/22/2024 23:56:27 03/19/20 24 Cervical Epidural Steroid Injection Under Fluoroscopy completed Dionte Beck MD [address],[place] [address] [place] [address], [address], [place] [facility] 03/19/2024 11:04:19 02/19/20 24 Greater Trochanteric Bursa Steroid Injection completed Dionte Beck MD [address],[place] [address] [place] [address], [address], [place] [facility] 02/19/2024 13:04:59 02/13/20 24 Diagnostic SI Joint Injection Under Fluoroscopy completed Dionte Beck MD [address] [facility],[place] [address] [place] [address], [address], [place] [facility] 02/13/2024 12:34:47 07/24/19 24 Genicular Nerve Block completed Dionte Beck MD [address] ,[place] [address] [place] [address], [address], [place] [facility] 07/24/2023 23:15:00 05/27/19 24 Knee Joint Injection completed Dionte Beck MD [address] ,[place] [address] [place] [address], [address], [place] [facility] 05/27/2023 18:20:07 04/19/20 23 Lumbar YOLANDA: Interlaminar completed SHIRLEY MAGAÑA [place] - [facility] 03/26/2023 09:21:47 02/29/20 23 Medial Epicondyle Injection completed Dionte Beck MD [address],[place] [address] [place] [address], [address], [place] [facility] 02/28/2023 21:56:28 02/14/20 23 BILAT 2LVL LUMBAR RFA completed Dionte Beck MD [address],[place] [address] [place] [address], [address], [place] [facility] 02/13/2023 17:15:10 12/19/19 23 Diagnostic Lumbar MBB: 2 Level Bilateral completed Dionte Beck MD [address],[place] [address] [place] [address], [address], [place] [facility] 12/18/2022 16:59:24 11/23/19 23 Diagnostic Lumbar MBB: 2 Level Bilateral completed Dionte Beck MD [address], [address], [place] [facility] 11/22/2022 19:11:36 [...] completed Not Available Not Available Not Available [facility] COVID-19 Antigen Rapid Home Test kit 09/23 [...] and Address Organization Details Last Updated DateTime 162.56 cm 41.2 kg/m2 664772. 17 g 78 /min 98 % 98 % 126 mm[Hg] 86 mm[Hg] SHIRLEY MAGAÑA [place] [facility] 13:01:11 Social History Question Answer Notes LastModified by [employer] Details LastModified Time Tobacco Smoking Status Never Smoker Chapis levi maverick [place] [facility] 09/27/2022 08:30:43 Do [...] Do You Have A Medical Power Of Crushing Machine Operator? No Information not available 09/27/2022 Sex: Female Functional Status Question Answer Note LastModified by [employer] ion Details LastModified Time Do you use [...] Gout N Hernia N Head Trauma/Injury N Thyroid Problems N Depression N COPD N Anemia N Ulcers N Heart Attack (CT) N Diabetes N Anxiety Disorder N Bleeding Disorder N Arthritis N Tuberculosis [...] SNOMED-CT Code Diagnosis ICD10 Code Diagnosis Note [id number] Dionte Beck MD [address] [place] [address] 09/16/2024 10:22:20 09/16/2024 11:57:07 Pain in lower limb 62376823 M79.606 Edema of l ower extremity 713093721 R60.0 Bilateral spider veins of lower limbs 3149786774 2463755 I78.1 Lumbar radiculopathy 128 674960 M54.16 Arthritis 0755918 M19.90 Arthropath y of lumbar facet joint 644199596 M47.816 Cervical radiculopathy 40254925 M54.12 Degenerati on of cervical intervertebral disc 80383258 M50.30 Degenerati on of intervertebral disc 36891617 M51.9 Degenerati on of lumbar intervertebral disc 96840499 M51.369 Osteoarthr itis of left knee joint 0232490390 78125 M17.12 Pain of le ft knee joint 6304276302 52859 M25.562 Trochanter ic bursitis of right hip 0569657682 15857 M70.61 Inflammati on of sacroiliac joint 69952308 M46.1 [id number] Dionte Beck MD [address] [place] [address] 09/23/2024 08:08:40 09/23/2024 09:02:08 Arthritis 1003683 M19.90 Lumbar spondylosis 15144 0009 M47.896 Arthropath y of lumbar facet joint 101889327 M47.816 Asthma 113110935 J45.90 9 Cervical radiculopathy 48863153 M54.12 Degenerati on of cervical intervertebral disc 89500575 M50.30 Degenerati on of intervertebral disc 77267749 M51.9 Degenerati on of lumbar intervertebral disc 37372119 M51.369 Depressive disorder 3548 9007 F32.A Trochanter ic bursitis of right hip 1532003827 49556 M70.61 Pain of ri ght shoulder joint 1285819255 7027996 M25.511 Pain of le ft knee joint 2819503894 13734 M25.562 Osteoarthr itis of left knee joint 3948561158 68722 M17.12 Pain in lower limb 20564 006 M79.606 Inflammati on of sacroiliac joint 50566496 M46.1 [id number] TAMMI SHARMA NP [address] [place] [address] 10/13/2024 12:58:24 10/13/2024 13:19:35 Pain in lower limb 07176380 M79.606 Edema of l ower extremity 659741719 R60.0 Bilateral spider veins of lower limbs 9933555811 4777053 I78.1 Lumbar radiculopathy 128 728192 M54.16 Arthritis 4789198 M19.90 Health Concerns Section Related Observation LastModified by Organization Detai ls LastModified Time None Recorded Concern Status LastModified by Organization Details LastModified Time None Recorded Payers Encounter Date Sequence Insurance Name Policy Number Policy Green Covered Member ID Green Member ID Guarantor Name 10/13/2024 1 [facility] (MEDICAID REPLACEMENT - HMO) Saritha Moody [id number] Saritha Moody Notes Date Note Type Note Provider Name and Address Organization Details Recorded Time 10/13/2024 text/html Low back painReported bypatient.Onset:gr adual [...] in pain/symptoms Daily Activities:Living independently.;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 TAMMI SHARMA NP [address], [address], [place] [facility] 10/13/2024 13:34:57 OBGyn Episode No OBEpisode recorded.
--- OUTSIDE RECORDS SUMMARY | 2024-11-02 07:52 | XMS_ITS | Continuity of Care Document ---
Author Organization [facility] Address [address] [place] [address] Assessment No assessment recorded. Plan of Treatment Reminders Order Date Submit Date Provider Last Modified By Organization Details Last Modified Time Details Appointments FOLLOW UP 15 2024 08:30A M Mary Khan NP Not available Not available Not available Lab None recorded . Referral None recorded . Procedures None recorded . Surgeries None recorded . Imaging None recorded . Medication Orders None recorded . Patient TargetsNo targets recorded. Patient Instructions Encounter Date Encounter Id Patient Instructions Last Modified By Organization Details Last Modified Time 09/21/2024 [id number] desire's thyroiditis: care instructions Not available 09/21/2024 16:15:47 high blood pressure: care instructions Not available 09/21/2024 16:15:47 learning about high blood pressure Not available 09/21/2024 16:15:47 Reason for Referral None Reported. Problems Name Problem SNOMED Code Status Onset Date Resolution Date Notes Provider Name and Address Organization Details Recorded Time Chronic obstructive pulmonary disease 61269635 Active 2023 Mary Khan NP [address] [place] [address], [address] 8, [employer] 14:19:16 Acute exacerbatio n of chronic obstructive pulmonary disease 815269434 Active 2023 Mary Khan NP [address] [place] [address], [address] 8, [employer] 14:31:26 Acute sinusitis 47412998 Active 2023 Mary Khan NP [address] [place] [address], [address]39[address]573 8, [employer] 4 11:11:39 Essential hypertensio n 00733820 Active 2023 Mary Khan NP [address] [place] [address], [address]39[address] 8, [employer] 5 16:15:40 Fatigue 28300458 Active 2023 Mary Khan NP [address] [place] [address], [address]87[address] 8, [employer] 4 10:40:53 Acute back pain with sciatica 894986387 Active 2023 Mary Khan NP [address] [place] [address], 48[address] 8, [employer] 4 10:42:24 Hypothyroid ism 19733782 Active 2023 Mary Khan NP [address] [place] [address], [address] 8, [employer] 4 11:16:52 Nicotine dependence 94578135 Active 2023 Mary Khan NP [address] [place] [address], [address] 8, [employer] 4 11:20:48 Type 2 diabetes mellitus without complicatio n 738882112 Active 2023 Mary Khan NP [address] [place] [address], 65977[address]251 8, [employer] 4 15:54:53 Vitamin D deficiency 74163859 Active 2023 Mary Khan NP [address] [place] [address], 67973-515 8, [employer] 4 16:03:26 Laboratory test result abnormal 701428018 Active 2023 Mary Khan NP [address] [place] [address], 45857-009 8, [employer] 4 10:35:37 Polyuria 74043646 Active 2023 Mary Khan NP [address] [place] [address], 19884-590 8, [employer] 4 10:26:36 Hyperlipide chana 51310926 Active 2023 Mary Khan NP [address] [place] [address], 84616-091 8, [employer] 4 08:20:26 Restless legs 37991450 Active 2023 Mary Khan NP [address] [place] [address], 19846-170 8, [employer] 4 08:38:05 Desire thyroiditis 42172019 Active 2024 Mary Khan NP [address] [place] [address], 26874[address]711 8, [employer] 5 16:15:10 Seasonal allergy 582912715 Active 2024 Mary Khan NP [address] [place] [address], 83600-561 8, [employer] 5 09:50:44 Acute bilateral otitis media 308431002 Active 2024 Mary Khan NP [address] [place] [address], 17326-823 8, [employer] 5 14:21:55 Prediabetes 146948275 Active 2024 Mary Khan NP [address] [place] [address], 31399-397 8, [employer] 5 16:09:26 Generalized chronic body pains 221583177 Active 2024 Mary Khan NP [address] [place] [address], 93283-476 8, [employer] 5 16:33:44 Chronic low back pain 292600836 Active 2024 Mary Khan NP [address] [place] [address], 14065-301 8, [employer] 5 17:07:21 Pain of left knee joint 3606430138476 07 Active 2024 Mary Khan NP [address] [place], [address], [employer] 5 16:14:21 Anxiety 25277514 Active 2024 Mary Khan NP [address] [place], [address], [employer] 5 10:57:43 Problem Notes None recorded. Procedures Surgical History Date Name Laterality Status Provider Name and Address Organization Details Recorded Time 03/16/20 Most Recent Mammogram completed [employer] 03/18/2024 14:58:58 Tonsillectomy completed [employer] 03/02/2024 13:52:34 Partial Hysterectomy completed [employer] 03/02/2024 13:52:42 manipulation of displaced nasal septum completed [employer]. 03/02/2024 13:52:53 procedure on shoulder completed [employer]. 03/02/2024 13:53:00 operative procedure on knee completed [employer]. 03/02/2024 13:53:10 Imaging Results None recorded. Procedure [...] Not Available Not Available No t Available [facility] COVID-19 Antigen Rapid Home Test kit 03/16 [...] Updated DateTime 5 162.56 cm 43.3 kg/m2 540353. 28 g 98.7 [degF] 72 /min 97 % 97 % 138 mm[Hg] 73 mm[Hg] Errol Griffith [employer] 5 15:44:10 Social History Question Answer Notes LastModified by Organizat ion Details LastModified Time Tobacco Smoking Status Current Every Day Smoker [facility] 03/02/2024 13:50:47 Do You Have An Advance [...] Information not available 03/02/2024 What Type Of Project Engineer Chemicals Do You Use? None Information not available [...] Or The Highest Degree You Have Received? CE27126-7 Information not available 03/16/2024 How Many Days [...] Do You Have A Medical Power Of Compressor Repairer? No Information not available 03/02/2024 What Was The Date Of Your Most Recent Tobacco Screening? 09/21/2024 Information not available 09/21/2024 Have You Ever [...] Date Was Tobacco Cessation Counseling Provided? 09/21/2024 [email or web address] Information not available 09/21/2024 How Many Years [...] anxious, or unable to sleep at night)? [id number] Information not available 03/16/2024 Do you have [...] Recorded Time zoster recombinant 4 completed Errol May null, [employer] 04/29/2024 13:39:09 pneumococcal polysaccharide PPV23 4 completed Errol May null, [employer] 04/29/2024 13:39:09 zoster recombinant 5 completed Errol May null, [employer] 06/29/2024 10:04:53 Tdap 5 completed Mary Khan NP [address] [place] [address], [address], [employer] 08/10/2024 15:11:36 Hep A, adult 8 completed Errol Nacho null, [employer] 06/29/2024 09:42:10 Past Encounters Encounter ID Performer Location Encounter Start Date Encounter Closed Date Diagnosis/Indication Diagnosis SNOMED-CT Code Diagnosis ICD10 Code Diagnosis Note [id number] Mary Khan NP [facility] [address] [place] [address] 09/07/2024 15:50:06 09/07/2024 17:14:02 Prediabetes 324203871 R73.03 Essential hypertension 10163684 I10 continue meds as prescribed . Hypothyroidism 73702704 E03.9 Generalize d chronic body pains 668663235 G89.29 Vitamin D deficiency 347 22980 E55.9 Screening for cardiovascular system disease 133191856 Z13.6 11.1% lifetime ASCVD Risk Discussed with patient Chronic low back pain 27 3497009 M54.50 Continue f/u with Dr. Beck at pain management . Body mass index 40+ - severely obese 742401323 Z68.41 Discussed weight loss and healthy diet and exercise. Recommende d food diary with [employer]. Recommende d pool exercises at [facility]. Patient voiced understand ing. [id number] Mary Khan NP [facility] - [address] [address] 09/21/2024 15:30:08 09/21/2024 16:34:31 Pain of left knee joint 5159815076 27571 M25.562 keep appt with pain mgmt. Desire thyroiditis 21 673004 E06.3 continue medication as prescribed . Essential hypertension 83547651 I10 continue meds as prescribed . Health Concerns Section Related Observation LastModified by Organization Detai ls LastModified Time None Recorded Concern Status LastModified by Organization Details LastModified Time None Recorded Payers Encounter Date Sequence Insurance Name Policy Number Policy Green Covered Member ID Green Member ID Guarantor Name 09/21/2024 1 [employer] (MEDICAID REPLACEMENT - HMO) Saritha Moody [id number] Saritha Moody Notes Date Note Type Note Provider Name and Address Organization Details Recorded Time 09/21/2024 text/html Patient presente d to clinic [...] for today's visit. Mary Khan NP [address] [place], [address], [facility] - [employer] 09/21/2024 16:16:11 OBGyn Episode No OBEpisode recorded.
--- NOTE | 2024-11-02 08:00 | MR_ITS ---
FINAL REPORT CLINICAL HISTORY: knee pain posterior knee pain x1 month pops weakness swelling and no injury FINDINGS: Multi planar MR imaging was performed of the left knee. The anterior and posterior cruciate ligaments are intact. The quadriceps and patellar tendons are intact. There is a large degenerative tear of the posterior horn of the medial meniscus. On coronal imaging, there is a linear full-thickness tear which extends into the anterior horn. The lateral meniscus is intact. The medial and lateral collateral ligaments appear intact. The medial and lateral retinacula appear intact. There is an osteochondral defect along the lateral facet of the patella, measuring 9 mm in size. There is narrowing of the lateral articular facet of the patellofemoral joint. There is also a 7 mm osteochondral defect in the medial femoral condyle, and a third in the medial tibial plateau measuring 8 mm in size. There is a well-corticated ossific signal focus measuring 8 mm in size, posterior to the posterior cruciate ligament, that likely represents an intra-articular loose body. No evidence of soft tissue inflammatory reaction. IMPRESSION: Large degenerative tear of the posterior horn of the medial meniscus, which extends into the anterior horn. Multiple osteochondral defects are present with diffuse cartilage thinning. Well-corticated ossific signal focus, 8 mm in size, that likely represents an intra-articular loose body. Reviewed, Interpreted and Dictated by Wm Knox MD Transcribed by Anali Hernandez Authenticated and . [facility]
== END 2024-11-02 23:59 | disposition home or self-care (01) ==
LOC: RAD 07:48
PROVIDERS: PCP Physician Assistant Surgical; Visit Provider Physician Assistant Surgical
DX: S83.242A Other tear of medial meniscus, current injury, left knee, initial encounter (principal); M21.962 Unspecified acquired deformity of left lower leg; R93.6 Abnormal findings on diagnostic imaging of limbs
CPT/HCPCS: 73721

== ENCOUNTER 2024-11-17 12:44 | Outpatient (CLI) | payer MEDICAID, SELFPAY ==
--- OUTSIDE RECORDS SUMMARY | 2024-11-17 12:46 | XMS_ITS | Clinical Summary ---
Author Organization Healthcare Address [address] [place] [id number] Care Team Providers Care Student Assistant Name Role Phone Moriah Morgan APRN Unavailable [phone] Mark Cid MD Primary Care Provider [phone] Allergies No known active allergies Medications traZODone [...] MINUTES PRE-EXERCISE 2 Active ergocalciferol 1.25 MG (72774 UT) capsule Take 1 capsule by mouth [...] Date Last Done Comments [facility]-Depression Screening 1967 [facility]-/Child/Adol SDOH Screenings 1967 [facility]- SDOH Screenings 1985 [...] 2017 [facility]-Zoster Vaccines (1 of 2) 2017 [id number] Vaccine (1 - 20 24-25 season) 2024 [...] patient's age to complete this topic Insurance [employer] Care Teams Student Assistant Relationship Specialty Start Date End Date Mark Cid MD [address] [place] [address] PCP - General 10/11/21 Moriah Morgan APRN [address] [facility] [address] [place] [address] Nurse Practitioner Neurosurgery 10/11/21
--- OUTSIDE RECORDS SUMMARY | 2024-11-17 12:46 | XMS_ITS | Continuity of Care Document ---
Author Organization [facility] New Address [address] [place] [address] Care Team Providers Care Online Communications Manager Name Role Phone GWYN EDWARD Primary Care Provider GWYN EDWARD Referring Provider [phone] GWYN EDWARD Primary Care Provider Assessment Encounter Date Assessment Date Assessment LastModified by Organization Details LastModified Time 09/23/2024 09/23/2024 This patient had therapeutic left SI joint injection under fluoroscopy today. She usually does very well with these with 80% relief for 3 months or more. We had moved up her spinal cord stimulator implant to October 28. Patient is not on any Anticoagulatio n. We will see her back in 2 to 3 weeks for follow-up this will be her preop visit. We will assess efficacy of this left SI joint injection. Will reevaluate her symptoms at that time. [facility]ux Not available 09/23/2024 09:15:40 Plan of Treatment Reminders Order Date Submit Date Provider Last Modified By Organization Details Last Modified Time Details Appointments Follow Up 2024 09:50A Foreign Beck MD Not available Not available Not available Lab None recorded . Referral None recorded . Procedures None recorded . Surgeries None recorded . Imaging None recorded . Medication Orders None recorded . Patient TargetsNo targets recorded. Patient InstructionsNo instructions recorded. Reason for Referral None Reported. Results Created Date Observation Date Name Description Value Unit Range Abnormal Flag Note LastModifiedBy Organization Detail LastModifiedTime 11/05/19 25 MRI, knee, w/o contr ast No observ ation record ed. [email or web address] Not Available 2024 12:43:14 Result Notes None recorded. Problems Name Problem SNOMED Code Status Onset Date Resolution Date Notes Provider Name and Address Organization Details Recorded Time Pain of right shoulder joint 8393562022316 9100 Active 2023 Dionte Beck MD [address], [address], [place] [facility] 4 11:01:26 Osteoarthri tis of left knee joint 2121691065178 09 Active 2023 Dionte Beck MD [address], [address], [place] [facility] 4 11:01:26 Pain of left knee joint 8476965222264 07 Active 2023 Dionte Beck MD [address], [address], [place] [facility] 4 11:01:29 Full thickness rotator cuff tear 061298025 Active 2023 Dionte Beck MD [address], [address], [place] [facility] 4 11:27:54 Trochanteri c bursitis of right hip 5384809207122 00 Active 2023 Elvi Cuevas NP [address] [facility],[address], [address], [place] [facility] 4 13:48:06 Cervical radiculopat hy 72255400 Active 2023 Elvi Cuevas NP [address], [address], [place] [facility] 4 10:41:02 Degeneratio n of cervical interverteb ral disc 87249451 Active 2023 Elvi Cuevas NP [address], [address], [place] [facility] 4 10:41:22 Lumbar radiculopat hy 436970055 Active 2024 Dionte Beck MD [address], [address], [place] [facility] 5 21:33:00 Inflammatio n of sacroiliac joint 99309105 Active 2024 Dionte Beck MD [address], [address], [place] [facility] 5 09:16:39 Acute meniscal tear, medial 784266987 Active 2024 Dionte Beck MD [address], [address], [place] [facility] 5 20:42:28 Edema of lower extremity 896053044 Active Chapis stamper null, [place] [facility] 3 08:29:39 Pain in lower limb 50233262 Active Chapis stamper null, [place] [facility] 3 08:29:40 Bilateral spider veins of lower limbs 5808649861870 9105 Active Chapis stamper null, [place] [facility] 3 08:29:40 Bilateral earache 551446058 Active Chapis stamper null, [place] [facility] 3 08:29:40 Asthma 703247629 Active Chapis stamper null, [place] [facility] 3 08:29:40 Sciatica 82294952 Active Chapis stamper null, [place] [facility] 3 08:29:40 Venous insufficien cy of leg 065946539 Active Chapis stamper null, [place] [facility] 3 08:29:40 Obese abdomen 527124760 Active Chapis stamper null, [place] [facility] 3 08:29:40 Dislocation of temporomand ibular joint 400184018 Active Chapis stamper null, [place] [facility] 3 08:29:40 History of Disorder 076126300 Active Chapis stamper null, [place] [facility] 3 08:29:40 Restless legs 91113963 Active Chapis stamper null, [place] [facility] 3 08:29:40 Depressive disorder 89748222 Active Chapis stamper null, [place] [facility] 3 08:29:40 Arthritis 1334876 Active Chapis stamper null, [place] [facility] 3 08:29:40 Hypertensiv e disorder 29969017 Active Chapis stamper null, [place] [facility] 3 08:29:40 Body mass index 40+ - severely obese 751570783 Active Chapis stamper null, [place] [facility] 3 08:29:40 Hypothyroid ism 64520443 Active Chapis stamper null, [place] [facility] 3 08:29:40 Obesity 170134165 Active Chapis stamper null, [place] [facility] 3 08:29:40 Varicose veins of lower extremity 37062438 Active Chapis stamper null, [place] [facility] 3 08:29:40 Sleep apnea 95329522 Active Chapis stamper null, [place] [facility] 3 08:29:40 Degeneratio n of interverteb ral disc 08780126 Active Chapis stamper null, [place] [facility] 3 08:29:40 Lumbar spondylosis 234752883 Active 2022 Sayda Herrera null, [place] [facility] 3 13:33:44 Degeneratio n of lumbar interverteb ral disc 29477814 Active 2022 Dionte Beck MD [address], [address], [place] [facility] 3 17:00:40 Arthropathy of lumbar facet joint 367692998 Active 2022 Dionte Beck MD [address], [address], [place] [facility] 3 17:00:41 Problem Notes None recorded. Procedures Surgical History Date Name Laterality Status Provider Name and Address Organization Details Recorded Time 09/24/19 25 Therapeutic SI Joint Injection Under Fluoroscopy completed Dionte Beck MD [address],[place] [address] [place] [address], [address], [place] [facility] 09/23/2024 09:14:32 08/14/19 25 SCS Trial completed Dionte Beck MD [address],[place] [address] [place] [address], [address], [place] [facility] 08/13/2024 17:47:06 07/16/19 25 Peripheral nerve stimulator Knee completed Dionte Beck MD [address], [address], [place] [facility] 07/16/2024 12:19:53 06/18/19 25 Lumbar YOLANDA: Interlaminar completed Dionte Beck MD [address] [facility],[address], [address], [place] [facility] 06/18/2024 20:47:41 05/22/19 25 Peripheral nerve block completed Dionte Beck MD [address], [address], [place] [facility] 05/22/2024 23:56:27 03/19/20 24 Cervical Epidural Steroid Injection Under Fluoroscopy completed Dionte Beck MD [address], [address], [place] [facility] 03/19/2024 11:04:19 02/19/20 24 Greater Trochanteric Bursa Steroid Injection completed Dionte Beck MD [address], [address], [place] [facility] 02/19/2024 13:04:59 02/13/20 24 Diagnostic SI Joint Injection Under Fluoroscopy completed Dionte Beck MD [address], [address], [place] [facility] 02/13/2024 12:34:47 07/24/19 24 Genicular Nerve Block completed Dionte Beck MD [address] [address] [place] [address], [address], [place] [facility] 07/24/2023 23:15:00 05/27/19 24 Knee Joint Injection completed Dionte Beck MD [address], [place], [address], [place] [facility] 05/27/2023 18:20:07 04/19/20 23 Lumbar YOLANDA: Interlaminar completed SHIRLEYIRIS MAGAÑA [place] [facility] 03/26/2023 09:21:47 02/29/20 23 Medial Epicondyle Injection completed Dionte Beck MD [address] MAR[address] [facility], [place], [address], [place] [facility] 02/28/2023 21:56:28 02/14/20 23 BILAT 2LVL LUMBAR RFA completed Dionte Beck MD [address], [place], [address], [place] [facility] 02/13/2023 17:15:10 12/19/19 23 Diagnostic Lumbar MBB: 2 Level Bilateral completed Dionte Beck MD [address],[place] [address] [address] [place] [address], [address], [place] [facility] 12/18/2022 16:59:24 11/23/19 23 Diagnostic Lumbar MBB: 2 Level Bilateral completed Dionte Beck MD [address],[place] [address] [place] [address], [address], [place] [facility] 11/22/2022 [...] Available Not Available Not Available [facility] COVID-19 Antigen Rapid Home Test kit 09/23 [...] Updated DateTime 5 162.56 cm 41.2 kg/m2 075078. 17 g 78 /min 98 % 98 % 128 mm[Hg] 86 mm[Hg] SHIRLEY MAGAÑA [place] [facility] 5 08:10:30 Social History Question Answer Notes LastModified by Organizat ion Details LastModified Time Tobacco Smoking Status Never Smoker [facility] [place] [facility] 09/27/2022 08:30:43 [...] Do You Have A Medical Power Of Hydrometeorological Technician? No Information not available 09/27/2022 Sex: Female [...] N Depression N COPD N Anemia N Heart Attack ([place]) N Ulcers N Diabetes N Anxiety Disorder N Bleeding [...] SNOMED-CT Code Diagnosis ICD10 Code Diagnosis Note [id number] Dionte Beck MD [address] [place] [address] 09/16/2024 10:22:20 09/16/2024 11:57:07 Pain in lower limb 88249963 M79.606 Edema of l ower extremity 773353258 R60.0 Bilateral spider veins of lower limbs 5507025813 7654183 I78.1 Lumbar radiculopathy 128 705852 M54.16 Arthritis 8755660 M19.90 Arthropath y of lumbar facet joint 210962209 M47.816 Cervical radiculopathy 89633511 M54.12 Degenerati on of cervical intervertebral disc 08861379 M50.30 Degenerati on of intervertebral disc 33829903 M51.9 Degenerati on of lumbar intervertebral disc 75629088 M51.369 Osteoarthr itis of left knee joint 4721478544 87713 M17.12 Pain of le ft knee joint 0253843996 76092 M25.562 Trochanter ic bursitis of right hip 2454545716 29993 M70.61 Inflammati on of sacroiliac joint 88907740 M46.1 [id number] Dionte Beck MD [address] [place] [address] 09/23/2024 08:08:40 09/23/2024 09:02:08 Arthritis 6372893 M19.90 Lumbar spondylosis 55999 0009 M47.896 Arthropath y of lumbar facet joint 853116257 M47.816 Asthma 090223910 J45.90 9 Cervical radiculopathy 10420142 M54.12 Degenerati on of cervical intervertebral disc 50227209 M50.30 Degenerati on of intervertebral disc 41683519 M51.9 Degenerati on of lumbar intervertebral disc 96280199 M51.369 Depressive disorder 3548 9007 F32.A Trochanter ic bursitis of right hip 0072339529 78942 M70.61 Pain of ri ght shoulder joint 9863029073 9896742 M25.511 Pain of le ft knee joint 0972598028 20286 M25.562 Osteoarthr itis of left knee joint 9587754882 24245 M17.12 Pain in lower limb 53068 006 M79.606 Inflammati on of sacroiliac joint 81233848 M46.1 Health Concerns Section Related Observation LastModified by Organization Detai ls LastModified Time None Recorded Concern Status LastModified by Organization Details LastModified Time None Recorded Payers Encounter Date Sequence Insurance Name Policy Number Policy Green Covered Member ID Green Member ID Guarantor Name 09/23/2024 1 [employer] [place] (MEDICAID REPLACEMENT - HMO) Saritha Moody [id number] Saritha Moody Notes Date Note Type Note Provider Name and Address Organization Details Recorded Time 09/23/2024 text/html Low back painReported bypatient.Onset:gr adual [...] in pain/symptoms Daily Activities:Living independently.;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 Dionte Beck MD [address], [address], [facility] 09/23/2024 09:17:29 OBGyn Episode No OBEpisode recorded.
--- OUTSIDE RECORDS SUMMARY | 2024-11-17 12:47 | XMS_ITS | Continuity of Care Document ---
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 She is doing well after SI joint injections. She also continues on gabapentin 300 mg 3 times a day and meloxicam 15 mg once a day. She was given a 3-month prescription at her last appointment in September.She does have some new left knee pain we did follow-up on her MRI it does appear that she has a large degenerative tear of the posterior horn of the medial meniscus which extends into the anterior horn. She is scheduled to see her orthopedic surgeon next week. We Will follow-up with her in 1 month. Daljit and drug screen are all appropriate. Pain score is a 6 out of 10. Her left knee is swollen and she does have an antalgic gait. She also is approved for her spinal cord stimulator placement which is scheduled to be in December. Patient had to reschedule her prior surgery appointment because her daughter had a stroke. Patient was on tramadol which was not helping. abux Not available 11/04/2024 20:46:29 Plan of Treatment Reminders Order Date Submit [...] Modified By Organization Details Last Modified Time 11/04/2024 [id number] leg pain: care instructions abux Not available 11/04/2024 20:45:27 Reason for Referral None Reported. Results Created Date Observation Date Name Description Value Unit Range Abnormal Flag Note LastModifiedBy Organization Detail LastModifiedTime 11/05/19 25 MRI, knee, w/o contr ast No observ ation record ed. [email or web address] Not Available 2024 12:43:14 Result Notes None recorded. Problems Name Problem SNOMED Code Status Onset Date Resolution Date Notes Provider Name and Address Organization Details Recorded Time Pain of right shoulder joint 1076634318417 9100 Active 2023 Dionte Beck MD [address] [facility],[address], [address], [place] [facility] 4 11:01:26 Osteoarthri tis of left knee joint 2137364359270 09 Active 2023 Dionte Beck MD [address] ,[place] [address] [place] [address], [address], [place] [facility] 4 11:01:26 Pain of left knee joint 9798274936952 07 Active 2023 Dionte Beck MD [address] [facility],[address], [address], [place] [facility] 4 11:01:29 Full thickness rotator cuff tear 361050859 Active 2023 Dionte Beck MD [address],[place] [address] [place] [address], [address], [place] [facility] 4 11:27:54 Trochanteri c bursitis of right hip 3852801250936 00 Active 2023 Elvi Cuevas NP [address] ,[place] [address] [place] [address], [address], [place] [facility] 4 13:48:06 Cervical radiculopat 94457097 Active 2023 Elvi Cuevas, [employer] [address] ,[place], [place], [address], [place] [facility] 4 10:41:02 Degeneratio n of cervical interverteb ral disc 93308305 Active 2023 Elvi Cuevas, [employer] [address], [place], [address], [place] [facility] 4 10:41:22 Lumbar radiculopat hy 868329320 Active 2024 Dionte Beck MD [address] ,[place] [address], [place], [address], [place] [facility] 5 21:33:00 Inflammatio n of sacroiliac joint 39069795 Active 2024 Dionte Beck MD [address] ,[place] [address], [place], [address], [place] [facility] 5 09:16:39 Acute meniscal tear, medial 800288338 Active 2024 Dionte Beck MD [address] ,[place], [place], [address], [place] [facility] 5 20:42:28 Edema of lower extremity 804047705 Active [facility] null, [place] [facility] 3 08:29:39 Pain in lower limb 83843392 Active [facility] null, [place] [facility] 3 08:29:40 Bilateral spider veins of lower limbs 0674890578319 9105 Active [facility] [place], [place] [facility] 3 08:29:40 Bilateral earache 228430350 Active [facility] [place] [facility] 3 08:29:40 Asthma 862841057 Active [facility] [place], [place] [facility] 3 08:29:40 Sciatica 66495403 Active [facility] [place] [facility] 3 08:29:40 Venous insufficien cy of leg 034460507 Active [facility] [place], [place] [facility] 3 08:29:40 Obese abdomen 523893369 Active [facility] [place], [place] [facility] 3 08:29:40 Dislocation of temporomand ibular joint 515473192 Active [facility] [place], [place] [facility] 3 08:29:40 History of Disorder 106391004 Active [facility] [place], [place] [facility] 3 08:29:40 Restless legs 33423023 Active [facility] [place] [facility] 3 08:29:40 Depressive disorder 26003316 Active [facility] [place] [facility] 3 08:29:40 Arthritis 0131690 Active [facility] [place] [facility] 3 08:29:40 Hypertensiv e disorder 65789535 Active [facility] [place] [facility] 3 08:29:40 Body mass index 40+ - severely obese 064537367 Active [facility] [place] [facility] 3 08:29:40 Hypothyroid ism 15995574 Active [facility] [place] [facility] 3 08:29:40 Obesity 739239464 Active [facility] [place] [facility] 3 08:29:40 Varicose veins of lower extremity 78030106 Active [facility] [place] [facility] 3 08:29:40 Sleep apnea 87744693 Active [facility] [place] [facility] 3 08:29:40 Degeneratio n of interverteb ral disc 25678994 Active [facility] [place] [facility] 3 08:29:40 Lumbar spondylosis 983045292 Active 2022 Sayda Herrera null, [place] [facility] 3 13:33:44 Degeneratio n of lumbar interverteb ral disc 05926534 Active 2022 Dionte Beck MD [address],[place], [place], [address], [place] [facility] 3 17:00:40 Arthropathy of lumbar facet joint 085938927 Active 2022 Dionte Beck MD [address],[place] [address] [place] [address], [address], [place] [facility] 3 17:00:41 Problem Notes None recorded. Procedures Surgical History Date Name Laterality Status Provider Name and Address Organization Details Recorded Time 09/24/19 25 Therapeutic SI Joint Injection Under Fluoroscopy completed Dionte Beck MD [address] [facility],[address], [address], [place] [facility] 09/23/2024 09:14:32 08/14/19 25 SCS Trial completed Dionte Beck MD [address] [facility],[place] [address] [place] [address], [address], [place] [facility] 08/13/2024 17:47:06 07/16/19 25 Peripheral nerve stimulator Knee completed Dionte Beck MD [address],[place] [address] [place] [address], [address], [place] [facility] 07/16/2024 12:19:53 06/18/19 25 Lumbar YOLANDA: Interlaminar completed Dionte Beck MD [address],[place] [address] [place] [address], [address], [place] [facility] 06/18/2024 20:47:41 05/22/19 25 Peripheral nerve block completed Dionte Beck MD [address],[place] [address] [place] [address], [address], [place] [facility] 05/22/2024 23:56:27 03/19/20 24 Cervical Epidural Steroid Injection Under Fluoroscopy completed Dionte Beck MD [address],[place] [address] [place] [address], [address], [place] [facility] 03/19/2024 11:04:19 02/19/20 24 Greater Trochanteric Bursa Steroid Injection completed Dionte Beck MD [address], [address], [place] [facility] 02/19/2024 13:04:59 02/13/20 24 Diagnostic SI Joint Injection Under Fluoroscopy completed Dionte Beck MD [address], [address], [place] [facility] 02/13/2024 12:34:47 07/24/19 24 Genicular Nerve Block completed Dionte Beck MD [address], [address], [place] [facility] 07/24/2023 23:15:00 05/27/19 24 Knee Joint Injection completed Dionte Beck MD [address], [address], [place] [facility] 05/27/2023 18:20:07 04/19/20 23 Lumbar YOLANDA: Interlaminar completed SHIRLEY MAGAÑA [place] [facility] 03/26/2023 09:21:47 02/29/20 23 Medial Epicondyle Injection completed Dionte Beck MD [address], [address], [place] [facility] 02/28/2023 21:56:28 02/14/20 23 BILAT 2LVL LUMBAR RFA completed Dionte Beck MD [address], [address], [place] [facility] 02/13/2023 17:15:10 12/19/19 23 Diagnostic Lumbar MBB: 2 Level Bilateral completed Dionte Beck MD [address], [address], [place] [facility] 12/18/2022 16:59:24 11/23/19 23 Diagnostic Lumbar MBB: 2 Level Bilateral completed Dionte Beck MD [address], [address], [place] [facility] 11/22/2022 [...] completed Not Available Not Available Not Available [facility] COVID-19 Antigen Rapid Home Test kit 09/23 [...] rate Body mass index (BMI) Body weight Oxygen saturation Oxygen saturation in Arterial blood by Pulse oximetry Systolic blood pressure Diastolic blood pressure Provider Name and Address Organization Details Last Updated DateTime 5 162.56 cm 78 /min 18 /min 41.2 kg/m2 597388. 17 g 98 % 98 % 126 mm[Hg] 86 mm[Hg] Feli Srivastava [place] [facility] 5 09:17:49 Social History Question Answer Notes LastModified by Organizat ion Details LastModified Time Tobacco Smoking Status Never Smoker [facility] [place] [facility] 09/27/2022 [...] Do You Have A Medical Power Of Road Marker? No Information not available 09/27/2022 Sex: Female [...] N COPD N Anemia N Heart Attack (IN) N Ulcers N Diabetes N Anxiety Disorder [...] SNOMED-CT Code Diagnosis ICD10 Code Diagnosis Note [id number] TAMMI SHARMA NP [address] [place] [address] 10/13/2024 12:58:24 10/13/2024 13:19:35 Pain in lower limb 72995565 M79.606 Edema of l ower extremity 863537030 R60.0 Bilateral spider veins of lower limbs 0682614995 4563184 I78.1 Lumbar radiculopathy 128 120275 M54.16 Arthritis 0677429 M19.90 [id number] Dionte Beck MD [address] [place] [address] 11/04/2024 09:13:58 11/04/2024 10:15:35 Edema of lower extremity 285741753 R60.0 Pain in lower limb 47960 006 M79.606 Lumbar radiculopathy 128 731083 M54.16 Bilateral spider veins of lower limbs 6004140124 8017845 I78.1 Pain of ri ght shoulder joint 6258434235 8417199 M25.511 Bilateral earache 841039 003 H92.03 Sciatica 23064195 M54.30 Lumbar spondylosis 92735 0009 M47.896 Degenerati on of lumbar intervertebral disc 92918002 M51.369 Arthropath y of lumbar facet joint 501683737 M47.816 Cervical radiculopathy 98090198 M54.12 Degenerati on of cervical intervertebral disc 38667929 M50.30 Degenerati on of intervertebral disc 58961250 M51.9 Trochanter ic bursitis of right hip 8701737572 96368 M70.61 Acute meni scal tear, medial 245145658 S83.232A Arthritis 9638443 M19.90 Health Concerns Section Related Observation LastModified by Organization Detai ls LastModified Time None Recorded Concern Status LastModified by Organization Details LastModified Time None Recorded Payers Encounter Date Sequence Insurance Name Policy Number Policy Green Covered Member ID Green Member ID Guarantor Name 11/04/2024 1 [facility] (MEDICAID REPLACEMENT - HMO) Saritha Moody [id number] Saritha Moody Notes Date Note Type Note Provider Name and Address Organization Details Recorded Time 11/04/2024 text/html Low back painReported bypatient.Onset:gr adual onset [...] in pain/symptoms Daily Activities:Living independently.;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 Dionte Beck MD [address], [address], [place] [facility] 11/04/2024 20:46:40 OBGyn Episode No OBEpisode recorded.
--- OUTSIDE RECORDS SUMMARY | 2024-11-17 12:47 | XMS_ITS | Patient Health Record ---
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 Name Role Phone COOPER DAVIS Primary Care Provider [phone] Reason For Referral No Information Medications Medication SIG (Take, Route, Frequency, Duration) Notes Start Date End Date Status Nasonex 50 mcg/inh 1 (one) spray nasal nasal once a day for thirty 08/24/2013 Active Synthroid 75 mcg (0.075 mg) 1 (one) tablet(s) or oral once a day for thirty 03/10/2014 Active Omeprazole 20 mg 1 (one) tablet(s) or orally once a day for thirty 03/10/2014 Active Zoloft 25 mg 1 (one) tablet(s) or oral once a day for thirty 03/10/2014 Active Ibuprofen 400 mg 1 (one) tablet(s) or oral 2 times a day for one 09/23/2013 Active Tamiflu 75 mg 1 (one) capsule oral oral once a day for seven 03/10/2014 Active Meloxicam 7.5 mg for thirty 05/18/2014 Active Paxil 20 mg 1 (one) tablet(s) or oral once a day for one 08/10/2013 Active Lisinopril-hydroCHLOROthi azide 12.5 mg-10 mg 1 (one) tablet(s) or oral once a day for thirty 03/10/2014 Active Claritin 10 mg 1 (one) tablet(s) or oral once a day for thirty 10/21/2013 Active Problems Problem Type SNOMED Code ICD Code Onset Dates Problem Status W/U Status Risk Notes Problem Hypothyroidism (69657680) Unspecified hypothyroidism (244.9) 08/11/19 14 Active confirmed [facility] Problem Benign essential hypertension (4453251) Essential hypertension, benign (401.1) 08/11/19 14 Active confirmed [facility] Problem Joint pain (68355762) Pain in joint, site unspecified (719.40) 08/11/19 14 Active confirmed [facility] Problem Right upper quadrant pain (579747193) Abdominal pain, right upper quadrant (789.01) 08/11/19 14 Active confirmed [facility] Problem Obesity (423115461) Obesity, unspecified (E66.9) 03/10/20 14 Active confirmed [facility] Problem Dysthymia (68186909) Dysthymic disorder (F34.1) 03/10/20 14 Active confirmed [facility] Problem Gastro-esophageal reflux disease without esophagitis (084987547) Gastro-esophageal reflux disease without esophagitis (K21.9) 03/10/20 14 Active confirmed [facility] Plan Of Treatment No Information Insurance Providers Payer Name Payer Address Payer Phone Subscriber Number Group Number Insured Name Patient Relationship to Insured Coverage Start Date Coverage End Date [facility] [address] [place] [address] [id number] Saritha Moody Self - patient is the insured
--- OUTSIDE RECORDS SUMMARY | 2024-11-17 12:47 | XMS_ITS | Encounter Summary ---
Author Organization Healthcare Address [address] [place] [address] Care Team Providers Care Field Return Repairer Name Role Phone Moriah Morgan APRN Unavailable [phone] Mark Cid MD Primary Care Provider [phone] Reason for Referral * Consultation (Routine) - Closed Specialty Diagnoses / Procedures Referred By Contac t Referred To Contact Neurosurgery Diagnoses Lumbar radiculopathy Melanie Dc PA [address] [place] [address] Phone: tel: fax: Referral ID Status Reason Start Date Expiration Date V isits Requested Visits Authorized [id number] Closed Specialty Services Required 09/12/2021 03/14/2023 1 1 Encounter Details Date Type Department Care Team (Latest Contact Info) Description 09/12/2021 [facility] [address] [place] [address] Melanie Dc PA [address] [place] [address] Lumbar radiculopathy (Primary Dx) Social History Tobacco [...] unspecified documented in this encounter Care Teams Field Return Repairer Relationship Specialty Start Date End Date Mark Cid MD [address] [place] [address] PCP - General 10/11/21 Moriah Morgan APRN [address] [place] [id number] Nurse Practitioner Neurosurgery 10/11/21 documented as of this encounter
--- OUTSIDE RECORDS SUMMARY | 2024-11-17 12:47 | XMS_ITS | Data Portability ---
Author Organization [facility] [employer] [place] - MSE Address [address] [place] [address] Assessment No assessment recorded. Plan of Treatment Reminders Order Date Submit Date Provider Last Modified By Organization Details Last Modified Time Details Appointments FOLLOW UP 2024 11:30A M Mary Khan NP Not available Not available Not available FOLLOW UP 15 2024 08:30A M Mary Khan NP Not available Not available Not available Lab HbA1c (hemoglob in A1c), blood 2024 025 [facility], [address] [place] [address], [place], [address], 11/11/2024 14:38:53 urinalysi s, dipstick 2024 025 [email or web address] [facility], [address] [place] [address], [place], [address], 11/05/2024 13:29:15 culture, urine 2024 025 [facility] ([place]), [facility] [place], [address], 11/07/2024 03:06:45 vitamin D, 25-hydrox y, total, serum 2024 025 YANA [facility] ([place]), [facility] [place], [address], 09/09/2024 11:11:51 HbA1c (hemoglob in A1c), blood 2024 025 [facility], [address] [facility], [place], [address], 09/07/2024 17:09:41 CBC w/ auto diff 2024 025 [facility] ([place]), [address] [facility], [place], [address], 09/09/2024 11:11:50 CMP, serum or plasma 2024 025 [facility] ([place]), [address] [facility], [place], [address], 09/09/2024 11:11:50 TSH + free T4, serum 2024 025 [facility] ([place]), [address] [facility], [place], [address], 09/09/2024 11:11:49 thyroid peroxidas e (tpo) Ab, serum 2024 025 [facility] ([place]), [address] [facility], [place], [address], 09/09/2024 11:11:52 Hepatitis C IgG Ab, qual, serum 2024 025 [facility] ([place]), [address] [facility], [place], [address], 08/11/2024 08:13:44 HIV 1 + 2, meaningfu l use set 2024 025 [facility] ([place]), [address] [facility], [place], [address], 08/11/2024 08:13:45 rapid SARS CoV 2 Ag, QL, [place], upper respirato ry specimen 2024 025 [facility], [address] [facility], [place], [address], 08/10/2024 14:33:08 rapid flu (A+B) [email or web address] [place] [address], [address] [facility], [place], [address], 08/10/2024 14:33:08 vitamin D, 25-hydrox y, total, serum 2024 025 [facility]), [address] [place], [address], 08/11/2024 08:13:44 HbA1c (hemoglob in A1c), blood 2024 025 [facility], [address] [place], [address], 08/10/2024 14:55:36 CMP, serum or plasma 2024 025 [facility]), [address] [place], [address], 08/11/2024 08:13:43 CBC w/ auto diff 2024 025 [facility]), [address] [place], [address], 08/11/2024 08:13:42 TSH + free T4, serum 2024 025 [facility]), [address] [place], [address], 08/11/2024 08:13:42 Referral None recorded. Procedures None recorded. Surgeries None recorded. Imaging XR, kidney + ureter + bladder 2024 025 [facility], [address] [facility], [place], [address], 11/05/2024 17:19:06 Medication Orders Linzess 72 mcg capsule 2024 025 [facility], [address] [place] [address], [address], 11/11/2024 15:06:42 atorvasta tin 10 mg tablet 2024 025 [facility], [address] [place] [address], [address], 11/11/2024 15:06:42 Trelegy Ellipta 100 mcg-62.5 mcg-25 mcg powder for inhalatio n 2024 025 [facility], [address] [place] [address], [address], 11/11/2024 14:51:35 Ventolin HFA 90 mcg/actua tion aerosol inhaler 2024 025 [facility], [address] [place] [address], [address], 11/11/2024 14:51:34 ciproflox acin 250 mg tablet 2024 025 [facility], [address] [place] [address], [address], 11/11/2024 14:41:25 phenazopy ridine 100 mg tablet 2024 025 [facility], [address] [place] [address], [address], 11/11/2024 14:41:25 atorvasta tin 10 mg tablet 2024 025 [facility], [address] [place] [address], [address], 09/07/2024 17:14:31 cefdinir 300 mg capsule 2024 025 [facility], [address] [place] [address], [address], 09/07/2024 16:03:51 Patient TargetsNo targets recorded. Patient Instructions Encounter Date Encounter Id Patient Instructions Last Modified By Organization Details Last Modified Time 08/10/2024 [id number] tetanus and diphtheria booster: care instructions Not available 08/10/2024 14:33:08 cough: care instructions Not available 08/10/2024 14:33:08 chronic obstructive pulmonary disease (COPD): care instructions Not available 08/10/2024 14:33:08 learning about copd and how to prevent lung infections Not available 08/10/2024 14:33:08 type 2 diabetes: care instructions Not available 08/10/2024 14:33:08 hypothyroidism: care instructions Not available 08/10/2024 14:33:07 09/07/2024 [id number] body mass index: care instructions Not available 09/07/2024 17:09:51 learning about healthy weight Not available 09/07/2024 17:09:51 high blood pressure: care instructions Not available 09/07/2024 16:38:24 learning about high blood pressure Not available 09/07/2024 16:38:24 hypothyroidism: care instructions Not available 09/07/2024 16:38:24 09/21/2024 [id number] desire's thyroiditis: care instructions Not available 09/21/2024 16:15:47 high blood pressure: care instructions Not available 09/21/2024 16:15:47 learning about high blood pressure Not available 09/21/2024 16:15:47 11/11/2024 [id number] learning about type 2 diabetes Not available 11/11/2024 14:38:53 type 2 diabetes: care instructions Not available 11/11/2024 14:38:53 Reason for Referral None Reported. Results Created Date Observation Date Name Description Value Unit Range Abnormal Flag Note LastModifiedBy Organization Detail LastModifiedTime 08/11/1908/11/2024 TSH+F REE T4 TSH 0.589 uIU/m L 0.450- 4.500 normal Not Available [facility] ([facility]) [address] [place], [address], 08/11/2024 08:13:42 08/11/1908/11/2024 TSH+F REE T4 T4,free(dire ct) 1.42 NG/dL 0.82-1 .77 normal Not Available [facility] ([facility]) [address] [facility], [place], [address], 08/11/2024 08:13:42 08/11/1908/11/2024 CBC WITH DIFFE RENTI AL/PL ATELE T WBC 9.4 x10e3 /uL 3.4-10 .8 normal Not Available [facility] ([facility]) [address] [facility], [place], [address], 08/11/2024 08:13:42 08/11/1908/11/2024 CBC WITH DIFFE RENTI AL/PL ATELE T RBC 5.01 x10e6 /uL 3.77-5 .28 normal Not Available [facility] ([facility]) [address] [place], [address], 08/11/2024 08:13:42 08/11/1908/11/2024 CBC WITH DIFFE RENTI AL/PL ATELE T hemoglobin 15.0 g/dL 11.1-1 5.9 normal Not Available [facility] ([facility]) [address] [place], [address], 08/11/2024 08:13:42 08/11/1908/11/2024 CBC WITH DIFFE RENTI AL/PL ATELE T hematocrit 45.8 % 34.0-4 6.6 normal Not Available [facility] ([facility]) [address] [place], [address], 08/11/2024 08:13:42 08/11/1908/11/2024 CBC WITH DIFFE RENTI AL/PL ATELE T MCV 91 fL 79-97 normal Not Available [facility] ([facility]) [address] [facility], [place], [address], 08/11/2024 08:13:42 08/11/1908/11/2024 CBC WITH DIFFE RENTI AL/PL ATELE T MCH 29.9 pg 26.6-3 3.0 normal Not Available [facility] ([facility]) [address] [facility], [place], [address], 08/11/2024 08:13:42 08/11/1908/11/2024 CBC WITH DIFFE RENTI AL/PL ATELE T MCHC 32.8 g/dL 31.5-3 5.7 normal Not Available [facility] ([facility]) [address] [facility], [place], [address], 08/11/2024 08:13:42 08/11/1908/11/2024 CBC WITH DIFFE RENTI AL/PL ATELE T RDW 12.8 % 11.7-1 5.4 Not Available [facility] ([facility]) [address] [place], [address], 08/11/2024 08:13:42 08/11/1908/11/2024 CBC WITH DIFFE RENTI AL/PL ATELE T platelets 286 x10e3 /uL 150-45 0 normal Not Available [facility] ([facility]) [address] [place], [address], 08/11/2024 08:13:42 08/11/1908/11/2024 CBC WITH DIFFE RENTI AL/PL ATELE T neutrophils 60 % not estab. normal Not Available [facility] ([facility]) [address] [place], [address], 08/11/2024 08:13:42 08/11/1908/11/2024 CBC WITH DIFFE RENTI AL/PL ATELE T lymphs 29 % not estab. normal Not Available [facility] ([facility]) [address] [place], [address], 08/11/2024 08:13:42 08/11/1908/11/2024 CBC WITH DIFFE RENTI AL/PL ATELE T monocytes 7 % not estab. normal Not Available [facility] ([facility]) [address] [place], [address], 08/11/2024 08:13:42 08/11/1908/11/2024 CBC WITH DIFFE RENTI AL/PL ATELE T eos 3 % not estab. normal Not Available [facility] ([facility]) [address] [place], [address], 08/11/2024 08:13:42 08/11/1908/11/2024 CBC WITH DIFFE RENTI AL/PL ATELE T basos 1 % not estab. normal Not Available [facility] ([facility]) [address] [place], [address], 08/11/2024 08:13:42 08/11/1908/11/2024 CBC WITH DIFFE RENTI AL/PL ATELE T immature cells [employer]PER Not Available [facility] ([facility]) [address] [place], [address], 08/11/2024 08:13:42 08/11/1908/11/2024 CBC WITH DIFFE RENTI AL/PL ATELE T neutrophils (absolute) 5.7 x10e3 /uL 1.4-7. 0 normal Not Available [facility] ([facility]) [address] [place], [address], 08/11/2024 08:13:42 08/11/1908/11/2024 CBC WITH DIFFE RENTI AL/PL ATELE T lymphs (absolute) 2.7 x10e3 /uL 0.7-3. 1 normal Not Available [facility] ([facility]) [address] [place], [address], 08/11/2024 08:13:42 08/11/1908/11/2024 CBC WITH DIFFE RENTI AL/PL ATELE T monocytes(ab solute) 0.7 x10e3 /uL 0.1-0. 9 normal Not Available [facility] ([facility]) [address] [facility], [place], [address], 08/11/2024 08:13:42 08/11/1908/11/2024 CBC WITH DIFFE RENTI AL/PL ATELE T eos (absolute) 0.3 x10e3 /uL 0.0-0. 4 normal Not Available [facility] ([facility]) [address] [place], [address], 08/11/2024 08:13:42 08/11/1908/11/2024 CBC WITH DIFFE RENTI AL/PL ATELE T baso (absolute) 0.1 x10e3 /uL 0.0-0. 2 normal Not Available [facility] ([facility]) [address] [place], [address], 08/11/2024 08:13:42 08/11/1908/11/2024 CBC WITH DIFFE RENTI AL/PL ATELE T immature granulocytes 0 % not estab. Not Available [facility] ([facility]) [address] [place], [address], 08/11/2024 08:13:42 08/11/1908/11/2024 CBC WITH DIFFE RENTI AL/PL ATELE T immature grans (abs) 0.0 x10e3 /uL 0.0-0. 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 METAB OLIC PANEL (14) glucose 116 mg/dL 70-99 above high normal Not Available [facility] ([facility]) [address] [facility], [place], [address], 08/11/2024 08:13:43 08/11/1908/11/2024 COMP. METAB OLIC PANEL (14) BUN 13 mg/dL 6-24 normal Not Available [facility] ([facility]) [address] [facility], [place], [address], 08/11/2024 08:13:43 08/11/1908/11/2024 COMP. METAB OLIC PANEL (14) creatinine 0.72 mg/dL 0.57-1 .00 normal Not Available [facility] ([facility]) [address] [facility], [place], [address], 08/11/2024 08:13:43 08/11/1908/11/2024 COMP. METAB OLIC PANEL (14) eGFR 97 mL/mi n/1.7 3 >59 normal Not Available [facility] ([facility]) [address] [facility], [place], [address], 08/11/2024 08:13:43 08/11/1908/11/2024 COMP. METAB OLIC PANEL (14) BUN/creatini ne ratio 18 9-23 normal Not Available [facility] ([facility]) [address] [facility], [place], [address], 08/11/2024 08:13:43 08/11/1908/11/2024 COMP. METAB OLIC PANEL (14) sodium 138 mmol/ L 134-14 4 normal Not Available [facility] ([facility]) [address] [facility] [place], [address], 08/11/2024 08:13:43 08/11/1908/11/2024 COMP. METAB OLIC PANEL (14) potassium 4.2 mmol/ L 3.5-5. 2 normal Not Available [facility] ([facility]) [address] [facility] [place], [address], 08/11/2024 08:13:43 08/11/1908/11/2024 COMP. METAB OLIC PANEL (14) chloride 106 mmol/ L 96-106 normal Not Available [facility] ([facility]) [address] [facility] [place], [address], 08/11/2024 08:13:43 08/11/1908/11/2024 COMP. METAB OLIC PANEL (14) carbon dioxide, total 19 mmol/ L 20-29 below low normal Not Available [facility] ([facility]) [address] [place], [address], 08/11/2024 08:13:43 08/11/1908/11/2024 COMP. METAB OLIC PANEL (14) calcium 9.5 mg/dL 8.7-10 .2 normal Not Available [facility] ([facility]) [address] [place], [address], 08/11/2024 08:13:43 08/11/1908/11/2024 COMP. METAB OLIC PANEL (14) protein, total 6.5 g/dL 6.0-8. 5 normal Not Available [facility] ([facility]) [address] [facility] [place], [address], 08/11/2024 08:13:43 08/11/1908/11/2024 COMP. METAB OLIC PANEL (14) albumin 4.2 g/dL 3.8-4. 9 normal Not Available [facility] ([facility]) [address] [place], [address], 08/11/2024 08:13:43 08/11/19 25 08/11/2024 COMP. METAB OLIC PANEL (14) globulin, total 2.3 g/dL 1.5-4. 5 Not Available [facility] ([facility]) [address] [place], [address], 08/11/2024 08:13:43 08/11/19 25 08/11/2024 COMP. METAB OLIC PANEL (14) bilirubin, total 0.3 mg/dL 0.0-1. 2 normal Not Available [facility] ([facility]) [address] [place], [address], 08/11/2024 08:13:43 08/11/19 25 08/11/2024 COMP. METAB OLIC PANEL (14) alkaline phosphatase 102 IU/L 44-121 normal Not Available [facility] ([facility]) [address] [place], [address], 08/11/2024 08:13:43 08/11/19 25 08/11/2024 COMP. METAB OLIC PANEL (14) AST (SGOT) 24 IU/L 0-40 normal Not Available [facility] ([facility]) [address] [place], [address], 08/11/2024 08:13:43 08/11/19 25 08/11/2024 COMP. METAB OLIC PANEL (14) ALT (SGPT) 30 IU/L 0-32 normal Not Available [facility] ([facility]) [address] [place], [address], 08/11/2024 08:13:43 08/11/19 25 08/11/2024 HCV ANTIB TANVIR RFX TO QUANT PCR HCV Ab Non Reacti ve non reacti ve Not Available [facility] ([facility]) [address] [facility], [place], [address], 08/11/2024 08:13:44 08/11/1908/11/2024 HCV ANTIB TANVIR RFX TO QUANT PCR interpretati on: Commen t Not infec mansoor with HCV unles s early or acute infec tion is suspe cted (whic h may be delay ed in an immun ocomp romis ed indiv idual ), or other evide nce exist s to indic ate HCV infec tion. Not Available [facility] ([facility]) [address] [facility], [place], [address], 08/11/2024 08:13:44 08/11/1908/11/2024 VITAM IN D, 25-HY [...] IOM (Inst itute of Medic ine). 2009. Sasha ry refer ence intlorena es for calci um and D. Yuly roman [place]: The [facility]io [facility] Press . 2. Cinthya mariee [place], Jose Manuel ey [place], Jyoti off-F errar i WHITE, et al. Evalu ation , treat ment, and preve ntion of vitam in D defic iency : an Endoc rine Socie ty clini jose pract ice guide line. JCEM. 2010; 96(7) :1911 -30. Not Available [facility] ([facility]) [address] [facility], [place], [address], 08/11/2024 08:13:44 08/11/1908/11/2024 HIV AB/P2 4 AG WITH REFLE X HIV Ab/P24 Ag screen Non Reacti ve non reacti ve HIV Negat marco HIV-1 /HIV- 2 antib odies and HIV-1 p24 antig en were NOT detec mansoor. There is no labor atory evide nce of HIV infec tion. Not Available [facility] ([facility]) [address] [facility], [place], [address], 08/11/2024 08:13:45 08/11/19 25 08/10/2024 HbA1c (hemo globi n A1c), blood HbA1c 5.7 Not Available [address], [address], 08/10/2024 14:23:10 08/11/19 25 08/10/2024 rapid SARS CoV 2 Ag, QL, [place], upper respi rator y speci men SARS CoV Ag negati ve Not Available [facility] [address] [place] [address], [address], 08/10/2024 14:04:55 08/11/19 25 08/10/2024 rapid flu (A+B) Flu A negati ve Not Available [address], [address], 08/10/2024 14:05:04 08/11/19 25 08/10/2024 rapid flu (A+B) Flu B negati ve Not Available [address], [address], 08/10/2024 14:05:04 09/08/19 25 09/07/2024 HbA1c (hemo globi n A1c), blood HbA1c 6.0 Not Available [address], [address], 09/07/2024 16:09:36 09/09/19 25 09/09/2024 TSH+F REE T4 TSH 1.010 uIU/m L 0.450- 4.500 normal Not Available [facility] ([facility]) [address] [place], [address], 09/09/2024 11:11:49 09/09/19 25 09/09/2024 TSH+F REE T4 T4,free(dire ct) 1.33 NG/dL 0.82-1 .77 normal Not Available [facility] ([facility]) [address] [place], [address], 09/09/2024 11:11:49 09/09/19 25 09/09/2024 CBC WITH DIFFE RENTI AL/PL ATELE T WBC 12.2 x10e3 /uL 3.4-10 .8 above high normal Not Available [facility] ([facility]) [address] [place], [address], 09/09/2024 11:11:49 09/09/19 25 09/09/2024 CBC WITH DIFFE RENTI AL/PL ATELE T RBC 4.64 x10e6 /uL 3.77-5 .28 normal Not Available [facility] ([facility]) [address] [place], [address], 09/09/2024 11:11:49 09/09/19 25 09/09/2024 CBC WITH DIFFE RENTI AL/PL ATELE T hemoglobin 14.0 g/dL 11.1-1 5.9 normal Not Available [facility] ([facility]) [address] [place], [address], 09/09/2024 11:11:49 09/09/19 25 09/09/2024 CBC WITH DIFFE RENTI AL/PL ATELE T hematocrit 43.5 % 34.0-4 6.6 normal Not Available [facility] ([facility]) [address] [place], [address], 09/09/2024 11:11:49 09/09/19 25 09/09/2024 CBC WITH DIFFE RENTI AL/PL ATELE T MCV 94 fL 79-97 normal Not Available [facility] ([facility]) [address] [facility], [place], [address], 09/09/2024 11:11:49 09/09/19 25 09/09/2024 CBC WITH DIFFE RENTI AL/PL ATELE T MCH 30.2 pg 26.6-3 3.0 normal Not Available [facility] ([facility]) [address] [facility], [place], [address], 09/09/2024 11:11:49 09/09/19 25 09/09/2024 CBC WITH DIFFE RENTI AL/PL ATELE T MCHC 32.2 g/dL 31.5-3 5.7 normal Not Available [facility] ([facility]) [address] [facility], [place], [address], 09/09/2024 11:11:49 09/09/19 25 09/09/2024 CBC WITH DIFFE RENTI AL/PL ATELE T RDW 13.8 % 11.7-1 5.4 Not Available [facility] ([facility]) [address] [facility], [place], [address], 09/09/2024 11:11:49 09/09/19 25 09/09/2024 CBC WITH DIFFE RENTI AL/PL ATELE T platelets 305 x10e3 /uL 150-45 0 normal Not Available [facility] ([facility]) [address] [facility], [place], [address], 09/09/2024 11:11:49 09/09/19 25 09/09/2024 CBC WITH DIFFE RENTI AL/PL ATELE T neutrophils 64 % not estab. normal Not Available [facility] ([facility]) [address] [place], [address], 09/09/2024 11:11:49 09/09/19 25 09/09/2024 CBC WITH DIFFE RENTI AL/PL ATELE T lymphs 27 % not estab. normal Not Available [facility] ([facility]) [address] [facility], [place], [address], 09/09/2024 11:11:49 09/09/19 25 09/09/2024 CBC WITH DIFFE RENTI AL/PL ATELE T monocytes 7 % not estab. normal Not Available [facility] ([facility]) [address] [facility], [place], [address], 09/09/2024 11:11:49 09/09/19 25 09/09/2024 CBC WITH DIFFE RENTI AL/PL ATELE T eos 1 % not estab. normal Not Available [facility] ([facility]) [address] [facility], [place], [address], 09/09/2024 11:11:49 09/09/19 25 09/09/2024 CBC WITH DIFFE RENTI AL/PL ATELE T basos 1 % not estab. 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 0 above high normal Not Available [facility] ([facility]) [address] [place], [address], 09/09/2024 11:11:49 09/09/19 25 09/09/2024 CBC WITH DIFFE RENTI AL/PL ATELE T lymphs (absolute) 3.2 x10e3 /uL 0.7-3. 1 above high normal Not Available [facility] ([facility]) [address] [place], [address], 09/09/2024 11:11:49 09/09/19 25 09/09/2024 CBC WITH DIFFE RENTI AL/PL ATELE T monocytes(ab solute) 0.9 x10e3 /uL 0.1-0. 9 normal Not Available [facility] ([facility]) [address] [place], [address], 09/09/2024 11:11:49 09/09/19 25 09/09/2024 CBC WITH DIFFE RENTI AL/PL ATELE T eos (absolute) 0.2 x10e3 /uL 0.0-0. 4 normal Not Available [facility] ([facility]) [address] [place], [address], 09/09/2024 11:11:49 09/09/19 25 09/09/2024 CBC WITH DIFFE RENTI AL/PL ATELE T baso (absolute) 0.1 x10e3 /uL 0.0-0. 2 normal Not Available [facility] ([facility]) [address] [place], [address], 09/09/2024 11:11:49 09/09/19 25 09/09/2024 CBC WITH DIFFE RENTI AL/PL ATELE T immature granulocytes 0 % not estab. Not Available [facility] ([facility]) [address] [place], [address], 09/09/2024 11:11:49 09/09/19 25 09/09/2024 CBC WITH DIFFE RENTI AL/PL ATELE T immature grans (abs) 0.0 x10e3 /uL 0.0-0. 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 METAB OLIC PANEL (14) glucose 62 mg/dL 70-99 below low normal Not Available [facility] ([facility]) [address] [place], [address], 09/09/2024 11:11:50 09/09/19 25 09/09/2024 COMP. METAB OLIC PANEL (14) BUN 20 mg/dL 6-24 normal Not Available [facility] ([facility]) [address] [place], [address], 09/09/2024 11:11:50 09/09/19 25 09/09/2024 COMP. METAB OLIC PANEL (14) creatinine 0.59 mg/dL 0.57-1 .00 normal Not Available [facility] ([facility]) [address] [place], [address], 09/09/2024 11:11:50 09/09/19 25 09/09/2024 COMP. METAB OLIC PANEL (14) eGFR 105 mL/mi n/1.7 3 >59 normal Not Available [facility] ([facility]) [address] [place], [address], 09/09/2024 11:11:50 09/09/19 25 09/09/2024 COMP. METAB OLIC PANEL (14) BUN/creatini ne ratio 34 9-23 above high normal Not Available [facility] ([facility]) [address] [facility] [place], [address], 09/09/2024 11:11:50 09/09/19 25 09/09/2024 COMP. METAB OLIC PANEL (14) sodium 143 mmol/ L 134-14 4 normal Not Available [facility] ([facility]) [address] [facility] [place], [address], 09/09/2024 11:11:50 09/09/19 25 09/09/2024 COMP. METAB OLIC PANEL (14) potassium 4.7 mmol/ L 3.5-5. 2 normal Not Available [facility] ([facility]) [address] [facility] [place], [address], 09/09/2024 11:11:50 09/09/19 25 09/09/2024 COMP. METAB OLIC PANEL (14) chloride 103 mmol/ L 96-106 normal Not Available [facility] ([facility]) [address] [facility] [place], [address], 09/09/2024 11:11:50 09/09/19 25 09/09/2024 COMP. METAB OLIC PANEL (14) carbon dioxide, total 22 mmol/ L 20-29 normal Not Available [facility] ([facility]) [address] [facility] [place], [address], 09/09/2024 11:11:50 09/09/19 25 09/09/2024 COMP. METAB OLIC PANEL (14) calcium 9.5 mg/dL 8.7-10 .2 normal Not Available [facility] ([facility]) [address] [facility] [place], [address], 09/09/2024 11:11:50 09/09/19 25 09/09/2024 COMP. METAB OLIC PANEL (14) protein, total 6.5 g/dL 6.0-8. 5 normal Not Available [facility] ([facility]) [address] [facility] [place], [address], 09/09/2024 11:11:50 09/09/19 25 09/09/2024 COMP. METAB OLIC PANEL (14) albumin 4.2 g/dL 3.8-4. 9 normal Not Available [facility] ([facility]) [address] [facility] [place], [address], 09/09/2024 11:11:50 09/09/19 25 09/09/2024 COMP. METAB OLIC PANEL (14) globulin, total 2.3 g/dL 1.5-4. 5 Not Available [facility] ([facility]) [address] [facility] [place], [address], 09/09/2024 11:11:50 09/09/19 25 09/09/2024 COMP. METAB OLIC PANEL (14) bilirubin, total 0.2 mg/dL 0.0-1. 2 normal Not Available [facility] ([facility]) [address] [facility] [place], [address], 09/09/2024 11:11:50 09/09/19 25 09/09/2024 COMP. METAB OLIC PANEL (14) alkaline phosphatase 106 IU/L 44-121 normal Not Available [facility] ([facility]) [address] [facility] [place], [address], 09/09/2024 11:11:50 09/09/19 25 09/09/2024 COMP. METAB OLIC PANEL (14) AST (SGOT) 19 IU/L 0-40 normal Not Available [facility] ([facility]) [address] [facility] [place], [address], 09/09/2024 11:11:50 09/09/19 25 09/09/2024 COMP. METAB OLIC PANEL (14) ALT (SGPT) 30 IU/L 0-32 normal Not Available [facility] ([facility]) [address] [facility], [place], [address], 09/09/2024 11:11:50 09/09/19 25 09/09/2024 VITAM IN [...] Medic ine). 2010. Dieta ry refer ence intak es for calci um and D. Yuly roman [place]: [facility] . 2. Cinthya mariee MF, Jose Manuel sheridan [place], Jyoti off-F errar i WHITE, et al. Evalu ation , treat ment, and preve ntion of vitam in D defic iency : an Endoc rine Socie ty clini jose pract ice guide line. JCEM. 2010; 96(7) :1911 -30. Not Available [facility] ([facility]) [address] [facility], [place], [address], 09/09/2024 11:11:51 09/09/19 25 09/09/2024 THYRO ID PEROX IDASE (TPO) AB thyroid peroxidase (tpo) Ab 170 IU/mL 0-34 above high normal Not Available [facility] ([facility]) [address] [facility], [place], [address], 09/09/2024 11:11:52 11/06/19 25 11/07/2024 URINE CULTU RE, ROUTDaxa NE urine culture, routine Final report Not Available [facility] ([facility]) [address] [facility], [place], [address], 11/07/2024 03:06:45 11/06/19 25 11/07/2024 URINE CULTU RE, ROUTI NE result 1 No growth Not Available [facility] ([facility]) [address] [facility], [place], [address], 11/07/2024 03:06:45 11/06/19 25 11/05/2024 urina lysis , dipst ick Leukocytes Negati ve Not Available [address], [place], [address], 11/05/2024 13:01:19 11/06/19 25 11/05/2024 urina lysis , dipst ick Nitrite negati ve Not Available [address], [place], [address], 11/05/2024 13:01:19 11/06/19 25 11/05/2024 urina lysis , dipst ick Urobilinogen .2 Not Available [address], [place], [address], 11/05/2024 13:01:19 11/06/19 25 11/05/2024 urina lysis , dipst ick Protein Negati ve Not Available [address], [place], [address], 11/05/2024 13:01:19 11/06/19 25 11/05/2024 urina lysis , dipst ick pH 6.5 Not Available [address], [place], [address], 11/05/2024 13:01:19 11/06/19 25 11/05/2024 urina lysis , dipst ick Blood Negati ve Not Available [address], [place], [address], 11/05/2024 13:01:19 11/06/1911/05/2024 urina lysis , dipst ick Specific Liberal 1.015 Not Available [address], [place], [address], 11/05/2024 13:01:19 11/06/19 25 11/05/2024 urina lysis , dipst ick Ketone Negati ve Not Available [address], [place], [address], 11/05/2024 13:01:11/06/1911/05/2024 urina lysis , dipst ick Bilirubin Negati ve Not Available [address], [place], [address], 11/05/2024 13:01:11/06/1911/05/2024 urina lysis , dipst ick Glucose Negati ve Not Available [address], [place], [address], 11/05/2024 13:01:11/06/1911/05/2024 urina lysis , dipst ick Appearance Slight ly Cloudy Not Available [address], [place], [address], 11/05/2024 13:01:11/06/1911/05/2024 urina lysis , dipst ick Color Yellow Not Available [address], [place], [address], 11/05/2024 13:01:11/12/19 25 11/11/2024 HbA1c (hemo globi n A1c), blood HbA1c 5.8 Not Available [address], [place], [address], 11/11/2024 14:26:50 11/06/19 25 XR, kidne y + urete r + bladd er No observ ation record ed. [email or web address] [facility] - [address], [place], [address], 11/06/2024 12:23:47 11/12/19 25 MRI, knee, w/o contr ast No observ ation record ed. [email or web address] Not Available 2024 14:28:03 Result Notes None recorded. Problems Name Problem SNOMED Code Status Onset Date Resolution Date Notes Provider Name and Address Organization Details Recorded Time Chronic obstructive pulmonary disease 35413178 Active 2023 Mary Khan NP [address] [place] [address], [address] 8, [employer] 4 14:19:16 Acute exacerbatio n of chronic obstructive pulmonary disease 944114797 Active 2023 Mary Khan NP [address] [place] [address], 82233-105 8, [employer] 4 14:31:26 Acute sinusitis 87281796 Active 2023 Mary Khan NP [address] [place] [address], 526[address]-075 8, [employer] 4 11:11:39 Essential hypertensio n 69373063 Active 2023 Mary Khan NP [address] [place] [address], 09927-251 8, [employer] 5 16:15:40 Fatigue 65567229 Active 2023 Mary Khan NP [address] [place] [address], 528[address] 8, [employer] 4 10:40:53 Acute back pain with sciatica 591233260 Active 2023 Mary Khan NP [address] [place] [address], 48[address]379 8, [employer] 4 10:42:24 Hypothyroid ism 53214065 Active 2023 Mary Khan NP [address] [place] [address], 149[address]576 8, [employer] 4 11:16:52 Nicotine dependence 73376095 Active 2023 Mary Khan NP [address] [place] [address], 93431-760 8, [employer] 4 11:20:48 Type 2 diabetes mellitus without complicatio n 480954062 Active 2023 Mary Khan NP [address] [place] [address], 62979-946 8, [employer] 4 15:54:53 Vitamin D deficiency 44825819 Active 2023 Mary Khan NP [address] [place] [address], 03816-447 8, [employer] 4 16:03:26 Laboratory test result abnormal 662140746 Active 2023 Mary Khan NP [address] [place] [address], 59968-129 8, [employer] 4 10:35:37 Polyuria 45559350 Active 2023 Mary Khan NP [address] [place] [address], 91924-823 8, [employer] 4 10:26:36 Hyperlipide chana 05703628 Active 2023 Mary Khan NP [address] [place] [address], 84566-925 8, [employer] 4 08:20:26 Restless legs 95448634 Active 2023 Mary Khan NP [address] [place] [address], 86995-576 8, [employer] 4 08:38:05 Desire thyroiditis 72820174 Active 2024 Mary Khan NP [address] [place] [address], 42892-861 8, [employer] 5 16:15:10 Seasonal allergy 818472506 Active 2024 Mary Khan NP [address] [place] [address], 05003-249 8, [employer] 5 09:50:44 Acute bilateral otitis media 267161671 Active 2024 Mary Khan NP [address] [place] [address], 13026-247 8, [employer] 5 14:21:55 Prediabetes 286955731 Active 2024 Mary Khan NP [address] [place] [address], 12602-984 8, [employer] 5 16:09:26 Generalized chronic body pains 088066308 Active 2024 Mary Khan NP [address] [place] [address], 87[address]-582 8, [employer] 5 16:33:44 Chronic low back pain 812236509 Active 2024 Mary Khan NP [address] [place] [address], 85647-950 8, [employer] 5 17:07:21 Pain of left knee joint 0634395815343 07 Active 2024 Mary Khan NP [address] [place] [address], 93342-699 8, [employer] 16:14:21 Anxiety 59157789 Active 2024 Mary Khan NP [address] [place] [address], 25[address]-723 8, [employer] 5 10:57:43 Dysuria 20247143 Active 2024 Gaby Nazario PA-C [address] [place] [address], 71741-660 8, [employer] 5 13:27:35 Spasm of urinary bladder 519913051 Active 2024 Gaby Nazario PA-C [address] [place] [address], 29209-132 8, [employer] 13:27:44 Suprapubic pain 117419602 Active 2024 Gaby Nazario PA-C [address] [place] [address], 67593-376 8, [employer] 13:27:58 Constipatio n 39445393 Active 2024 Gaby Nazario PA-C [address] [place] [address], 30144-251 8, [employer] 12:24:01 Irritable bowel syndrome characteriz ed by sun da silva 867674948 Active 2024 Mary Khan NP [address] [place] [address], 99206-602 8, [employer] 14:22:17 Type 2 diabetes mellitus 81282334 Active 2024 Mary Khan NP [address] [place] [address], 05094-433 8, [employer] 14:26:43 Problem Notes None recorded. Procedures Surgical History Date Name Laterality Status Provider Name and Address Organization Details Recorded Time 03/16/20 Most Recent Mammogram completed Sayda Alfaro [employer] 03/18/2024 14:58:58 Tonsillectomy completed [employer] 03/02/2024 13:52:34 Partial Hysterectomy completed [employer] 03/02/2024 13:52:42 manipulation of displaced nasal septum completed [employer] 03/02/2024 13:52:53 procedure on shoulder completed [employer] 03/02/2024 13:53:00 operative procedure on knee completed [employer] 03/02/2024 13:53:10 Imaging Results None recorded. Procedure [...] by transder mal route for 30 days. 11/05 completed Not Available Not Available Not Available cetirizin e 10 mg tablet Take 1 tablet every day by oral route for 30 days. active Not Available Not Available No t Available atorvasta tin 10 mg tablet TAKE ONE TABLET BY MOUTH EVERY DAY active Not Available Not Available No t Available benzonata te 200 mg capsule 03/16 completed Not Available Not Available Not Available hydrocodo ne 5 mg-acetam inophen 325 mg tablet TAKE 1 TABLET BY MOUTH EVERY 4 HOURS NEEDED FOR POST OPERATIV E PAIN 03/02 completed Not Available Not Available Not Available meloxicam 15 mg tablet active Not Available Not Available Not Available prednison e 20 mg tablet 11/05 completed Not Available Not Available Not Available ciproflox acin 250 mg tablet TAKE ONE TABLET BY MOUTH EVERY TWELVE HOURS 11/11 completed Not Available Not Available Not Available sulfameth [...] completed Not Available Not Available Not Available phenazopy ridine 100 mg tablet TAKE ONE TABLET BY MOUTH THREE TIMES DAILY FOR FOUR DAYS 11/11 completed Not Available Not Available Not Available doxycycli ne monohydra te 100 mg capsule 03/02 completed Not Available Not Available Not Available levothyro xine 125 mcg tablet TAKE 1 TABLET EVERY DAY BY ORAL ROUTE 08/10 completed Not Available Not Available Not Available hydrochlo rothiazid e 12.5 mg capsule TAKE 1 TABLET EVERY DAY BY ORAL ROUTE 11/11 completed Not Available Not Available Not Available gabapenti n 300 mg capsule TAKE [...] completed Not Available Not Available Not Available polyethyl matt glycol 3350 17 gram/dose oral powder FILL THE LID TO THE WHITE LINE AND MIX WITH 8 OUNCES OF WATER OR JUICE AND DRINK 1 TIME A DAY 11/11 completed Not Available Not Available Not Available [...] Flovent HFA 220 mcg/actua tion aerosol inhaler 11/11 completed Not Available Not Available Not Available [...] completed Not Available Not Available Not Available Linzess 72 mcg capsule TAKE ONE CAPSULE BY MOUTH EVERY DAY active Not Available Not Available No t Available Trelegy Ellipta 100 mcg-62.5 mcg-25 mcg powder for inhalatio n Inhale 1 puff every day by inhalati on route for 30 days. 2024 active Not Available Not Available Not Avai lable [facility] COVID-19 Antigen Rapid Home Test kit 03/16 [...] Updated DateTime 5 162.56 cm 42.9 kg/m2 869038. 09 g 98.3 [degF] 85 /min 96 % 96 % 115 mm[Hg] 65 mm[Hg] [employer] 5 13:39:24 Date Recorded Body height Body mass index (BMI) Body weight Body temperature Heart rate Oxygen saturation Oxygen saturation in Arterial blood by Pulse oximetry Provider Name and Address Organization Details Last Updated DateTime 5 162.56 cm 44.1 kg/m2 893265. 24 g 97.8 [degF] 77 /min 97 % 97 % [employer] 5 16:01:07 Date Recorded Body height Body mass index (BMI) Body weight Body temperature Heart rate Oxygen saturation Oxygen saturation in Arterial blood by Pulse oximetry Systolic blood pressure Diastolic blood pressure Provider Name and Address Organization Details Last Updated DateTime 5 162.56 cm 43.3 kg/m2 012661. 28 g 98.7 [degF] 72 /min 97 % 97 % 138 mm[Hg] 73 mm[Hg] [employer] 5 15:44:10 Date Recorded Body height Body mass index (BMI) Body weight Body temperature Heart rate Oxygen saturation Oxygen saturation in Arterial blood by Pulse oximetry Systolic blood pressure Diastolic blood pressure Provider Name and Address Organization Details Last Updated DateTime 5 162.56 cm 43.7 kg/m2 620469. 26 g 97.8 [degF] 77 /min 96 % 96 % 105 mm[Hg] 70 mm[Hg] Samson Andrade [employer] 5 13:00:46 Date Recorded Body height Body mass index (BMI) Body weight Body temperature Heart rate Oxygen saturation Oxygen saturation in Arterial blood by Pulse oximetry Systolic blood pressure Diastolic blood pressure Provider Name and Address Organization Details Last Updated DateTime 162.56 cm 43.8 kg/m2 175293. 05 g 97.5 [degF] 73 /min 98 % 98 % 136 mm[Hg] 83 mm[Hg] Errol Griffith [employer] 14:12:00 Social History Question Answer Notes LastModified by Organizat ion Details LastModified Time Tobacco Smoking Status Current Every Day Smoker [employer] 03/02/2024 13:50:47 Do You Have An Advance [...] Information not available 03/02/2024 What Type Of Boiler Tenders Supervisor Do You Use? None Information not available [...] Or The Highest Degree You Have Received? [id number] Information not available 03/16/2024 How Many Days [...] Do You Have A Medical Power Of Head Of [employer]? No Information not available 03/02/2024 What Was The Date Of Your Most Recent Tobacco Screening? 11/11/2024 [email or web address] Information not available 11/11/2024 Have You Ever Been Counseled For Unhealthy [...] What Date Was Tobacco Cessation Counseling Provided? 11/11/2024 [email or web address] Information not available 11/11/2024 How Many Years Have You Smoked Tobacco? [...] anxious, or unable to sleep at night)? [id number] Information not available 03/16/2024 Do you have difficulty concentrating, remembering or making decisions? No Information no t available 03/02/2024 Are you or have you been involved with bullying? No Information not available 04/20/2024 Family History Relationship Description Onset Age of this Age Resolved Age Notes LastModified by Organization Details LastModified Time Father No current problems or disability Not available 10/21 /2024 10:35:19 Mother No current problems or disability [...] zoster recombinant 4 completed Errol Nacho null, [employer] 04/29/2024 13:39:09 pneumococcal polysaccharide PPV23 4 completed Errol Nacho null, [employer] 04/29/2024 13:39:09 zoster recombinant 5 completed Errol Farwell null, [employer] 06/29/2024 10:04:53 Tdap 5 completed Mary Khan NP [address] [place] [address], [address], [facility] [employer] 08/10/2024 15:11:36 Hep A, adult 8 completed Errol temple [facility] [employer] 06/29/2024 09:42:10 Past Encounters Encounter ID Performer Location Encounter Start Date Encounter Closed Date Diagnosis/Indication Diagnosis SNOMED-CT Code Diagnosis ICD10 Code Diagnosis Note [id number] Mary Khan NP [address] [address] 03/02/2024 13:06:42 03/02/2024 14:42:22 Screening mammography 29326530 Z12.31 Cough 44164662 R05.9 Chronic ob structive pulmonary disease 56826932 J44.9 Acute exac erbation of chronic obstructive pulmonary disease 628606461 J44.1 [id number] Mary Khan NP [address] [address] 03/09/2024 10:05:21 03/09/2024 11:09:10 Cough 32451368 R05.9 Essential hypertension 97181877 I10 Patient to keep bp log and return to clinic in 2 weeks Acute sinusitis 88607185 J01.90 [id number] Mary Khan NP [address] [address] 03/16/2024 09:14:07 03/16/2024 11:11:48 Adult health examination 441200478 Z00.00 Hyperlipid emia screening 253751821 Z13.220 Fatigue 57104699 R53.83 Acute back pain with sciatica 441420901 M54.42 Chronic ob structive pulmonary disease 38086580 J44.9 Stop flovent and start trelegy Screening colonoscopy 44 4362262 Z12.11 Hypothyroidism 15346776 E03.9 Continue levothyrox ine as prescribed Essential hypertension 09139028 I10 Continue losartan and hctz as prescribed Nicotine dependence 5629 4008 F17.733 [id number] Mary Khan NP [facility] [address] [address] 03/18/2024 14:52:16 03/18/2024 15:31:47 Type 2 diabetes mellitus without complication 201690384 E11.9 Hypothyroidism 04459010 E03.9 Vitamin D deficiency 347 48069 E55.9 stop vitamin D3 25 mcg Nicotine dependence 5629 4008 F17.738 [id number] Mary Khan NP [address] [address] 03/30/2024 08:31:06 03/30/2024 09:01:50 Essential hypertension 51878151 I10 Continue losartan Type 2 shreya betes mellitus without complication 690046525 E11.9 [facility] denied. Body mass index 40+ - severely obese 095296682 Z68.41 [id number] Mary Khan NP [address] [address] 04/20/2024 08:49:23 04/20/2024 10:45:24 Body mass index 40+ - severely obese 618694611 Z68.41 Discussed weight loss and healthy diet and exercise. Recommende d food diary with [employer] kaylee. Patient voiced understand ing. Laboratory test result abnormal 903275942 R89.9 Discussed elevated ferritin. Will repeat labwork at next appt. Hypothyroidism 68450444 E03.9 Pt. states thinks she has Hashimotos , but is unsure. Will repeat lab work at next appt to include, TPO [id number] Mary Khan NP [address] [address] 04/29/2024 08:56:15 04/29/2024 11:40:29 Screening for malignant neoplasm of cervix 311514461 Z12.4 Type 2 shryea betes mellitus without complication 153425798 E11.9 Administra tion of viral vaccine 14867347 Z23 Polyuria 72976902 R35.89 Administra tion of pneumococcal vaccine 49128444 Z23 [id number] Mary Khan NP [address] [address] 05/18/2024 07:58:59 05/18/2024 08:50:58 Type 2 diabetes mellitus without complication 825484380 E11.9 Hyperlipidemia 93240061 E78.5 Hypothyroidism 60469801 E03.9 Restless legs 24490899 G 25.81 Essential hypertension 91314014 I10 Continue losartan [id number] Mary Khan [address] [address] 06/01/2024 08:25:43 06/01/2024 09:01:39 Herpes zoster vaccination given 1225639330 89249 Z23 [id number] Mary Khan [address] [address] 2 06/29/2024 09:30:45 06/29/2024 11:05:55 Herpes zoster vaccination given 2153457637 84268 Z23 [id number] Mary Khan [address] [address] 08/10/2024 13:26:42 08/10/2024 14:51:37 Cough 47029174 R05.9 Acute bila teral otitis media 518463639 H66.93 Type 2 shreya betes mellitus without complication 285503750 E11.9 Hypothyroidism 07011225 E03.9 Vitamin D deficiency 347 57001 E55.9 Chronic ob structive pulmonary disease 03482224 J44.9 Viral screening 40147798 4 Z11.59 Administra tion of diphtheria, pertussis, and tetanus vaccine 728140099 Z23 [id number] Mary Khan [address] [address] 09/07/2024 15:50:06 09/07/2024 17:14:02 Prediabetes 805809517 R73.03 Essential hypertension 99986320 I10 continue meds as prescribed . Hypothyroidism 16983380 E03.9 Generalize d chronic body pains 483792830 G89.29 Vitamin D deficiency 347 32879 E55.9 Screening for cardiovascular system disease 339706656 Z13.6 11.1% lifetime ASCVD Risk Discussed with patient Chronic low back pain 27 8240482 M54.50 Continue f/u with Dr. Beck at pain management . Body mass index 40+ - severely obese 665991642 Z68.41 Discussed weight loss and healthy diet and exercise. Recommende d food diary with [employer] kaylee. Recommende d pool exercises at [facility]. Patient voiced understand ing. [id number] Mary Khan NP [address] [address] 09/21/2024 15:30:08 09/21/2024 16:34:31 Pain of left knee joint 1380625689 69201 M25.562 keep appt with pain mgmt. Desire thyroiditis 21 895047 E06.3 continue medication as prescribed . Essential hypertension 37966753 I10 continue meds as prescribed . [id number] Gaby Nazario PA-C [address] [address] 11/05/2024 12:42:43 11/05/2024 13:50:09 Dysuria 05980145 R30.0 Spasm of u rinary bladder 660200590 N32.89 Suprapubic pain 29722752 6 R10.2 [id number] Mary Khan NP [address] [address] 11/11/2024 13:56:20 11/13/2024 10:01:23 Irritable bowel syndrome characterized by constipation 405901047 K58.1 Chronic ob structive pulmonary disease [id number] J44.9 Screening for cardiovascular system disease 234857409 Z13.6 Type 2 shreya betes mellitus 93077820 E11.9 Family his tory of Hypercholesterolemia 897489031 Z83.42 Health Concerns Section Related Observation LastModified by Organization Detai ls LastModified Time None Recorded Concern Status LastModified by Organization Details LastModified Time None Recorded Advance Directives Directive N: Payers Insurance Date Sequence Insurance Name Policy Number Policy Green Covered Member ID Green Member ID Guarantor Name 07/02/2024 1 UNSPECIFIED REMIT PAYOR Saritha Moody 03/11/2024 1 APOLONIA Moody [id number] Saritha Moody 11/11/2024 1 [place]AC[place] - [place]MO) Saritha Moody [id number] Saritha Moody Notes Date Note Type Note Provider Name and Address Organization Details Recorded Time 08/10/2024 text/html Patient presente d to clinic [...] for todays visit. Mary Khan NP [address] [place], [address], [employer]. 08/10/2024 15:14:58 09/07/2024 text/html Patient presente d [...] Patient does report that she went to [place] approx 2 weeks ago and her allergies have been acting up some with runny nose and some drainage. Patient denies any additional symtpoms, complaints or concerns for today's visit. Mary Khan NP [address] [place], [address], [employer]. 09/07/2024 17:20:48 09/21/2024 text/html Patient presente d [...] for today's visit. Mary Khan NP [address] [place], [address], [employer] 09/21/2024 16:16:11 11/05/2024 text/html Lower Urinary Tr act Symptoms (LUTS)Reported bypatient.Location:[facility] Quality:pressure Severity:worsening; mild Onset/Timin-3 times a day Duration:< 1 week Context:denies excessive fluid intake; denies excessive caffeine intake Associated Symptoms:no fever; no nausea; no vomiting; no gross hematuria;straining; frequency;dysuria;ur ine odor;suprapubic pain Gaby Nazario PA-C [address] [place], [address], [employer] 11/17/2024 00:54:27 11/11/2024 text/html Patient presents to clinic today to follow-up on chronic conditions of COPD, hyperlipidemia, and type 2 diabetes. Patient reports that fasting blood sugar has been running in the 100s to 120s. Patient reports that she has made lifestyle changes to include a healthier diet. Patient does report that she is due to have surgery in the next couple of weeks secondary to a meniscal tear. Patient did bring in copy of MRI results from knee scan. Patient does report that Trelegy does continue to help. Patient does complain that she is having issues with constipation and states that she feels like it is in relation to when her anxiety is flared. Patient has no additional complaints or concerns for today's visit. Mary Khan NP [address] [place], [address], [employer] 11/12/2024 13:38:35 OBGyn Episode No OBEpisode recorded.
--- OUTSIDE RECORDS SUMMARY | 2024-11-17 12:47 | XMS_ITS | Continuity of Care Document ---
Author Organization [facility] Office New Address [address] [place] [address] Care Team Providers Care Foundation Relations Director Name Role Phone GWYN EDWARD Primary Care Provider GWYN EDWARD Referring Provider [phone] GWYN EDWARD Primary Care Provider Assessment Encounter [...] that she will soon be traveling to [place] for a tournament. She is requesting we will continue the patient's to help provide her with relief until placement of her spinal cord stimulator. Daljit #[id number]. Plan: We are increasing the patient's gabapentin [...] Time Details Appointments Follow Up 2024 09:50A M Dionte Beck MD Not available Not available Not available Lab None recorded. Referral None recorded. Procedures None recorded. Surgeries None recorded. Imaging None recorded. Medication Orders gabapenti n 300 mg capsule 2024 025 [facility], [address] [place] [address], [address], 10/13/2024 13:37:56 tramadol 50 mg tablet 2024 025 [facility], [address] [place] [address], [address], 10/27/2024 05:00:48 meloxicam 15 mg tablet 2024 025 [facility], [address] [place] [address], [address], 10/13/2024 13:37:49 Patient TargetsNo targets recorded. Patient InstructionsNo instructions recorded. Reason for Referral None Reported. Results Created Date Observation Date Name Description Value Unit Range Abnormal Flag Note LastModifiedBy Organization Detail LastModifiedTime 11/05/19 25 MRI, knee, w/o contr ast No observ ation record ed. [email or web address] Not Available 2024 12:43:14 Result Notes None recorded. Problems Name Problem SNOMED Code Status Onset Date Resolution Date Notes Provider Name and Address Organization Details Recorded Time Pain of right shoulder joint 5192367834483 9100 Active 2023 Dionte Beck MD [address], [address], [place] [facility] 4 11:01:26 Osteoarthri tis of left knee joint 5823854412700 09 Active 2023 Dionte Beck MD [address], [address], [place] [facility] 4 11:01:26 Pain of left knee joint 0739792263253 07 Active 2023 Dionte Beck MD [address] [facility],[address], [address], [place] [facility] 4 11:01:29 Full thickness rotator cuff tear 118940958 Active 2023 Dionte Beck MD [address] [facility],[address], [address], [place] [facility] 4 11:27:54 Trochanteri c bursitis of right hip 2205312163151 00 Active 2023 Elvi Cuevas NP [address] [facility],[address], [address], [place] [facility] 4 13:48:06 Cervical radiculopat hy 88811876 Active 2023 Elvi Cuevas NP [address] [facility],[address], [address], [place] [facility] 4 10:41:02 Degeneratio n of cervical interverteb ral disc 63211781 Active 2023 Elvi Cuevas NP [address] [facility],[address], [address], [place] [facility] 4 10:41:22 Lumbar radiculopat hy 189871560 Active 2024 Dionte Beck MD [address] [facility],[address], [address], [place] [facility] 5 21:33:00 Inflammatio n of sacroiliac joint 22699624 Active 2024 Dionte Beck MD [address] [facility],[address], [address], [place] [facility] 5 09:16:39 Acute meniscal tear, medial 465248412 Active 2024 Dionte Beck MD [address] [facility],[address], [address], [place] [facility] 5 20:42:28 Edema of lower extremity 901256091 Active Chapis stamper null, [place] - [facility] 3 08:29:39 Pain in lower limb 01863930 Active Chapis stamper null, [place] [facility] 3 08:29:40 Bilateral spider veins of lower limbs 9819610958461 9105 Active [facility] stam[place] null, [place] [facility] 3 08:29:40 Bilateral earache 663743971 Active [facility] stam[place] null, [place] [facility] 3 08:29:40 Asthma 234223728 Active [facility] stam[place] null, [place] [facility] 3 08:29:40 Sciatica 71064937 Active [facility] stam[place] null, [place] [facility] 3 08:29:40 Venous insufficien cy of leg 140778988 Active [facility] stam[place] null, [place] [facility] 3 08:29:40 Obese abdomen 241713227 Active [facility] stam[place] null, [place] [facility] 3 08:29:40 Dislocation of temporomand ibular joint 343004216 Active [facility] null, [place] [facility] 3 08:29:40 History of Disorder 418247724 Active [facility] stam[place] null, [place] [facility] 3 08:29:40 Restless legs 83563058 Active [facility] stam[place] null, [place] [facility] 3 08:29:40 Depressive disorder 67978138 Active [facility] stam[place] null, [place] [facility] 3 08:29:40 Arthritis 1914268 Active [facility] stam[place] null[place] [facility] 3 08:29:40 Hypertensiv e disorder 66183660 Active Cahpis stamper null, [place] [facility] 3 08:29:40 Body mass index 40+ - severely obese 205314045 Active [facility] stam[place] null, [place] [facility] 3 08:29:40 Hypothyroid ism 88579786 Active [facility] stam[place] null, [place] [facility] 3 08:29:40 Obesity 978144663 Active [facility] stam[place] null, [place] [facility] 3 08:29:40 Varicose veins of lower extremity 82777211 Active [facility] stam[place] null, [place] [facility] 3 08:29:40 Sleep apnea 84363483 Active [facility] stam[place] null, [place] [facility] 3 08:29:40 Degeneratio n of interverteb ral disc 27693656 Active Chapis stamper null, [place] [facility] 3 08:29:40 Lumbar spondylosis 079998718 Active 2022 Sayda Herrera null, [place] [facility] 3 13:33:44 Degeneratio n of lumbar interverteb ral disc 27267475 Active 2022 Dionte Beck MD [address], [address], [place] [facility] 3 17:00:40 Arthropathy of lumbar facet joint 297800873 Active 2022 Dionte Beck MD [address], [address], [place] [facility] 3 17:00:41 Problem Notes None recorded. Procedures Surgical History Date Name Laterality Status Provider Name and Address Organization Details Recorded Time 09/24/19 25 Therapeutic SI Joint Injection Under Fluoroscopy completed Dionte Beck MD [address], [address], [place] [facility] 09/23/2024 09:14:32 08/14/19 25 SCS Trial completed Dionte Beck MD [address], [address], [place] [facility] 08/13/2024 17:47:06 07/16/19 25 Peripheral nerve stimulator Knee completed Dionte Beck MD [address], [address], [place] [facility] 07/16/2024 12:19:53 06/18/19 25 Lumbar YOLANDA: Interlaminar completed Dionte Beck MD [address], [place], [address], [place] [facility] 06/18/2024 20:47:41 05/22/19 25 Peripheral nerve block completed Dionte Beck MD [address], [place], [address], [place] [facility] 05/22/2024 23:56:27 03/19/20 24 Cervical Epidural Steroid Injection Under Fluoroscopy completed Dionte Beck MD [address], [place], [address], [place] [facility] 03/19/2024 11:04:19 02/19/20 24 Greater Trochanteric Bursa Steroid Injection completed Dionte Beck MD [address], [place], [address], [place] [facility] 02/19/2024 13:04:59 02/13/20 24 Diagnostic SI Joint Injection Under Fluoroscopy completed Dionte Beck MD [address], [place], [address], [place] [facility] 02/13/2024 12:34:47 07/24/19 24 Genicular Nerve Block completed Dionte Beck MD [address], [place], [address], [place] [facility] 07/24/2023 23:15:00 05/27/19 24 Knee Joint Injection completed Dionte Beck MD [address], [place], [address], [place] [facility] 05/27/2023 18:20:07 04/19/20 23 Lumbar YOLANDA: Interlaminar completed SHIRLEY MAGAÑA [place] [facility] 03/26/2023 09:21:47 02/29/20 23 Medial Epicondyle Injection completed Dionte Beck MD [address], [place], [address], [place] [facility] 02/28/2023 21:56:28 02/14/20 23 BILAT 2LVL LUMBAR RFA completed Dionte Beck MD [address] [facility],[address] [address], [place], [address], [place] [facility] 02/13/2023 17:15:10 12/19/19 23 Diagnostic Lumbar MBB: 2 Level Bilateral completed Dionte Beck MD [address] [facility],[address] [address], [place], [address], [place] [facility] 12/18/2022 16:59:24 11/23/19 23 Diagnostic Lumbar MBB: 2 Level Bilateral completed Dionte Beck MD [address] [facility],[address] [address], [place], [address], [place] [facility] 11/22/2022 [...] completed Not Available Not Available Not Available [facility] COVID-19 Antigen Rapid Home Test kit [...] Last Updated DateTime 162.56 cm 41.2 kg/m2 751977. 17 g 78 /min 98 % 98 % 126 mm[Hg] 86 mm[Hg] SHIRLEYIRIS MAGAÑA [place] [facility] 13:01:11 Social History Question Answer Notes LastModified by [employer] Details LastModified Time Tobacco Smoking Status Never Smoker [facility], [place] - [facility] 09/27/2022 08:30:43 [...] Do You Have A Medical Power Of Mild Disabilities Teacher? No Information not available 09/27/2022 Sex: Female Functional Status Question Answer Note LastModified by [employer] Details LastModified Time Do you use any [...] Trauma/Injury N Hernia N Thyroid Problems N Depression N COPD N Anemia N Ulcers N Heart Attack ([place]) N Diabetes N Anxiety Disorder N Bleeding [...] SNOMED-CT Code Diagnosis ICD10 Code Diagnosis Note [id number] Dionte Beck MD [address] [place] [address] 09/16/2024 10:22:20 09/16/2024 11:57:07 Pain in lower limb 69705482 M79.606 Edema of l ower extremity 561812237 R60.0 Bilateral spider veins of lower limbs 8529324814 7245569 I78.1 Lumbar radiculopathy 128 413833 M54.16 Arthritis 6232296 M19.90 Arthropath y of lumbar facet joint 539013365 M47.816 Cervical radiculopathy 89695636 M54.12 Degenerati on of cervical intervertebral disc 74179171 M50.30 Degenerati on of intervertebral disc 97330355 M51.9 Degenerati on of lumbar intervertebral disc 39214424 M51.369 Osteoarthr itis of left knee joint 3120068298 75279 M17.12 Pain of le ft knee joint 9164357745 32232 M25.562 Trochanter ic bursitis of right hip 7795094242 42115 M70.61 Inflammati on of sacroiliac joint 04293412 M46.1 68933 MD David Rain[address] [place] [address] 09/23/2024 08:08:40 09/23/2024 09:02:08 Arthritis 4911940 M19.90 Lumbar spondylosis 82307 0009 M47.896 Arthropath y of lumbar facet joint 237997181 M47.816 Asthma 894332836 J45.90 9 Cervical radiculopathy 90220936 M54.12 Degenerati on of cervical intervertebral disc 54702916 M50.30 Degenerati on of intervertebral disc 17685865 M51.9 Degenerati on of lumbar intervertebral disc 87806184 M51.369 Depressive disorder 3548 9007 F32.A Trochanter ic bursitis of right hip 0312838839 97631 M70.61 Pain of ri ght shoulder joint 8285631449 9942204 M25.511 Pain of le ft knee joint 8489152526 15373 M25.562 Osteoarthr itis of left knee joint 5280198748 98516 M17.12 Pain in lower limb 48568 006 M79.606 Inflammati on of sacroiliac joint 86544499 M46.1 42209 TAMMI SHARMA NP [address] [place] [address] 10/13/2024 12:58:24 10/13/2024 13:19:35 Pain in lower limb 39825152 M79.606 Edema of l ower extremity 312349627 R60.0 Bilateral spider veins of lower limbs 0631424343 5060438 I78.1 Lumbar radiculopathy 128 182708 M54.16 Arthritis 1157108 M19.90 Health Concerns Section Related Observation LastModified by Organization Detai ls LastModified Time None Recorded Concern Status LastModified by Organization Details LastModified Time None Recorded Payers Encounter Date Sequence Insurance Name Policy Number Policy Green Covered Member ID Green Member ID Guarantor Name 10/13/2024 1 [employer]OL[place] [facility] (MEDICAID REPLACEMENT - HMO) Saritha Moody [id number] Saritha Moody Notes Date Note Type Note [...] in pain/symptoms Daily Activities:Living independently.;Dif ficulty completing bug trimmer secondary 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 TAMMI SHARMA NP [address], [address], [place] [facility] 10/13/2024 13:34:57 OBGyn Episode No OBEpisode recorded.
--- OUTSIDE RECORDS SUMMARY | 2024-11-17 12:48 | XMS_ITS | Continuity of Care Document ---
Author Organization [facility] Address [address] [place] [address] Assessment No assessment recorded. Plan of Treatment Reminders Order Date Submit Date Provider Last Modified By Organization Details Last Modified Time Details Appointments FOLLOW UP 2024 11:30A M Mary Khan NP Not available Not available Not available FOLLOW UP 2024 08:30A M Mary Khan NP Not available Not available Not available Lab urinalysi s, dipstick [email or web address] [facility], [address] [place] [address], [place], [address], 11/05/2024 13:29:15 culture, urine 2024 025 [facility], [address] [place] [address], [place], [address], 11/07/2024 03:06:45 Referral None recorded. Procedures None recorded. Surgeries None recorded. Imaging XR, kidney + ureter + bladder 2024 025 [facility], [address] [place] [address], [place], [address], 11/05/2024 17:19:06 Medication Orders ciproflox acin 250 mg tablet 2024 025 [facility], [address], [place], [address], 11/11/2024 14:41:25 phenazopy ridine 100 mg tablet 2024 025 [facility], [address], [place], [address], 11/11/2024 14:41:25 Patient TargetsNo targets recorded. Patient InstructionsNo instructions recorded. Reason for Referral None Reported. Results Created Date Observation Date Name Description Value Unit Range Abnormal Flag Note LastModifiedBy Organization Detail LastModifiedTime 11/06/1911/05/2024 urina lysis , dipst ick Leukocytes Negati ve Not Available [address], [place], [address], 11/05/2024 13:01:19 11/06/1911/05/2024 urina lysis , dipst ick Nitrite negati ve Not Available [address], [place], [address], 11/05/2024 13:01:19 11/06/1911/05/2024 urina lysis , dipst ick Urobilinogen .2 Not Available [address], [place], [address], 11/05/2024 13:01:19 11/06/19 25 11/05/2024 urina lysis , dipst ick Protein Negati ve Not Available [address], [place], [address], 11/05/2024 13:01:19 11/06/19 25 11/05/2024 urina lysis , dipst ick pH 6.5 Not Available [address], [place], [address], 11/05/2024 13:01:19 11/06/19 25 11/05/2024 urina lysis , dipst ick Blood Negati ve Not Available [address], [place], [address], 11/05/2024 13:01:19 11/06/19 25 11/05/2024 urina lysis , dipst ick Specific [place] 1.015 Not Available [address], [place], [address], 11/05/2024 13:01:19 11/06/19 25 11/05/2024 urina lysis , dipst ick Ketone Negati ve Not Available [address], [place], [address], 11/05/2024 13:01:19 11/06/19 25 11/05/2024 urina lysis , dipst ick Bilirubin Negati ve Not Available [address], [place], [address], 11/05/2024 13:01:19 11/06/19 25 11/05/2024 urina lysis , dipst ick Glucose Negati ve Not Available [address], [place], [address], 11/05/2024 13:01:19 11/06/19 25 11/05/2024 urina lysis , dipst ick Appearance Slight ly Cloudy Not Available [address], [place], [address], 11/05/2024 13:01:19 11/06/19 25 11/05/2024 urina lysis , dipst ick Color Yellow Not Available [address], [place], [address], 11/05/2024 13:01:19 11/06/19 25 XR, kidne y + urete r + bladd er No observ ation record ed. [email or web address] [facility] [address], [place], [address], 11/06/2024 12:23:47 11/12/19 MRI, knee, w/o contr ast No observ ation record ed. [email or web address] Not Available 2024 14:28:03 Result Notes None recorded. Problems Name Problem SNOMED Code Status Onset Date Resolution Date Notes Provider Name and Address Organization Details Recorded Time Chronic obstructive pulmonary disease 95196437 Active 2023 Mary Khan NP [address] [place] [address], [address], [employer] 4 14:19:16 Acute exacerbatio n of chronic obstructive pulmonary disease 052171254 Active 2023 Mary Khan NP [address] [place] [address], 578[address]144 8, [employer] 4 14:31:26 Acute sinusitis 98472798 Active 2023 Mary Khan NP [address] [place] [address], 45[address] 8, [employer] 4 11:11:39 Essential hypertensio n 81490109 Active 2023 Mary Khan NP [address] [place] [address], 934[address]642 8, [employer] 5 16:15:40 Fatigue 78201885 Active 2023 Mary Khan NP [address] [place] [address], 85631-483 8, [employer] 4 10:40:53 Acute back pain with sciatica 355504679 Active 2023 Mary Khan NP [address] [place] [address], 74[address] 8, [employer] 4 10:42:24 Hypothyroid ism 34931809 Active 2023 Mary Khan NP [address] [place] [address], 88638-306 8, [employer] 4 11:16:52 Nicotine dependence 76086036 Active 2023 Mary Khan NP [address] [place] [address], 15949[address]911 8, [employer] 4 11:20:48 Type 2 diabetes mellitus without complicatio n 051452733 Active 2023 Mary Khan NP [address] [place] [address], 85500-039 8, [employer] 4 15:54:53 Vitamin D deficiency 88972809 Active 2023 Mary Khan NP [address] [place] [address], 45511-910 8, [employer] 4 16:03:26 Laboratory test result abnormal 397326626 Active 2023 Mary Khan NP [address] [place] [address], 48675-419 8, [employer] 4 10:35:37 Polyuria 49090770 Active 2023 Mary Khan NP [address] [place] [address], 029[address]-160 8, [employer] 4 10:26:36 Hyperlipide chana 22683707 Active 2023 Mary Khan NP [address] [place] [address], 76578-052 8, [employer] 4 08:20:26 Restless legs 51781749 Active 2023 Mary Khan NP [address] [place] [address], 54982[address]999 8, [employer] 4 08:38:05 [place] thyroiditis 93360283 Active 2024 Mary Khan NP [address] [place] [address], [address] 8, [employer] 5 16:15:10 Seasonal allergy 217276045 Active 2024 Mary Khan NP [address] [place] [address], 73[address]668 8, [place] [employer] 09:50:44 Acute bilateral otitis media 389726657 Active 2024 Mary Khan NP [address] [place] [address], 55067-285 8, [place] [employer] 5 14:21:55 Prediabetes 806698926 Active 2024 Mary Khan NP [address] [place] [address], 13589-798 8, [place] [employer] 16:09:26 Generalized chronic body pains 297911996 Active 2024 Mary Khan NP [address] [place] [address], 40910-032 8, [place] [employer] 16:33:44 Chronic low back pain 956977437 Active 2024 Mary Khan NP [address] [place] [address], 48973-727 8, [place] [employer] 17:07:21 Pain of left knee joint 2456401327100 07 Active 2024 Mary Khan NP [address] [place] [address], 26792[address]452 8, [employer] 16:14:21 Anxiety 34480375 Active 2024 Mary Khan NP [address] [place] [address], 93595-272 8, [employer] 10:57:43 Dysuria 16899567 Active 2024 Gaby Nazario PA-C [address] [place] [address], 96313-649 8, [employer] 13:27:35 Spasm of urinary bladder 364124899 Active 2024 Gaby Nazario PA-C [address] [place] [address], 858[address]356 8, [employer] 13:27:44 Suprapubic pain 740473205 Active 2024 Gaby Nazario PA-C [address] [place] [address], 86[address]112 8, [employer] 13:27:58 Constipatio n 55831443 Active 2024 Gaby Nazario PA-C [address] [place] [address], 96037-153 8, [employer] 12:24:01 Irritable bowel syndrome characteriz ed by sun da silva 209078199 Active 2024 Mary Khan NP [address] [place] [address], 95[address]-919 8, [employer] 14:22:17 Type 2 diabetes mellitus 58352678 Active 2024 Mary Khan NP [address] [place] [address], 57342-397 8, [employer] 14:26:43 Problem Notes None recorded. Procedures Surgical History Date Name Laterality Status Provider Name and Address Organization Details Recorded Time 03/16/20 24 Most Recent Mammogram completed Sayda Alfaro [employer] 03/18/2024 14:58:58 Tonsillectomy completed [email or web address] 03/02/2024 13:52:34 Partial Hysterectomy completed [email or web address] 03/02/2024 13:52:42 manipulation of displaced nasal septum completed [employer] 03/02/2024 13:52:53 procedure on shoulder completed [employer] 03/02/2024 13:53:00 operative procedure on knee completed [employer] 03/02/2024 13:53:10 Imaging Results None recorded. Procedure [...] active Not Available Not Available Not Avai labani [facility] COVID-19 Antigen Rapid Home [...] Organization Details Last Updated DateTime 162.56 cm 43.7 kg/m2 832421. 26 g 97.8 [degF] 77 /min 96 % 96 % 105 mm[Hg] 70 mm[Hg] Samson Andrade [employer] 13:00:46 Date Recorded Body height Body mass index (BMI) Body weight Body temperature Heart rate Oxygen saturation Oxygen saturation in Arterial blood by Pulse oximetry Systolic blood pressure Diastolic blood pressure Provider Name and Address Organization Details Last Updated DateTime 5 162.56 cm 43.8 kg/m2 366805. 05 g 97.5 [degF] 73 /min 98 % 98 % 136 mm[Hg] 83 mm[Hg] Errol Nacho [employer], [employer] 14:12:00 Social History Question Answer Notes LastModified by Organizat ion Details LastModified Time Tobacco Smoking Status Current Every Day Smoker [facility], [employer] 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 None Information not available [...] Or The Highest Degree You Have Received? [id number] Information not available 03/16/2024 How Many Days [...] Do You Have A Medical Power Of Make Up Artist? No Information not available 03/02/2024 What Was The Date Of Your Most Recent Tobacco Screening? 11/11/2024 [email or web address] Information not available 11/11/2024 Have You Ever [...] Date Was Tobacco Cessation Counseling Provided? 11/11/2024 [email or web address] Information not available 11/11/2024 How Many Years [...] Functional Status Question Answer Note LastModified by [employer] Details LastModified Time Do you use [...] anxious, or unable to sleep at night)? [id number] Information not available 03/16/2024 Do you have [...] Artery Disease N Other N Gout N Blood Diseases N Kidney Stones N Hyperthyroidism Y Blood Transfusion N Breast Cancer N Emergency room visit since last appointm ent. N Lung Disease N COPD N Depression N Dermatologic Disorders N Hypothyroidism N Defects or Inherited Disease N Developmental or Behavioral Disorders N Breast Problem N Difficulty Swallowing N Anesthesia Complications N History of STI N Meniere's disease N Anxiety Disorder N Muscle, Joint, or Bone Problems N Autoimmune disease N Vision or Eye Problems Y Arthritis Y Polyps N Infertility N Mental Disorder N Congenital Anomalies N Acid Reflux (GERD) Y Cancer N Stroke N Neurologic/Epilepsy N Endometriosis N Bladder or Kidney Problems N High Cholesterol N Liver Disease N Psychiatric/Mental Health Condition N Organ Transplant N Dialysis N Schizophrenia N Fibromyalgia N Headaches N Kidney Disease N Allergies/Hayfever N Heart Problems N Ear or Hearing Problems N Hospitalizations N Learning Disorder N Artificial Joints N Thyroid Problems N GI Problems N Acne N ADD/ADHD N Eating Disorder N Anemia N Constipation N Mental Illness N Diabetes N Ovarian Cancer N Bedwetting N Hepatitis/Liver Disease N Tuberculosis N Eczema N Abuse/Domestic Violence N Diverticulitis N Asthma N Trauma/Violence N Substance Abuse [...] zoster recombinant 4 completed Errol Nacho null, [employer] 04/29/2024 13:39:09 pneumococcal polysaccharide PPV23 4 completed Errol Nacho null, [employer] 04/29/2024 13:39:09 zoster recombinant 5 completed Errol Nacho null, [employer] 06/29/2024 10:04:53 Tdap 5 completed Mary Khan NP [address] [place] [address], [address], [employer] 08/10/2024 15:11:36 Hep A, adult 8 completed Errol Nacho null, [employer] 06/29/2024 09:42:10 Past Encounters Encounter ID Performer Location Encounter Start Date Encounter Closed Date Diagnosis/Indication Diagnosis SNOMED-CT Code Diagnosis ICD10 Code Diagnosis Note [id number] Gaby Nazario PA-C [address] [address] 11/05/2024 12:42:43 11/05/2024 13:50:09 Dysuria 18569767 R30.0 Spasm of u rinary bladder 071637682 N32.89 Suprapubic pain 37006040 6 R10.2 Health Concerns Section Related Observation LastModified by Organization Detai ls LastModified Time None Recorded Concern Status LastModified by Organization Details LastModified Time None Recorded Payers Encounter Date Sequence Insurance Name Policy Number Policy Green Covered Member ID Green Member ID Guarantor Name 11/05/2024 1 [facility] (MEDICAID REPLACEMENT - HMO) Saritha Moody [id number] Saritha Moody Notes Date Note Type Note Provider Name and Address Organization Details Recorded Time 11/05/2024 text/html Lower Urinary Tract Symptoms (LUTS)Reported bypatient.Location :bladder Quality:pressure Severity:worsening ; mild Onset/Timin-3 times a day Duration:< 1 week Context:denies excessive fluid intake; denies excessive caffeine intake Associated Symptoms:no fever; no nausea; no vomiting; no gross hematuria;strainin g;frequency;dysuri a;urine odor;suprapubic pain Gaby Nazario PA-C [address] [place] [address], [address], [employer] 11/17/2024 00:54:27 11/11/2024 text/html Patient presents [...] concerns for today's visit. Mary Khan NP [address] [place] [address], [address], [employer] 11/12/2024 13:38:35 OBGyn Episode No OBEpisode recorded.
--- OUTSIDE RECORDS SUMMARY | 2024-11-17 12:48 | XMS_ITS | Continuity of Care Document ---
Author Organization [facility] [employer], [facility] Address [address] [place] [address] Assessment No assessment recorded. Plan of Treatment Reminders Order Date Submit Date Provider Last Modified By Organization Details Last Modified Time Details Appointments FOLLOW UP 2024 11:30A M Mary Khan NP Not available Not available Not available FOLLOW UP 2024 08:30A M Mary Khan NP Not available Not available Not available Lab HbA1c (hemoglob in A1c), blood [email or web address], [address] [place] [address], [place], [address], 11/11/2024 14:38:53 Referral None recorded. Procedures None recorded. Surgeries None recorded. Imaging None recorded. Medication Orders Linzess 72 mcg capsule 2024 025 [facility], [address] [place] [address], [address], 11/11/2024 15:06:42 atorvasta tin 10 mg tablet 2024 025 [facility], [address] [place] [address], [address], 11/11/2024 15:06:42 Trelegy Ellipta 100 mcg-62.5 mcg-25 mcg powder for inhalatio n 2024 025 [facility], [address] [place] [address], [address], 11/11/2024 14:51:35 Ventolin HFA 90 mcg/actua tion aerosol inhaler 2024 025 [facility], [address] [place] [address], [place], [address], 11/11/2024 14:51:34 Patient TargetsNo targets recorded. Patient Instructions Encounter Date Encounter Id Patient Instructions Last Modified By Organization Details Last Modified Time 11/11/2024 [id number] learning about type 2 diabetes [email or web address] Not available 11/11/2024 14:38:53 type 2 diabetes: care instructions [facility]9 Not available 11/11/2024 14:38:53 Reason for Referral None Reported. Results Created Date Observation Date Name Description Value Unit Range Abnormal Flag Note LastModifiedBy Organization Detail LastModifiedTime 11/12/1911/11/2024 HbA1c (hemo globi n A1c), blood HbA1c 5.8 Not Available [address], [place], [address], 11/11/2024 14:26:50 11/06/19 25 XR, kidne y + urete r + bladd er No observ ation record ed. [email or web address] [address], [place], [address], 11/06/2024 12:23:47 11/12/19 25 MRI, knee, w/o contr ast No observ ation record ed. [email or web address] Not Available 2024 14:28:03 Result Notes None recorded. Problems Name Problem SNOMED Code Status Onset Date Resolution Date Notes Provider Name and Address Organization Details Recorded Time Chronic obstructive pulmonary disease 03108641 Active 2023 Mary Khan NP [address] [place] [address], [address], [facility] [employer] 14:19:16 Acute exacerbatio n of chronic obstructive pulmonary disease 004737572 Active 2023 Mary Khan NP [address] [place], [address], [employer] 4 14:31:26 Acute sinusitis 08939604 Active 2023 Mary Khan NP [address] [place] [address], [address], [employer] 4 11:11:39 Essential hypertensio n 18292350 Active 2023 Mary Khan NP [address] [place] [address], [address], [employer] 5 16:15:40 Fatigue 45091465 Active 2023 Mary Khan NP [address] [place] [address], [address], [employer] 4 10:40:53 Acute back pain with sciatica 945637077 Active 2023 Mary Khan NP [address] [place] [address], [address], [employer] 4 10:42:24 Hypothyroid ism 39286601 Active 2023 Mary Khan NP [address] [place] [address], [address], [employer] 4 11:16:52 Nicotine dependence 13815463 Active 2023 Mary Khan NP [address] [place] [address], [address], [employer] 4 11:20:48 Type 2 diabetes mellitus without complicatio n 255925508 Active 2023 Mary Khan NP [address] [place] [address], [address], [employer] 4 15:54:53 Vitamin D deficiency 49510255 Active 2023 Mary Khan NP [address] [place] [address], [address], [employer] 16:03:26 Laboratory test result abnormal 800088407 Active 2023 Mary Khan NP [address] [place] [address], [address], [employer] 4 10:35:37 Polyuria 00387451 Active 2023 Mary Khan NP [address] [place] [address], [address], [employer] 4 10:26:36 Hyperlipide chana 00228940 Active 2023 Mary Khan NP [address] [place] [address], [address], [employer] 4 08:20:26 Restless legs 43843904 Active 2023 Mary Khan NP [address] [place] [address], [address] 8, [employer] 4 08:38:05 [place] thyroiditis 39299716 Active 2024 Mary Khan NP [address] [place] [address], [address], [employer] 5 16:15:10 Seasonal allergy 110568746 Active 2024 Mary Khan NP [address] [place] [address], [address], [employer] 5 09:50:44 Acute bilateral otitis media 164501429 Active 2024 Mary Khan NP [address] [place] [address], [address], [employer] 5 14:21:55 Prediabetes 551949516 Active 2024 Mary Khan NP [address] [place] [address], [address], [employer] 5 16:09:26 Generalized chronic body pains 633081178 Active 2024 Mary Khan NP [address] [place] [address], [address], [employer] 16:33:44 Chronic low back pain 327507191 Active 2024 Mary Khan NP [address] [place] [address], [address], [employer] 5 17:07:21 Pain of left knee joint 8361611828493 07 Active 2024 Mary Khan NP [address] [place] [address], [address], [employer] 16:14:21 Anxiety 91273938 Active 2024 Mayr Khan NP [address] [place] [address], [address] 8, [employer] 10:57:43 Dysuria 56152620 Active 2024 Gaby Nazario PA-C [address] [place] [address], [address], [employer] 13:27:35 Spasm of urinary bladder 838752268 Active 2024 Gaby Nazario PA-C [address] [place] [address], [address], [employer] 5 13:27:44 Suprapubic pain 463828757 Active 2024 Gaby Nazario PA-C [address] [place] [address], [address], [employer] 5 13:27:58 Constipatio n 36248858 Active 2024 Gaby Nazario PA-C [address] [place] [address], [address], [employer] 5 12:24:01 Irritable bowel syndrome characteriz ed by constipatio n 343257356 Active 2024 Mary Khan NP [address] [place] [address], [address] 8, [employer] 14:22:17 Type 2 diabetes mellitus 52647652 Active 2024 Mary Khan, MANAGER ARCHITECTURAL [address] [facility], [place], [address], [employer]. 14:26:43 Problem Notes None recorded. Procedures Surgical History Date Name Laterality Status Provider Name and Address Organization Details Recorded Time 03/16/20 Most Recent Mammogram completed [employer], [facility]. 03/18/2024 14:58:58 Tonsillectomy completed [place]. 03/02/2024 13:52:34 Partial Hysterectomy completed [facility]. 03/02/2024 13:52:42 manipulation of displaced nasal septum completed [facility]. 03/02/2024 13:52:53 procedure on shoulder completed [facility]. 03/02/2024 13:53:00 operative procedure on knee completed [place]. 03/02/2024 13:53:10 Imaging Results None recorded. Procedure [...] Not Available Not Available No t Available GaRobert[employer]- G 236 gram-22.7 4 gram-6.74 gram-5.86 gram [...] Last Updated DateTime 162.56 cm 43.8 kg/m2 555945. 05 g 97.5 [degF] 73 /min 98 % 98 % 136 mm[Hg] 83 mm[Hg] Errol Griffith [employer] 14:12:00 Social History Question Answer Notes LastModified by Organizat ion Details LastModified Time Tobacco Smoking Status Current Every Day Smoker [facility], [employer]. 03/02/2024 13:50:47 Do You Have An Advance [...] Information not available 03/02/2024 What Type Of Display Director Do You Use? None Information not available [...] Or The Highest Degree You Have Received? RU24174-5 Information not available 03/16/2024 How Many Days [...] Do You Have A Medical Power Of Kick Press Setter? No Information not available 03/02/2024 What Was The Date Of Your Most Recent Tobacco Screening? 11/11/2024 [email or web address] Information not available 11/11/2024 Have You Ever [...] Date Was Tobacco Cessation Counseling Provided? 11/11/2024 [email or web address] Information not available 11/11/2024 How Many Years [...] anxious, or unable to sleep at night)? [id number] Information not available 03/16/2024 Do you have [...] zoster recombinant 4 completed Errol Nacho null, [employer] 04/29/2024 13:39:09 pneumococcal polysaccharide PPV23 4 completed Errol [place] null, [employer] 04/29/2024 13:39:09 zoster recombinant 5 completed Errol Nacho null, [employer] 06/29/2024 10:04:53 Tdap 5 completed Mary Khan, NANNETTE [address] [place] [address], [address], [employer] 08/10/2024 15:11:36 Hep A, adult 8 completed Errol Nacho null, [employer] 06/29/2024 09:42:10 Past Encounters Encounter ID Performer Location Encounter Start Date Encounter Closed Date Diagnosis/Indication Diagnosis SNOMED-CT Code Diagnosis ICD10 Code Diagnosis Note [id number] Gaby Nazario PA-C [address] [address] 11/05/2024 12:42:43 11/05/2024 13:50:09 Dysuria 69490945 R30.0 Spasm of u rinary bladder 724620153 N32.89 Suprapubic pain 93203916 6 R10.2 [id number] Mary Khan NP [address] [address] 11/11/2024 13:56:20 11/13/2024 10:01:23 Irritable bowel syndrome characterized by constipation 630414419 K58.1 Chronic ob structive pulmonary disease 72278807 J44.9 Screening for cardiovascular system disease 544369040 Z13.6 Type 2 shreya betes mellitus 63594473 E11.9 Family his tory of Hypercholesterolemia 362711561 Z83.42 Health Concerns Section Related Observation LastModified by Organization Detai ls LastModified Time None Recorded Concern Status LastModified by Organization Details LastModified Time None Recorded Payers Encounter Date Sequence Insurance Name Policy Number Policy Green Covered Member ID Green Member ID Guarantor Name 11/11/2024 1 [facility] (MEDICAID REPLACEMENT - HMO) Saritha Moody [id number] Saritha Moody Notes Date Note Type Note Provider Name and Address Organization Details Recorded Time 11/11/2024 text/html Patient presents to clinic today [...] concerns for today's visit. Mary Khan NP [address] [place] [address], [place], [address], [facility] - [employer] 11/12/2024 13:38:35 OBGyn Episode No OBEpisode recorded.
--- OUTSIDE RECORDS SUMMARY | 2024-11-17 12:48 | XMS_ITS | Data Portability ---
Author Organization [place] [facility] [place] Address [address] [place] [address] Care Team Providers Care Ctrs Name Role Phone GWYN EDWARD Primary Care Provider GWYN EDWARD Referring Provider [phone] GWYN EDWARD Primary Care Provider Assessment Encounter Date Assessment Date Assessment LastModified by Organization Details LastModified Time 08/20/2024 08/20/2024 This is a pleasa 59-year-old female that presents today for SCS trial follow-up. Patient underwent [employer] spinal cord stimulator trial on 08/13/2024, [...] tingling. 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 With this SCS trial she did not require any assistance to get around she was far more functional and is hopeful to move forward with permanent placement today. Daljit #[id number], drug screen from 05/22/2024 was reviewed and is appropriate. We are currently prescribing patient gabapentin 300 mg twice daily. Conservative Therapy: Kiley is currently enrolled in physical therapy in [facility], she states she attends 2-3 [...] likely worsen her pain. Injections/Interve ntions: 08/13/2024: [employer] SCS Trial 07/16/2024: Peripheral nerve stimulator [...] seeking approval for permanent placement of a [employer] spinal cord stimulator for this patient. Patient [...] that she will soon be traveling to [place] for a tournament. She is requesting we will continue the patient's to help provide her with relief until placement of her spinal cord stimulator. Daljit #[id number]. Plan: We are increasing the patient's gabapentin [...] or omission [email or web address] Not available 10/13/2024 13:33:34 11/04/2024 11/04/2024 We are treating this patient [...] sacroilia c joint injection (PROC) 2024 025 [email or web address] Not available 09/21/2024 08:50:02 Surgeries permanent placement of spinal cord stimulato r (SURG) 2024 025 Not available 08/26/2024 09:50:48 percutane ous implantat ion of neurostim ulator electrode array, epidural (SURG) 2024 025 Not available 11/06/2024 09:12:23 Imaging None recorded. Medication Orders gabapenti n 300 mg capsule 2024 025 [facility], [address] [place] [address], [id number], 10/13/2024 13:37:56 tramadol 50 mg tablet 2024 025 [facility], [address] [place] [address], [id number], 10/27/2024 05:00:48 meloxicam 15 mg tablet 2024 025 [facility], [address] [place] [address], [id number], 10/13/2024 13:37:49 prednison e 20 mg tablet 2024 025 [facility], [address] [place] [address], [id number], 09/16/2024 13:07:36 gabapenti n 300 mg capsule 2024 025 [facility], [address] [place] [address], [id number], 08/20/2024 14:06:16 meloxicam 15 mg tablet 2024 025 [facility], [address] [place] [address], [id number], 08/20/2024 14:06:14 Patient TargetsNo targets recorded. Patient Instructions Encounter Date Encounter Id Patient Instructions Last Modified By Organization Details Last Modified Time 09/16/2024 [id number] leg pain: care instructions abux Not available 09/16/2024 13:00:33 11/04/2024 [id number] leg pain: care instructions abux Not available 11/04/2024 20:45:27 Reason for Referral None Reported. Results Created Date Observation Date Name Description Value Unit Range Abnormal Flag Note LastModifiedBy Organization Detail LastModifiedTime 11/05/19 25 MRI, knee, w/o contr ast No observ ation record ed. [email or web address] Not Available 2024 12:43:14 Result Notes None recorded. Problems Name Problem SNOMED Code Status Onset Date Resolution Date Notes Provider Name and Address Organization Details Recorded Time Pain of right shoulder joint 6414822400072 9100 Active 2023 Dionte Beck MD [address] [facility],[address], [address], [place] [facility] 11:01:26 Osteoarthri tis of left knee joint 6970722031790 09 Active 2023 Dionte Beck MD [address] [facility],[address], [address], [place] [facility] 4 11:01:26 Pain of left knee joint 6564984048547 07 Active 2023 Dionte Beck MD [address] [facility],[address], [address], [place] [facility] 4 11:01:29 Full thickness rotator cuff tear 340950571 Active 2023 Dionte Beck MD [address] [facility],[address], [address], [place] [facility] 4 11:27:54 Trochanteri c bursitis of right hip 6193144615122 00 Active 2023 Elvi Cuevas NP [address], [address], [place] [facility] 4 13:48:06 Cervical radiculopat 90742263 Active 2023 Elvi Cuevas NP [address] [facility],[address], [address], [place] [facility] 4 10:41:02 Degeneratio n of cervical interverteb ral disc 38049814 Active 2023 Elvi Cuevas NP [address] [address], [place], [address], [place] [facility] 4 10:41:22 Lumbar radiculopat hy 290868235 Active 2024 Dionte Beck MD [address], [address], [place] [facility] 5 21:33:00 Inflammatio n of sacroiliac joint 91407822 Active 2024 Dionte Beck MD [address], [address], [place] [facility] 5 09:16:39 Acute meniscal tear, medial 648347896 Active 2024 Dionte Beck MD [address], [address], [place] [facility] 5 20:42:28 Edema of lower extremity 665434489 Active Chapis stamper null, [place] [facility] 3 08:29:39 Pain in lower limb 96668868 Active Chapis stamper null[place] [facility] 3 08:29:40 Bilateral spider veins of lower limbs 8759695561884 9105 Active Chapis stamper null[place] [facility] 3 08:29:40 Bilateral earache 943991298 Active Chapis stamper null[place] [facility] 3 08:29:40 Asthma 343856545 Active Chapis stamper null[place] [facility] 3 08:29:40 Sciatica 81815622 Active Chapis stamper null[place] [facility] 08:29:40 Venous insufficien cy of leg 577268926 Active Chapis stamper null[place] [facility] 3 08:29:40 Obese abdomen 816937660 Active Chapis stamper null[place] [facility] 3 08:29:40 Dislocation of temporomand ibular joint 702541364 Active Chapis stamper null[place] [facility] 08:29:40 History of Disorder 219557570 Active Chapis stamper null[place] [facility] 3 08:29:40 Restless legs 32538117 Active Chapis stamper null[place] [facility] 08:29:40 Depressive disorder 54932973 Active Chapis stamper null[place] [facility] 08:29:40 Arthritis 9656970 Active Chapis stamper null[place] [facility] [place] 08:29:40 Hypertensiv e disorder 32261819 Active Chapis stamper null[place] [facility] 3 08:29:40 Body mass index 40+ - severely obese 293698116 Active Chapis stamper null[place] [facility] 3 08:29:40 Hypothyroid ism 31798015 Active Chapis stamper null[place] [facility] 08:29:40 Obesity 047705640 Active Chapis stamper null[place] [facility] 08:29:40 Varicose veins of lower extremity 25444927 Active Chapis stamper null[place] [facility] 08:29:40 Sleep apnea 45076259 Active Chapis stamper null[place] [facility] 3 08:29:40 Degeneratio n of interverteb ral disc 98311376 Active Chapis stamper null, [place] [facility] 3 08:29:40 Lumbar spondylosis 270661888 Active 2022 Sayda Herrera null[place] [facility] 3 13:33:44 Degeneratio n of lumbar interverteb ral disc 17538631 Active 2022 Dionte Beck MD [address] [place], [address], [place] [facility] 3 17:00:40 Arthropathy of lumbar facet joint 529493737 Active 2022 Dionte Beck MD [address] [facility],[address], [address], [place] [facility] 3 17:00:41 Problem Notes None recorded. Procedures Surgical History Date Name Laterality Status Provider Name and Address Organization Details Recorded Time 09/24/19 25 Therapeutic SI Joint Injection Under Fluoroscopy completed Dionte Beck MD [address], [address], [place] [facility] 09/23/2024 09:14:32 08/14/19 25 SCS Trial completed Dionte Beck MD [address] [facility],[address], [address], [place] [facility] 08/13/2024 17:47:06 07/16/19 25 Peripheral nerve stimulator Knee completed Dionte Beck MD [address] [facility],[address], [address], [place] [facility] 07/16/2024 12:19:53 06/18/19 25 Lumbar YOLANDA: Interlaminar completed Dionte Beck MD [address] [facility],[address], [address], [place] [facility] 06/18/2024 20:47:41 05/22/19 25 Peripheral nerve block completed Dionte Beck MD [address], [address], [place] [facility] 05/22/2024 23:56:27 03/19/20 24 Cervical Epidural Steroid Injection Under Fluoroscopy completed Dionte Beck MD [address], [address], [place] [facility] 03/19/2024 11:04:19 02/19/20 24 Greater Trochanteric Bursa Steroid Injection completed Dionte Beck MD [address] [facility],[address], [address], [place] [facility] 02/19/2024 13:04:59 09/26/20 24 Diagnostic SI Joint Injection Under Fluoroscopy completed Dionte Beck MD [address] [facility],AN[address] MAR[address] [place] [address], [address], [place] [facility] 02/13/2024 12:34:47 07/24/19 24 Genicular Nerve Block completed Dionte Beck MD [address] [facility],[address] [facility], [place], [address], [place] [facility] 07/24/2023 23:15:00 05/27/19 24 Knee Joint Injection completed Dionte Beck MD [address] [facility],[address] [facility], [place], [address], [place] [facility] 05/27/2023 18:20:07 04/19/20 23 Lumbar YOLANDA: Interlaminar completed SHIRLEY MAGAÑA [place] [facility] 03/26/2023 09:21:47 02/29/20 23 Medial Epicondyle Injection completed Dionte Beck MD [address] [facility],[address] [place] [address], [address], [place] [facility] 02/28/2023 21:56:28 02/14/20 23 BILAT 2LVL LUMBAR RFA completed Dionte Beck MD [address] [facility],[address] [place] [address], [address], [place] [facility] 02/13/2023 17:15:10 12/19/19 23 Diagnostic Lumbar MBB: 2 Level Bilateral completed Dionte Beck MD [address] [facility],[address] [place] [address], [address], [place] [facility] 12/18/2022 16:59:24 11/23/19 23 Diagnostic Lumbar MBB: 2 Level Bilateral completed Dionte Beck MD [address] [facility],[address] [place] [address], [address], [place] [facility] 11/22/2022 [...] Available Not Available Not Available [facility] COVID-19 Antigen Rapid Home Test kit 09/23 [...] Updated DateTime 5 162.56 cm 41.2 kg/m2 201090. 17 g 78 /min 98 % 98 % 130 mm[Hg] 86 mm[Hg] SHIRLEY MAGAÑA [place] [facility] 5 10:47:22 Date Recorded Body height Body mass index (BMI) Body weight Heart rate Oxygen saturation Oxygen saturation in Arterial blood by Pulse oximetry Systolic blood pressure Diastolic blood pressure Provider Name and Address Organization Details Last Updated DateTime 5 162.56 cm 41.2 kg/m2 485719. 17 g 78 /min 98 % 98 % 130 mm[Hg] 86 mm[Hg] SHIRLEY MAGAÑA [place] [facility] 5 10:32:44 Date Recorded Body height Body mass index (BMI) Body weight Heart rate Oxygen saturation Oxygen saturation in Arterial blood by Pulse oximetry Systolic blood pressure Diastolic blood pressure Provider Name and Address Organization Details Last Updated DateTime 5 162.56 cm 41.2 kg/m2 930555. 17 g 78 /min 98 % 98 % 128 mm[Hg] 86 mm[Hg] SHIRLEY MAGAÑA [place] [facility] 5 08:10:30 Date Recorded Body height Body mass index (BMI) Body weight Heart rate Oxygen saturation Oxygen saturation in Arterial blood by Pulse oximetry Systolic blood pressure Diastolic blood pressure Provider Name and Address Organization Details Last Updated DateTime 5 162.56 cm 41.2 kg/m2 598197. 17 g 78 /min 98 % 98 % 126 mm[Hg] 86 mm[Hg] SHIRLEY MAGAÑA [place] [facility] 5 13:01:11 Date Recorded Body height Heart rate Respiratory rate Body mass index (BMI) Body weight Oxygen saturation Oxygen saturation in Arterial blood by Pulse oximetry Systolic blood pressure Diastolic blood pressure Provider Name and Address Organization Details Last Updated DateTime 5 162.56 cm 78 /min 18 /min 41.2 kg/m2 692713. 17 g 98 % 98 % 126 mm[Hg] 86 mm[Hg] Feli Atif [place] [facility] 5 09:17:49 [...] Do You Have A Medical Power Of Control Specialist? No Information not available 09/27/2022 Sex: Female [...] Disease N Gout N Head Trauma/Injury N Depression N COPD N Anxiety Disorder N Arthritis N Acid Reflux (GERD) N Cancer N Stroke N Fibromyalgia N Headaches N Kidney Disease N Ulcers N Bleeding Disorder N Tuberculosis N AIDS/HIV N Asthma N Substance Abuse N Hepatitis N Hernia N Back Injury N High Cholesterol N Liver Disease N Thyroid Problems N Anemia N Heart Attack ([place]) N Diabetes N Heart Disease N Hypertension N Osteoporosis N Gynecological HistoryNo gynecological history recorded. Obstetrics History GPAL:G 0 P 0 0 0 0 Past Encounters Encounter ID Performer Location Encounter Start Date Encounter Closed Date Diagnosis/Indication Diagnosis SNOMED-CT Code Diagnosis ICD10 Code Diagnosis Note [id number] Dionte Beck MD [place] [facility] [address] [facility],[address] [address] 09/27/2022 08:22:28 09/27/2022 10:31:29 Lumbar radiculopathy 602487236 M54.16 Lumbar spondylosis 93746 0009 M47.896 Degenerati on of lumbar intervertebral disc 54408198 M51.36 [id number] Dionte Beck MD [place] [facility] [address] [facility] [address] [place] [address] 10/11/2022 10:14:10 10/11/2022 11:04:25 Degeneration of intervertebral disc 46428581 M51.9 Lumbar spondylosis 93772 0009 M47.896 Arthropath y of lumbar facet joint 745519538 M47.816 [id number] Dionte Beck MD [address] [place] [address] 11/08/2022 11:23:17 11/08/2022 12:02:23 Lumbar radiculopathy 462660651 M54.16 Lumbar spondylosis 81255 0009 M47.896 Degenerati on of lumbar intervertebral disc 82878718 M51.36 [id number] Dionte Beck MD [address] [place] [address] 11/22/2022 12:01:17 11/22/2022 12:39:30 Lumbar spondylosis 742951607 M47.896 Degenerati on of intervertebral disc 47400702 M51.9 Arthropath y of lumbar facet joint 888502188 M47.816 [id number] Dionte Beck MD [address] [place] [place] [address] 12/06/2022 15:03:07 12/06/2022 16:09:54 Lumbar radiculopathy 344229725 M54.16 Lumbar spondylosis 70365 0009 M47.896 Degenerati on of lumbar intervertebral disc 67481463 M51.36 [id number] Dionte Beck MD [address] [place] [address] 12/18/2022 14:52:29 12/18/2022 16:28:34 Lumbar spondylosis 747843065 M47.896 Degenerati on of intervertebral disc 15503598 M51.9 Arthropath y of lumbar facet joint 677106591 M47.816 Degenerati on of lumbar intervertebral disc 25342106 M51.36 [id number] Dionte Beck MD [address] [place] [address] 01/25/2023 12:53:08 01/25/2023 13:20:59 Lumbar radiculopathy 571972318 M54.16 Lumbar spondylosis 15781 0009 M47.896 Degenerati on of lumbar intervertebral disc 11957610 M51.36 Degenerati on of intervertebral disc 99268337 M51.9 [id number] Dionte Beck MD [address] [place] [address] 02/13/2023 14:04:15 02/13/2023 16:04:18 Arthropathy of lumbar facet joint 978203939 M47.816 Degenerati on of lumbar intervertebral disc 30036142 M51.36 Lumbar spondylosis 79765 0009 M47.896 Medial epicondylitis 532 32722 M77.00 [id number] Dionte Beck MD [address] [place] [address] 02/28/2023 14:17:31 02/28/2023 15:24:12 Arthropathy of lumbar facet joint 404210726 M47.816 Degenerati on of lumbar intervertebral disc 39784517 M51.36 Lumbar spondylosis 37980 0009 M47.896 Medial epicondylitis 532 77229 M77.00 Bilateral spider veins of lower limbs 8702030126 0804471 I78.1 Pain in lower limb 87183 006 M79.606 Edema of l ower extremity 976787025 R60.0 Lumbar radiculopathy 128 245645 M54.16 [id number] Dionte Beck MD [address] 3 03/15/2023 10:00:13 03/15/2023 10:39:44 Arthropathy of lumbar facet joint 592362543 M47.816 Degenerati on of lumbar intervertebral disc 17243628 M51.36 Lumbar spondylosis 89397 0009 M47.896 Medial epicondylitis 532 87091 M77.00 Bilateral spider veins of lower limbs 6864494390 0851232 I78.1 Pain in lower limb 58951 006 M79.606 Edema of l ower extremity 625635773 R60.0 Lumbar radiculopathy 128 871958 M54.16 Bilateral earache 403087 003 H92.03 Pain of le ft knee joint 7232971296 10702 M25.562 Arthritis 5204471 M19.90 [id number] Dionte Beck MD [address] [place] [address] 04/19/2023 11:04:42 04/19/2023 12:41:23 Arthropathy of lumbar facet joint 384977141 M47.816 Degenerati on of lumbar intervertebral disc 74750117 M51.36 Lumbar spondylosis 67879 0009 M47.896 Medial epicondylitis 532 22572 M77.00 Bilateral spider veins of lower limbs 0165396320 7465602 I78.1 Pain in lower limb 25427 006 M79.606 Edema of l ower extremity 527378032 R60.0 Lumbar radiculopathy 128 M54.16 Bilateral earache 161433 003 H92.03 Pain of le ft knee joint 0066336296 22284 M25.562 Arthritis 5855478 M19.90 Osteoarthr itis of knee 209028587 M17.9 [id number] Dionte Beck MD [address] [place], [place] [address] 05/27/2023 14:27:51 05/27/2023 15:27:12 Lumbar spondylosis 059597004 M47.896 Arthritis 9634911 M19.90 Arthropath y of lumbar facet joint 008911283 M47.816 Degenerati on of intervertebral disc 65291143 M51.9 Degenerati on of lumbar intervertebral disc 29483772 M51.36 Sciatica 51366091 M54.30 Osteoarthr itis of knee 538621024 M17.9 Pain of le ft knee joint 7980508806 78925 M25.562 Lumbar radiculopathy 128 M54.16 [id number] Jeremy Osborne CRNA [address] [place] [address] 07/05/2023 14:21:42 07/05/2023 14:59:08 Edema of lower extremity 355108373 R60.0 Pain in lower limb 04696 006 M79.606 Bilateral spider veins of lower limbs 0664326324 5843605 I78.1 Bilateral earache 258117 003 H92.03 Arthritis 7798787 M19.90 Lumbosacra l radiculopathy 0626176 M54.17 Degenerati on of intervertebral disc 20105724 M51.27 Osteoarthr itis of left knee joint 9316630518 79653 M17.12 [id number] Dionte Beck MD [address] [place] [address] 07/24/2023 14:46:02 07/24/2023 16:56:03 Arthritis 9480819 M19.90 Lumbar spondylosis 93843 0009 M47.896 Arthropath y of lumbar facet joint 328242738 M47.816 Degenerati on of intervertebral disc 91528142 M51.9 Degenerati on of lumbar intervertebral disc 75486563 M51.36 Osteoarthr itis of left knee joint 2806692913 74927 M17.12 Pain of le ft knee region 5427536216 23450 M25.562 Pain of le ft shoulder joint 2556248228 8324417 M25.512 Osteoarthr itis of joint of left shoulder region 3598121755 00841 M19.012 [id number] Dionte Beck MD [address] [place] [address] 09/05/2023 10:18:38 09/05/2023 10:59:28 Edema of lower extremity 594379974 R60.0 Arthritis 2707128 M19.90 Arthropath y of lumbar facet joint 770845311 M47.816 Degenerati on of intervertebral disc 71892143 M51.9 Degenerati on of lumbar intervertebral disc 49255565 M51.36 Pain of le ft knee joint 2706617566 08996 M25.562 Osteoarthr itis of left knee joint 3129293807 26791 M17.12 Pain of ri ght shoulder joint 2829186522 2818252 M25.511 [id number] Dionte Beck MD [address] [place] [address] 10/03/2023 10:16:45 10/03/2023 11:16:00 Edema of lower extremity 094412073 R60.0 Pain in lower limb 02365 006 M79.606 Bilateral spider veins of lower limbs 2638067774 7899221 I78.1 Pain of ri ght shoulder joint 8002913529 9524931 M25.511 Bilateral earache 300559 003 H92.03 Arthritis 2379485 M19.90 Asthma 739939399 J45.90 9 Osteoarthr itis of left knee joint 5222816842 88687 M17.12 Pain of le ft knee joint 0923579176 39727 M25.562 Pain of sh oulder region 50797616 M25.519 Full thick ness rotator cuff tear 677720610 M75.122 Degenerati on of lumbar intervertebral disc 55831155 M51.36 [id number] Dionte Beck MD [address] 3 10/31/2023 10:20:43 10/31/2023 11:16:41 Edema of lower extremity 897839366 R60.0 Arthropath y of lumbar facet joint 057573039 M47.816 Degenerati on of lumbar intervertebral disc 32666373 M51.36 Degenerati on of intervertebral disc 32365177 M51.9 Depressive disorder 3548 9007 F32.A Pain of ri ght shoulder joint 3227188713 2532874 M25.511 Pain of le ft knee joint 1008143847 50132 M25.562 Pain in lower limb 49658 006 M79.606 Osteoarthr itis of left knee joint 1527677052 92799 M17.12 Full thick ness rotator cuff tear 522969412 M75.122 Arthritis 6470245 M19.90 [id number] Elvi Cuevas NP [address] [place] [address] 12/06/2023 13:52:14 12/06/2023 14:19:38 Edema of lower extremity 994125798 R60.0 Arthritis 3310524 M19.90 Degenerati on of lumbar intervertebral disc 17902906 M51.36 [id number] Elvi Cuevas NP [address] [place] [address] 12/30/2023 13:11:59 12/30/2023 13:34:29 Edema of lower extremity 813447217 R60.0 Pain in lower limb 54212 006 M79.606 Bilateral spider veins of lower limbs 3630351762 7119410 I78.1 Pain of ri ght shoulder joint 4742434786 6320971 M25.511 Bilateral earache 917703 003 H92.03 Asthma 836854630 J45.90 9 Pain of sa croiliac joint 709208233 M53.3 Trochanter ic bursitis of right hip 1153790857 26802 M70.61 Arthritis 3769294 M19.90 [id number] Dionte Beck MD [address] [place] [address] 02/13/2024 10:49:09 02/13/2024 11:50:57 Edema of lower extremity 085412110 R60.0 Arthropath y of lumbar facet joint 082375247 M47.816 Degenerati on of intervertebral disc 66421244 M51.9 Degenerati on of lumbar intervertebral disc 11042989 M51.36 Trochanter ic bursitis of right hip 8073902011 68623 M70.61 Pain of ri ght shoulder joint 8226487729 3930755 M25.511 Pain of le ft knee joint 2783705016 90882 M25.562 Pain in lower limb 07154 006 M79.606 Osteoarthr itis of left knee joint 7026035732 01024 M17.12 [id number] Dionte Beck MD [address] [place] [address] 02/19/2024 11:09:00 02/19/2024 11:41:12 Arthritis 4050900 M19.90 Arthropath y of lumbar facet joint 501848549 M47.816 Degenerati on of lumbar intervertebral disc 37234227 M51.369 Trochanter ic bursitis of right hip 1197636429 05730 M70.61 Sciatica 43625536 M54.30 Pain of ri ght shoulder joint 2586098174 4926548 M25.511 Pain of le ft knee joint 0314351215 00337 M25.562 [id number] Elvi Cuevas NP [address] [address] 3 03/03/2024 10:18:11 03/03/2024 10:46:55 Trochanteric bursitis of right hip 4278830738 09320 M70.61 Edema of l ower extremity 881411204 R60.0 Pain in lower limb 30919 006 M79.606 Bilateral spider veins of lower limbs 8290674043 6518759 I78.1 Pain of ri ght shoulder joint 6338699375 1411498 M25.511 Bilateral earache 546589 003 H92.03 Arthritis 7025633 M19.90 Cervical radiculopathy 15784798 M54.12 Degenerati on of cervical intervertebral disc 96396593 M50.30 [id number] Dionte Beck MD [address] [place] [address] 03/19/2024 08:14:41 03/19/2024 09:52:08 Edema of lower extremity 440199166 R60.0 Arthropath y of lumbar facet joint 587832306 M47.816 Cervical radiculopathy 04037471 M54.12 Degenerati on of cervical intervertebral disc 39510863 M50.30 Degenerati on of intervertebral disc 63207879 M51.9 Degenerati on of lumbar intervertebral disc 15422994 M51.369 Sciatica 62208391 M54.30 [id number] DEYA MCCRAY [address] [place] [address] 05/01/2024 11:10:08 05/01/2024 11:42:38 Edema of lower extremity 142516736 R60.0 Osteoarthr itis of left knee joint 8542117816 42508 M17.12 Pain of le ft knee joint 9499696758 72688 M25.562 Arthritis 7531040 M19.90 Arthropath y of lumbar facet joint 650545011 M47.816 Body mass index 40+ - severely obese 165812640 Z68.42 Cervical radiculopathy 67785789 M54.12 Degenerati on of cervical intervertebral disc 18902372 M50.30 Degenerati on of intervertebral disc 48798267 M51.9 Pain of ri ght shoulder joint 0370919591 6580986 M25.511 Sciatica 30067940 M54.30 Trochanter ic bursitis of right hip 4095286105 86879 M70.61 [id number] Dionte Beck MD [address] KENNEY [address] [place] [address] 3 05/22/2024 11:19:02 05/22/2024 12:19:15 Edema of lower extremity 567344904 R60.0 Arthritis 1930197 M19.90 Arthropath y of lumbar facet joint 862844590 M47.816 Cervical radiculopathy 59154515 M54.12 Degenerati on of cervical intervertebral disc 08829594 M50.30 Degenerati on of lumbar intervertebral disc 02157200 M51.369 Degenerati on of intervertebral disc 78275739 M51.9 Sciatica 88506691 M54.30 Restless legs 16846685 G 25.81 Pain of ri ght shoulder joint 1324531184 0271395 M25.511 Pain of le ft knee joint 9127307911 07582 M25.562 Pain in lower limb 50265 006 M79.606 Pain of ri ght hip joint 1642950113 17152 M25.551 [id number] Dionte Beck MD [address] KENNEY [address] [place] [address] 3 06/05/2024 11:04:26 06/05/2024 13:19:41 Edema of lower extremity 459878441 R60.0 Arthropath y of lumbar facet joint 379599532 M47.816 Cervical radiculopathy 45672452 M54.12 Degenerati on of cervical intervertebral disc 99974046 M50.30 Degenerati on of intervertebral disc 74346535 M51.9 Trochanter ic bursitis of right hip 7440568854 79875 M70.61 Sciatica 53856823 M54.30 Pain in lower limb 05358 006 M79.606 Osteoarthr itis of left knee joint 0075752196 20445 M17.12 Pain of le ft knee joint 9851854133 49929 M25.562 Pain of ri ght shoulder joint 3797411911 2455328 M25.511 Degenerati on of lumbar intervertebral disc 04227752 M51.369 Lumbar radiculopathy 128 835129 M54.16 [id number] Dionte Beck MD [address] [place] [address] 06/18/2024 10:04:10 06/18/2024 11:20:14 Edema of lower extremity 994556983 R60.0 Arthritis 8237137 M19.90 Arthropath y of lumbar facet joint 419931203 M47.816 Cervical radiculopathy 47107264 M54.12 Degenerati on of cervical intervertebral disc 73077300 M50.30 Degenerati on of intervertebral disc 71358157 M51.9 Degenerati on of lumbar intervertebral disc 81618160 M51.369 Osteoarthr itis of left knee joint 0171835865 12241 M17.12 Pain in lower limb 36191 006 M79.606 Pain of le ft knee joint 5833537761 51634 M25.562 Pain of ri ght shoulder joint 4415137592 5975629 M25.511 Lumbar spondylosis 28619 0009 M47.896 Lumbar radiculopathy 128 267966 M54.16 [id number] Dionte Beck MD [address] [place] [address] 07/16/2024 10:20:38 07/16/2024 12:41:26 Edema of lower extremity 369376524 R60.0 Pain in lower limb 39956 006 M79.606 Lumbar radiculopathy 128 035788 M54.16 Bilateral spider veins of lower limbs 5622588914 7324042 I78.1 Arthropath y of lumbar facet joint 283730129 M47.816 Degenerati on of cervical intervertebral disc 90362929 M50.30 Degenerati on of intervertebral disc 79988028 M51.9 Degenerati on of lumbar intervertebral disc 75353988 M51.369 Trochanter ic bursitis of right hip 4423425024 57428 M70.61 Sciatica 07601087 M54.30 Pain of le ft knee joint 1394647376 00449 M25.562 Pain of ri ght shoulder joint 0798631386 3593244 M25.511 Osteoarthr itis of left knee joint 6935540640 67884 M17.12 Arthritis 7495961 M19.90 51175 DEYA MCCRAY [address] [place] [address] 07/23/2024 08:38:46 07/23/2024 09:33:04 Edema of lower extremity 080708322 R60.0 Pain in lower limb 41865 006 M79.606 Lumbar radiculopathy 128 858303 M54.16 Bilateral spider veins of lower limbs 5472681771 5634947 I78.1 Arthropath y of lumbar facet joint 950206096 M47.816 Cervical radiculopathy 41102410 M54.12 Degenerati on of cervical intervertebral disc 25272401 M50.30 Degenerati on of intervertebral disc 82869090 M51.9 Degenerati on of lumbar intervertebral disc 47575571 M51.369 Osteoarthr itis of left knee joint 7305006586 89385 M17.12 Sciatica 57168882 M54.30 Trochanter ic bursitis of right hip 2634283051 00186 M70.61 Long-term drug therapy 288558957 Z79.891 [id number] Dionte Beck MD [address] [place] [address] 08/13/2024 08:46:05 08/13/2024 11:33:05 Edema of lower extremity 227842125 R60.0 Pain in lower limb 56756 006 M79.606 Lumbar radiculopathy 128 741939 M54.16 Bilateral spider veins of lower limbs 9980908387 4532293 I78.1 Arthritis 3973395 M19.90 Arthropath y of lumbar facet joint 100777193 M47.816 Asthma 285685629 J45.90 9 Bilateral earache 776702 003 H92.03 Cervical radiculopathy 98552235 M54.12 Degenerati on of intervertebral disc 45166352 M51.9 Degenerati on of lumbar intervertebral disc 31736824 M51.369 Degenerati on of cervical intervertebral disc 24138323 M50.30 Pain of ri ght shoulder joint 6020365473 3951511 M25.511 Pain of le ft knee joint 2289476479 38228 M25.562 Trochanter ic bursitis of right hip 1911316475 13689 M70.61 Sciatica 71994904 M54.30 Postoperative care 92655 9007 Z48.89 Long-term drug therapy 580383793 Z79.891 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 64882 Dionte Beck MD [address] [place] [address] 3 08/20/2024 10:34:48 08/20/2024 11:41:35 Pain in lower limb 31218062 M79.606 Edema of l ower extremity 768110869 R60.0 Lumbar radiculopathy 128 524707 M54.16 Bilateral spider veins of lower limbs 4354383893 3143265 I78.1 Arthropath y of lumbar facet joint 917143836 M47.816 Cervical radiculopathy 69600821 M54.12 Degenerati on of cervical intervertebral disc 98700879 M50.30 Degenerati on of intervertebral disc 40884368 M51.9 Degenerati on of lumbar intervertebral disc 77361095 M51.369 Arthritis 4655213 M19.90 [id number] Dionte Beck MD [address] [place] [address] 3 09/16/2024 10:22:20 09/16/2024 11:57:07 Pain in lower limb 03117042 M79.606 Edema of l ower extremity 837488868 R60.0 Bilateral spider veins of lower limbs 0974875984 7508839 I78.1 Lumbar radiculopathy 128 448274 M54.16 Arthritis 6133564 M19.90 Arthropath y of lumbar facet joint 584126475 M47.816 Cervical radiculopathy 04633472 M54.12 Degenerati on of cervical intervertebral disc 55663139 M50.30 Degenerati on of intervertebral disc 52827162 M51.9 Degenerati on of lumbar intervertebral disc 64552089 M51.369 Osteoarthr itis of left knee joint 0217536672 28107 M17.12 Pain of le ft knee joint 8419683876 91070 M25.562 Trochanter ic bursitis of right hip 1221839473 79752 M70.61 Inflammati on of sacroiliac joint 55564960 M46.1 04106 Dionte Beck MD [address] [place] [address] 09/23/2024 08:08:40 09/23/2024 09:02:08 Arthritis 1948255 M19.90 Lumbar spondylosis 92970 0009 M47.896 Arthropath y of lumbar facet joint 730077819 M47.816 Asthma 021230309 J45.90 9 Cervical radiculopathy 20499448 M54.12 Degenerati on of cervical intervertebral disc 42924605 M50.30 Degenerati on of intervertebral disc 39779318 M51.9 Degenerati on of lumbar intervertebral disc 65276198 M51.369 Depressive disorder 3548 9007 F32.A Trochanter ic bursitis of right hip 8192978600 34411 M70.61 Pain of ri ght shoulder joint 9517206140 7325534 M25.511 Pain of le ft knee joint 5545077437 77335 M25.562 Osteoarthr itis of left knee joint 8659881371 72496 M17.12 Pain in lower limb 68192 006 M79.606 Inflammati on of sacroiliac joint 97984191 M46.1 66331 TAMMI SHARMA NP [address] [place] [address] 10/13/2024 12:58:24 10/13/2024 13:19:35 Pain in lower limb 60340639 M79.606 Edema of l ower extremity 529512393 R60.0 Bilateral spider veins of lower limbs 2514604908 4504589 I78.1 Lumbar radiculopathy 128 037919 M54.16 Arthritis 4538000 M19.90 [id number] Dionte Beck MD [address] [place] [address] 11/04/2024 09:13:58 11/04/2024 10:15:35 Edema of lower extremity 916128782 R60.0 Pain in lower limb 95370 006 M79.606 Lumbar radiculopathy 128 093496 M54.16 Bilateral spider veins of lower limbs 9426991613 1627831 I78.1 Pain of ri ght shoulder joint 9221019731 2671398 M25.511 Bilateral earache 495168 003 H92.03 Sciatica 51750187 M54.30 Lumbar spondylosis 14323 0009 M47.896 Degenerati on of lumbar intervertebral disc 01486601 M51.369 Arthropath y of lumbar facet joint 326471192 M47.816 Cervical radiculopathy 25157783 M54.12 Degenerati on of cervical intervertebral disc 82060264 M50.30 Degenerati on of intervertebral disc 09153892 M51.9 Trochanter ic bursitis of right hip 7615520921 31924 M70.61 Acute meni scal tear, medial 318555924 S83.232A Arthritis 9648008 M19.90 Health Concerns Section Related Observation LastModified by Organization Detai ls LastModified Time None Recorded Concern Status LastModified by Organization Details LastModified Time None Recorded Advance Directives Directive N: Payers Insurance Date Sequence Insurance Name Policy Number Policy Green Covered Member ID Green Member ID Guarantor Name 05/23/2022 1 [employer] [place] Saritha Moody [id number] Saritha Moody 05/23/2022 2 [employer] [place] - [place]MO) [id number] Saritha Moody [id number] Saritha Moody 11/08/2024 1 [employer] [place]AC[place] - [place]MO) Saritha Moody [id number] Saritha Moody Notes Date Note Type Note Provider Name and Address Organization Details Recorded Time 08/20/2024 text/html Low back painReported bypatient.Onset:gr adual [...] in pain/symptoms Daily Activities:Living independently.;Dif ficulty completing [facility] secondary 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 Dionte Beck MD [address], [address], [place] - [facility] 08/20/2024 14:03:45 09/16/2024 [...] in pain/symptoms Daily Activities:Living independently.;Dif ficulty completing [facility] secondary 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 Dionte Beck MD [address], [address], [place] - [facility] 09/16/2024 13:00:54 [...] in pain/symptoms Daily Activities:Living independently.;Dif ficulty completing [facility] secondary 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 Dionte Beck MD [address], [address], [place] - [facility] 09/23/2024 09:17:29 [...] in pain/symptoms Daily Activities:Living independently.;Dif ficulty completing [facility] secondary 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 TAMMI SHARMA NP [address], [address], [place] - [facility] 10/13/2024 13:34:57 11/04/2024 text/html Low back painReported bypatient.Onset:gr adual [...] in pain/symptoms Daily Activities:Living independently.;Dif ficulty completing [facility] secondary 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 Dionte Beck MD [address], [address], [place] - [facility] 11/04/2024 20:46:40 OBGyn Episode No OBEpisode recorded.
--- OUTSIDE RECORDS SUMMARY | 2024-11-17 12:48 | XMS_ITS | Continuity of Care Document ---
Author Organization [facility] [employer] Address [address] [place] [address] Assessment No assessment recorded. Plan of Treatment Reminders Order Date Submit Date Provider Last Modified By Organization Details Last Modified Time Details Appointments FOLLOW UP 30 2024 11:30A M Mary Khan NP Not [...] By Organization Details Last Modified Time 09/21/2024 [id number] desire's thyroiditis: care instructions [email or web address] Not available 09/21/2024 16:15:47 high blood pressure: care instructions [email or web address] Not available 09/21/2024 16:15:47 learning about high blood pressure [email or web address] Not available 09/21/2024 16:15:47 Reason for Referral None Reported. Results Created Date Observation Date Name Description Value Unit Range Abnormal Flag Note LastModifiedBy Organization Detail LastModifiedTime 11/06/19 25 XR, kidne y + urete r + bladd er No observ ation record ed. [email or web address] [facility] [address] [facility], [place], [address], 11/06/2024 12:23:47 11/12/19 25 MRI, knee, w/o contr ast No observ ation record ed. [email or web address] Not Available 2024 14:28:03 Result Notes None recorded. Problems Name Problem SNOMED Code Status Onset Date Resolution Date Notes Provider Name and Address Organization Details Recorded Time Chronic obstructive pulmonary disease 39278953 Active 2023 Mary Khan NP [address] [place] [address], [address], [employer] 4 14:19:16 Acute exacerbatio n of chronic obstructive pulmonary disease 501345538 Active 2023 Mary Khan NP [address] [place] [address], [address], [employer] 4 14:31:26 Acute sinusitis 00380022 Active 2023 Mary Khan NP [address] [place] [address], [address] 8, [employer] 4 11:11:39 Essential hypertensio n 61154325 Active 2023 Mary Khan NP [address] [place] [address], [address] 8, [employer] 5 16:15:40 Fatigue 08611105 Active 2023 Mary Khan NP [address] [place] [address], [address], [employer] 4 10:40:53 Acute back pain with sciatica 623263249 Active 2023 Mary Khan NP [address] [place] [address], [address], [employer] 4 10:42:24 Hypothyroid ism 08662333 Active 2023 Mary Khan NP [address] [place] [address], [address], [employer] 4 11:16:52 Nicotine dependence 33312484 Active 2023 Mary Khan NP [address] [place] [address], [address] 8, [employer] 4 11:20:48 Type 2 diabetes mellitus without complicatio n 076425441 Active 2023 Mary Khan NP [address] [place] [address], [address], [employer] 4 15:54:53 Vitamin D deficiency 09817537 Active 2023 Mary Khan NP [address] [place] [address], [address], [employer] 4 16:03:26 Laboratory test result abnormal 505403904 Active 2023 Mary Khan NP [address] [place] [address], [address], [employer] 4 10:35:37 Polyuria 29422374 Active 2023 Mary Khan NP [address] [place] [address], [address] 8, [employer] 4 10:26:36 Hyperlipide chana 22811947 Active 2023 Mary Khan NP [address] [place] [address], [address] 8, [employer] 4 08:20:26 Restless legs 40470180 Active 2023 Mary Khan NP [address] [place] [address], [address] 8, [employer] 4 08:38:05 Desire thyroiditis 08605853 Active 2024 Mary Khan NP [address] [place] [address], [address] 8, [employer] 5 16:15:10 Seasonal allergy 911265062 Active 2024 Mary Khan NP [address] [place] [address], [address] 8, [employer] 5 09:50:44 Acute bilateral otitis media 091514896 Active 2024 Mary Khan NP [address] [place] [address], [address] 8, [employer] 5 14:21:55 Prediabetes 740154423 Active 2024 Mary Khan NP [address] [place] [address], [address], [employer] 5 16:09:26 Generalized chronic body pains 896164970 Active 2024 Mary Khan NP [address] [place] [address], [address], [employer] 5 16:33:44 Chronic low back pain 202517089 Active 2024 Mary Khan NP [address] [place] [address], [address] 8, [employer] 5 17:07:21 Pain of left knee joint 4409452660054 07 Active 2024 Mary Khan NP [address] [place] [address], [address], [employer] 16:14:21 Anxiety 75972286 Active 2024 Mary Khan NP [address] [place] [address], [address] 8, [employer] 10:57:43 Dysuria 92815060 Active 2024 Gaby Nazario PA-C [address] [place] [address], [address], [employer] 13:27:35 Spasm of urinary bladder 137113227 Active 2024 Gaby Nazario PA-C [address] [place] [address], [address] 8, [employer] 5 13:27:44 Suprapubic pain 661857639 Active 2024 Gaby Nazario PA-C [address] [place] [address], [address] 8, [employer] 5 13:27:58 Constipatio n 07557348 Active 2024 Gaby Nazario PA-C [address] [place] [address], [address] 8, [employer] 12:24:01 Irritable bowel syndrome characteriz ed by sun da silva 888973484 Active 2024 Mary Khan NP [address] [place] [address], [address] 8, [employer] 14:22:17 Type 2 diabetes mellitus 43898094 Active 2024 Mary Khan NP [address] [place] [address], [address], [employer], [employer]. 14:26:43 Problem Notes None recorded. Procedures Surgical History Date Name Laterality Status Provider Name and Address Organization Details Recorded Time 03/16/20 Most Recent Mammogram completed [employer] 03/18/2024 14:58:58 Tonsillectomy completed [facility] 03/02/2024 13:52:34 Partial Hysterectomy completed [facility] 03/02/2024 13:52:42 manipulation of displaced nasal septum completed [facility]. 03/02/2024 13:52:53 procedure on shoulder completed [employer] 03/02/2024 13:53:00 operative procedure on knee completed [facility] 03/02/2024 13:53:10 Imaging Results None recorded. Procedure [...] Organization Details Last Updated DateTime 162.56 cm 43.3 kg/m2 796265. 28 g 98.7 [degF] 72 /min 97 % 97 % 138 mm[Hg] 73 mm[Hg] [employer], [employer] 15:44:10 Social History Question Answer Notes LastModified by Organizat ion Details LastModified Time Tobacco Smoking Status Current Every Day Smoker [facility], [employer] 03/02/2024 13:50:47 Do You Have An [...] Information not available 03/02/2024 What Type Of Hims Manager Do You Use? None Information not available [...] Or The Highest Degree You Have Received? [id number] Information not available 03/16/2024 How Many Days [...] Do You Have A Medical Power Of Dye Machine Tender? No Information not available 03/02/2024 What Was The Date Of Your Most Recent Tobacco Screening? 11/11/2024 [email or web address] Information not available 11/11/2024 Have You Ever [...] Date Was Tobacco Cessation Counseling Provided? 11/11/2024 [email or web address] Information not available 11/11/2024 How Many Years [...] anxious, or unable to sleep at night)? [id number] Information not available 03/16/2024 Do you have [...] Depression N Dermatologic Disorders N Hypothyroidism N Lung Disease N Developmental or Behavioral Disorders N Defects [...] N High Cholesterol N Liver Disease N Organ Transplant N Psychiatric/Mental Health Condition N Fibromyalgia N Dialysis N Schizophrenia N Headaches N Kidney Disease N Allergies/Hayfever [...] zoster recombinant 4 completed Errol Nacho null, [employer] 04/29/2024 13:39:09 pneumococcal polysaccharide PPV23 4 completed Errol Nacho null, [employer] 04/29/2024 13:39:09 zoster recombinant 5 completed Errol Nacho null, [employer] 06/29/2024 10:04:53 Tdap 5 completed Mary Khan NP [address] [place], [address], [employer] 08/10/2024 15:11:36 Hep A, adult 12/13/201 8 completed Errol Plato null, [place] - [place] [employer], [employer] 06/29/2024 09:42:10 Past Encounters Encounter ID Performer Location Encounter Start Date Encounter Closed Date Diagnosis/Indication Diagnosis SNOMED-CT Code Diagnosis ICD10 Code Diagnosis Note [id number] Mary Khan NP [facility] [address] [place] [address] 09/07/2024 15:50:06 09/07/2024 17:14:02 Prediabetes 699800983 R73.03 Essential hypertension 42964859 I10 continue meds as prescribed . Hypothyroidism 86384560 E03.9 Generalize d chronic body pains 106689745 G89.29 Vitamin D deficiency 347 44039 E55.9 Screening for cardiovascular system disease 957948477 Z13.6 11.1% lifetime ASCVD Risk Discussed with patient Chronic low back pain 27 6641256 M54.50 Continue f/u with Dr. Beck at pain management . Body mass index 40+ - severely obese 642933204 Z68.41 Discussed weight loss and healthy diet and exercise. Recommende d food diary with [facility]. Recommende d pool exercises at [facility]. Patient voiced understand ing. [id number] Mary Khan NP [address] [address] 09/21/2024 15:30:08 09/21/2024 16:34:31 Pain of left knee joint 0037146913 08424 M25.562 keep appt with pain mgmt. Desire thyroiditis 21 486167 E06.3 continue medication as prescribed . Essential hypertension 11261520 I10 continue meds as prescribed . Health Concerns Section Related Observation LastModified by Organization Detai ls LastModified Time None Recorded Concern Status LastModified by Organization Details LastModified Time None Recorded Payers Encounter Date Sequence Insurance Name Policy Number Policy Green Covered Member ID Green Member ID Guarantor Name 09/21/2024 1 [facility] (MEDICAID REPLACEMENT - HMO) Saritha Moody [id number] Saritha Moody Notes Date Note Type Note [...] concerns for today's visit. Mary Khan NP [address] [place] [address], [address], [facility] [employer] 09/21/2024 16:16:11 OBGyn Episode No OBEpisode recorded.
--- NOTE | 2024-11-17 12:56 | ECG_ITS ---
APPROVED REPORT Exam: Resting ECG HR:77 bpm ECG Measurements Heart Rate 77 AXES [place] 164 P 48 QRSd 86 QRS 35 QT 376 T 36 QTc 408 Conclusion SINUS RHYTHM LOW QRS VOLTAGE IN PRECORDIAL LEADS [QRS DEFLECTION < 1.0 mV IN CHEST LEADS] BORDERLINE ECG UNCONFIRMED REPORT Electronically signed by : James Farr MD 11/18/2024 08:13:10
--- NOTE | 2024-11-17 13:06 | XR_ITS ---
FINAL REPORT TECHNIQUE: Chest PA & Lateral CLINICAL HISTORY: Surgery, HTN FINDINGS: 2 views of the chest were performed. The heart size is normal. The mediastinum is within normal limits. There is no acute cardiopulmonary process. There are no pleural effusions. There is no pneumothorax. The bony thorax appears intact. IMPRESSION: No acute cardiopulmonary process. Reviewed, Interpreted and Dictated by Wm Knox MD Transcribed by Anali Hernandez Authenticated and [facility]
[2024-11-17 13:39] LABS: Chloride 105 mmol/L (98-107); Potassium 4.1 mmoL/L (3.5-5.1); Sodium 139 mmol/L (136-145)
[2024-11-17 13:40] LABS: Hematocrit 44.8 % (37.0-47.0); Hemoglobin 14.2 g/dL (12.2-16.2); Immature Granulocytes % 0.4 %; Mean Corpuscular HGB Conc 31.7 g/dL (31.8-35.4); Mean Corpuscular Hemoglobin 29.9 pg (27.0-31.2); Mean Corpuscular Volume 94.3 fl (81-99); Nucleated Red Blood Cells % 0 %; Platelet Count 272 K/mm3 (142-424); Red Blood Count 4.75 M/mm3 (4.20-5.40); Red Cell Distribution Width-SD 47.0 fL; White Blood Count 9.7 K/mm3 (4.8-10.8)
[2024-11-17 13:42] LABS: Anion Gap 13.1 mEq/L (5-15); Blood Urea Nitrogen 14 mg/dl (7-17); Carbon Dioxide 25 mmol/L (22.0-30.0); Creatinine,Serum 0.60 mg/dl (0.52-1.04); Estimated Glomerular Filt Rate 103 ml/min (>60); GFR (African American) 125 ML/MIN (>60)
[2024-11-17 13:43] LABS: Calcium 8.9 mg/dl (8.4-10.2); Glucose 98 mg/dl (74-100)
== END 2024-11-17 23:59 | disposition home or self-care (01) ==
LOC: PREOP 12:45
PROVIDERS: Physician Assistant Surgical; Visit Provider Orthopaedic Surgery
DX: Z01.810 Encounter for preprocedural cardiovascular examination (principal); Z01.812 Encounter for preprocedural laboratory examination; M17.12 Unilateral primary osteoarthritis, left knee; R94.31 Abnormal electrocardiogram [ECG] [EKG]; M23.92 Unspecified internal derangement of left knee
CPT/HCPCS: 71046; 80048; 85025; 93005

== ENCOUNTER 2024-11-24 10:31 | Day surgery (SDC) | payer MEDICAID, SELFPAY ==
[2024-11-17 13:29] VITALS: BMI 43.6
[2024-11-24] VITALS (10 sets, daily range): BP systolic 108–144; BP diastolic 61–100; PULSE 67–89; RESP 16–20; TEMP 36.4–36.5; O2SAT 97–99
[2024-11-24 11:13] LABS: POC Glucose,Bedside 105 (70-110)
[2024-11-24] MEDS: LACTATED RINGERS 1000ML 1,000 ML 100 ML IV (11:24)
--- NOTE | 2024-11-24 11:41 | EXP.ANES.CKL ---
[facility] Disclaimer: The information contained in this section may have been updated after the patient was seen, as this information can be updated by other users. Medical History KARLI (obstructive sleep apnea) Hypothyroid HTN (hypertension) Diabetes mellitus Loose total knee arthroplasty TMJ (sprain of temporomandibular joint) Chronic pain of both ears Asthma Otitis media Patient left without being seen Pedal edema Obesity Sciatica Hx of ulcer disease Depression Arthritis RLS (restless legs syndrome) Hypothyroidism Hypertension Sleep apnea Surgical History History of arthroscopy of left shoulder History of tonsillectomy History of knee surgery History of sinus surgery History of hysterectomy Family History Other No significant family history Social History Smoking Status: Current every day smoker tobacco type: cigarettes packs per day: 1 second hand exposure: Yes alcohol intake: never substance use type: denies use current occupational status: unemployed Travel in the last 8 weeks?: Inside the [place] household members: spouse housing: house current occupational exposures/hazards: No caffeine: Yes Have you lived/traveled outside [place] in past 30 days?: No Contact w/someone who lives/traveled outside [place] past 30 days?: No Exposure to someone with infectious disease in past 14 days?: No Do you have a fever (greater than 100.4 F or 38 C)?: No Have you tested positive for COVID-19?: No Exposed to someone with COVID-19 in past 14 days?: No Do you have a sore throat?: No Do you have a cough?: No Do you have any weakness?: No Do you have any diarrhea?: No Are you experiencing any unusual bleeding?: No Do you have any muscle aches/pain?: No Do you have any abdominal pain?: No Are you experiencing loss of taste or smell?: No [facility] Anesthesia Checklist Patient Identification Patient Identification: Arm Band Structural Data Admitted From: Home Planned Operative Procedure/s: Left Knee Arthroscopy Consent for Planned Operative Procedure(s) Verified: Yes Verified Documents: Surgical Consent and History and Physical NPO Status Verified Time NPO: 00:00 Additional verifications Anesthesia Reactions: No Hx Blood Transfusions: No Blood Transfusion Reaction: No Airway Assessment Mallampati Score:: Class II C-Spine Mobility Assessed: Yes TMJ Mobility Assessed: Yes Dentition: Good Dentition (upper dentures removed) Neurological Assessment Level of Consciousness: Awake, Alert and Appropriate Anesthesia Plan Anesthesia Risk discussed: Yes Anesthesia Plan: Verified ASA Class: II Anesthesia Type: General
[2024-11-24] MEDS: SODIUM CHLORIDE IRRIG SOLUTION 6,000 ML 25 ML IR (13:08)
--- NOTE | 2024-11-24 13:42 | P.OP_ITS ---
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 Left knee was marked with yes my initials. Patient then transported operative suite placed upon operating bed. General anesthesia administered airway secured. Left lower extremity prepped and draped within the knee lambert. Once prepped and draped final operative timeout performed to identify proper patient procedure and extremity. Everyone involved in the case agreed. There is no counter indications to beginning. Did receive preoperative antibiotics. Marking pen was used to osvaldo the bony landmarks of the knee and standard portal sites. Esmarch was used to exsanguinate the extremity pneumatic tourniquet inflated to 300 mmHg. Skin knife was used to incise standard anterior lateral portal blunt trocar was placed in the patellofemoral joint exchange of the camera swept directly into the medial joint line where the anterior medial portal was made with the help of an 18-gauge spinal needle. This was then exchanged with the blunt and a probe. There was a complex tear of the posterior horn of the medial meniscus and a kissing lesion with a grade IV chondromalacia area on the medial tibial plateau. Using combination of straight biter and sucker shaver partial medial meniscectomy was performed to obtain stable rim. Attention is then brought to the intercondylar notch the ACL was seen and intact tensions brought to the lateral joint line within the lateral joint line there was some fissuring of the lateral tibial cartilage but no full-thickness cartilage lesions. There is some thinning of the meniscus but no meniscus tear. I swept into the medial and lateral gutters. No pathology was seen. Back into the patellofemoral joint within the patellofemoral joint the patella did track midline in the trochlea. The trochlea had advanced degenerative changes as well with grade III chondromalacia of the trochlea. No loose cartilage was present. Camera is then removed the joint was drained local anesthesia infiltrated the portal sites skin closed with nylon stitch sterile dressing placed from toe to thigh patient waken anesthesia taken recovery in stable condition. Condition: stable Disposition: PACU Complications:: None apparent
--- NOTE | 2024-11-24 13:43 | P.PNANES_ITS ---
[facility] Anesthesia Record Part I Anesthesia Record I Intake, IV Amount: 900 Hydration: Adequate Estimated blood loss (mL): 15 Urine output (mL): 0 Blood Products used (#): none Blood Pressure: 144/100 SaO2: 97 Pulse Rate: 89 Airway Patency: Patent Respiratory Rate: 16 Temperature: 97.7 F Patient is:: Drowsy and Stable Stable to PACU at:: 13:39
[2024-11-24 13:48] LABS: POC Glucose,Bedside 96 (70-110)
[2024-11-24] MEDS: MORPHINE 2MG/ML SYRINGE 2 MG IV (13:55)
[2024-11-24] MEDS: HYDROMORPHONE 2MG/ML SYRINGE 0.5 MG IV (14:10)
--- NOTE | 2024-11-24 14:27 | SUR.PHASEI ---
1419- Patient's VSS. Patient states that after the 2mg morphine and the 0.5mg of dilaudid her pain is much better. Patient stated her pain at a 4/10 and tolerable. Dressing clean, dry and intact. Sitting up in bed drinking water. 1420- Pt transported to post op. Detailed report given to MARYURI Last.
--- NOTE | 2024-11-25 10:25 | P.PNANES_ITS ---
[facility] Anesthesia Record Part II Anesthesia Record Part II Discharge Time: 14:19 Destination: Surgical Day Care (OP Surgery) PACU nurse assessment reviewed?: Yes Patient Condition:: Good Anesthesia Complications:: None Swallowing reflex intact?: Yes Airway Patency: Patent Cyanosis?: No Blood Pressure: 134/75 SaO2: 99 Respiratory Rate: 18 Pulse Rate: 79 Temperature: 97.7 F Mental Status: Alert & Oriented Pain level:: 4 Nausea and/or vomitting:: None Intake, IV Amount: 0 Hydration: Adequate
[2024-11-25 10:26] VITALS: BP 134/75; PULSE 79; RESP 18; TEMP 36.5; O2SAT 99
== END 2024-11-24 14:52 | disposition home or self-care (01) ==
PROVIDERS: PCP Nurse Practitioner Family; Visit Provider Orthopaedic Surgery
PROC: (CPT 29870; principal; 2024-11-24 12:15)
DX: S83.232A Complex tear of medial meniscus, current injury, left knee, initial encounter (principal); M94.262 Chondromalacia, left knee; M19.90 Unspecified osteoarthritis, unspecified site; J45.909 Unspecified asthma, uncomplicated; E11.9 Type 2 diabetes mellitus without complications; I10 Essential (primary) hypertension; E03.9 Hypothyroidism, unspecified; E66.9 Obesity, unspecified; F17.210 Nicotine dependence, cigarettes, uncomplicated; Z79.899 Other long term (current) drug therapy; Z79.890 Hormone replacement therapy; X58.XXXA Exposure to other specified factors, initial encounter
CPT/HCPCS: 29881; 82962; 96374; J0690; J1100; J1171; J2003; J2250; J2270; J2405; J2704; J3010; J7120

== ENCOUNTER 2025-04-14 09:17 | Outpatient (CLI) | payer MEDICAID, SELFPAY ==
--- OUTSIDE RECORDS SUMMARY | 2025-03-22 11:00 | XMS_ITS | Encounter Summary ---
Author Organization [facility] Address [address] [place] [address] Care Team Providers Care General Helper Name Role Phone Roshan Salcido MD Primary Care Provider [phone] Reason for Referral * Diagnostic Imaging (Routine) - Authorized - Pending Scheduling Specialty Diagnoses / Procedures Referred By Contac t Referred To Contact Diagnoses Screening for osteoporosis Procedures DEXA Bone Density Axial Roshan Salcido MD [address] [place] [address] Phone: tel: fax: [facility] [address] [place] [phone] Phone: tel: fax: Referral ID Status Reason Start Date Expiration Date Visits Requested Visits Authorized [id number] Authorized - Pending Scheduling 03/22/2025 06/21/2026 1 1 * Diagnostic Imaging (Routine) - Authorized - Pending Scheduling Specialty Diagnoses / Procedures Referred By Contac t Referred To Contact Diagnoses Postmenopausal Procedures Mammo Screening Digital Tomosynthesis Bilateral With CAD Roshan Salcido MD [address] [place] [id number] Phone: tel: fax: [facility] [address] [place] [phone] Phone: tel: fax: Referral ID Status Reason Start Date Expiration Date Visits Requested Visits Authorized [id number] Authorized - Pending Scheduling 03/22/2025 06/21/2026 1 1 * MRI/CAT/PET Scan (Routine) - Authorized - Pending Scheduling Specialty Diagnoses / Procedures Referred By Lisa early Referred To Contact Diagnoses Screening for lung cancer Procedures CT Chest Low Dose Baseline/Annual Screening WO Roshan Salcido MD [address] [place] [address] [place] [address] Phone: tel: fax: [facility] [address] [place] [address] Phone: tel: fax: Referral ID Status Reason Start Date Expiration Date Visits Requested Visits Authorized [id number] Authorized - Pending Scheduling 03/22/2025 06/21/2026 1 1 Reason for Visit * Reason Comments Annual Exam Establish care Encounter Details Date Type Department Care Team (Late st Contact Info) Description 03/22/2025 11:00 AM EST Office Visit [facility] [address] [place] [address] [place] [phone] Roshan Salcido MD [address] [place] [address] [place] [id number] Encounter for general adult medical examination with abnormal findings (Primary Dx); History of echocardiogram; Type 2 diabetes mellitus without complication, without long-term current use of insulin; Primary hypertension; Mixed hyperlipidemia; Vitamin D deficiency; 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; Class 3 severe obesity due to excess calories without serious comorbidity with body mass index (BMI) of 40.0 to 44.9 in adult; Gastro-esophageal reflux disease without esophagitis; Irritable bowel syndrome with constipation; Anxiety; Recurrent major depressive disorder, remission status unspecified; Osteoarthritis of lumbar spine, unspecified spinal osteoarthritis complication status; Lumbar radiculopathy; RLS (restless legs syndrome); KARLI (obstructive sleep apnea); Cervical radiculopathy; Tobacco dependence due to cigarettes; Screen for colon cancer; Encounter for screening mammogram for malignant neoplasm of breast; Postmenopausal; Screening for osteoporosis; Fatigue, unspecified type; Screening for lung cancer; Influenza vaccination administered at current visit; Need for prophylactic vaccination against Streptococcus pneumoniae (pneumococcus); Need for hepatitis C screening test Social History Tobacco Use Types Packs/Day Years Used Date Smoking Tobacco: Every Day Cigarettes 1 20 Passive Smoke Exposure: Current Smokeless Tobacco: Never Comments:cutting back Alcohol Use Standard Drinks/Week Comments No 0 (1 standard drink = 0.6 oz pur e alcohol) AUDIT-C Answer Date Recorded Frequency of Alcohol Consumption Never 06/13/2018 Average Number of Drinks Not on file 019 Frequency of Binge Drinking Not on file 05/21 PHQ-2 Answer Date Recorded Patient Health Questionnaire-2 Score 0 03/22/2025 Comments No Sex and Gender Information Value Date Recorded Sex Assigned at Not on file Legal Sex Female 1:57 PM EST Gender Identity Not on file Sexual Orientation Not on file documented as of this encounter Last Filed Vital Signs Vital Sign Reading Time Taken Comments Blood Pressure 104/77 03/22/2025 10:53 AM EST Pulse 86 03/22/2025 10:53 AM EST Temperature 36.6 C (97.9 F) 03/22/2025 10:53 AM EST Respiratory Rate - - Oxygen Saturation 99% 03/22/2025 10:53 AM EST Inhaled Oxygen Concentration - - Weight 122 kg (268 lb 6.4 oz) 03/22/2025 10:53 A M EST Height 162.6 cm (5' 4 ) 03/22/2025 10:53 AM EST Body Mass Index 46.07 03/22/2025 10:53 AM EST documented in this encounter Functional Status documented as of this encounter Progress Notes * Roshan Salcido MD - 03/22/2025 1:05 PM ESTAssociated Problem(s): Encounter for general adult medical examination with abnormal findings 60-year-old female presenting for an introductory office visit and complete physical, with specifichealth issues addressed as detailed below, health maintenance includes reportedly current with colonoscopy with Dr. Tirado for last year revealing several polyps, Pap smear from last year through [facility] email [facility] reportedly unremarkable, referred for screening low-dose chest CT, mammogram, DEXA scan, influenza vaccine ministered a, Capvaxive deferred given lack of office supply, advised to obtain COVID-19 and Shingrix vaccines through the health department, updating screening labs, tentative follow-up in 1 month for clinical response to her phentermine therapy prescribed for obesity, and as needed in the interim. * Roshan Salcido MD - 03/22/2025 11:00 AM ESTAssociated Order(s): ECG 12 Lead Pre-Procedure Diagnose(s): Primary hypertension Post-Procedure Diagnose(s): Primary hypertension Images from the original note were not included. Female Physical Note Date: 03/22/2025 Patient Name: Saritha Moody : 1965 Chief Complaint: Chief Complaint Patient presents with Annual Exam Establish care History of Present Illness: Saritha Moody is a 60 y.o. female who is here today for their annual health maintenance and physical. History of Present Illness The patient is a 60-year-old female who presents for an introductory office visit and a physical exam. She has a history of bilateral knee surgeries and left shoulder surgery, with the most recent knee surgery being non-replacement. 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 She reports chronic back pain due to sciatica, predominantly on the left side but occasionally on the right. She also reports neck pain, which is localized and does not radiate. She experiences numbness in her arm during sleep. She is currently on gabapentin for nerve pain and meloxicam for arthritis. She has been diagnosed with diabetes and is on a daily regimen of metformin. Her blood glucose levels, which she monitors weekly, typically range in the 90s pre- meal. She consumed candy this morning,which may have elevated her blood sugar levels. She was previously on Ozempic but discontinued it due to insurance coverage issues. Suspect to be given her chronic arthritic pain. She has a history of hypertension and is currently on hydrochlorothiazide 12.5 mg and losartan 50 mg daily. She does not regularly monitor her blood pressure at home. Denies chest pains palpitations dyspnea dizziness or edema. She has a thyroid disorder, specifically Odessa's disease, and is on a daily dose of levothyroxine 112 mcg. She has a history of anxiety and depression, which are currently well-managed with sertraline 25 mgdaily. She also takes trazodone 100 mg for sleep. She has a history of allergies and asthma-like symptoms, for which she takes Flovent 220 mcg, 2 puffs twice daily. She also uses Astelin spray, Zyrtec, and Flonase as needed. History of anxiety depression and insomnia well compensated with sertraline and trazodone She has a history of sleep apnea and uses a CPAP machine, which she finds beneficial. She has a history of restless legs syndrome but is no longer on ropinirole. She reports no current issues with this condition. She has a history of irritable bowel syndrome and constipation, for which she takes Linzess with clinical results. She has been experiencing weight gain over the past few years, despite maintaining a healthy diet and regular exercise. She reports no cardiac issues. She is due for a mammogram and had a colonoscopylast year, which revealed 5 polyps. She was advised to take Metamucil and undergo another colonoscopy in 5 years. She has never had a bone density scan. She reports muscle weakness, which she attributes to her thyroid condition. She is currently attending physical therapy and plans to start exercising. She reports difficulty exercising due to pain. She reports decreased energy levels. She reportsno headaches, dizziness, or visual problems. She is up-to-date with her eye exams. She reports no hearing concerns. She has dentures and reports no gum problems. She reports no neck lumps, bumps, or pain. She reports mild sinus issues. She reports no chest pain, palpitations, or shortness of breath. She reports occasional fluid retention in her legs, which she believes is related to her knee pain. She reports no indigestion or heartburn. She has a history of ulcers but reports no current issues. She reports no swallowing difficulties or discomfort. She reports no blood or black tarry stools. She reports no urinary difficulties, burning, blood, leakage problems, or gynecological problems. She reports frequent hand cramps and arm numbness in certain sleeping positions. She reports poor sleep quality. Initially declined but subsequently agreeable to obtaining Capvaxive and influenza vaccines in the office. Cigarette smoker approximately 30 pack years, smoked for a 40-year period of time at approximate 1 pack/day, but in that time. Having quit all times for approximate total time of 10 years, currently having reduced down to 0.25 packs/day for the last 3 years. Denies ever having had a low-dose screening chest CT. Health maintenance includes through [facility] last year reported normal, never had a low-dose screening chest CT, colonoscopy with Dr. Tirado in [place] revealing several polyps withinthe last year by history, due for vaccine update, never had DEXA scan, updating screening labs. PAST MEDICAL HISTORY: - Diabetes, diagnosed 5 years ago - Hypertension - Odessa's disease - Anxiety - Depression - Allergies - Asthma-like symptoms - Sleep apnea - Restless legs syndrome - Irritable bowel syndrome - Ulcers PAST SURGICAL HISTORY: - Bilateral knee surgeries - Left shoulder surgery SOCIAL HISTORY The patient admits to smoking since she was 19 or 20 years old, with periods of cessation totaling approximately 3 years. Currently, she smokes half a pack every 2 days. MEDICATIONS CURRENT MEDS: Gabapentin Metformin Oral Once daily Hydrochlorothiazide 12.5 mg Oral Once daily Losartan 50 mg Oral Once daily Levothyroxine 112 mcg Oral Daily Sertraline 25 mg Oral Once daily Trazodone 100 mg Oral Vitamin D 1000 mcg Oral Daily Flovent 220 mcg Inhaled 2 puffs twice daily Astelin Nasal As needed Zyrtec Oral As needed Flonase Nasal As needed Hydroxyzine Oral As needed Linzess Oral Meloxicam Oral Subjective Review of Systems: Review of Systems Past Medical History, Social History, Family History and Care Team were all reviewed with patient and updated as appropriate. Medications: Current Outpatient Medications: albuterol sulfate HFA 108 (90 Base) MCG/ACT inhaler, As Needed., Disp: , Rfl: atorvastatin (LIPITOR) 10 MG tablet, Take 1 tablet by mouth Daily., Disp: , Rfl: azelastine (ASTELIN) 0.1 % nasal spray, , Disp: , Rfl: Calcium Carbonate-Vit D-Min (Calcium 600+D Plus Minerals) 600-400 MG-UNIT tablet, Take 1 tablet by mouth 2 (Two) Times a Day., Disp: , Rfl: cetirizine (zyrTEC) 10 MG tablet, (10 MG), Disp: , Rfl: D3-1000 25 MCG (1000 UT) tablet, , Disp: , Rfl: fluticasone (FLONASE) 50 MCG/ACT nasal spray, 2 sprays into the nostril(s) as directed by provider Daily., Disp: 1 bottle, Rfl: 0 fluticasone (FLOVENT HFA) 220 MCG/ACT inhaler, Inhale 2 puffs 2 (Two) Times a Day., Disp: , Rfl: gabapentin (NEURONTIN) 300 MG capsule, 1 capsule., Disp: , Rfl: hydroCHLOROthiazide (HYDRODIURIL) 12.5 MG tablet, .COMPLEX, Disp: , Rfl: hydrOXYzine pamoate (VISTARIL) 25 MG capsule, , Disp: , Rfl: Lancets (Safety Lancet 30G/Pressure Act) misc, , Disp: , Rfl: levothyroxine (SYNTHROID, LEVOTHROID) 112 MCG tablet, , Disp: , Rfl: Linzess 72 MCG capsule capsule, Take 1 capsule by mouth Daily., Disp: , Rfl: losartan (COZAAR) 50 MG tablet, .COMPLEX, Disp: , Rfl: meloxicam (MOBIC) 15 MG tablet, Take 1 tablet by mouth Daily., Disp: , Rfl: metFORMIN ER (GLUCOPHAGE-XR) 500 MG 24 hr tablet, , Disp: , Rfl: OneTouch Verio test strip, , Disp: , Rfl: sertraline (ZOLOFT) 25 MG tablet, .COMPLEX, Disp: , Rfl: traZODone (DESYREL) 100 MG tablet, Take 1 tablet by mouth Every Night., Disp: 90 tablet, Rfl: 1 triamcinolone (KENALOG) 0.1 % cream, , Disp: , Rfl: phentermine 15 MG capsule, Take 1 capsule by mouth Every Morning., Disp: 30 capsule, Rfl: 0 [START ON 04/19/2025] varenicline (CHANTIX) 1 MG tablet, Take 1 tablet by mouth 2 (Two) Times a Day for 140 days., Disp: 56 tablet, Rfl: 4 Varenicline Tartrate, Starter, 0.5 MG X 11 & 1 MG X 42 tablet therapy pack, Take 0.5 mg by mouth Daily for 3 days, THEN 0.5 mg 2 (Two) Times a Day for 4 days, THEN 1 mg 2 (Two) Times a Day for 21days. Take 0.5 mg po daily x 3 days, then 0.5 mg po bid x 4 days, then 1 mg po bid, Disp: 1 each, Rfl: 0 Allergies: Allergies Allergen Reactions Metformin Nausea And Vomiting Immunizations: Health Maintenance Summary Current Care Gaps Hepatitis B (1 of 3 - 19+ 3-dose series) Never done No completion, postpone, or frequency change history exists for this topic. COLORECTAL CANCER SCREENING (View Topic Details) Never done No completion, postpone, or frequency change history exists for this topic. Awaiting Completion LIPID PANEL (Yearly) Order placed this encounter 03/22/2025 Order placed for Lipid Panel by Roshan Salcido MD MAMMOGRAM (Every 2 Years) Order placed this encounter 03/22/2025 Order placed for Mammo Screening Digital Tomosynthesis Bilateral With CAD by Roshan Salcido MD LUNG CANCER SCREENING (Yearly) Order placed this encounter 03/22/[address] Chest Low Dose Baseline/Annual Screening WO by Roshan Salcido MD HEPATITIS C SCREENING (Once) Order placed this encounter 03/22/2025 Order placed for Hepatitis C Antibody by Roshan Salcido MD Upcoming Pneumococcal Vaccine 50+ (2 of 2 - PCV) Next due on 04/29/2025 04/29/2024 Imm Admin: Pneumococcal Polysaccharide (PPSV23) HEMOGLOBIN A1C (Every 6 Months) Next due on 09/19/2025 03/22/2025 Hemoglobin A1C component of POC Glycosylated Hemoglobin (Hb A1C) DIABETIC EYE EXAM (Yearly) Next due on 12/31/2025 12/31/2024 Patient-Reported (Performed Externally) ANNUAL PHYSICAL (Yearly) Next due on 03/22/2026 03/22/2025 Done DIABETIC FOOT EXAM (Yearly) Next due on 03/22/2026 03/22/2025 SmartData: WORKFLOW - DIABETES - DIABETIC FOOT EXAM PERFORMED 03/22/2025 [employer]: FINDINGS - TESTS - NEUROLOGY - MONOFILAMENT TEST - MONOFILAMENT TEST PERFORMED 03/22/2025 Smart[employer]: WORKFLOW - DIABETES - DIABETIC FOOT EXAM PERFORMED URINE MICROALBUMIN-CREATININE RATIO (uACR) (Yearly) Next due on 03/22/2026 03/22/2025 POC Albumin/Creatinine Ratio Urine TDAP/TD VACCINES (2 - Td or Tdap) Next due on 08/10/2034 08/10/2024 Imm Admin: Tdap Completed or No Longer Recommended INFLUENZA VACCINE Completed 03/22/2025 Postponed until 09/18/2025 by Leonor Hernandez MA (Patient Refused - refused today) 03/22/2025 Imm Admin: Fluzone >6mos ZOSTER VACCINE (Series Information) Completed 06/29/2024 Imm Admin: Shingrix 04/29/2024 Imm Admin: Shingrix Orders Placed This Encounter Procedures Fluzone >6mos Colorectal Screening: Reports current from last year with Dr. Tirado in [place] Last Completed Colonoscopy This patient has no relevant Health Maintenance data. Pap: Reportedly obtained last year through [facility] Last Completed Pap Smear This patient has no relevant Health Maintenance data. Mammogram: Due for update Last Completed Mammogram This patient has no relevant Health Maintenance data. CT for Smoker (Age 50-80, 20 pk yr): Referral given Bone Density/DEXA (Age 65 or high risk): Referral given Hep C (Age 18-79 once): Pending HIV (Age 15-65 once): No results found for: HIV1X2 A1c: Hemoglobin A1C Date Value Ref Range Status 03/22/2025 6.2 (A) 4.5 - 5.7 % Final 6.2% today Lipid panel: No results found for: LIPIDEXCLUSI pending The ASCVD Risk score (Taisha DK, et al., 2019) failed to calculate for the following reasons: Cannot find a previous HDL lab Cannot find a previous total cholesterol lab * - Cholesterol units were assumed Dermatology: N/A Register Of Deeds: Indicates current Dentist: N/A, has dentures Tobacco Use: High Risk (03/22/2025) Patient History Smoking Tobacco Use: Every Day Smokeless Tobacco Use: Never Passive Exposure: Current Social History Substance and Sexual Activity Alcohol Use No Social History Substance and Sexual Activity Drug Use No Diet/Physical activity: Fair diet, limited physical activity Sexual Health: Does not require contraception, not yet attempting Menopause: Yes Menstrual Cycles: No, last menstrual cycle: Several years prior Depression: PHQ-2 Depression Screening PHQ-9 Total Score: 0 Smoking Cessation: 3-10 mintues spent counseling Will try to cut down Objective Physical Exam: Vital Signs: Vitals: 03/22/25 1053 BP: 104/77 BP Location: Left arm Patient Position: Sitting Cuff Size: Adult Pulse: 86 Temp: 97.9 ??F (36.6 ??C) TempSrc: Temporal SpO2: 99% Weight: 122 kg (268 lb 6.4 oz) Height: 162.6 cm (64 ) PainSc: 6 PainLoc: Hip Facility age limit for growth %rocío is 20 years. Body mass index is 46.07 kg/m??. Physical Exam Vitals and nursing note reviewed. Constitutional: General: She is not in acute distress. Appearance: Normal appearance. She is obese. She is not ill-appearing. Comments: Pleasant healthy alert and oriented, NAD HENT: Head: Normocephalic and atraumatic. Right Ear: Tympanic membrane, ear canal and external ear normal. Left Ear: Tympanic membrane, ear canal and external ear normal. Nose: Nose normal. No congestion or rhinorrhea. Mouth/Throat: Mouth: Mucous membranes are moist. Pharynx: Oropharynx is clear. Comments: Upper denture plate, residual anterior mandibular dentition in fair condition Eyes: Extraocular Movements: Extraocular movements intact. Conjunctiva/sclera: Conjunctivae normal. Pupils: Pupils are equal, round, and reactive to light. Neck: Vascular: No carotid bruit. Comments: Mild cervical stiffness, no periclavicular or axillary or inguinal adenopathy Cardiovascular: Rate and Rhythm: Normal rate and regular rhythm. Pulses: Normal pulses. Heart sounds: Normal heart sounds. No murmur heard. No friction rub. No gallop. Comments: 2+ carotids without bruits, 2+ radial pulses, 2+ femoral pulses without bruits, 2+ bipedal pulses with good perfusion and no dependent edema Pulmonary: Effort: Pulmonary effort is normal. No respiratory distress. Breath sounds: Normal breath sounds. Comments: No cough Abdominal: General: Bowel sounds are normal. There is no distension. Palpations: Abdomen is soft. There is no mass. Tenderness: There is no abdominal tenderness. There is no guarding or rebound. Hernia: No hernia is present. Comments: Centripetal obesity, nontender nondistended with no organomegaly or masses Genitourinary: Comments: Breast and exam deferred today as followed by gynecology Musculoskeletal: General: Tenderness present. No swelling, deformity or signs of injury. Normal range of motion. Cervical back: Normal range of motion and neck supple. Tenderness present. No rigidity. Right lower leg: No edema. Left lower leg: No edema. Comments: Mild discomfort to manipulation of her right knee, stiffness in her neck, generalized soreness in her muscles nonspecifically Lymphadenopathy: Cervical: No cervical adenopathy. Upper Body: Right upper body: No supraclavicular or axillary adenopathy. Left upper body: No supraclavicular or axillary adenopathy. Skin: General: Skin is warm and dry. Capillary Refill: Capillary refill takes less than 2 seconds. Findings: No lesion or rash. Neurological: General: No focal deficit present. Mental Status: She is alert and oriented to person, place, and time. Mental status is at baseline. Cranial Nerves: No cranial nerve deficit. Sensory: No sensory deficit. Motor: No weakness. Coordination: Coordination normal. Gait: Gait normal. Comments: Bipedal exam with normal sensation in both feet to fine touch vibration and pinprick withmotor exam normal Psychiatric: Mood and Affect: Mood normal. Behavior: Behavior normal. Thought Content: Thought content normal. Judgment: Judgment normal. Diabetic Foot Exam Performed and Monofilament Test Performed POCT Results (if applicable); Results for orders placed or performed in visit on 03/22/25 POC Glucose, Blood Collection Time: 03/22/25 11:45 AM Specimen: Blood Result Value Ref Range Glucose 133 (A) 70 - 130 mg/dL Lot Number [id number] Expiration Date 12/22/2025 POC Glycosylated Hemoglobin (Hb A1C) Collection Time: 03/22/25 11:46 AM Specimen: Blood Result Value Ref Range Hemoglobin A1C 6.2 (A) 4.5 - 5.7 % Lot Number [id number] Expiration Date 10/16/2026 POC Albumin/Creatinine Ratio Urine Collection Time: 03/22/25 11:46 AM Specimen: Urine Result Value Ref Range POC ALBUMIN, URINE 10 mg/L POC CREATININE, URINE 100 mg/dL POC Urine Albumin Creatinine Ratio <30 <30 Lot Number [id number] Expiration Date 08/24/2026 ECG 12 Lead Date/Time: 03/22/2025 1:06 PM Performed by: Roshan Salcido MD Authorized by: Roshan Salcido MD Comparison: compared with previous ECG from 10/23/2023 Similar to previous ECG Comparison to previous ECG: Sinus rhythm rate 76, no abnormalities noted, no change versus previousEKG Assessment / Plan Assessment/Plan: Diagnoses and all orders for this visit: 1. Encounter for general adult medical examination with abnormal findings (Primary) Assessment & Plan: 60-year-old female presenting for an introductory office visit and complete physical, with specifichealth issues addressed as detailed below, health maintenance includes reportedly current with colonoscopy with Dr. Tirado for last year revealing several polyps, Pap smear from last year through [facility] email [facility] reportedly unremarkable, referred for screening low-dose chest CT, mammogram, DEXA scan, influenza vaccine ministered a, Capvaxive deferred given lack of office supply, advised to obtain COVID-19 and Shingrix vaccines through the health department, updating screening labs, tentative follow-up in 1 month for clinical response to her phentermine therapy prescribed for obesity, and as needed in the interim. Orders: - Vitamin D,25-Hydroxy; Future - TSH; Future - T4, Free; Future - CBC & Differential; Future - Comprehensive Metabolic Panel; Future - Lipid Panel; Future - UA / M With / Rflx Culture([facility] ONLY) - Urine, Clean Catch; Future - POC Glucose, Blood - POC Glycosylated Hemoglobin (Hb A1C) - POC Albumin/Creatinine Ratio Urine - UA / M With / Rflx Culture([facility] ONLY) - Urine, Clean Catch - Lipid Panel - Comprehensive Metabolic Panel - CBC & Differential - T4, Free - TSH - Vitamin D,25-Hydroxy 2. History of echocardiogram 3. Type 2 diabetes mellitus without complication, without long-term current use of insulin - POC Glucose, Blood - POC Glycosylated Hemoglobin (Hb A1C) - POC Albumin/Creatinine Ratio Urine 4. Primary hypertension - Comprehensive Metabolic Panel; Future - UA / M With / Rflx Culture([facility] ONLY) - Urine, Clean Catch; Future - ECG 12 Lead - UA / M With / Rflx Culture([facility] ONLY) - Urine, Clean Catch - Comprehensive Metabolic Panel 5. Mixed hyperlipidemia - Lipid Panel; Future - Lipid Panel 6. Vitamin D deficiency - Vitamin D,25-Hydroxy; Future - Vitamin D,25-Hydroxy 7. 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 - TSH; Future - T4, Free; Future - T4, Free - TSH 8. Class 3 severe obesity due to excess calories without serious comorbidity with body mass index (BMI) of 40.0 to 44.9 in adult - phentermine 15 MG capsule; Take 1 capsule by mouth Every Morning. Dispense: 30 capsule; Refill: 0 9. Gastro-esophageal reflux disease without esophagitis 10. Irritable bowel syndrome with constipation 11. Anxiety 12. Recurrent major depressive disorder, remission status unspecified 13. Osteoarthritis of lumbar spine, unspecified spinal osteoarthritis complication status 14. Lumbar radiculopathy 15. RLS (restless legs syndrome) 16. KARLI (obstructive sleep apnea) 17. Cervical radiculopathy 18. Tobacco dependence due to cigarettes - Varenicline Tartrate, Starter, 0.5 MG X 11 & 1 MG X 42 tablet therapy pack; Take 0.5 mg by mouth Daily for 3 days, THEN 0.5 mg 2 (Two) Times a Day for 4 days, THEN 1 mg 2 (Two) Times a Day for 21 days. Take 0.5 mg po daily x 3 days, then 0.5 mg po bid x 4 days, then 1 mg po bid Dispense: 1 each; Refill: 0 - varenicline (CHANTIX) 1 MG tablet; Take 1 tablet by mouth 2 (Two) Times a Day for 140 days. Dispense: 56 tablet; Refill: 4 19. Screen for colon cancer 20. Encounter for screening mammogram for malignant neoplasm of breast 21. Postmenopausal - Mammo Screening Digital Tomosynthesis Bilateral With CAD; Future 22. Screening for osteoporosis - DEXA Bone Density Axial; Future 23. Fatigue, unspecified type 24. Screening for lung cancer - CT Chest Low Dose Baseline/Annual Screening WO; Future 25. Influenza vaccination administered at current visit - Fluzone >6mos 26. Need for prophylactic vaccination against Streptococcus pneumoniae (pneumococcus) - Cancel: Pneumococcal Conjugate Vaccine 21-Valent All 27. Need for hepatitis C screening test - Hepatitis C Antibody; Future - Hepatitis C Antibody Assessment & Plan 1. Chronic Pain. She experiences chronic pain in her hips and back, neck and some generalized muscle soreness, likely due to previous knee and shoulder surgeries. Gabapentin 300 mg 3 times daily and meloxicam 15 mg daily is taken for nerve pain associated with sciatica as prescribed by pain management. She is advised to continue her current pain management regimen. 2. Sciatica. She reports sciatic nerve pain primarily on the left side but occasionally on the right. Gabapentinis taken for nerve pain relief. 3. Hypertension. EKG today normal. Her blood pressure readings are within the normal range today at 104/77 mmHg. Sheis advised to monitor her blood pressure at home regularly to ensure it remains below 130/80 mmHg. Current medications include hydrochlorothiazide 12.5 mg once daily and losartan 50 mg once daily. Continue current regimen. 4. Diabetes Mellitus. Her A1c level is well-controlled at 6.2%. Urine test for microalbuminuria was normal. She is advised to maintain a healthy diet and regular exercise routine. Continue metformin XL 500 mg daily. Repeat hemoglobin A1c in 6 months 5. [place]'s Thyroiditis. She is currently taking levothyroxine 112 mcg daily. Thyroid function tests will be conducted to monitor her condition. 6. Anxiety. She continues to take sertraline 25 mg once daily with satisfactory clinical results. 7. Depression. She continues to take sertraline 25 mg once daily with satisfactory clinical results. 8. Insomnia. She takes trazodone 100 mg for sleep with satisfactory clinical results. 9. Allergic Rhinitis. She uses Flovent 220 mcg (2 puffs twice daily) and Astelin spray as needed. She is advised to use aspacer with Flovent and gargle after use to prevent thrush. 10. Asthma/allergic rhinitis. She uses Flovent 220 mcg (2 puffs twice daily) with albuterol as needed, and Zyrtec, Flonase and Astelin spray as needed. She is advised to use a spacer with Flovent and gargle after use to prevent thrush. 11. Sleep Apnea. She uses a CPAP machine, which she reports is effective. Follows up with Dr. Una Palma of cardiology/sleep medicine. 12. Restless Legs Syndrome. She is no longer taking ropinirole and reports no current symptoms. 13. Irritable Bowel Syndrome with Constipation. She continues to take Linzess as prescribed with good clinical results. Colonoscopy by history revealing several polyps last year.. 14. Vitamin D deficiency. No longer on vitamin D supplement. Update level. 15. Weight Management. She has been experiencing weight gain over the past few years, despite maintaining a healthy diet and regular exercise. Discussed about phentermine and Topamax for weight loss. An EKG performed todaywas noted to be unremarkable, obtain to assess her cardiac health before considering weight loss medications such as phentermine. We have agreed to initiate phentermine 15 mg daily and reassessing clinically in 1 month, making further recommendation including possible medication adjustment subsequently. 16. Health Maintenance. She is due for a mammogram and a bone density scan with both ordered. A lung cancer screening will be ordered due to her smoking history. Vaccinations for influenza, pneumonia (CAPVAX), shingles, andCOVID-19 are recommended with flu vaccine administered today, Capvaxive not in stock, and patient to obtain COVID- 19 and shingles vaccines through her pharmacy. A Pap smear is reportedly current fromlast year, colonoscopy current from last year, results to be obtained. Follow-up The patient will follow up in 1 month to assess clinical response to her phentermine prescribed forweight loss. Healthcare Maintenance: Counseling provided based on age appropriate USPSTF guidelines. Class 3 Severe Obesity (BMI >=40). Obesity-related health conditions include the following: obstructive sleep apnea, hypertension, diabetes mellitus, dyslipidemias, and osteoarthritis. Obesity is unchanged. BMI is is above average; BMI management plan is completed. We discussed portion control, i ncreasing exercise, and pharmacologic options including phentermine and Topamax, GLP-1 agonist not affordable. Saritha Moody voices understanding and acceptance of this advice and will call back with any further questions or concerns. AVS with preventive healthcare tips printed for patient. Vaccine Counseling: ???Discussed risks/benefits to vaccination, reviewed components of the vaccine, discussed VIS, discussed informed consent, informed consent obtained. Patient/Parent was allowed to accept or refuse vaccine. Questions answered to satisfactory state of patient/Parent. We reviewed typical age appropriate and seasonally appropriate vaccinations. Reviewed immunization history and updated state vaccination form as needed. Patient was counseled on Influenza Follow Up: Return in about 1 month (around 04/21/2025) for Recheck. Patient or patient patient care representative verbalized consent for the use of Ambient Listening during the visit with Roshan Salcido MD for chart documentation. 03/22/2025 12:54 EST At [facility], we believe that sharing information builds trust and better relationships. You are receiving this note because you recently visited [facility]. It is possible you will see health information before a provider has talked with you about it. This kind of information can be easy to misunderstand. To help you fully understand what it means for your health, we urge you to discussthis note with your provider. Roshan Salcido MD [facility] * Leonor Hernandez MA - 03/22/2025 11:00 AM EST .. Venipuncture Blood Specimen Collection Venipuncture performed in right arm by Leonor Hernandez MA with good hemostasis. Patient toleratedthe procedure well without complications. 03/22/25 Leonor Hernandez MA documented in this encounter Plan of Treatment Upcoming Encounters Date Type Department Care Team (Late st Contact Info) Description 04/21/2025 8:45 AM EST Office Visit [facility] [address] [place] [address] [place] [address] Roshan Salcido MD [address] [place] [address] Scheduled Orders Name Type Priority Associated Diagnoses Orde r Schedule Vitamin D,25-Hydroxy Lab Routine Encounter for general adult medical examination with abnormal findings Vitamin D deficiency Expected: 03/27/2025 (Approximate), Expires: 03/22/2026 TSH Lab Routine Encounter for general adult medical examination with abnormal findings 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 Expected: 03/27/2025 (Approximate), Expires: 03/22/2026 T4, Free Lab Routine Encounter for general adult medical examination with abnormal findings 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 Expected: 03/27/2025 (Approximate), Expires: 03/22/2026 CBC & Differential Lab Panel Routine Encounter for general adult medical examination with abnormal findings Expected: 03/27/2025 (Approximate), Expires: 03/22/2026 Comprehensive Metabolic Panel Lab Routine Encounter for general adult medical examination with abnormal findings Primary hypertension Expected: 03/27/2025 (Approximate), Expires: 03/22/2026 Lipid Panel Lab Routine Encounter for general adult medical examination with abnormal findings Mixed hyperlipidemia Expected: 03/27/2025 (Approximate), Expires: 03/22/2026 CT Chest Low Dose Baseline/Annual Screening WO Imaging Routine Screening for lung cancer Expected: 03/23/2025, Expires: 06/22/2026 Mammo Screening Digital Tomosynthesis Bilateral With CAD Imaging Routine Postmenopausal Expected: 03/25/2025, Expires: 06/22/2026 DEXA Bone Density Axial Imaging Routine Screening for osteoporosis Expected: 03/25/2025, Expires: 06/22/2026 documented as of this encounter Procedures Procedure Name Priority Date/Time Associated Diagnosis Comments ECG 12-LEAD Routine 03/22/2025 1:06 PM EST Primary hypertension HEPATITIS C ANTIBODY Routine 03/22/2025 12:53 PM EST Need for hepatitis C screening test VITAMIN D,25-HYDROXY Routine 03/22/2025 12:53 PM EST CBC AND DIFFERENTIAL Routine 03/22/2025 12:53 PM EST TSH Routine 03/22/2025 12:53 PM EST T4, FREE Routine 03/22/2025 12:53 PM EST LIPID PANEL Routine 03/22/2025 12:53 PM EST COMPREHENSIVE METABOLIC PANEL Routine 03/22/2025 12:53 PM EST UA/M W/RFLX CULTURE ([facility] ONLY) Routine 03/22/2025 11:48 AM EST Encounter for general adult medical examination with abnormal findings Primary hypertension ~MICROSCOPIC EXAMINATION Routine 03/22/2025 11:48 AM EST POC ALBUMIN/CREATININE RATIO Routine 03/22/2025 11:46 AM EST Encounter for general adult medical examination with abnormal findings Type 2 diabetes mellitus without complication, without long-term current use of insulin POCT GLYCOSYLATED HEMOGLOBIN (HGB A1C) Routine 03/22/2025 11:46 AM EST Encounter for general adult medical examination with abnormal findings Type 2 diabetes mellitus without complication, without long-term current use of insulin POCT GLUCOSE, BLD (NON STRIP) Routine 03/22/2025 11:45 AM EST Encounter for general adult medical examination with abnormal findings Type 2 diabetes mellitus without complication, without long-term current use of insulin documented in this encounter Results * ECG 12-LEAD (03/22/2025 1:06 PM EST) Narrative ECG - 03/22/2025 1:06 PM EST Roshan Salcido MD 03/22/2025 7:47 PM ECG 12 Lead Date/Time: 03/22/2025 1:06 PM Performed by: Roshan Salcido MD Authorized by: Roshan Salcido MD Comparison: compared with previous ECG from 10/23/2023 Similar to previous ECG Comparison to previous ECG: Sinus rhythm rate 76, no abnormalities noted, no change versus previous EKG Roshan Salcido MD ECG ORDERABLES Edited Result - Final ECG * (ABNORMAL) Vitamin D,25-Hydroxy (03/22/2025 12:53 PM EST) 25 Hydroxy, Vitamin D 27.3(L) 30.0 - 100.0 ng/mL [facility] Comment: Vitamin D deficiency has been defined by the [place] of Medicine and an Endocrine Society practice guideline as a level of serum 25-OH vitamin D less than 20 ng/mL (1,2). The Endocrine Society went on to further define vitamin D insufficiency as a level between 21 and 29 ng/mL (2). 1. IOM ([place] of Medicine). 2010. Dietary reference intakes for calcium and D. [place]: The National Academies Press. 2. Chilo MF, Maxx NC, Leticia WHITE, et al. Evaluation, treatment, and prevention of vitamin D deficiency: an Endocrine Society clinical practice guideline. JCEM. 2010; 96(7):1911-30. 03/22/2025 12:5 3 PM EST 03/23/2025 Comment:Blood Release to [facility] - 03/23/2025 1:07 PM EST Performed at: 01 - [facility] [address], [place] [id number] Well Reactivator Operator: Adelfo López PhD, Phone: [phone] us Roshan Salcido MD LAB BLOOD ORDERABLES Final Res ult Performing Organization Address [facility]UST Co de Phone Number [facility] (AMBULATORY) [address] [place] [address], [place] [phone] [facility] [address] [place] [address], [place] [phone] * TSH (03/22/2025 12:53 PM EST) TSH 1.090 0.450 - 4.500 uIU/mL [facility] 03/22/2025 12:5 3 PM EST 03/23/2025 Comment:Blood Release to [facility] (AMBULATORY) - 03/23/2025 1:07 PM EST Performed at: Lab[address] [id number] Well Reactivator Operator: Adelfo López PhD, Phone: [phone] us Roshan Salcido MD LAB BLOOD ORDERABLES Final Res ult Performing Organization Address [facility] Co de Phone Number [facility] (AMBULATORY) [address] [place] [address], [place] [phone] [facility] [address] [place] [address], [place] [phone] * T4, Free (03/22/2025 12:53 PM EST) Free T4 1.37 0.82 - 1.77 ng/dL [facility] 03/22/2025 12:5 3 PM EST 03/23/2025 Comment:Blood Release to [facility] (AMBULATORY) - 03/23/2025 1:07 PM EST Performed at: [facility] Lab[address] [id number] Well Reactivator Operator: Adelfo López PhD, Phone: [phone] Roshan Salcido MD LAB BLOOD ORDERABLES Final Res ult [facility] [address] [place] [address], [facility] [address] [place] [address], [place] [phone] * (ABNORMAL) Lipid Panel (03/22/2025 12:53 PM EST) Total Cholesterol 135 100 - 199 mg/dL [facility] Triglycerides 158(H) 0 - 149 mg/dL [facility] HDL Cholesterol 44 >39 mg/dL [facility] VLDL Cholesterol Davie 27 5 - 40 mg/dL [facility] LDL Chol Calc (NIH) 64 0 - 99 mg/dL [facility] 03/22/2025 12:5 3 PM EST 03/23/2025 Comment:Blood Release to [facility] (AMBULATORY) - 03/23/2025 1:07 PM EST Performed at: - [facility] [address] [place] [id number] Well Reactivator Operator: Adelfo López PhD, Phone: [phone] Roshan Salcido MD LAB BLOOD ORDERABLES Final Res ult [facility] (AMBULATORY) [address] [place] [address], [facility] [address] [place] [address], * (ABNORMAL) Comprehensive Metabolic Panel (03/22/2025 12:53 PM EST) Glucose 116(H) 70 - 99 mg/dL [facility] BUN 14 6 - 24 mg/dL [facility] Creatinine 0.64 0.57 - 1.00 mg/dL [facility] EGFR Result 102 >59 mL/min/1.7 3 [facility] BUN/Creatinine Ratio 22 9 - 23 [facility] Sodium 141 134 - 144 mmol/L [facility] Potassium 4.3 3.5 - 5.2 mmol/L [facility] Chloride 104 96 - 106 mmol/L [facility] Total CO2 20 20 - 29 mmol/L [facility] Calcium 9.2 8.7 - 10.2 mg/dL [facility] Total Protein 6.3 6.0 - 8.5 g/dL [facility] Albumin 4.3 3.8 - 4.9 g/dL [facility] Globulin 2.0 1.5 - 4.5 g/dL [facility] Total Bilirubin 0.3 0.0 - 1.2 mg/dL [facility] Alkaline Phosphatase 108 49 - 135 IU/L [facility] AST (SGOT) 16 0 - 40 IU/L [facility] ALT (SGPT) 23 0 - 32 IU/L [facility] 03/22/2025 12:5 3 PM EST 03/23/2025 Comment:Blood Release to [facility] Jia [facility] (AMBULATORY) - 03/23/2025 1:07 PM EST Performed at: [address] [place] [id number] Well Reactivator Operator: Adelfo López PhD, Phone: [phone] us Roshan Salcido MD LAB BLOOD ORDERABLES Final Res ult [facility] (AMBULATORY) [address] [place], [place] [id number], [facility] [address] [place] [address], * CBC & Differential (03/22/2025 12:53 PM EST) WBC 9.2 3.4 - 10.8 x10E3/uL [facility] RBC 4.69 3.77 - 5.28 x10E6/uL [facility] Hemoglobin 14.5 11.1 - 15.9 g/dL [facility] Hematocrit 44.6 34.0 - 46.6 % [facility] MCV 95 79 - 97 fL [facility] MCH 30.9 26.6 - 33.0 pg [facility] MCHC 32.5 31.5 - 35.7 g/dL [facility] RDW 13.0 11.7 - 15.4 % [facility] Platelets 270 150 - 450 x10E3/uL [facility] Neutrophil Rel % 65 Not Estab. % [facility] Lymphocyte Rel % 23 Not Estab. % [facility] Monocyte Rel % 8 Not Estab. % [facility] Eosinophil Rel % 3 Not Estab. % [facility] Basophil Rel % 1 Not Estab. % [facility] Neutrophils Absolute 5.9 1.4 - 7.0 x10E3/uL [facility] Lymphocytes Absolute 2.1 0.7 - 3.1 x10E3/uL [facility] Monocytes Absolute 0.7 0.1 - 0.9 x10E3/uL [facility] Eosinophils Absolute 0.2 0.0 - 0.4 x10E3/uL [facility] Basophils Absolute 0.1 0.0 - 0.2 x10E3/uL [facility] Immature Granulocyte Rel % 0 Not Estab. % [facility] Immature Grans Absolute 0.0 0.0 - 0.1 x10E3/uL [facility] 03/22/2025 12:5 3 PM EST 03/23/2025 Comment:Blood Release to [facility] (AMBULATORY) - 03/23/2025 1:07 PM EST Performed at: [address] [id number] Well Reactivator Operator: Adelfo López PhD, Phone: [phone] Roshan Salcido MD LAB BLOOD ORDERABLES Final Res ult [facility] (AMBULATORY) [address] [place] [address], [facility] [address] [place] [address], * Hepatitis C Antibody (03/22/2025 12:53 PM EST) Hep C Virus Ab Non Reactive Non Reactive [facility] Comment: HCV antibody alone does not differentiate between previously resolved infection and active infection. Equivocal and Reactive HCV antibody results should be followed up with an HCV RNA test to support the diagnosis of active HCV infection. Blood Structure of right upper limb / Unknown 03/22/2025 12:53 PM EST 03/23/2025 Comment:Blood Release to [facility] (AMBULATORY) - 03/23/2025 1:07 PM EST Performed at: 01 - Lab[address] [id number] Well Reactivator Operator: Adelfo López PhD, Phone: [phone] us Roshan Salcido MD LAB BLOOD ORDERABLES Final Res ult Performing Organization Address City/[facility]/ZIP Co de Phone Number [facility] [address] [place] [address], [place] [phone] [facility] [address] [place] [address], [place] [phone] * Microscopic Examination - (03/22/2025 11:48 AM EST) WBC, UA 0-5 0 - 5 /hpf [facility] RBC, UA None seen 0 - 2 /hpf [facility] Epithelial Cells (non renal) 0-10 0 - 10 /hpf [facility] Casts None seen None seen /lpf [facility] Bacteria, UA Few None seen/Few [facility] 03/22/2025 11:4 8 AM EST 03/23/2025 Comment:Urine Release to [facility] (AMBULATORY) - 03/23/2025 10:07 AM EST Performed at: Lab[address] [id number] Well Reactivator Operator: Adelfo López PhD, Phone: [phone] us Roshan Salcido MD URINE ORDERABLES Final Result Performing Organization Address City/[facility]/ZIP Co de Phone Number [facility] [address] [place] [address], [place] [phone] [facility] [address] [place] [address], [place] [phone] * UA / M With / Rflx Culture([facility] ONLY) - Urine, Clean Catch (03/22/2025 11:48 AM EST) [facility] Specific [place], UA 1.022 1.005 - 1.030 [facility] pH, UA 6.5 5.0 - 7.5 [facility] Color, UA Yellow Yellow [facility] Appearance, UA Clear Clear [facility] Leukocytes, UA Negative Negative [facility] Protein Negative Negative/Tra ce [facility] Glucose, UA Negative Negative [facility] Ketones Negative Negative [facility] Blood, UA Negative Negative [facility] Bilirubin, UA Negative Negative [facility] Urobilinogen, UA 1.0 0.2 - 1.0 mg/dL [facility] Nitrite, UA Negative Negative [facility] Microscopic Examination Comment [facility] Comment:Microscopic follows if indicated. Microscopic Examination See below: [facility] Comment:Microscopic was angela cated and was performed. Urinalysis Reflex Comment [facility] Comment:This specimen will n ot reflex to a Urine Culture. Urine Urine specimen obtained by clean catch procedure / Unknown 03/22/2025 11:48 AM EST 03/23/2025 Comment:Urine Release to [facility] - 03/23/2025 10:07 AM EST Performed at: - [address] [id number] Well Reactivator Operator: Adelfo López PhD, Phone: [phone] Roshan Salcido MD URINE ORDERABLES Final Result [facility] [address] [place] [address], [facility] [address] [place] [address], * POC Albumin/Creatinine Ratio Urine (03/22/2025 11:46 AM EST) [facility] POC ALBUMIN, URINE 10 mg/L POC CREATININE, URINE 100 mg/dL POC Urine Albumin Creatinine Ratio <30 <30 Lot Number [id number] Expiration Date 08/24/2026 Urine 03/22/2025 11:4 6 AM EST us Roshan Salcido MD POINT OF CARE TEST ORDERABLES Final Result * (ABNORMAL) POC Glycosylated Hemoglobin (Hb A1C) (03/22/2025 11:46 AM EST) Hemoglobin A1C 6.2(A) 4.5 - 5.7 % [facility] Lot Number [id number] [facility] Expiration Date 10/16/2026 [facility] Blood 03/22/2025 11:4 6 AM EST us Roshan Salcido MD POINT OF CARE TEST ORDERABLES Final Result [facility]
[address] [place] [id number], [place] [phone] * (ABNORMAL) POC Glucose, Blood (03/22/2025 11:45 AM EST) Glucose 133(A) 70 - 130 mg/dL Lot Number [id number] Expiration Date 12/22/2025 Blood 03/22/2025 11:4 5 AM EST us Roshan Salcido MD POINT OF CARE TEST ORDERABLES Final Result documented in this encounter Visit Diagnoses Diagnosis Encounter for general adult medical examination with abnormal findings- Primary History of echocardiogram Type 2 diabetes mellitus without complication, without long-term current use of insulin Primary hypertension Unspecified essential hypertension Mixed hyperlipidemia Vitamin D deficiency 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 Class 3 severe obesity due to excess calories without serious comorbidity with body mass index (BMI) of 40.0 to 44.9 in adult Gastro-esophageal reflux disease without esophagitis Irritable bowel syndrome with constipation Irritable bowel syndrome Anxiety Anxiety state, unspecified Recurrent major depressive disorder, remission status unspecified Osteoarthritis of lumbar spine, unspecified spinal osteoarthritis complication status Lumbar radiculopathy Thoracic or lumbosacral neuritis or radiculitis, unspecified RLS (restless legs syndrome) Restless legs syndrome (RLS) KARLI (obstructive sleep apnea) Obstructive sleep apnea (adult) (pediatric) Cervical radiculopathy Brachial neuritis or radiculitis nos Tobacco dependence due to cigarettes Screen for colon cancer Special screening for malignant neoplasms, colon Encounter for screening mammogram for malignant neoplasm of breast Postmenopausal Asymptomatic postmenopausal status (age-related) (natural) Screening for osteoporosis Special screening for osteoporosis Fatigue, unspecified type Screening for lung cancer Influenza vaccination administered at current visit Need for prophylactic vaccination against Streptococcus pneumoniae (pneumococcus) Need for prophylactic vaccination against streptococcus pneumoniae (pneumococcus) Need for hepatitis C screening test Special screening examination for other specified viral diseases documented in this encounter Care Teams General Helper Relationship Specialty Start Date End Date Roshan Salcido MD [address] [place] [address] PCP - General Internal Medicine 03/19/25 documented as of this encounter
--- OUTSIDE RECORDS SUMMARY | 2025-04-14 09:19 | XMS_ITS | Continuity of Care Document ---
Author Organization [place] [facility] Office New Address [address] [place] [address] Care Team Providers Care Plastics Design Engineer Name Role Phone GWYN EDWARD Primary Care Provider [phone] GWYN EDWARD Referring Provider [phone] GWYN EDWARD Primary Care Provider Assessment Encounter Date Assessment Date Assessment LastModified by Organization Details LastModified Time 02/16/2025 02/16/2025 The patient is a 60-year-old female presenting for follow-up with right hip pain. We last saw this patient in October, we had planned on moving forward with a spinal cord stimulator to better manage patient's symptoms. Patient deferred this therapy as following knee surgery on November [address] Cuevas she has noted significant resolution of her back and knee pain. Today the patient rates her pain a 7 out of 10 which is improvement from her last visit with a pain level of 6 out of 10. Patient predominantly complains of right sided hip pain that is lateral in nature without associated radiation or numbness and tingling. The symptoms are intermittent and aggravated with walking and lying on her right side. Prior chiropractic adjustments have provided short-term relief in symptoms. Patient is wishing to discuss therapeutic options to better manage the symptoms. We are currently managing patient with gabapentin 300 mg 3 times daily and meloxicam 15 mg once daily. Patient denies any side effects associated with these medications, she is requesting refills. [facility] #[id number], drug screen from 08/13/2024 was reviewed and is appropriate. Plan: I am schedule the patient for a right greater trochanteric bursa injection. Patient does complain of pain localized to the lateral aspect of the right hip over the greater trochanter, she is tender to palpation amongst this area on physical exam. She does continue with the symptoms despite conservative measures including a continued physician guided home stretching and exercise program, oral medications, topical medications, heat/ice application and massage. Patient is not prescribed chronic anticoagulation. The risks and the benefits of the procedure discussed at length with the patient today and she is wishing to move forward. I am also refilling patient's gabapentin 300 mg 3 times daily and meloxicam 15 mg once daily. I will provide the patient with a 1 month supply of these medications. We will see the patient back in office for her injection, the patient was instructed to contact us if she had any further questions or concerns. Dr. Beck has reviewed this chart and agrees with this plan of care. This note was dictated with voice recognition software and may contain errors or omission this visit reflects the ongoing, longitudinal relationship and complexity of managing the patient's chronic pain condition, including continuous coordination of care, treatment planning, and monitoring over time as part of a comprehensive pain management strategy. Not available 02/16/2025 10:54:25 Plan of Treatment Reminders Order Date Submit Date Provider Last Modified By Organization Details Last Modified Time Details Appointments None recorded. Lab None recorded. Referral None recorded. Procedures greater trochanteri c bursa injection (PROC) - right 2024 025 [email or web address] 1 Not available 11:14:44 Surgeries None recorded. Imaging None recorded. Medication Orders gabapentin 300 mg capsule 2024 025 [facility], [address] [place] [address], [id number], 17:40:47 meloxicam 15 mg tablet 2024 025 [facility], [address] [place] [address], [id number], 17:40:45 Patient TargetsNo targets recorded. Patient Instructions Encounter Date Encounter Id Patient Instructions Last Modified By Organization Details Last Modified Time 02/16/2025 [id number] Please note: Parts of this encounter note have been generated by AI based on audio conversation. Patient consent was required prior to utilizing this technology. Content review was required prior to finalizing the note. Not available 02/16/2025 10:37:57 Reason for Referral None Reported. Problems Name Problem SNOMED Code Status Onset Date Resolution Date Notes Provider Name and Address Organization Details Recorded Time Edema of lower extremity 024888191 Active Chapis stamper [place], [place] [facility] 3 08:29:39 Pain in lower limb 95538503 Active Chapis stamper [place] [facility] 3 08:29:40 Bilateral spider veins of lower limbs 9619955626449 9105 Active Chapis stamper [place] [facility] 3 08:29:40 Bilateral earache 364857761 Active Chapis stamper [place] [facility] 3 08:29:40 Asthma 637760607 Active Chapis stamper [place] [facility] 3 08:29:40 Sciatica 71650673 Active Chapis stamper [place] [facility] 3 08:29:40 Venous insufficien cy of lower limb 476673356 Active Chapis stamper [place] [facility] 3 08:29:40 Obese abdomen 183019440 Active Chapis stamper [place] [facility] 3 08:29:40 Dislocation of temporomand ibular joint 165613906 Active Chapis stamper [place] [facility] 3 08:29:40 History of Disorder 545123521 Active Chapis stamper [place] [facility] 3 08:29:40 Restless legs syndrome 90768690 Active Chapis stam[place] [facility] 3 08:29:40 Depressive disorder 41710476 Active Chapis stamper [place] [facility] 3 08:29:40 Arthritis 4939266 Active Chapis stamper [place] [facility] 3 08:29:40 Hypertensiv e disorder 51597545 Active Chapis stamper [place] [facility] 3 08:29:40 Body mass index 40+ - severely obese 815234136 Active Chapis sider [place] [facility] 3 08:29:40 Hypothyroid ism 35442280 Active Chapis stamper [place] [facility] 3 08:29:40 Obesity 550973760 Active Chapis stamper [place] [facility] 3 08:29:40 Varicose veins of lower extremity 18053304 Active Chapis stamper [place] [facility] 3 08:29:40 Sleep apnea 60821799 Active Chapis stamper [place] [facility] 3 08:29:40 Degeneratio n of interverteb ral disc 65297270 Active Chapis sider [place] [facility] 3 08:29:40 Lumbar spondylosis 670755392 Active 2022 Sayda Herrera null[place] [facility] 3 13:33:44 Degeneratio n of lumbar interverteb ral disc 17551900 Active 2022 Dionte Beck MD [address], [address], [place] [facility] 3 17:00:40 Arthropathy of lumbar facet joint 541844048 Active 2022 Dionte Beck MD [address], [address], [place] [facility] 3 17:00:41 Pain of right shoulder joint 5137914962224 9100 Active 2023 Dionte Beck MD [address], [address], [place] [facility] 4 11:01:26 Osteoarthri tis of left knee joint 8991664085502 09 Active 2023 Dionte Beck MD [address] [facility],[address], [address], [place] [facility] 4 11:01:26 Pain of left knee joint 3875166039610 07 Active 2023 Dionte Beck MD [address],[place] [facility] [place], [place], [address], [place] [facility] 4 11:01:29 Full thickness rotator cuff tear 730340297 Active 2023 Dionte Beck MD [address],[place] MAR[place] [address] [place] [address], [address], [place] [facility] 4 11:27:54 Trochanteri c bursitis of right hip 4537629246450 00 Active 2023 DEYA MCCRAY [address], [address], [place] [facility] 5 10:52:09 Cervical radiculopat hy 91972238 Active 2023 Elvi Cuevas NP [address], [address], [place] [facility] 4 10:41:02 Degeneratio n of cervical interverteb ral disc 07167012 Active 2023 Elvi Cuevas NP [address], [address], [place] [facility] 4 10:41:22 Lumbar radiculopat hy 232553684 Active 2024 Dionte Beck MD [address], [address], [place] [facility] 5 21:33:00 Inflammatio n of sacroiliac joint 73458892 Active 2024 Dionte Beck MD [address],AN[place] MAR[place] [address] [place] [address], [address], [place] [facility] 5 09:16:39 Acute meniscal tear, medial 808042621 Active 2024 Dionte Beck MD [address],AN[place] MAR[place] [address] [place] [address], [address], [place] [facility] 5 20:42:28 Problem Notes None recorded. Procedures Surgical History Date Name Laterality Status Provider Name and Address Organization Details Recorded Time 03/03/20 25 Greater Trochanteric Bursa Steroid Injection completed Dionte Beck MD [address],[place] [address] [place] [address], [address], [place] [facility] 03/03/2025 17:27:38 09/24/19 25 Therapeutic SI Joint Injection Under Fluoroscopy completed Dionte Beck MD [address],[place] [address] [place] [address], [address], [place] [facility] 09/23/2024 09:14:32 08/14/19 25 SCS Trial completed Dionte Beck MD [address],[place] [address] [place] [address], [address], [place] [facility] 08/13/2024 17:47:06 07/16/19 25 Peripheral nerve stimulator Knee completed Dionte Beck MD [address],[place] [address] [place] [address], [address], [place] [facility] 07/16/2024 12:19:53 06/18/19 25 Lumbar YOLANDA: Interlaminar completed Dionte Beck MD [address],[place] [address] [place] [address], [address], [place] [facility] 06/18/2024 20:47:41 05/22/19 25 Peripheral nerve block completed Dionte Beck MD [address],[place] [address] [place] [address], [address], [place] [facility] 05/22/2024 23:56:27 03/19/20 24 Cervical Epidural Steroid Injection Under Fluoroscopy completed Dionte Beck MD [address],[place] [address] [place] [address], [address], [place] [facility] 03/19/2024 11:04:19 02/19/20 24 Greater Trochanteric Bursa Steroid Injection completed Dionte Beck MD [address],[place] [address] [place] [address], [address], [place] [facility] 02/19/2024 13:04:59 02/13/20 24 Diagnostic SI Joint Injection Under Fluoroscopy completed Dionte Beck MD [address],[place] [address] [place] [address], [address], [place] [facility] 02/13/2024 12:34:47 07/24/19 24 Genicular Nerve Block completed Dionte Beck MD [address] [facility],[place] [facility] [place] [place], [place], [address], [place] [facility] 07/24/2023 23:15:00 05/27/19 24 Knee Joint Injection completed Dionte Beck MD [address] [facility],[place] [facility] [place], [place], [address], [place] [facility] 05/27/2023 18:20:07 04/19/20 23 Lumbar YOLANDA: Interlaminar completed SHIRLEY MAGAÑA [place] [facility] 03/26/2023 09:21:47 02/29/20 23 Medial Epicondyle Injection completed Dionte Beck MD [address] [facility],[place] MAR[place] [address] [place] [address], [address], [place] [facility] 02/28/2023 21:56:28 02/14/20 23 BILAT 2LVL LUMBAR RFA completed Dionte Beck MD [address] [facility],[address], [place], [address], [place] [facility] 02/13/2023 17:15:10 12/19/19 23 Diagnostic Lumbar MBB: 2 Level Bilateral completed Dionte Beck MD [address] [facility],[place] [facility] [place], [place], [address], [place] [facility] 12/18/2022 16:59:24 11/23/19 23 Diagnostic Lumbar MBB: 2 Level Bilateral completed Dionte Beck MD [address] [facility],[place] [facility] [place], [place], [address], [place] [facility] 11/22/2022 [...] active Not Available Not Available Not Available atorvastati n 10 mg tablet TAKE ONE TABLET BY MOUTH EVERY DAY active Not Available Not Available No t Available ibuprofen 800 mg tablet (800 MG) 03/11 completed Not Available Not Available Not Available tizanidine 4 mg tablet TAKE 1 TABLET BY MOUTH AT BEDTIME NEEDED FOR MUSCLE SPASMS 09/27 completed Not Available Not Available Not Available benzonatate 200 mg capsule 09/23 completed Not Available Not Available Not Available hydrocodone 5 mg-acetamin ophen 325 mg tablet TAKE ONE TABLET BY MOUTH EVERY 6 HOURS NEEDED FOR post op pain MAY CAUSE DROWSINES S active Not Available Not Available No t Available meloxicam 15 mg tablet Take 1 tablet every day by oral route for 30 days. 2024 active Not Available Not Available Not Avai lable prednisone 20 mg tablet Take 1 tablet twice a day by oral route. active Not Available Not Available No t Available clonazepam 0.5 mg tablet TAKE 1 TABLET BY MOUTH THREE TIMES DAILY NEEDED FOR NERVOUSNE SS 09/27 completed Not Available Not Available Not Available ciprofloxac in 250 mg tablet TAKE ONE TABLET BY MOUTH EVERY TWELVE HOURS active Not Available Not Available No t Available sulfamethox azole 800 mg-trimetho prim 160 [...] completed Not Available Not Available Not Available phenazopyri dine 100 mg tablet TAKE ONE TABLET BY MOUTH THREE TIMES DAILY FOR FOUR DAYS active Not Available Not Available No t Available benzonatate 100 mg capsule 01/23 completed [...] completed Not Available Not Available Not Available polyethylen e glycol 3350 17 gram/dose oral powder FILL THE LID TO THE WHITE LINE AND MIX WITH 8 OUNCES OF WATER OR JUICE AND DRINK 1 TIME A DAY active Not Available Not Available No t Available methylpredn isolone 4 mg tablets in [...] Not Available hydrochloro thiazide 12.5 mg tablet TAKE 1 TABLET BY MOUTH EVERY DAY active Not Available Not Available No t Available cholecalcif clifford (vitamin D3) 1,250 mcg [...] Not Available Linzess 72 mcg capsule TAKE 1 CAPSULE BY MOUTH EVERY DAY active Not Available Not Available No t Available Trelegy Ellipta 100 mcg-62.5 mcg-25 mcg powder for inhalation active Not Available Not Available N ot Available Pure Comfort Safety Lancets 30 gauge 02/06 completed Not Available Not Available Not Available OneTouch Verio Reflect Meter 09/27 completed Not Available Not Available Not Available [facility] COVID-19 Antigen Rapid Home Test [...] (BMI) Body weight Heart rate Oxygen saturation Pain severity - 0-10 verbal numeric rating [Score] - Reported Systolic And Diastolic Provider Name and Address Organization Details Last Updated DateTime 5 162.56 cm 41.2 kg/m2 936610. 17 g 78 /min 98 % 7 126/86 mm[Hg] SHIRLEY MAGAÑA [place] [facility] 5 10:23:40 Social History Question Answer Notes LastModified by [employer] Details LastModified Time Tobacco Smoking Status Never Smoker [place], [place] [facility] 09/27/2022 [...] Do You Have A Medical Power Of Waiter/Waitress Bar? No Information not available 09/27/2022 Sex: Female Functional Status Question Answer Note LastModified by [employer] Details LastModified Time Do you use any [...] N COPD N Depression N Anemia N Ulcers N Heart Attack (AL) N Anxiety Disorder N Diabetes N Bleeding [...] Diagnosis SNOMED-CT Code Diagnosis ICD10 Code Diagnosis IMO Codes Diagnosis Note [id number] Dionte Beck MD [address] KENNEY [address] [place] [address] 02/16/2025 10:21:27 02/16/2025 10:45:20 Edema of lower extremity 205492860 R60.0 Pain in lower limb 19476 006 M79.606 Lumbar radiculopathy 128 955069 M54.16 Bilateral spider veins of lower limbs 3103813165 6336626 I78.1 Trochanter ic bursitis of right hip 5026054767 63993 M70.61 9255001 Health Concerns Section Related Observation LastModified by Organization Detai ls LastModified Time None Recorded Concern Status LastModified by Organization Details LastModified Time None Recorded Payers Encounter Date Sequence Insurance Name Policy Number Policy Green Covered Member ID Green Member ID Guarantor Name 02/16/2025 1 [facility] (MEDICAID REPLACEMENT - HMO) Saritha Moody [id number] Saritha Moody Notes Date Note Type Note Provider Name and Address Organization Details Recorded Time 5 text/html Low back painReported by PatientHPIFor associated symptoms, patient reportsweakness,numbness, andtingling. For daily activities, patient reportsdifficulty completing leather roller secondary to pain.,significant difficulty walking secondary to pain, requires assistive device(s)., anddifficulty exercising on a regular basis secondary to pain.but reportsliving independently.. For onset, patient reportsgradual onset. For location, patient reportsbilateral paraspinalandradiating down the bilateral lower extremities to the knees. For context, patient reportsstarted without cause. For severity, patient reportscurrent pain level: 7/10andworst pain level: 10/10. For alleviating factors, patient reportsrest. For aggravating factors, patient reportsstandingandwalking. For timing, patient reportsconstant. For previous lumbar surgery, patient reportsnone. For previous injections, patient reportslumbar esis: helped temporarilyandsi joint injections: no relief. For previous physical therapy, patient reportscompleted all recommended pt visits,more than 6weeks of pt completed, andresponse to therapy: no improvement in pain/symptoms. [place], [place] [facility] 03/01/2025 15:42:30 OBGyn Episode No OBEpisode recorded.
--- OUTSIDE RECORDS SUMMARY | 2025-04-14 09:19 | XMS_ITS | Encounter Summary ---
Author Organization [facility] Address [address] [place] [address] Care Team Providers Care Matrix Plater Name Role Phone Roshan Salcido MD Primary Care Provider [phone] Encounter Details Date Type Department Care Team (Late st Contact Info) Description 03/25/2025 Patient rounding ([facility] only) [facility] [address] [place] [address] [place] [address] Una Hargrove Social History Tobacco Use Types Packs/Day Years [...] on file documented as of this encounter Progress Notes * Una Hargrove - 03/25/2025 4:18 PM ESTSummary: Rounding .A [employer] message has been sent to the patient for patient rounding with [facility]. documented in this encounter Plan of Treatment Upcoming Encounters Date Type Department Care Team (Late st Contact Info) Description 04/21/2025 8:45 AM EST Office Visit [facility] [address] [place] [address] [place] [address] Roshan Salcido MD [address] [place] [address] [place] [address] documented as of this encounter Visit Diagnoses Not on filedocumented in this encounter Care Teams Matrix Plater Relationship Specialty Start Date End Date Roshan Salcido MD [address] [place] [address] PCP - General Internal Medicine 03/19/25 documented as of this encounter
--- OUTSIDE RECORDS SUMMARY | 2025-04-14 09:19 | XMS_ITS | Clinical Summary ---
Author Organization Healthcare Address [address] [place] [id number] Care Team Providers Care Buyer Agent Name Role Phone Moriah Morgan APRN Unavailable [phone] Mark Cid MD Primary Care Provider [phone] Allergies No known active allergies Medications traZODone [...] MINUTES PRE-EXERCISE 2 Active ergocalciferol 1.25 MG (11170 UT) capsule Take 1 capsule by mouth [...] 2017 [facility]-Zoster Vaccines (1 of 2) 2017 [id number]-[id number] Vaccine (1 - 20 25-26 season) 2025 [facility]-Influenza Vaccine (#1) 2025 [facility]-Hepatitis A Vaccines Aged Out 05/01/2018 [...] patient's age to complete this topic Insurance [employer] Care Teams Buyer Agent Relationship Specialty Start Date End Date Jose Roberto, Mark S, MD [address] [place] [address] PCP - General 10/11/21 Moriah Morgan APRN [address] [id number] [place] [phone] Nurse Practitioner Neurosurgery 10/11/21
--- OUTSIDE RECORDS SUMMARY | 2025-04-14 09:19 | XMS_ITS | Encounter Summary ---
Author Organization [facility] Address [address] [place] [address] Care Team Providers Care Die Cast Patternmaker Name Role Phone Roshan Salcido MD Primary Care Provider [phone] Encounter Details Date Type Department Care Team (Latest Contact Info) Description 03/22/2025 Travel Social History Tobacco Use Types Packs/Day Years [...] on file documented as of this encounter Functional Status documented as of this encounter Plan of Treatment Upcoming Encounters Date Type Department Care Team (Late st Contact Info) Description 04/21/2025 8:45 AM EST Office Visit [facility] [address] [place] [address] [place] [address] Roshan Salcido MD [address] [place] [address] [place] [address] documented as of this encounter Visit Diagnoses Not on filedocumented in this encounter Care Teams Die Cast Patternmaker Relationship Specialty Start Date End Date Roshan Salcido MD [address] [place] [address] PCP - General Internal Medicine 03/19/25 documented as of this encounter
--- OUTSIDE RECORDS SUMMARY | 2025-04-14 09:19 | XMS_ITS | Encounter Summary ---
Author Organization [facility] Address [address] [place] [address] Care Team Providers Care Chief Service Observer Name Role Phone Roshan Salcido MD Primary Care Provider [phone] Reason for Visit * Reason Onset Date Comments Med Refill 03/29/2025 Encounter Details Date Type Department Care Team (Late st Contact Info) Description 03/29/2025 Refill [facility] [address] [place] [address] Roshan Salcido MD [address] [place] [address] Vitamin D deficiency Social History Tobacco Use Types Packs/Day Years [...] on file documented as of this encounter Miscellaneous Notes * Telephone Encounter - Leonor Hernandez MA - 03/29/2025 2:45 PM EST She has stopped by the office to let us know that her rx is to be sent to [facility] pharmacy. I have resent her vitamin D for her. TF documented in this encounter Plan of Treatment Upcoming Encounters Date Type Department Care Team (Late st Contact Info) Description 04/21/2025 8:45 AM EST Office Visit [facility] [address] [place] [address] Roshan Salcido MD [address] [place] [address] documented as of this encounter Visit Diagnoses Diagnosis Vitamin D deficiency documented in this encounter Care Teams Chief Service Observer Relationship Specialty Start Date End Date Roshan Salcido MD [address] [place] [address] PCP - General Internal Medicine 03/19/25 documented as of this encounter
--- OUTSIDE RECORDS SUMMARY | 2025-04-14 09:19 | XMS_ITS | Encounter Summary ---
Author Organization [facility] Address [address] [place] [address] Care Team Providers Care Metal Furrer Name Role Phone Roshan Salcido MD Primary Care Provider [phone] Encounter Details Date Type Department Care Team (Late st Contact Info) Description 03/23/2025 Results Follow-Up [facility] [address] [place] [address] [place] [address] Roshan Salcido MD [address] [place] [address] [place] [address] Social History Tobacco Use Types Packs/Day Years [...] Description 04/21/2025 8:45 AM EST Office Visit [facility] [address] [place] [address] [place] [address] Roshan Salcido MD [address] [place] [address] [place] [address] documented as of this encounter Visit Diagnoses Not on filedocumented in this encounter Care Teams Metal Furrer Relationship Specialty Start Date End Date Roshan Salcido MD [address] [place] [address] PCP - General Internal Medicine 03/19/25 documented as of this encounter
--- OUTSIDE RECORDS SUMMARY | 2025-04-14 09:20 | XMS_ITS | Patient Health Record ---
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 DAVIS Primary Care Provider Reason For Referral No Information Medications Medication SIG (Take, Route, Frequency, Duration) Notes Start Date End Date Status Nasonex 50 mcg/inh 1 (one) spray nasal nasal once a day; Duration: thirty 08/24/2013 Active Synthroid 75 mcg (0.075 mg) 1 (one) tablet(s) or oral once a day; Duration: thirty 03/10/2014 Active Omeprazole 20 mg 1 (one) tablet(s) or orally once a day; Duration: thirty 03/10/2014 Active Zoloft 25 mg 1 (one) tablet(s) or oral once a day; Duration: 03/10/2014 Active Ibuprofen 400 mg 1 (one) tablet(s) or oral 2 times a day; Duration: one 09/23/2013 Active Tamiflu 75 mg 1 (one) capsule oral oral once a day; Duration: seven 03/10/2014 Active Meloxicam 7.5 mg ; Duration: thirty 05/18/201405/1899 Active Paxil 20 mg 1 (one) tablet(s) or oral once a day; Duration: one 08/10/2013 Active Lisinopril-hydroCHLOROthi azide 12.5 mg-10 mg 1 (one) tablet(s) or oral once a day; Duration: thirty 03/10/2014 Active Claritin 10 mg 1 (one) tablet(s) or oral once a day; Duration: thirty 10/21/2013 Active Problems Problem Type SNOMED Code ICD Code Onset Dates Problem Status W/U Status Risk Notes Problem Hypothyroidism (25833797) Unspecified hypothyroidism (244.9) 08/11/19 14 Active confirmed [facility] Problem Benign essential hypertension (7780922) Essential hypertension, benign (401.1) 08/11/19 14 Active confirmed [facility] Problem Joint pain (96575081) Pain in joint, site unspecified (719.40) 08/11/19 14 Active confirmed [facility] Problem Right upper quadrant pain (815963918) Abdominal pain, right upper quadrant (789.01) 08/11/19 14 Active confirmed [facility] Problem Obesity (818343784) Obesity, unspecified (E66.9) 03/10/20 14 Active confirmed [facility] Problem Dysthymia (05357680) Dysthymic disorder (F34.1) 03/10/20 14 Active confirmed [facility] Problem Gastro-esophageal reflux disease without esophagitis (598216705) Gastro-esophageal reflux disease without esophagitis (K21.9) 03/10/20 14 Active confirmed [facility] Plan Of Treatment No Information Insurance Providers Payer Name Payer Address Payer Phone Subscriber Number Group Number Insured Name Patient Relationship to Insured Coverage Start Date Coverage End Date [facility] [address] [place] [phone] [id number] Saritha Moody Self - patient is the insured
--- OUTSIDE RECORDS SUMMARY | 2025-04-14 09:20 | XMS_ITS | Data Portability ---
Author Organization [place] [facility] [place] Address [address] [place] [address] Care Team Providers Care Guillotine Trimmer Name Role Phone GWYN EDWARD Primary Care Provider [phone] GWYN EDWARD Referring Provider [phone] GWYN EDWARD Primary Care Provider [phone] Assessment Encounter Date Assessment Date Assessment LastModified [...] that she will soon be traveling to [place] for a tournament. She is requesting we will continue the patient's to help provide her with relief until placement of her spinal cord stimulator. Daljit #[id number]. Plan: We are increasing the patient's gabapentin [...] not helping. abux Not available 11/04/2024 20:46:29 02/16/2025 02/16/2025 The patient is a 60-year-old [...] with these medications, she is requesting refills. Daljit #[id number], drug screen from 08/13/2024 was reviewed and [...] pain management strategy. Not available 02/16/2025 10:54:25 03/03/2025 03/03/2025 This patient had right trochanteric bursa injection under fluoroscopy done today. Her back pain is much better after her knee replacement. She continues on gabapentin 300 mg 3 times a day and meloxicam 15 mg daily. She does not need a refill at this time. Daljit and drug screen are all appropriate. Will follow-up with her in 2 weeks we will refill her medications at that time and assess efficacy of this right trochanteric bursa injection. abux Not available 03/03/2025 17:38:06 Plan of Treatment Reminders Order Date Submit Date Provider Last Modified By Organization Details Last Modified Time Details Appointments None recorded. Lab None recorded. Referral None recorded. Procedures greater trochanteri c bursa injection (PROC) - right 2024 025 1 Not available 11:14:44 Surgeries None recorded. Imaging None recorded. Medication Orders gabapentin 300 mg capsule 2024 025 [facility], [address] [place] [address], [address], 17:40:47 meloxicam 15 mg tablet 2024 025 [facility], [address] [place] [address], [address], 17:40:45 gabapentin 300 mg capsule 2024 025 [facility], [address] [place] [address], [address], 13:37:56 tramadol 50 mg tablet 2024 025 [facility], [address] [place] [address], [address], 05:00:48 meloxicam 15 mg tablet 2024 025 [facility], [address] [place] [address], [address], 13:37:49 Patient TargetsNo targets recorded. Patient Instructions Encounter Date Encounter Id Patient Instructions Last Modified By Organization Details Last Modified Time 11/04/2024 [id number] leg pain: care instructions abux Not available 11/04/2024 20:45:27 02/16/2025 [id number] Please note: Parts of this encounter note have been generated by AI based on audio conversation. Patient consent was required prior to utilizing this technology. Content review was required prior to finalizing the note. Not available 02/16/2025 10:37:57 Reason for Referral None Reported. Results Created Date Observation Date Name Description Value Unit Range Abnormal Flag Note LastModifiedBy Organization Detail LastModifiedTime 11/05/19 25 MRI, knee, w/o contr ast No observ ation record ed. [email or web address] Not Available 2024 12:43:14 Result Notes None recorded. Problems Name Problem SNOMED Code Status Onset Date Resolution Date Notes Provider Name and Address Organization Details Recorded Time Edema of lower extremity 462929978 Active Chapis stamper null, [place] [facility] 3 08:29:39 Pain in lower limb 52367208 Active Chapis stamper [place] [facility] 3 08:29:40 Bilateral spider veins of lower limbs 6876132053414 9105 Active Chapis stamper [place] [facility] 3 08:29:40 Bilateral earache 468635804 Active Chapis stamper [place] [facility] 3 08:29:40 Asthma 209137003 Active Chapis stamper [place] [facility] 3 08:29:40 Sciatica 76529383 Active Chapis stamper [place] [facility] 3 08:29:40 Venous insufficien cy of lower limb 228614802 Active Chapis stamper [place] [facility] 3 08:29:40 Obese abdomen 608433068 Active Chapis stamper [place] [facility] 3 08:29:40 Dislocation of temporomand ibular joint 864200971 Active Chapis stamper [place] [facility] 3 08:29:40 History of Disorder 342610796 Active Chapis stamper [place] [facility] 3 08:29:40 Restless legs syndrome 56159423 Active Chapis stamper [place] [facility] 3 08:29:40 Depressive disorder 55305281 Active Chapis stamper [place] [facility] 3 08:29:40 Arthritis 4146549 Active Chapis stamper [place] [facility] 3 08:29:40 Hypertensiv e disorder 10757473 Active Chapis stamper [place] [facility] 3 08:29:40 Body mass index 40+ - severely obese 414637362 Active Chapis stamper [place] [facility] 3 08:29:40 Hypothyroid ism 66607879 Active Chapis stamper [place] [facility] 3 08:29:40 Obesity 360322289 Active Chapis stamper [place] [facility] 3 08:29:40 Varicose veins of lower extremity 13618744 Active Chapis stamper [place] [facility] 3 08:29:40 Sleep apnea 55860545 Active Chapis stamper [place] [facility] 3 08:29:40 Degeneratio n of interverteb ral disc 58867385 Active Chapis stamper [place] [facility] 3 08:29:40 Lumbar spondylosis 882183101 Active 2022 Sayda Herrera [place] [facility] 3 13:33:44 Degeneratio n of lumbar interverteb ral disc 66078469 Active 2022 Dionte Beck MD [address], [address], [place] [facility] 3 17:00:40 Arthropathy of lumbar facet joint 462824657 Active 2022 Dionte Beck MD [address], [address], [place] [facility] 3 17:00:41 Pain of right shoulder joint 5760094746803 9100 Active 2023 Dionte Beck MD [address], [address], [place] [facility] 4 11:01:26 Osteoarthri tis of left knee joint 4513806163063 09 Active 2023 Dionte Beck MD [address],[place] [facility], [place], [address], [place] [facility] 4 11:01:26 Pain of left knee joint 4236343159530 07 Active 2023 Dionte Beck MD [address],[place] [facility], [place], [address], [place] [facility] 4 11:01:29 Full thickness rotator cuff tear 599197440 Active 2023 Dionte Beck MD [address],[place] [facility], [place], [address], [place] [facility] 4 11:27:54 Trochanteri c bursitis of right hip 0990407674158 00 Active 2023 DEYA MCCRAY [address],[place] [address] [place] [address], [address], [place] [facility] 5 10:52:09 Cervical radiculopat hy 13888513 Active 2023 Elvi Cuevas NP [address],[place] [address] [place] [address], [address], [place] [facility] 4 10:41:02 Degeneratio n of cervical interverteb ral disc 56486455 Active 2023 Elvi Cuevas NP [address],[place] [address] [place] [address], [address], [place] [facility] 4 10:41:22 Lumbar radiculopat hy 754831089 Active 2024 Dionte Beck MD [address],[place] [facility], [place], [address], [place] [facility] 5 21:33:00 Inflammatio n of sacroiliac joint 79527830 Active 2024 Dionte Beck MD [address],[place] [facility], [place], [address], [place] [facility] 5 09:16:39 Acute meniscal tear, medial 038299420 Active 2024 Dionte Beck MD [address],[place] [facility], [place], [address], [place] [facility] 20:42:28 Problem Notes None recorded. Procedures Surgical History Date Name Laterality Status Provider Name and Address Organization Details Recorded Time 03/03/20 25 Greater Trochanteric Bursa Steroid Injection completed Dionte Beck MD [address],[place] [facility], [place], [address], [place] [facility] 03/03/2025 17:27:38 09/24/19 25 Therapeutic SI Joint Injection Under Fluoroscopy completed Dionte Beck MD [address],[place] [address] [place] [address], [address], [place] [facility] 09/23/2024 09:14:32 08/14/19 25 SCS Trial completed Dionte Beck MD [address],[place] [address] [place] [address], [address], [place] [facility] 08/13/2024 17:47:06 07/16/19 25 Peripheral nerve stimulator Knee completed Dionte Beck MD [address],[place] [address] [place] [address], [address], [place] [facility] 07/16/2024 12:19:53 06/18/19 25 Lumbar YOLANDA: Interlaminar completed Dionte Beck MD [address],[place] [address] [place] [address], [address], [place] [facility] 06/18/2024 20:47:41 05/22/19 25 Peripheral nerve block completed Dionte Beck MD [address],[place] [address] [place] [address], [address], [place] [facility] 05/22/2024 23:56:27 03/19/20 24 Cervical Epidural Steroid Injection Under Fluoroscopy completed Dionte Beck MD [address],[place] [address] [place], [address], [place] [facility] 03/19/2024 11:04:19 02/19/20 24 Greater Trochanteric Bursa Steroid Injection completed Dionte Beck MD [address],[place] [address], [facility] [place], [address], [place] [facility] 02/19/2024 13:04:59 02/13/20 24 Diagnostic SI Joint Injection Under Fluoroscopy completed Dionte Beck MD [address] [facility],[address], [address], [place] [facility] 02/13/2024 12:34:47 07/24/19 24 Genicular Nerve Block completed Dionte Beck MD [address], [address], [place] [facility] 07/24/2023 23:15:00 05/27/19 24 Knee Joint Injection completed Dionte Beck MD [address], [address], [place] [facility] 05/27/2023 18:20:07 04/19/20 23 Lumbar YOLANDA: Interlaminar completed SHIRLEY MAGAÑA [place] [facility] 03/26/2023 09:21:47 02/29/20 23 Medial Epicondyle Injection completed Dionte Beck MD [address], [address], [place] [facility] 02/28/2023 21:56:28 02/14/20 23 BILAT 2LVL LUMBAR RFA completed Dionte Beck MD [address], [address], [place] [facility] 02/13/2023 17:15:10 12/19/19 23 Diagnostic Lumbar MBB: 2 Level Bilateral completed Dionte Beck MD [address], [address], [place] [facility] 12/18/2022 16:59:24 11/23/19 23 Diagnostic Lumbar MBB: 2 Level Bilateral completed Dionte Beck MD [address], [address], [place] [facility] 11/22/2022 [...] Not Available levothyroxi ne 125 mcg tablet 05/07 /2025 completed Not Available Not Available Not Available [...] completed Not Available Not Available Not Available [facility] COVID-19 Antigen Rapid Home Test [...] Updated DateTime 5 162.56 cm 41.2 kg/m2 596540. 17 g 78 /min 98 % 6 128/86 mm[Hg] SHIRLEY MAGAÑA [place] [facility] 5 08:10:30 Date Recorded Body height Body mass index (BMI) Body weight Heart rate Oxygen saturation Pain severity - 0-10 verbal numeric rating [Score] - Reported Systolic And Diastolic Provider Name and Address Organization Details Last Updated DateTime 5 162.56 cm 41.2 kg/m2 612504. 17 g 78 /min 98 % 8 126/86 mm[Hg] SHIRLEY MAGAÑA [place] [facility] 5 13:01:11 Date Recorded Body height Heart rate Respiratory rate Body mass index (BMI) Body weight Oxygen saturation Systolic And Diastolic Provider Name and Address Organization Details Last Updated DateTime 5 162.56 cm 78 /min 18 /min 41.2 kg/m2 513788. 17 g 98 % 126/86 mm[Hg] Feli Srivastava [place] [facility] 5 09:17:49 Date Recorded Body height Body mass index (BMI) Body weight Heart rate Oxygen saturation Pain severity - 0-10 verbal numeric rating [Score] - Reported Systolic And Diastolic Provider Name and Address Organization Details Last Updated DateTime 5 162.56 cm 41.2 kg/m2 128747. 17 g 78 /min 98 % 7 126/86 mm[Hg] SHIRLEY MAGAÑA [place] [facility] 5 10:23:40 Date Recorded Body height Heart rate Respiratory rate Body mass index (BMI) Body weight Oxygen saturation Pain severity - 0-10 verbal numeric rating [Score] - Reported Systolic And Diastolic Provider Name and Address Organization Details Last Updated DateTime 5 162.56 cm 78 /min 18 /min 41.2 kg/m2 385636. 17 g 98 % 6 126/86 mm[Hg] Feli Srivastava [place] [facility] 11:08:27 Social History Question Answer Notes LastModified by [...] Do You Have A Medical Power Of Beef Skinner? No Information not available 09/27/2022 Sex: Female [...] N Anemia N Ulcers N Heart Attack (MT) N Diabetes N Anxiety Disorder N Bleeding [...] ICD10 Code Diagnosis IMO Codes Diagnosis Note [id number] Dionte Beck MD [place] [facility] [address] [facility] [address] 09/27/2022 08:22:28 09/27/2022 10:31:29 Lumbar radiculopathy 657339439 M54.16 Lumbar spondylosis 87396 0009 M47.896 Degenerati on of lumbar intervertebral disc 71982535 M51.36 [id number] Dionte Beck MD [place] [facility] [address] [place] [address] 6 10/11/2022 10:14:10 10/11/2022 11:04:25 Degeneration of intervertebral disc 65732883 M51.9 Lumbar spondylosis 23767 0009 M47.896 Arthropath y of lumbar facet joint 131485334 M47.816 [id number] Dionte Beck MD [address] [place] [address] 3 11/08/2022 11:23:17 11/08/2022 12:02:23 Lumbar radiculopathy 988445756 M54.16 Lumbar spondylosis 24747 0009 M47.896 Degenerati on of lumbar intervertebral disc 93816737 M51.36 [id number] Dionte Beck MD [address] [place] [address] 3 11/22/2022 12:01:17 11/22/2022 12:39:30 Lumbar spondylosis 286950088 M47.896 Degenerati on of intervertebral disc 18409094 M51.9 Arthropath y of lumbar facet joint 560560557 M47.816 [id number] Dionte Beck MD [address] [place] [address] 3 12/06/2022 15:03:07 12/06/2022 16:09:54 Lumbar radiculopathy 324084809 M54.16 Lumbar spondylosis 26339 0009 M47.896 Degenerati on of lumbar intervertebral disc 48535633 M51.36 [id number] Dionte Beck MD [address] [place] [address] 3 12/18/2022 14:52:29 12/18/2022 16:28:34 Lumbar spondylosis 355006761 M47.896 Degenerati on of intervertebral disc 57005222 M51.9 Arthropath y of lumbar facet joint 955464931 M47.816 Degenerati on of lumbar intervertebral disc 75212159 M51.36 [id number] Dionte Beck MD [address] [place] [address] 3 01/25/2023 12:53:08 01/25/2023 13:20:59 Lumbar radiculopathy 791622112 M54.16 Lumbar spondylosis 19724 0009 M47.896 Degenerati on of lumbar intervertebral disc 38599937 M51.36 Degenerati on of intervertebral disc 07432082 M51.9 [id number] Dionte Beck MD [address] [place] [address] 3 02/13/2023 14:04:15 02/13/2023 16:04:18 Arthropathy of lumbar facet joint 919033256 M47.816 Degenerati on of lumbar intervertebral disc 20163640 M51.36 Lumbar spondylosis 80518 0009 M47.896 Medial epicondylitis 532 96710 M77.00 [id number] Dionte Beck MD [address] [place] [address] 3 02/28/2023 14:17:31 02/28/2023 15:24:12 Arthropathy of lumbar facet joint 250552720 M47.816 Degenerati on of lumbar intervertebral disc 52994791 M51.36 Lumbar spondylosis 33827 0009 M47.896 Medial epicondylitis 532 89053 M77.00 Bilateral spider veins of lower limbs 9968300806 7409949 I78.1 Pain in lower limb 48448 006 M79.606 Edema of l ower extremity 674611586 R60.0 Lumbar radiculopathy 128 020518 M54.16 [id number] Dionte Beck MD [address] [place] [address] 03/15/2023 10:00:13 03/15/2023 10:39:44 Arthropathy of lumbar facet joint 053744354 M47.816 Degenerati on of lumbar intervertebral disc 05850687 M51.36 Lumbar spondylosis 69944 0009 M47.896 Medial epicondylitis 532 11360 M77.00 Bilateral spider veins of lower limbs 1569253153 8258992 I78.1 Pain in lower limb 16891 006 M79.606 Edema of l ower extremity 598442601 R60.0 Lumbar radiculopathy 128 994869 M54.16 Bilateral earache 894279 003 H92.03 Pain of le ft knee joint 2877511454 70403 M25.562 Arthritis 3378217 M19.90 [id number] Dionte Beck MD [address] [place] [address] 04/19/2023 11:04:42 04/19/2023 12:41:23 Arthropathy of lumbar facet joint 617228219 M47.816 Degenerati on of lumbar intervertebral disc 99115643 M51.36 Lumbar spondylosis 10215 0009 M47.896 Medial epicondylitis 532 00258 M77.00 Bilateral spider veins of lower limbs 3851482031 6417716 I78.1 Pain in lower limb 07430 006 M79.606 Edema of l ower extremity 066200471 R60.0 Lumbar radiculopathy 128 508800 M54.16 Bilateral earache 580424 003 H92.03 Pain of le ft knee joint 0849484633 67691 M25.562 Arthritis 4979842 M19.90 Osteoarthr itis of knee 197499620 M17.9 [id number] Dionte Beck MD [address] [place] [address] 05/27/2023 14:27:51 05/27/2023 15:27:12 Lumbar spondylosis 975312605 M47.896 Arthritis 3051772 M19.90 Arthropath y of lumbar facet joint 144476405 M47.816 Degenerati on of intervertebral disc 59797063 M51.9 Degenerati on of lumbar intervertebral disc 51359735 M51.36 Sciatica 59651032 M54.30 Osteoarthr itis of knee 018832400 M17.9 Pain of le ft knee joint 4786677606 52896 M25.562 Lumbar radiculopathy 128 200987 M54.16 [id number] Jeremy Osborne CRNA [address] [place] [address] 07/05/2023 14:21:42 07/05/2023 14:59:08 Edema of lower extremity 391800889 R60.0 Pain in lower limb 05159 006 M79.606 Bilateral spider veins of lower limbs 2164410409 0118600 I78.1 Bilateral earache 238393 003 H92.03 Arthritis 2309254 M19.90 Lumbosacra l radiculopathy 3311732 M54.17 Degenerati on of intervertebral disc 66370535 M51.27 Osteoarthr itis of left knee joint 0519157048 50942 M17.12 [id number] Dionte Beck MD [address] [place] [address] 07/24/2023 14:46:02 07/24/2023 16:56:03 Arthritis 8597571 M19.90 Lumbar spondylosis 32311 0009 M47.896 Arthropath y of lumbar facet joint 644225937 M47.816 Degenerati on of intervertebral disc 20062076 M51.9 Degenerati on of lumbar intervertebral disc 36987076 M51.36 Osteoarthr itis of left knee joint 7271532898 32065 M17.12 Pain of le ft knee region 0245807710 10428 M25.562 Pain of le ft shoulder joint 3209014794 9108227 M25.512 Osteoarthr itis of joint of left shoulder region 4986397953 40674 M19.012 [id number] Dionte Beck MD [address] [place] [address] 09/05/2023 10:18:38 09/05/2023 10:59:28 Edema of lower extremity 212876388 R60.0 Arthritis 5888243 M19.90 Arthropath y of lumbar facet joint 103599201 M47.816 Degenerati on of intervertebral disc 49452407 M51.9 Degenerati on of lumbar intervertebral disc 40215477 M51.36 Pain of le ft knee joint 9528759786 52841 M25.562 Osteoarthr itis of left knee joint 1959429496 64576 M17.12 Pain of ri ght shoulder joint 2348825061 1504458 M25.511 [id number] Dionte Beck MD [address] [place] [address] 10/03/2023 10:16:45 10/03/2023 11:16:00 Edema of lower extremity 297807984 R60.0 Pain in lower limb 75247 006 M79.606 Bilateral spider veins of lower limbs 6163332622 0117688 I78.1 Pain of ri ght shoulder joint 3088013060 3272994 M25.511 Bilateral earache 246375 003 H92.03 Arthritis 7855029 M19.90 Asthma 361598400 J45.90 9 Osteoarthr itis of left knee joint 9408004935 51561 M17.12 Pain of le ft knee joint 7438782703 66502 M25.562 Pain of sh oulder region 17266249 M25.519 Full thick ness rotator cuff tear 391062369 M75.122 Degenerati on of lumbar intervertebral disc 32238478 M51.36 [id number] Dionte Beck MD [address] [place] [address] [place] [address] 10/31/2023 10:20:43 10/31/2023 11:16:41 Edema of lower extremity 760605033 R60.0 Arthropath y of lumbar facet joint 077695176 M47.816 Degenerati on of lumbar intervertebral disc 79308735 M51.36 Degenerati on of intervertebral disc 57997979 M51.9 Depressive disorder 3548 9007 F32.A Pain of ri ght shoulder joint 3382360642 9200397 M25.511 Pain of le ft knee joint 8415919878 03999 M25.562 Pain in lower limb 69080 006 M79.606 Osteoarthr itis of left knee joint 3996977464 22543 M17.12 Full thick ness rotator cuff tear 209637471 M75.122 Arthritis 0829969 M19.90 [id number] Elvi Cuevas NP [address] [place] [address] 12/06/2023 13:52:14 12/06/2023 14:19:38 Edema of lower extremity 700237999 R60.0 Arthritis 6852158 M19.90 Degenerati on of lumbar intervertebral disc 56859057 M51.36 12521 Elvi Cuevas NP [address] [place] [address] 12/30/2023 13:11:59 12/30/2023 13:34:29 Edema of lower extremity 321428318 R60.0 Pain in lower limb 63407 006 M79.606 Bilateral spider veins of lower limbs 4569693458 2303062 I78.1 Pain of ri ght shoulder joint 1333201633 2397980 M25.511 Bilateral earache 974450 003 H92.03 Asthma 190467538 J45.90 9 Pain of sa croiliac joint 750857564 M53.3 Trochanter ic bursitis of right hip 8299068742 88607 M70.61 Arthritis 8978878 M19.90 [id number] Dionte Beck MD [address] [place] [address] 02/13/2024 10:49:09 02/13/2024 11:50:57 Edema of lower extremity 464205186 R60.0 Arthropath y of lumbar facet joint 654922839 M47.816 Degenerati on of intervertebral disc 84914415 M51.9 Degenerati on of lumbar intervertebral disc 73500298 M51.36 Trochanter ic bursitis of right hip 7005635986 24877 M70.61 Pain of ri ght shoulder joint 2805081431 1985090 M25.511 Pain of le ft knee joint 4321217424 72356 M25.562 Pain in lower limb 85390 006 M79.606 Osteoarthr itis of left knee joint 5871090671 13676 M17.12 [id number] Dionte Beck MD [address] [place] [address] 02/19/2024 11:09:00 02/19/2024 11:41:12 Arthritis 4943684 M19.90 Arthropath y of lumbar facet joint 690247512 M47.816 Degenerati on of lumbar intervertebral disc 71405890 M51.369 Trochanter ic bursitis of right hip 4053903536 22409 M70.61 Sciatica 79384783 M54.30 Pain of ri ght shoulder joint 2170602242 4785357 M25.511 Pain of le ft knee joint 7197571313 86906 M25.562 [id number] Elvi Cuevas NP [address] [place] [address] 03/03/2024 10:18:11 03/03/2024 10:46:55 Trochanteric bursitis of right hip 8093264882 30060 M70.61 Edema of l ower extremity 688438218 R60.0 Pain in lower limb 37246 006 M79.606 Bilateral spider veins of lower limbs 2435433398 8456805 I78.1 Pain of ri ght shoulder joint 3350635094 4836062 M25.511 Bilateral earache 009397 003 H92.03 Arthritis 8616539 M19.90 Cervical radiculopathy 84753633 M54.12 Degenerati on of cervical intervertebral disc 54989654 M50.30 [id number] Dionte Beck MD [address] [place] [address] 03/19/2024 08:14:41 03/19/2024 09:52:08 Edema of lower extremity 905261042 R60.0 Arthropath y of lumbar facet joint 471881618 M47.816 Cervical radiculopathy 11303039 M54.12 Degenerati on of cervical intervertebral disc 58792386 M50.30 Degenerati on of intervertebral disc 66639522 M51.9 Degenerati on of lumbar intervertebral disc 15564619 M51.369 Sciatica 07077442 M54.30 52568 DEYA MCCRAY [address] [place] [address] 05/01/2024 11:10:08 05/01/2024 11:42:38 Edema of lower extremity 135190704 R60.0 Osteoarthr itis of left knee joint 0032884184 47276 M17.12 Pain of le ft knee joint 9995293241 35187 M25.562 Arthritis 8233277 M19.90 Arthropath y of lumbar facet joint 974811365 M47.816 Body mass index 40+ - severely obese 432651199 Z68.42 Cervical radiculopathy 90549984 M54.12 Degenerati on of cervical intervertebral disc 17698660 M50.30 Degenerati on of intervertebral disc 63369184 M51.9 Pain of ri ght shoulder joint 7360069260 9618343 M25.511 Sciatica 05812907 M54.30 Trochanter ic bursitis of right hip 7168464074 80179 M70.61 [id number] Dionte Beck MD [place] [facility] [address] [place] [address] 05/22/2024 11:19:02 05/22/2024 12:19:15 Edema of lower extremity 719434909 R60.0 Arthritis 6278042 M19.90 Arthropath y of lumbar facet joint 139395110 M47.816 Cervical radiculopathy 06783935 M54.12 Degenerati on of cervical intervertebral disc 13864118 M50.30 Degenerati on of lumbar intervertebral disc 53778865 M51.369 Degenerati on of intervertebral disc 44227514 M51.9 Sciatica 81335393 M54.30 Restless l egs syndrome 44469167 G25.81 Pain of ri ght shoulder joint 4436571938 5929357 M25.511 Pain of le ft knee joint 3126758907 91857 M25.562 Pain in lower limb 92423 006 M79.606 Pain of ri ght hip joint [id number] 60113 M25.551 [id number] Dionte Beck MD [facility] [address] [place] [address] 06/05/2024 11:04:26 06/05/2024 13:19:41 Edema of lower extremity 309543530 R60.0 Arthropath y of lumbar facet joint 560919953 M47.816 Cervical radiculopathy 38872814 M54.12 Degenerati on of cervical intervertebral disc 27545482 M50.30 Degenerati on of intervertebral disc 90574978 M51.9 Trochanter ic bursitis of right hip 7154036968 32072 M70.61 Sciatica 32701779 M54.30 Pain in lower limb 53985 006 M79.606 Osteoarthr itis of left knee joint 4169433068 76959 M17.12 Pain of le ft knee joint 3235645356 63768 M25.562 Pain of ri ght shoulder joint 8025156835 9571263 M25.511 Degenerati on of lumbar intervertebral disc 61669698 M51.369 Lumbar radiculopathy 128 521197 M54.16 [id number] Dionte Beck MD [address] [place] [address] [place] [address] 3 06/18/2024 10:04:10 06/18/2024 11:20:14 Edema of lower extremity 675899552 R60.0 Arthritis 1470286 M19.90 Arthropath y of lumbar facet joint 586718538 M47.816 Cervical radiculopathy 99289508 M54.12 Degenerati on of cervical intervertebral disc 81779343 M50.30 Degenerati on of intervertebral disc 25239456 M51.9 Degenerati on of lumbar intervertebral disc 44303745 M51.369 Osteoarthr itis of left knee joint 7518119925 41867 M17.12 Pain in lower limb 81144 006 M79.606 Pain of le ft knee joint 2042612512 01157 M25.562 Pain of ri ght shoulder joint 8039301940 5861648 M25.511 Lumbar spondylosis 41882 0009 M47.896 Lumbar radiculopathy 128 305294 M54.16 [id number] Dionte Beck MD [address] [place] [address] [place] [address] 07/16/2024 10:20:38 07/16/2024 12:41:26 Edema of lower extremity 454293032 R60.0 Pain in lower limb 76147 006 M79.606 Lumbar radiculopathy 128 324351 M54.16 Bilateral spider veins of lower limbs 5598999687 9961607 I78.1 Arthropath y of lumbar facet joint 622793756 M47.816 Degenerati on of cervical intervertebral disc 48759634 M50.30 Degenerati on of intervertebral disc 59759003 M51.9 Degenerati on of lumbar intervertebral disc 56715498 M51.369 Trochanter ic bursitis of right hip 9188762008 35838 M70.61 Sciatica 08699502 M54.30 Pain of le ft knee joint 2517373077 52563 M25.562 Pain of ri ght shoulder joint 6352676230 0642135 M25.511 Osteoarthr itis of left knee joint 9594208643 18114 M17.12 Arthritis 0248561 M19.90 25302 DEYA MCCRAY [address] [place] [address] [place] [address] 3 07/23/2024 08:38:46 07/23/2024 09:33:04 Edema of lower extremity 351038122 R60.0 Pain in lower limb 20431 006 M79.606 Lumbar radiculopathy 128 656673 M54.16 Bilateral spider veins of lower limbs 0772009184 9013576 I78.1 Arthropath y of lumbar facet joint 537187494 M47.816 Cervical radiculopathy 49531572 M54.12 Degenerati on of cervical intervertebral disc 98493740 M50.30 Degenerati on of intervertebral disc 63994114 M51.9 Degenerati on of lumbar intervertebral disc 78861085 M51.369 Osteoarthr itis of left knee joint 3367662886 36436 M17.12 Sciatica 60072518 M54.30 Trochanter ic bursitis of right hip 0249097176 44103 M70.61 Long-term drug therapy 192680258 Z79.891 [id number] Dionte Beck MD [address] [place] [address] [place] [address] 08/13/2024 08:46:05 08/13/2024 11:33:05 Edema of lower extremity 519732145 R60.0 Pain in lower limb 74671 006 M79.606 Lumbar radiculopathy 128 489343 M54.16 Bilateral spider veins of lower limbs 3892706259 3867181 I78.1 Arthritis 2368288 M19.90 Arthropath y of lumbar facet joint 144611264 M47.816 Asthma 698708809 J45.90 9 Bilateral earache 511169 003 H92.03 Cervical radiculopathy 35905895 M54.12 Degenerati on of intervertebral disc 21780736 M51.9 Degenerati on of lumbar intervertebral disc 16107024 M51.369 Degenerati on of cervical intervertebral disc 10129054 M50.30 Pain of ri ght shoulder joint 7892443727 6513599 M25.511 Pain of le ft knee joint 1362129430 58012 M25.562 Trochanter ic bursitis of right hip 4556979036 28119 M70.61 Sciatica 09260896 M54.30 Postoperative care 19100 9007 Z48.89 Long-term drug therapy 305772403 Z79.891 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 [id number] Dionte Beck MD [address] [place] [address] [place], [place] [id number] 3 08/20/2024 10:34:48 08/20/2024 11:41:35 Pain in lower limb 13483169 M79.606 Edema of l ower extremity 657973351 R60.0 Lumbar radiculopathy 128 651741 M54.16 Bilateral spider veins of lower limbs 7617216922 9525732 I78.1 Arthropath y of lumbar facet joint 619695144 M47.816 Cervical radiculopathy 62633758 M54.12 Degenerati on of cervical intervertebral disc 34682393 M50.30 Degenerati on of intervertebral disc 00143395 M51.9 Degenerati on of lumbar intervertebral disc 64498754 M51.369 Arthritis 2706487 M19.90 22993 Dionte Beck MD [address] [place] [address] 09/16/2024 10:22:20 09/16/2024 11:57:07 Pain in lower limb 60156804 M79.606 Edema of l ower extremity 128793727 R60.0 Bilateral spider veins of lower limbs 0580031513 0949887 I78.1 Lumbar radiculopathy 128 665461 M54.16 Arthritis 7444057 M19.90 Arthropath y of lumbar facet joint 180620682 M47.816 Cervical radiculopathy 22658595 M54.12 Degenerati on of cervical intervertebral disc 91477025 M50.30 54697745 Degenerati on of intervertebral disc 62152072 M51.9 Degenerati on of lumbar intervertebral disc 44199013 M51.369 Osteoarthr itis of left knee joint 5676764096 43110 M17.12 Pain of le ft knee joint 4541558614 57079 M25.562 Trochanter ic bursitis of right hip 3908613608 56153 M70.61 Inflammati on of sacroiliac joint 90718939 M46.1 1659 [id number] Dionte Beck MD [address] [place] [address] [place] [address] 09/23/2024 08:08:40 09/23/2024 09:02:08 Arthritis 7155734 M19.90 Lumbar spondylosis 56759 0009 M47.896 Arthropath y of lumbar facet joint 108899358 M47.816 Asthma 909188727 J45.90 9 Cervical radiculopathy 82364020 M54.12 Degenerati on of cervical intervertebral disc 56857116 M50.30 Degenerati on of intervertebral disc 67602763 M51.9 Degenerati on of lumbar intervertebral disc 75567553 M51.369 Depressive disorder 3548 9007 F32.A Trochanter ic bursitis of right hip 1849638745 43072 M70.61 Pain of ri ght shoulder joint 0111931033 5995740 M25.511 Pain of le ft knee joint 1613561300 52857 M25.562 Osteoarthr itis of left knee joint 6119194904 88280 M17.12 Pain in lower limb 29790 006 M79.606 Inflammati on of sacroiliac joint 35656132 M46.1 1659 [id number] TAMMI SHARMA NP [address] [place] [address] [place] [address] 10/13/2024 12:58:24 10/13/2024 13:19:35 Pain in lower limb 98128785 M79.606 Edema of l ower extremity 967907725 R60.0 Bilateral spider veins of lower limbs 8152094548 5564431 I78.1 Lumbar radiculopathy 128 273683 M54.16 Arthritis 9107561 M19.90 [id number] Dionte Beck MD [address] [place] [address] [place] [address] 11/04/2024 09:13:58 11/04/2024 10:15:35 Edema of lower extremity 488328698 R60.0 Pain in lower limb 24402 006 M79.606 Lumbar radiculopathy 128 134741 M54.16 Bilateral spider veins of lower limbs 8505310640 9268175 I78.1 Pain of ri ght shoulder joint 1469279181 7318655 M25.511 Bilateral earache 024631 003 H92.03 Sciatica 56226591 M54.30 Lumbar spondylosis 41211 0009 M47.896 Degenerati on of lumbar intervertebral disc 86574559 M51.369 Arthropath y of lumbar facet joint 201958151 M47.816 Cervical radiculopathy 48661751 M54.12 Degenerati on of cervical intervertebral disc 04158629 M50.30 84300221 Degenerati on of intervertebral disc 39393936 M51.9 Trochanter ic bursitis of right hip 4294931533 40925 M70.61 Acute meni scal tear, medial 439086505 S83.232A 5336068 Arthritis 7596638 M19.90 [id number] Dionte Beck MD [address] [place] [address] [place] [address] 02/16/2025 10:21:27 02/16/2025 10:45:20 Edema of lower extremity 614085821 R60.0 Pain in lower limb 77827 006 M79.606 Lumbar radiculopathy 128 187708 M54.16 Bilateral spider veins of lower limbs 5504171751 2798898 I78.1 Trochanter ic bursitis of right hip 0755647256 86899 M70.61 9625722 63762 Dionte Beck MD [address] [place] [address] 03/03/2025 11:01:45 03/03/2025 11:56:16 Lumbar radiculopathy 189564532 M54.16 Lumbar spondylosis 18309 0009 M47.896 Degenerati on of lumbar intervertebral disc 86250961 M51.369 Degenerati on of cervical intervertebral disc 90182956 M50.30 Cervical radiculopathy 02029400 M54.12 Trochanter ic bursitis of right hip 8648275133 14702 M70.61 5075626 Inflammati on of sacroiliac joint 82129336 M46.1 1659 Health Concerns Section Related Observation LastModified by Organization Detai ls LastModified Time None Recorded Concern Status LastModified by Organization Details LastModified Time None Recorded Advance Directives Directive N: Payers Insurance Date Sequence Insurance Name Policy Number Policy Green Covered Member ID Green Member ID Guarantor Name 05/23/2022 1 [employer] ([place]) Saritha Moody [id number] Saritha Moody 05/23/2022 2 [employer] [place]AC[place] - [place]) [id number] Saritha Moody [id number] Saritha Moody 03/15/2025 1 [employer] [place] - [place]) Saritha Moody [id number] Saritha Moody Notes Date Note Type Note Provider Name and Address Organization Details Recorded Time 5 text/html Low back painReported by PatientHPIFor associated symptoms, patient reportsweakness,numbness, andtingling. 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 For onset, patient reportsgradual onset. For location, patient reportsbilateral paraspinalandradiating down the bilateral lower extremities to the knees. For context, patient reportsstarted without cause. For severity, patient reportscurrent pain level: 6/10andworst pain level: 10/10. For alleviating factors, patient reportsrest. For aggravating factors, patient reportsstandingandwalking. For timing, patient reportsconstant. For previous lumbar surgery, patient reportsnone. For previous injections, patient reportslumbar esis: helped temporarilyandsi joint injections: no relief. For previous physical therapy, patient reportscompleted all recommended pt visits,more than 6weeks of pt completed, andresponse to therapy: no improvement in pain/symptoms. Dionte Beck MD [address], [address], [place] - [facility] 09/23/2024 09:17:29 5 text/html Low back painReported by PatientHPIFor associated symptoms, patient reportsweakness,numbness, andtingling. 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 For onset, patient reportsgradual onset. For location, patient reportsbilateral paraspinalandradiating down the bilateral lower extremities to the knees. For context, patient reportsstarted without cause. For severity, patient reportscurrent pain level: 6/10andworst pain level: 10/10. For alleviating factors, patient reportsrest. For aggravating factors, patient reportsstandingandwalking. For timing, patient reportsconstant. For previous lumbar surgery, patient reportsnone. For previous injections, patient reportslumbar esis: helped temporarilyandsi joint injections: no relief. For previous physical therapy, patient reportscompleted all recommended pt visits,more than 6weeks of pt completed, andresponse to therapy: no improvement in pain/symptoms. TAMMI SHARMA NP [address], [address], [place] - [facility] 10/13/2024 13:34:57 5 text/html Low back painReported by PatientHPIFor associated symptoms, patient reportsweakness,numbness, andtingling. 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 For onset, patient reportsgradual onset. For location, patient reportsbilateral paraspinalandradiating down the bilateral lower extremities to the knees. For context, patient reportsstarted without cause. For severity, patient reportscurrent pain level: 6/10andworst pain level: 10/10. For alleviating factors, patient reportsrest. For aggravating factors, patient reportsstandingandwalking. For timing, patient reportsconstant. For previous lumbar surgery, patient reportsnone. For previous injections, patient reportslumbar esis: helped temporarilyandsi joint injections: no relief. For previous physical therapy, patient reportscompleted all recommended pt visits,more than 6weeks of pt completed, andresponse to therapy: no improvement in pain/symptoms. Dionte Beck MD [address], [address], [place] - [facility] 11/04/2024 20:46:40 5 text/html Low back painReported by PatientHPIFor associated symptoms, patient reportsweakness,numbness, andtingling. 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 [facility] - [facility] 03/01/2025 15:42:30 text/html Low back painReported by PatientHPIFor associated symptoms, patient reportsweakness,numbness, andtingling. 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 For onset, patient reportsgradual onset. For location, patient reportsbilateral paraspinalandradiating down the bilateral lower extremities to the knees. For context, patient reportsstarted without cause. For severity, patient reportscurrent pain level: ndworst pain level: 02/26. For alleviating factors, patient reportsrest. For aggravating factors, patient reportsstandingandwalking. For timing, patient reportsconstant. For previous lumbar surgery, patient reportsnone. For previous injections, patient reportslumbar esis: helped temporarilyandsi joint injections: no relief. For previous physical therapy, patient reportscompleted all recommended pt visits,more than 6weeks of pt completed, andresponse to therapy: no improvement in pain/symptoms. Dionte Beck MD [address], [address], [place] - [facility] 03/03/2025 17:38:30 OBGyn Episode No OBEpisode recorded.
--- OUTSIDE RECORDS SUMMARY | 2025-04-14 09:20 | XMS_ITS | Continuity of Care Document ---
Author Organization [place] [facility] New Address [address] [place] [address] Care Team Providers Care Skate Shop Attendant Name Role Phone GWYN EDWARD Primary Care Provider GWYN EDWARD Referring Provider [phone] GWYN EDWARD Primary Care Provider [phone] Assessment Encounter Date Assessment Date Assessment LastModified by Organization Details LastModified Time 03/03/2025 03/03/2025 This patient had right trochanteric [...] Details Last Modified Time Details Appointments None record ed. Lab None record ed. Referral None record ed. Procedures None record ed. Surgeries None record ed. Imaging None record ed. Medication Orders None record ed. Patient TargetsNo targets recorded. Patient InstructionsNo instructions recorded. Reason for Referral None Reported. Problems Name Problem SNOMED Code Status Onset Date Resolution Date Notes Provider Name and Address Organization Details Recorded Time Edema of lower extremity 172879437 Active Chapis amita null, [place] [facility] 3 08:29:39 Pain in lower limb 72000189 Active Chapis sider null, [place] [facility] 3 08:29:40 Bilateral spider veins of lower limbs 6707303173973 9105 Active Chapis stamper [place], [place] [facility] 3 08:29:40 Bilateral earache 697995337 Active Chapis stamper [place] [facility] 3 08:29:40 Asthma 308977609 Active Cahpis stamper null, [place] [facility] 3 08:29:40 Sciatica 40138457 Active Chapis stamper [place] [facility] 3 08:29:40 Venous insufficien cy of lower limb 325987362 Active Chapis stamper [place], [place] [facility] 3 08:29:40 Obese abdomen 548670566 Active Chapis stamper null, [place] [facility] 3 08:29:40 Dislocation of temporomand ibular joint 937547888 Active Chapis stamper [place] [facility] 3 08:29:40 History of Disorder 685353411 Active Chapis stamper [place] [facility] 3 08:29:40 Restless legs syndrome 95166841 Active Chapis stamper [place] [facility] 3 08:29:40 Depressive disorder 52902581 Active Chapis stamper [place] [facility] 3 08:29:40 Arthritis 2698249 Active Chapis stamper [place] [facility] 3 08:29:40 Hypertensiv e disorder 48575624 Active Chapis stamper [place] [facility] 3 08:29:40 Body mass index 40+ - severely obese 689147394 Active Chapis stamper [place] [facility] 3 08:29:40 Hypothyroid ism 69184098 Active Chapis stamper [place] [facility] 3 08:29:40 Obesity 230396689 Active Chapis stamper [place] [facility] 3 08:29:40 Varicose veins of lower extremity 89261105 Active Chapis stamper [place] [facility] 3 08:29:40 Sleep apnea 23263765 Active Chapis levi null[place] [facility] 3 08:29:40 Degeneratio n of interverteb ral disc 47797793 Active Chapis levi null, [place] [facility] 3 08:29:40 Lumbar spondylosis 955019700 Active 2022 Sayda Herrera null, [place] [facility] 3 13:33:44 Degeneratio n of lumbar interverteb ral disc 06702773 Active 2022 Dionte Beck MD [address], [address], [place] [facility] 3 17:00:40 Arthropathy of lumbar facet joint 592103333 Active 2022 Dionte Beck MD [address], [address], [place] [facility] 3 17:00:41 Pain of right shoulder joint 2369708526281 9100 Active 2023 Dionte Beck MD [address], [address], [place] [facility] 4 11:01:26 Osteoarthri tis of left knee joint 1960516629136 09 Active 2023 Dionte Beck MD [address], [address], [place] [facility] 4 11:01:26 Pain of left knee joint 4033158355577 07 Active 2023 Dionte Beck MD [address], [address], [place] [facility] 4 11:01:29 Full thickness rotator cuff tear 063052394 Active 2023 Dionte Beck MD [address], [address], [place] [facility] 4 11:27:54 Trochanteri c bursitis of right hip 1169976489737 00 Active 2023 DEYA MCCRAY [address], [address], [place] [facility] 5 10:52:09 Cervical radiculopat hy 03201657 Active 2023 Elvi Cuevas NP [address], [address], [place] [facility] 4 10:41:02 Degeneratio n of cervical interverteb ral disc 80356770 Active 2023 Elvi Cuevas NP [address], [address], [place] [facility] 4 10:41:22 Lumbar radiculopat hy 619905059 Active 2024 Dionte Beck MD [facility] [address], [address], [place] [facility] 5 21:33:00 Inflammatio n of sacroiliac joint 15962518 Active 2024 Dionte Beck MD [facility] [place] [address], [address], [place] [facility] 5 09:16:39 Acute meniscal tear, medial 305734225 Active 2024 Dionte Beck MD [address], [address], [place] [facility] 5 20:42:28 Problem Notes None recorded. Procedures Surgical History Date Name Laterality Status Provider Name and Address Organization Details Recorded Time 03/03/20 25 Greater Trochanteric Bursa Steroid Injection completed Dionte Beck MD [address], [address], [place] [facility] 03/03/2025 17:27:38 09/24/19 25 Therapeutic SI Joint Injection Under Fluoroscopy completed Dionte Beck MD [address], [address], [place] [facility] 09/23/2024 09:14:32 08/14/19 25 SCS Trial completed Dionte Beck MD [address],[place] [address] [place] [address], [address], [place] [facility] 08/13/2024 17:47:06 07/16/19 25 Peripheral nerve stimulator Knee completed Dionte Beck MD [address],[place] [address] [place] [address], [address], [place] [facility] 07/16/2024 12:19:53 06/18/19 25 Lumbar YOLANDA: Interlaminar completed Dionte Beck MD [address],[place] [address] [place] [address], [address], [place] [facility] 06/18/2024 20:47:41 05/22/19 25 Peripheral nerve block completed Dionte Beck MD [address],[place] [address] [place] [address], [address], [place] [facility] 05/22/2024 23:56:27 03/19/20 24 Cervical Epidural Steroid Injection Under Fluoroscopy completed Dionte Beck MD [address],[place] [address] [place] [address], [address], [place] [facility] 03/19/2024 11:04:19 02/19/20 24 Greater Trochanteric Bursa Steroid Injection completed Dionte Beck MD [address],[place] [address] [place] [address], [address], [place] [facility] 02/19/2024 13:04:59 02/13/20 24 Diagnostic SI Joint Injection Under Fluoroscopy completed Dionte Beck MD [address],[place] [address] [place] [address], [address], [place] [facility] 02/13/2024 12:34:47 07/24/19 24 Genicular Nerve Block completed Dionte Beck MD [address],[place] [address] [place] [address], [address], [place] [facility] 07/24/2023 23:15:00 05/27/19 24 Knee Joint Injection completed Dionte Beck MD [address],[place] [address] [place] [address], [address], [place] [facility] 05/27/2023 18:20:07 04/19/20 23 Lumbar YOLANDA: Interlaminar completed SHIRLEY MAGAÑA [place] [facility] 03/26/2023 09:21:47 02/29/20 23 Medial Epicondyle Injection completed Dionte Beck MD [address],[place] [facility], [place], [address], [place] [facility] 02/28/2023 21:56:28 02/14/20 23 BILAT 2LVL LUMBAR RFA completed Dionte Beck MD [address], [place], [address], [place] [facility] 02/13/2023 17:15:10 12/19/19 23 Diagnostic Lumbar MBB: 2 Level Bilateral completed Dionte Beck MD [address],[place] [facility], [place], [address], [place] [facility] 12/18/2022 16:59:24 11/23/19 23 Diagnostic Lumbar MBB: 2 Level Bilateral completed Dionte Beck MD [address], [place], [address], [place] [facility] 11/22/2022 [...] completed Not Available Not Available Not Available [facility] COVID-19 Antigen Rapid Home Test kit 09/23 [...] cm 78 /min 18 /min 41.2 kg/m2 487604. 17 g 98 % 6 126/86 mm[Hg] Feli Srivastava [place] [facility] 5 11:08:27 Social History Question Answer Notes LastModified by Organizat ion Details LastModified Time Tobacco Smoking Status Never Smoker [facility] 09/27/2022 08:30:43 Do [...] Do You Have A Medical Power Of Butter Grader? No Information not available 09/27/2022 Sex: Female [...] N COPD N Anemia N Heart Attack ([place]) N Ulcers N Diabetes N Anxiety Disorder [...] ICD10 Code Diagnosis IMO Codes Diagnosis Note [id number] Dionte Bekc MD [address] [place] [address] 02/16/2025 10:21:27 02/16/2025 10:45:20 Edema of lower extremity 485746426 R60.0 Pain in lower limb 40836 006 M79.606 Lumbar radiculopathy 128 649513 M54.16 Bilateral spider veins of lower limbs 9474921408 2816706 I78.1 Trochanter ic bursitis of right hip 1511327452 24906 M70.61 [id number] Dionte Beck MD [address] [place] [address] 03/03/2025 11:01:45 03/03/2025 11:56:16 Lumbar radiculopathy 147118750 M54.16 Lumbar spondylosis 09434 0009 M47.896 Degenerati on of lumbar intervertebral disc 10190511 M51.369 Degenerati on of cervical intervertebral disc 19871356 M50.30 Cervical radiculopathy 22834785 M54.12 Trochanter ic bursitis of right hip 2015469077 85414 M70.61 2146871 Inflammati on of sacroiliac joint 50898784 M46.1 1659 Health Concerns Section Related Observation LastModified by Organization Detai ls LastModified Time None Recorded Concern Status LastModified by Organization Details LastModified Time None Recorded Payers Encounter Date Sequence Insurance Name Policy Number Policy Green Covered Member ID Green Member ID Guarantor Name 03/03/2025 1 [facility] (MEDICAID REPLACEMENT - HMO) Saritha Moody [id number] Saritha Moody Notes Date Note Type Note Provider Name and Address Organization Details Recorded Time 5 text/html Low back painReported by PatientHPIFor associated symptoms, patient reportsweakness,numbness, andtingling. 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 Dionte Beck MD [address], [address], [place] - [facility] 03/03/2025 17:38:30 OBGyn Episode No OBEpisode recorded.
--- OUTSIDE RECORDS SUMMARY | 2025-04-14 09:20 | XMS_ITS | Encounter Summary ---
Author Organization Healthcare Address [address] [place] [address] Care Team Providers Care Cotton Tier Name Role Phone Moriah Morgan APRN Unavailable [phone] Mark Cid MD Primary Care Provider [phone] Reason for Referral * Consultation (Routine) - Closed Specialty Diagnoses / Procedures Referred By Contac t Referred To Contact Neurosurgery Diagnoses Lumbar radiculopathy Melanie Dc PA [address] [place] [address] Phone: tel: fax: Referral ID Status Reason Start Date Expiration Date V isits Requested Visits Authorized [id number] Closed Specialty Services Required 09/12/2021 03/14/2023 1 1 Encounter Details Date Type Department Care Team (Latest Contact Info) Description 09/12/2021 [facility] [address] [place] [address] Melanie Dc PA [address] [place] [address] Lumbar radiculopathy (Primary Dx) Social History Tobacco [...] unspecified documented in this encounter Care Teams Cotton Tier Relationship Specialty Start Date End Date Mark Cid MD [address] [place] [address] PCP - General 10/11/21 Moriah Morgan APRN [address] [place] [id number] Nurse Practitioner Neurosurgery 10/11/21 documented as of this encounter
--- OUTSIDE RECORDS SUMMARY | 2025-04-14 09:20 | XMS_ITS | Clinical Summary ---
Author Organization [facility] Address [address] [place] [address] Care Team Providers Care Automotive Brake Specialist Name Role Phone Roshan Salcido MD Primary Care Provider [phone] Allergies Active Allergy Reactions Criticality Noted Date Comments Metformin Nausea And Vomiting High 03/20/2023 Medications meloxicam (MOBIC) 15 MG tablet Take 1 tablet by mouth Daily. Active fluticasone (FLONASE) 50 MCG/ACT nasal spray 2 sprays into the nostril(s) as directed by provider Daily. 1 bottle 06/13/19 19 Active Lancets (Safety Lancet 30G/Pressure Act) misc 01/10/20 23 Active OneTouch Verio test strip 01/10/20 23 Active albuterol sulfate HFA 108 (90 Base) MCG/ACT inhaler As Needed. 03/20/20 23 Active azelastine (ASTELIN) 0.1 % nasal spray 03/28/20 23 Active gabapentin (NEURONTIN) 300 MG capsule 1 capsule. 03/20/20 23 Active hydroCHLOROthiazi de (HYDRODIURIL) 12.5 MG tablet .COMPLEX 02/28/20 23 Active losartan (COZAAR) 50 MG tablet .COMPLEX 02/28/20 23 Active sertraline (ZOLOFT) 25 MG tablet .COMPLEX 01/29/20 23 Active hydrOXYzine pamoate (VISTARIL) 25 MG capsule 10/11/19 24 Active triamcinolone (KENALOG) 0.1 % cream 09/13/19 24 Active traZODone (DESYREL) 100 MG tabletIndications :Insomnia, unspecified type Take 1 tablet by mouth Every Night. 90 tablet 1 10/23/19 24 Active atorvastatin (LIPITOR) 10 MG tablet Take 1 tablet by mouth Daily. 03/06/20 25 Active cetirizine (zyrTEC) 10 MG tablet (10 MG) 12/31/19 25 Active Linzess 72 MCG capsule capsule Take 1 capsule by mouth Daily. Active metFORMIN ER (GLUCOPHAGE-XR) 500 MG 24 hr tablet 03/06/20 25 Active levothyroxine (SYNTHROID, LEVOTHROID) 112 MCG tablet 03/06/20 25 Active fluticasone (FLOVENT HFA) 220 MCG/ACT inhaler Inhale 2 puffs 2 (Two) Times a Day. Active Calcium Carbonate-Vit D-Min (Calcium 600+D Plus Minerals) 600-400 MG-UNIT tablet Take 1 tablet by mouth 2 (Two) Times a Day. Active Varenicline Tartrate, Starter, 0.5 MG X 11 & 1 MG X 42 tablet therapy packIndications:T obacco dependence due to cigarettes Take 0.5 mg by mouth Daily for 3 days, THEN 0.5 mg 2 (Two) Times a Day for 4 days, THEN 1 mg 2 (Two) Times a Day for 21 days. Take 0.5 mg po daily x 3 days, then 0.5 mg po bid x 4 days, then 1 mg po bid 1 each 03/22/20 25 025 Active varenicline (CHANTIX) 1 MG tabletIndications :Tobacco dependence due to cigarettes Take 1 tablet by mouth 2 (Two) Times a Day for 140 days. 56 tablet 4 04/19/20 25 026 Active phentermine 15 MG capsuleIndication s:Class 3 severe obesity due to excess calories without serious comorbidity with body mass index (BMI) of 40.0 to 44.9 in adult Take 1 capsule by mouth Every Morning. 30 capsule 03/22/20 25 Active Cholecalciferol (Vitamin D) 50 MCG (2000 UT) tabletIndications :Vitamin D deficiency Take 1 tablet by mouth Daily. 90 tablet 3 03/29/20 25 Active levothyroxine (SYNTHROID, LEVOTHROID) 100 MCG tablet Take 1 tablet by mouth Daily. 025 Discontinued(* Therapy completed) D3-1000 25 MCG (1000 UT) tablet 03/27/20 23 025 Discontinued Flovent HFA 220 MCG/ACT inhaler 03/20/20 23 025 Discontinued guaiFENesin (MUCINEX) 600 MG 12 hr tablet 1 tablet. 11 025 Discontinued(* Therapy completed) ondansetron ODT (ZOFRAN-ODT) 4 MG disintegrating tablet 1 tablet. 01/01/20 025 Discontinued(* Therapy completed) rOPINIRole (REQUIP) 0.25 MG tablet .COMPLEX 03/28/20 025 Discontinued Ozempic, 0.25 or 0.5 MG/DOSE, 2 MG/3ML solution pen-injector 02/29/20 025 Discontinued(* Therapy completed) Cholecalciferol (Vitamin D) 50 MCG (1999) tabletIndications :Vitamin D deficiency Take 1 tablet by mouth Daily. 90 tablet 3 03/23/20 025 Discontinued(R eorder) Active Problems Problem Noted Date Diagnosed Date Venous insufficiency of lower extremity 03/22/20 25 Vitamin D deficiency 03/22/2025 Encounter for general adult medical examination with abnormal findings 03/22/2025 Assessment & Plan (03/22/2025 1:05 PM EST): 60-year-old female presenting for an introductory office visit and complete physical, with specific health issues addressed as detailed below, health maintenance includes reportedly current with colonoscopy with Dr. Tirado for last year revealing several polyps, Pap smear from last year through [facility] email [place] reportedly unremarkable, referred for screening low-dose chest CT, mammogram, DEXA scan, influenza vaccine ministered a, Capvaxive deferred given lack of office supply, advised to obtain COVID-19 and Shingrix vaccines through the health department, updating screening labs, tentative follow-up in 1 month for clinical response to her phentermine therapy prescribed for obesity, and as needed in the interim. 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 06/2024 Hyperlipidemia 05/18/2024 Type 2 diabetes mellitus without complications 1 Cervical radiculopathy 03/03/2024 Bone spur of foot 10/23/2023 Callus of foot 10/23/2023 Degenerative joint disease (DJD) of lumbar spine 10/23/2023 Depression 10/23/2023 Edema of both lower extremities 10/23/2023 Hammertoes of both feet 10/23/2023 Metatarsalgia of both feet 10/23/2023 Hx of ulcer disease 10/23/2023 Low back pain 10/23/2023 Lumbar radiculopathy 10/23/2023 Obesity 10/23/2023 Plantar fasciitis, bilateral 10/23/2023 RLS (restless legs syndrome) 10/23/2023 Sacroiliitis 10/23/2023 TMJ (sprain of temporomandibular joint) 10/23/19 Insomnia 04/24/2023 KARLI (obstructive sleep apnea) 04/24/2023 Gastro-esophageal reflux disease without esophag itis 03/10/2014 Disease of thyroid gland Arthritis Anxiety Hypertension Resolved Problems Problem Noted Date Diagnosed Date Resolved Date COVID-19 10/23/2023 10/23/2023 Tobacco use 10/23/2023 03/22/2025 Stomach ulcer 10/23/2023 Encounters Date Type Department Care Team Description 03/29/2025 Refill [facility] [address] [place] [address] BRENARDO SANCHEZ [phone] Roshan Salcido MD Vitamin D deficiency 03/25/2025 Patient rounding ([facility] only) [facility] [address] [place] [address] BERNARDO SANCHEZ [phone] Una Hargrove 03/23/2025 Results Follow-Up [facility] [address] [place] [address] BERNARDO SANCHEZ [phone] Roshan Salcido MD 03/22/2025 11:00 AM EST Office Visit [facility] [address] [place] [address] BERNARDO SANCHEZ [phone] Roshan Salcido MD Encounter for general adult medical examination with [...] (pneumococcus); Need for hepatitis C screening test 03/22/2025 Travel from Last 3 Months Immunizations Immunization Administration Dates Next Due Fluzone >6mos 03/22/2025 Hepatitis A 05/01/2018 Pneumococcal Polysaccharide (PPSV23) 04/29/2024 Shingrix 06/29/2024,04/29/2024 Tdap 08/10/2024 Family History Medical History Relation Name Comments Heart disease Father Heart disease Mother Relation Name Status Comments Father Mother Social History Tobacco Use Types Packs/Day Years Used Date Smoking Tobacco: Every Day Cigarettes 1 20 Passive Smoke Exposure: Current Smokeless Tobacco: Never Tobacco Cessation:Ready to Q uit: Yes; Counseling Given: Yes Comments:cutting back Alcohol Use Standard Drinks/Week Comments [...] F) 03/22/2025 10:53 AM EST Respiratory Rate 16 06/13/2018 2:59 PM EST Oxygen Saturation 99% 03/22/2025 10:53 AM EST Inhaled Oxygen Concentration - - Weight 122 kg (268 lb 6.4 oz) 03/22/2025 10:53 A M EST Height 162.6 cm (5' 4 ) 03/22/2025 10:53 AM EST Body Mass Index 46.07 03/22/2025 10:53 AM EST Plan of Treatment Upcoming Encounters Date Type Department Care Team (Late st Contact Info) Description 04/21/2025 8:45 AM EST Office Visit [facility] [address] [place] [address] [place] [address] Roshna Salcido MD [address] [place] [address] Health Maintenance Due Date Last Done Comments Annual Gynecologic Pelvic an d Breast Exam 1967 Hepatitis B (1 of 3 - 19+ 3- dose series) 1986 MAMMOGRAM 2007 COLOGUARD 01/25/2012 COLON CANCER SCREENING 5 YEA R SIGMOIDOSCOPY 01/25/2012 COLONOSCOPY 01/25/2012 COLORECTAL CANCER SCREENING 01/25/2012 CT COLONOGRAPHY 01/25/2012 FECAL OCCULT BLOOD TEST 01/25/2012 FIT Testing (1 year) 01/25/2012 LUNG CANCER SCREENING 2017 Pneumococcal Vaccine 50+ (2 of 2 - PCV) 04/29/2025 04/29/2024 HEMOGLOBIN A1C 09/19/2025 03/22/2025 DIABETIC EYE EXAM 12/31/2025 12/31/2024 (Frederic rothman-Reported (Performed Externally)) ANNUAL PHYSICAL 03/22/2026 03/22/2025 DIABETIC FOOT EXAM 03/22/2026 03/22/2025, 1 05/22/2024, 03/22/2025 LIPID PANEL 03/22/2026 03/22/2025 URINE MICROALBUMIN-CREATININ E RATIO (uACR) 03/22/2026 03/22/2025 TDAP/TD VACCINES (2 - Td or Tdap) 08/10/2034 025 ZOSTER VACCINE Completed 06/29/2024, 04/29/2024 HEPATITIS C SCREENING Completed 03/22/2025 INFLUENZA VACCINE Completed 03/22/2025 Procedures Procedure Name Priority Date/Time Associated Diagnosis Comments ECG 12-LEAD Routine 03/22/2025 1:06 PM EST Primary hypertension CBC AND DIFFERENTIAL Routine 03/22/2025 12:53 PM EST VITAMIN D,25-HYDROXY Routine 03/22/2025 12:53 PM EST TSH Routine 03/22/2025 12:53 PM EST T4, FREE Routine 03/22/2025 12:53 PM EST LIPID PANEL Routine 03/22/2025 12:53 PM EST COMPREHENSIVE METABOLIC PANEL Routine 03/22/2025 12:53 PM EST HEPATITIS C ANTIBODY Routine 03/22/2025 12:53 PM EST Need for hepatitis C screening test ~MICROSCOPIC EXAMINATION Routine 03/22/2025 11:48 AM EST UA/M W/RFLX CULTURE ([facility] ONLY) Routine 03/22/2025 11:48 AM EST Encounter for general adult medical examination with abnormal findings Primary hypertension POC ALBUMIN/CREATININE RATIO Routine 03/22/2025 11:46 AM [...] complication, without long-term current use of insulin from Last 3 Months Results * ECG 12-LEAD (03/22/2025 1:06 PM [...] MD ECG ORDERABLES Edited Result - Final Performing Organization Address City/[facility]/ZIP Co de Phone Number ECG * Hepatitis C Antibody (03/22/2025 12:53 PM [...] 12:53 PM EST 03/23/2025 Comment:Blood Release to [facility] - 03/23/2025 1:07 PM EST Performed at: 01 - [address] [id number] Senior Materials Analyst: Adelfo López PhD, Phone: [phone] Roshan Salcido MD LAB BLOOD ORDERABLES Final Res ult [facility] (AMBULATORY) [address] [place] [id number], [facility] [address] [place] [address], * (ABNORMAL) Vitamin D,25-Hydroxy (03/22/2025 12:53 PM EST) 25 Hydroxy, Vitamin D 27.3(L) 30.0 - 100.0 ng/mL [facility] Comment: Vitamin D deficiency has been defined by the [place] of Medicine and an Endocrine Society practice guideline as a level of serum 25-OH vitamin D less than 20 ng/mL (1,2). The Endocrine Society went on to further define vitamin D insufficiency as a level between 21 and 29 ng/mL (2). 1. IOM ([place] of Medicine). 2010. Dietary reference intakes for calcium and D. [place]: The National Academies Press. 2. Chilo MF, Maxx NC, Leticia WHITE, et al. Evaluation, treatment, and prevention of vitamin D deficiency: an Endocrine Society clinical practice guideline. JCEM. 2010; 96(7):1911-30. 03/22/2025 12:5 3 PM EST 03/23/2025 Comment:Blood Release to alexis Ro [facility] - 03/23/2025 1:07 PM EST Performed at: - [address] [id number] Senior Materials Analyst: Adelfo López PhD, Phone: [phone] us Roshan Salcido MD LAB BLOOD ORDERABLES Final Res ult [facility]) [address] [place] [address], [facility] [address] [place] [address], * CBC & Differential (03/22/2025 12:53 PM [...] 3 PM EST 03/23/2025 Comment:Blood Release to [facility] (AMBULATORY) - 03/23/2025 1:07 PM EST Performed at: [address] [id number] Senior Materials Analyst: Adelfo López PhD, Phone: [phone] us Roshan Salcido MD LAB BLOOD ORDERABLES Final Res ult [facility] [address] [place] [address], [facility] [address] [place] [address], * TSH (03/22/2025 12:53 PM EST) TSH 1.090 0.450 - 4.500 uIU/mL [facility] 03/22/2025 12:5 3 PM EST 03/23/2025 Comment:Blood Release to [facility] (AMBULATORY) - 03/23/2025 1:07 PM EST Performed at: [facility] [address] [place], [place] [id number] Senior Materials Analyst: Adelfo López PhD, Phone: [phone] us Roshan Salcido MD LAB BLOOD ORDERABLES Final Res ult Performing Organization Address [facility] Co de Phone Number [facility] [address] [place] [address], [place] [phone] [facility] [address] [place] [address], [place] [phone] * T4, Free (03/22/2025 12:53 PM EST) Free T4 1.37 0.82 - 1.77 ng/dL [facility] 03/22/2025 12:5 3 PM EST 03/23/2025 Comment:Blood Release to [facility] (AMBULATORY) - 03/23/2025 1:07 PM EST Performed at: [facility] [id number] Senior Materials Analyst: Adelfo López PhD, Phone: [phone] us Roshan Salcido MD LAB BLOOD ORDERABLES Final Res ult Performing Organization Address [facility] Co de Phone Number [facility] [address] [place] [address], [place] [phone] [facility] [address] [place] [address], [place] [phone] * (ABNORMAL) Lipid Panel (03/22/2025 12:53 PM EST) Total Cholesterol 135 100 - 199 mg/dL [facility] Triglycerides 158(H) 0 - 149 mg/dL [facility] HDL Cholesterol 44 >39 mg/dL [facility] VLDL Cholesterol [place] 27 5 - 40 mg/dL [facility] LDL Chol Calc (NIH) 64 0 - 99 mg/dL [facility] 03/22/2025 12:5 3 PM EST 03/23/2025 Comment:Blood Release to pat i Narrative [facility] ([facility]) - 03/23/2025 1:07 PM EST Performed at: - [facility] [address] [place], [place] [id number] Senior Materials Analyst: Adelfo López PhD, Phone: [phone] us Roshan Salcido MD LAB BLOOD ORDERABLES Final Res ult [facility] [address] [place] [address], [facility] [address] [place] [address], * (ABNORMAL) Comprehensive Metabolic Panel (03/22/2025 12:53 PM EST) [facility] Glucose 116(H) 70 - 99 mg/dL [facility] [...] 3 PM EST 03/23/2025 Comment:Blood Release to pat i Narrative [facility] (AM[facility]UL[facility]ORY) - 03/23/2025 1:07 PM EST Performed at: 01 - [facility] [address] [place], [place] [id number] Senior Materials Analyst: Adelfo López PhD, Phone: [phone] us Roshan Salcido MD LAB BLOOD ORDERABLES Final Res ult Performing Organization Address [facility]/ZIP Co de Phone Number [facility] [address] [place] [address], [place] [phone] [facility] [address] [place] [address], [place] [phone] * UA / M With / Rflx Culture([facility] ONLY) - Urine, Clean Catch (03/22/2025 11:48 AM EST) Specific [place], UA 1.022 1.005 - 1.030 [facility] [...] 11:48 AM EST 03/23/2025 Comment:Urine Release to alexis Ro [facility] (AMBULATORY) - 03/23/2025 10:07 AM EST Performed at: 01 - [facility] [address] [id number] Senior Materials Analyst: Adelfo López PhD, Phone: [phone] us Roshan Salcido MD URINE ORDERABLES Final Result Performing Organization Address City/[facility]/ZIP Co de Phone Number [facility] [address] [place] [address], [facility] [address] [place] [address], * Microscopic Examination - (03/22/2025 11:48 AM EST) Pathologist [facility] WBC, UA 0-5 0 - 5 /hpf [facility] RBC, UA None seen 0 - 2 /hpf [facility] Epithelial Cells (non renal) 0-10 0 - 10 /hpf [facility] Casts None seen None seen /lpf [facility] Bacteria, UA Few None seen/Few [facility] 03/22/2025 11:4 8 AM EST 03/23/2025 Comment:Urine Release to [facility] (AMBULATORY) - 03/23/2025 10:07 AM EST Performed at: - [facility] [id number] Senior Materials Analyst: Adelfo López PhD, Phone: [phone] us Rsohan Salcido MD URINE ORDERABLES Final Result Performing Organization Address [facility] Co de Phone Number [facility] (AMBULATORY) [address] [place] [id number], [facility] [address] [place] [address], * POC Albumin/Creatinine Ratio Urine (03/22/2025 11:46 AM EST) [facility] POC ALBUMIN, URINE 10 mg/L POC CREATININE, URINE 100 mg/dL POC Urine Albumin Creatinine Ratio <30 <30 Lot Number [id number] Expiration Date 08/24/2026 Urine 03/22/2025 11:4 6 AM EST us Roshan Salcido MD POINT OF CARE TEST ORDERABLES Final Result * (ABNORMAL) POC Glycosylated Hemoglobin (Hb A1C) (03/22/2025 11:46 AM EST) Pathologist [facility] Hemoglobin A1C 6.2(A) 4.5 - 5.7 % [facility] Lot Number [id number] [facility] Expiration Date 10/16/2026 [facility] Blood 03/22/2025 11:4 6 AM EST us Roshan Salcido MD POINT OF CARE TEST ORDERABLES Final Result [facility]
[address] [place] [address], * (ABNORMAL) POC Glucose, Blood (03/22/2025 11:45 AM EST) Glucose 133(A) 70 - 130 mg/dL Lot Number [id number] Expiration Date 12/22/2025 Blood 03/22/2025 11:4 5 AM EST us Roshan Salcido MD POINT OF CARE TEST ORDERABLES Final Result from Last 3 Months [place] [address] Care Teams Automotive Brake Specialist Relationship Specialty Start Date End Date Roshan Salcido MD [address] [place] [address] PCP - General Internal Medicine 03/19/25
--- OUTSIDE RECORDS SUMMARY | 2025-04-14 09:20 | XMS_ITS | Data Portability ---
Author Organization [facility] [place] - MSE Address [address] [place] [address] Assessment No assessment recorded. Plan of Treatment Reminders Order Date Submit Date Provider Last Modified By Organization Details Last Modified Time Details Appointments None recorded. Lab HbA1c (hemoglobin A1c), blood [email or web address] [place] [address], [address] [place] [address], [place], [address], 5 14:38:53 urinalysis, dipstick [email or web address] [place] [address], [address] [place] [address], [place], [address], 5 13:29:15 culture, urine 2024 025 [place] [facility]), [facility], [place], [address], 5 03:06:45 vitamin D, 25-hydroxy, total, serum 2024 025 [place] [facility] ([facility]), [address] [facility], [place], [address], 5 11:11:51 HbA1c (hemoglobin A1c), blood 2024 025 [email or web address] [facility], [address] [facility], [place], [address], 17:09:41 CBC w/ auto diff [address] [facility]), [facility] [place], [address], 5 11:11:50 CMP, serum or plasma [address] [facility]), [address] [place], [address], 5 11:11:50 TSH + free T4, serum 2024 025 [facility] [place], [address], 5 11:11:49 thyroid peroxidase (tpo) Ab, serum [address] [facility]), [facility] [place], [address], 5 11:11:52 Referral None recorded. Procedures None recorded. Surgeries None recorded. Imaging LDCT, chest, for lung cancer screening 2024 025 [email or web address] [facility] ([facility]), [address], [place], [address], 5 07:29:39 XR, kidney + ureter + bladder 2024 025 [facility], [address] [place] [address], [place], [address], 5 17:19:06 Medication Orders Linzess 72 mcg capsule 2024 025 [facility], [address] [place] [address], [address], 5 15:54:36 hydrochloro thiazide 12.5 mg tablet 2024 025 [facility], [address] [place] [address], [address], 5 15:54:35 Linzess 72 mcg capsule 2024 [facility], [address] [place] [address], [address], 5 15:06:42 atorvastati n 10 mg tablet 2024 [facility], [address] [place] [address], [address], 5 15:06:42 Trelegy Ellipta 100 mcg-62.5 mcg-25 mcg powder for inhalation 2024 [facility], [address] [place] [address], [address], 5 14:51:35 Ventolin HFA 90 mcg/actuati on aerosol inhaler 2024 [facility], [address] [place] [address], [address], 5 14:51:34 ciprofloxac in 250 mg tablet 2024 [facility], [address] [place] [address], [address], 5 14:41:25 phenazopyri dine 100 mg tablet 2024 [facility], [address] [place] [address], [address], 5 14:41:25 atorvastati n 10 mg tablet 2024 [facility], [address] [place] [address], [address], 17:14:31 Patient TargetsNo targets recorded. Patient Instructions Encounter Date Encounter Id Patient Instructions Last Modified By Organization Details Last Modified Time 09/07/2024 [id number] body mass index: care instructions Not available 09/07/2024 17:09:51 learning about healthy weight Not available 09/07/2024 17:09:51 high blood pressure: care instructions Not available 09/07/2024 16:38:24 learning about high blood pressure Not available 09/07/2024 16:38:24 hypothyroidism: care instructions Not available 09/07/2024 16:38:24 09/21/2024 [id number] desire's thyroiditis: care instructions Not available 09/21/2024 16:15:47 high blood pressure: care instructions Not available 09/21/2024 16:15:47 learning about high blood pressure Not available 09/21/2024 16:15:47 11/11/2024 [id number] learning about type 2 diabetes Not available 11/11/2024 14:38:53 type 2 diabetes: care instructions Not available 11/11/2024 14:38:53 12/09/2024 [id number] body mass index: care instructions Not available 12/09/2024 12:18:41 learning about healthy weight Not available 12/09/2024 12:18:41 Reason for Referral None Reported. Results Created Date Observation Date Name Description Value Unit Range Abnormal Flag Note LastModifiedBy Organization Detail LastModifiedTime 08/11/1908/11/2024 TSH+F REE T4 TSH 0.589 uIU/m L 0.450- 4.500 normal Not Available [facility] ([facility]) [address] [place], [address], 08/11/2024 08:13:42 08/11/1908/11/2024 TSH+F REE T4 T4,free(dire ct) 1.42 NG/dL 0.82-1 .77 normal Not Available [facility] ([facility]) [address] [place], [address], 08/11/2024 08:13:42 08/11/1908/11/2024 CBC WITH DIFFE RENTI AL/PL ATELE T WBC 9.4 x10e3 /uL 3.4-10 .8 normal Not Available [facility] ([facility]) [address] [facility], [place], [address], 08/11/2024 08:13:42 08/11/1908/11/2024 CBC WITH DIFFE RENTI AL/PL ATELE T RBC 5.01 x10e6 /uL 3.77-5 .28 normal Not Available [facility] ([facility]) [address] [place], [address], 08/11/2024 08:13:42 08/11/1908/11/2024 CBC WITH DIFFE RENTI AL/PL ATELE T hemoglobin 15.0 g/dL 11.1-1 5.9 normal Not Available [facility] ([facility]) [address] [place], [address], 08/11/2024 08:13:42 08/11/1908/11/2024 CBC WITH DIFFE RENTI AL/PL ATELE T hematocrit 45.8 % 34.0-4 6.6 normal Not Available [facility] ([facility]) [address] [place], [address], 08/11/2024 08:13:42 08/11/1908/11/2024 CBC WITH DIFFE RENTI AL/PL ATELE T MCV 91 fL 79-97 normal Not Available [facility] ([facility]) [address] [place], [address], 08/11/2024 08:13:42 08/11/1908/11/2024 CBC WITH DIFFE RENTI AL/PL ATELE T MCH 29.9 pg 26.6-3 3.0 normal Not Available [facility] ([facility]) [address] [place], [address], 08/11/2024 08:13:42 08/11/1908/11/2024 CBC WITH DIFFE RENTI AL/PL ATELE T MCHC 32.8 g/dL 31.5-3 5.7 normal Not Available [facility] ([facility]) [address] [facility], [place], [address], 08/11/2024 08:13:42 08/11/1908/11/2024 CBC WITH DIFFE RENTI AL/PL ATELE T RDW 12.8 % 11.7-1 5.4 Not Available [facility] ([facility]) [address] [place], [address], 08/11/2024 08:13:42 08/11/1908/11/2024 CBC WITH DIFFE RENTI AL/PL ATELE T platelets 286 x10e3 /uL 150-45 0 normal Not Available [facility] ([facility]) [address] [facility], [place], [address], 08/11/2024 08:13:42 08/11/1908/11/2024 CBC WITH DIFFE RENTI AL/PL ATELE T neutrophils 60 % not estab. normal Not Available [facility] ([facility]) [address] [facility], [place], [address], 08/11/2024 08:13:42 08/11/1908/11/2024 CBC WITH DIFFE RENTI AL/PL ATELE T lymphs 29 % not estab. normal Not Available [facility] ([facility]) [address] [place], [address], 08/11/2024 08:13:42 08/11/1908/11/2024 CBC WITH DIFFE RENTI AL/PL ATELE T monocytes 7 % not estab. normal Not Available [facility] ([facility]) [address] [place], [address], 08/11/2024 08:13:42 08/11/1908/11/2024 CBC WITH DIFFE RENTI AL/PL ATELE T eos 3 % not estab. normal Not Available [facility] ([facility]) [address] [place], [address], 08/11/2024 08:13:42 08/11/1908/11/2024 CBC WITH DIFFE RENTI AL/PL ATELE T basos 1 % not estab. normal Not Available [facility] ([facility]) [address] [facility], [place], [address], 08/11/2024 08:13:42 08/11/1908/11/2024 CBC WITH DIFFE RENTI AL/PL ATELE T immature cells ENVIRONMENTAL LABORATORY TECHNICIAN Not Available [facility] ([facility]) [address] [place], [address], 08/11/2024 08:13:42 08/11/1908/11/2024 CBC WITH DIFFE RENTI AL/PL ATELE T neutrophils (absolute) 5.7 x10e3 /uL 1.4-7. 0 normal Not Available [facility] ([facility]) [address] [place], [address], 08/11/2024 08:13:42 08/11/1908/11/2024 CBC WITH DIFFE RENTI AL/PL ATELE T lymphs (absolute) 2.7 x10e3 /uL 0.7-3. 1 normal Not Available [facility] ([facility]) [address] [place], [address], 08/11/2024 08:13:42 08/11/1908/11/2024 CBC WITH DIFFE RENTI AL/PL ATELE T monocytes(ab solute) 0.7 x10e3 /uL 0.1-0. 9 normal Not Available [facility] ([facility]) [address] [place], [address], 08/11/2024 08:13:42 08/11/1908/11/2024 CBC WITH DIFFE RENTI AL/PL ATELE T eos (absolute) 0.3 x10e3 /uL 0.0-0. 4 normal Not Available [facility] ([facility]) [address] [facility], [place], [address], 08/11/2024 08:13:42 08/11/1908/11/2024 CBC WITH DIFFE RENTI AL/PL ATELE T baso (absolute) 0.1 x10e3 /uL 0.0-0. 2 normal Not Available [facility] ([facility]) [address] [facility], [place], [address], 08/11/2024 08:13:42 08/11/1908/11/2024 CBC WITH DIFFE RENTI AL/PL ATELE T immature granulocytes 0 % not estab. Not Available [facility] ([facility]) [address] [facility], [place], [address], 08/11/2024 08:13:42 08/11/1908/11/2024 CBC WITH DIFFE RENTI AL/PL ATELE T immature grans (abs) 0.0 x10e3 /uL 0.0-0. 1 Not Available [facility] ([facility]) [address] [place], [address], 08/11/2024 08:13:42 08/11/1908/11/2024 CBC WITH DIFFE RENTI AL/PL ATELE T NRBC ENVIRONMENTAL LABORATORY TECHNICIAN Not Available [facility] ([facility]) [address] [place], [address], 08/11/2024 08:13:42 08/11/1908/11/2024 CBC WITH DIFFE RENTI AL/PL ATELE T hematology comments: ENVIRONMENTAL LABORATORY TECHNICIAN Not Available [facility] ([facility]) [address] [place], [address], 08/11/2024 08:13:42 08/11/1908/11/2024 COMP. METAB OLIC PANEL (14) glucose 116 mg/dL 70-99 above high normal Not Available [facility] ([facility]) [address] [facility] [place], [address], 08/11/2024 08:13:43 08/11/1908/11/2024 COMP. METAB OLIC PANEL (14) BUN 13 mg/dL 6-24 normal Not Available [facility] ([facility]) [address] [place], [address], 08/11/2024 08:13:43 08/11/1908/11/2024 COMP. METAB OLIC PANEL (14) creatinine 0.72 mg/dL 0.57-1 .00 normal Not Available [facility] ([facility]) [address] [facility] [place], [address], 08/11/2024 08:13:43 08/11/1908/11/2024 COMP. METAB OLIC PANEL (14) eGFR 97 mL/mi n/1.7 3 >59 normal Not Available [facility] ([facility]) [address] [place], [address], 08/11/2024 08:13:43 08/11/1908/11/2024 COMP. METAB OLIC PANEL (14) BUN/creatini ne ratio 18 9-23 normal Not Available [facility] ([facility]) [address] [place], [address], 08/11/2024 08:13:43 08/11/1908/11/2024 COMP. METAB OLIC PANEL (14) sodium 138 mmol/ L 134-14 4 normal Not Available [facility] ([facility]) [address] [place], [address], 08/11/2024 08:13:43 08/11/19 25 08/11/2024 COMP. METAB OLIC PANEL (14) potassium 4.2 mmol/ L 3.5-5. 2 normal Not Available [facility] ([facility]) [address] [place], [address], 08/11/2024 08:13:43 08/11/1908/11/2024 COMP. METAB OLIC PANEL (14) chloride 106 mmol/ L 96-106 normal Not Available [facility] ([facility]) [address] [facility] [place], [address], 08/11/2024 08:13:43 08/11/1908/11/2024 COMP. METAB OLIC PANEL (14) carbon dioxide, total 19 mmol/ L 20-29 below low normal Not Available [facility] ([facility]) [address] [facility] [place], [address], 08/11/2024 08:13:43 08/11/1908/11/2024 COMP. METAB OLIC PANEL (14) calcium 9.5 mg/dL 8.7-10 .2 normal Not Available [facility] ([facility]) [address] [facility] [place], [address], 08/11/2024 08:13:43 08/11/1908/11/2024 COMP. METAB OLIC PANEL (14) protein, total 6.5 g/dL 6.0-8. 5 normal Not Available [facility] ([facility]) [address] [facility] [place], [address], 08/11/2024 08:13:43 08/11/1908/11/2024 COMP. METAB OLIC PANEL (14) albumin 4.2 g/dL 3.8-4. 9 normal Not Available [facility] ([facility]) [address] [facility] [place], [address], 08/11/2024 08:13:43 08/11/1908/11/2024 COMP. METAB OLIC PANEL (14) globulin, total 2.3 g/dL 1.5-4. 5 Not Available [facility] ([facility]) [address] [place], [address], 08/11/2024 08:13:43 08/11/1908/11/2024 COMP. METAB OLIC PANEL (14) bilirubin, total 0.3 mg/dL 0.0-1. 2 normal Not Available [facility] ([facility]) [address] [place], [address], 08/11/2024 08:13:43 08/11/1908/11/2024 COMP. METAB OLIC PANEL (14) alkaline phosphatase 102 IU/L 44-121 normal Not Available [facility] ([facility]) [address] [place], [address], 08/11/2024 08:13:43 08/11/1908/11/2024 COMP. METAB OLIC PANEL (14) AST (SGOT) 24 IU/L 0-40 normal Not Available [facility] ([facility]) [address] [place], [address], 08/11/2024 08:13:43 08/11/1908/11/2024 COMP. METAB OLIC PANEL (14) ALT (SGPT) 30 IU/L 0-32 normal Not Available [facility] ([facility]) [address] [place], [address], 08/11/2024 08:13:43 08/11/1908/11/2024 HCV ANTIB TANVIR RFX TO QUANT PCR HCV Ab Non Reacti ve non reacti ve Not Available [facility] ([facility]) [address] [place], [address], 08/11/2024 08:13:44 08/11/1908/11/2024 HCV ANTIB TANVIR RFX TO QUANT PCR interpretati on: Commen t Not infec mansoor with HCV unles s early or acute infec tion is suspe cted (whic h may be delay ed in an immun ocomp romis ed indiv idual ), or other evide nce exist s to indic ate HCV infec tion. Not Available [facility] ([facility]) [address] [facility], [place], [address], 08/11/2024 08:13:44 08/11/1908/11/2024 VITAM IN D, 25-HY [...] Medic ine). 2009. Sasha ry refer ence intak es for calci um and D. Yuly roman [place]: The [facility]io n[facility] Press . 2. Cintyha mariee [place], Jose Manuel sheridan [place], Jyoti off-F errar i WHITE, et al. Evalu ation , treat ment, and preve ntion of vitam in D defic iency : an Endoc rine Socie ty clini jose pract ice guide line. JCEM. 2010; 96(7) :1911 -30. Not Available [facility] ([facility]) [address] [facility], [place], [address], 08/11/2024 08:13:44 08/11/1908/11/2024 HIV AB/P2 4 AG WITH REFLE X HIV Ab/P24 Ag screen Non Reacti ve non reacti ve HIV Negat marco HIV-1 /HIV- 2 antib odies and HIV-1 p24 antig en were NOT detec mansoor. There is no labor atory evide nce of HIV infec tion. Not Available [facility] ([facility]) [address] [facility], [place], [address], 08/11/2024 08:13:45 08/11/19 25 08/10/2024 HbA1c (hemo globi n A1c), blood HbA1c 5.7 Not Available [facility] [address] [place] [address], [place], [address], 08/10/2024 14:23:10 08/11/19 25 08/10/2024 rapid SARS CoV 2 Ag, QL, IA, upper respi rator y speci men SARS CoV Ag negati ve Not Available [facility] [address] [place] [address], [place], [address], 08/10/2024 14:04:55 08/11/19 25 08/10/2024 rapid flu (A+B) Flu A negati ve Not Available [address], [address], 08/10/2024 14:05:04 08/11/19 25 08/10/2024 rapid flu (A+B) Flu B negati ve Not Available [address], [place], [address], 08/10/2024 14:05:04 09/08/19 25 09/07/2024 HbA1c (hemo globi n A1c), blood HbA1c 6.0 Not Available [address], [address], 09/07/2024 16:09:36 09/09/19 25 09/09/2024 TSH+F REE T4 TSH 1.010 uIU/m L 0.450- 4.500 normal Not Available [facility] ([facility]) [address] [facility], [place], [address], 09/09/2024 11:11:49 09/09/19 25 09/09/2024 TSH+F REE T4 T4,free(dire ct) 1.33 NG/dL 0.82-1 .77 normal Not Available [facility] ([facility]) [address] [place], [address], 09/09/2024 11:11:49 09/09/19 25 09/09/2024 CBC WITH DIFFE RENTI AL/PL ATELE T WBC 12.2 x10e3 /uL 3.4-10 .8 above high normal Not Available [facility] ([facility]) [address] [place], [address], 09/09/2024 11:11:49 09/09/19 25 09/09/2024 CBC WITH DIFFE RENTI AL/PL ATELE T RBC 4.64 x10e6 /uL 3.77-5 .28 normal Not Available [facility] ([facility]) [address] [place], [address], 09/09/2024 11:11:49 09/09/19 25 09/09/2024 CBC WITH DIFFE RENTI AL/PL ATELE T hemoglobin 14.0 g/dL 11.1-1 5.9 normal Not Available [facility] ([facility]) [address] [place], [address], 09/09/2024 11:11:49 09/09/19 25 09/09/2024 CBC WITH DIFFE RENTI AL/PL ATELE T hematocrit 43.5 % 34.0-4 6.6 normal Not Available [facility] ([facility]) [address] [place], [address], 09/09/2024 11:11:49 09/09/19 25 09/09/2024 CBC WITH DIFFE RENTI AL/PL ATELE T MCV 94 fL 79-97 normal Not Available [facility] ([facility]) [address] [place], [address], 09/09/2024 11:11:49 09/09/19 25 09/09/2024 CBC WITH DIFFE RENTI AL/PL ATELE T MCH 30.2 pg 26.6-3 3.0 normal Not Available [facility] ([facility]) [address] [facility], [place], [address], 09/09/2024 11:11:49 09/09/19 25 09/09/2024 CBC WITH DIFFE RENTI AL/PL ATELE T MCHC 32.2 g/dL 31.5-3 5.7 normal Not Available [facility] ([facility]) [address] [facility], [place], [address], 09/09/2024 11:11:49 09/09/19 25 09/09/2024 CBC WITH DIFFE RENTI AL/PL ATELE T RDW 13.8 % 11.7-1 5.4 Not Available [facility] ([facility]) [address] [facility], [place], [address], 09/09/2024 11:11:49 09/09/19 25 09/09/2024 CBC WITH DIFFE RENTI AL/PL ATELE T platelets 305 x10e3 /uL 150-45 0 normal Not Available [facility] ([facility]) [address] [place], [address], 09/09/2024 11:11:49 09/09/19 25 09/09/2024 CBC WITH DIFFE RENTI AL/PL ATELE T neutrophils 64 % not estab. normal Not Available [facility] ([facility]) [address] [place], [address], 09/09/2024 11:11:49 09/09/19 25 09/09/2024 CBC WITH DIFFE RENTI AL/PL ATELE T lymphs 27 % not estab. normal Not Available [facility] ([facility]) [address] [place], [address], 09/09/2024 11:11:49 09/09/19 25 09/09/2024 CBC WITH DIFFE RENTI AL/PL ATELE T monocytes 7 % not estab. normal Not Available [facility] ([facility]) [address] [place], [address], 09/09/2024 11:11:49 09/09/19 25 09/09/2024 CBC WITH DIFFE RENTI AL/PL ATELE T eos 1 % not estab. normal Not Available [facility] ([facility]) [address] [place], [address], 09/09/2024 11:11:49 09/09/19 25 09/09/2024 CBC WITH DIFFE RENTI AL/PL ATELE T basos 1 % not estab. normal Not Available [facility] ([facility]) [address] [facility], [place], [address], 09/09/2024 11:11:49 09/09/19 25 09/09/2024 CBC WITH DIFFE RENTI AL/PL ATELE T immature cells ENVIRONMENTAL LABORATORY TECHNICIAN Not Available [facility] ([facility]) [address] [place], [address], 09/09/2024 11:11:49 09/09/19 25 09/09/2024 CBC WITH DIFFE RENTI AL/PL ATELE T neutrophils (absolute) 7.8 x10e3 /uL 1.4-7. 0 above high normal Not Available [facility] ([facility]) [address] [place], [address], 09/09/2024 11:11:49 09/09/19 25 09/09/2024 CBC WITH DIFFE RENTI AL/PL ATELE T lymphs (absolute) 3.2 x10e3 /uL 0.7-3. 1 above high normal Not Available [facility] ([facility]) [address] [place], [address], 09/09/2024 11:11:49 09/09/19 25 09/09/2024 CBC WITH DIFFE RENTI AL/PL ATELE T monocytes(ab solute) 0.9 x10e3 /uL 0.1-0. 9 normal Not Available [facility] ([facility]) [address] [facility], [place], [address], 09/09/2024 11:11:49 09/09/19 25 09/09/2024 CBC WITH DIFFE RENTI AL/PL ATELE T eos (absolute) 0.2 x10e3 /uL 0.0-0. 4 normal Not Available [facility] ([facility]) [address] [facility], [place], [address], 09/09/2024 11:11:49 09/09/19 25 09/09/2024 CBC WITH DIFFE RENTI AL/PL ATELE T baso (absolute) 0.1 x10e3 /uL 0.0-0. 2 normal Not Available [facility] ([facility]) [address] [place], [address], 09/09/2024 11:11:49 09/09/19 25 09/09/2024 CBC WITH DIFFE RENTI AL/PL ATELE T immature granulocytes 0 % not estab. Not Available [facility] ([facility]) [address] [place], [address], 09/09/2024 11:11:49 09/09/19 25 09/09/2024 CBC WITH DIFFE RENTI AL/PL ATELE T immature grans (abs) 0.0 x10e3 /uL 0.0-0. 1 Not Available [facility] ([facility]) [address] [place], [address], 09/09/2024 11:11:49 09/09/19 25 09/09/2024 CBC WITH DIFFE RENTI AL/PL ATELE T NRBC ENVIRONMENTAL LABORATORY TECHNICIAN Not Available [facility] ([facility]) [address] [place], [address], 09/09/2024 11:11:49 09/09/19 25 09/09/2024 CBC WITH DIFFE RENTI AL/PL ATELE T hematology comments: ENVIRONMENTAL LABORATORY TECHNICIAN Not Available [facility] ([facility]) [address] [facility] [place], [address], 09/09/2024 11:11:49 09/09/19 25 09/09/2024 COMP. METAB OLIC PANEL (14) glucose 62 mg/dL 70-99 below low normal Not Available [facility] ([facility]) [address] [facility] [place], [address], 09/09/2024 11:11:50 09/09/19 25 09/09/2024 COMP. METAB OLIC PANEL (14) BUN 20 mg/dL 6-24 normal Not Available [facility] ([facility]) [address] [facility] [place], [address], 09/09/2024 11:11:50 09/09/19 25 09/09/2024 COMP. METAB OLIC PANEL (14) creatinine 0.59 mg/dL 0.57-1 .00 normal Not Available [facility] ([facility]) [address] [facility] [place], [address], 09/09/2024 11:11:50 09/09/19 25 09/09/2024 COMP. METAB OLIC PANEL (14) eGFR 105 mL/mi n/1.7 3 >59 normal Not Available [facility] ([facility]) [address] [facility] [place], [address], 09/09/2024 11:11:50 09/09/19 25 09/09/2024 COMP. METAB OLIC PANEL (14) BUN/creatini ne ratio 34 9-23 above high normal Not Available [facility] ([facility]) [address] [facility] [place], [address], 09/09/2024 11:11:50 09/09/19 25 09/09/2024 COMP. METAB OLIC PANEL (14) sodium 143 mmol/ L 134-14 4 normal Not Available [facility] ([facility]) [address] [facility] [place], [address], 09/09/2024 11:11:50 09/09/19 25 09/09/2024 COMP. METAB OLIC PANEL (14) potassium 4.7 mmol/ L 3.5-5. 2 normal Not Available [facility] ([facility]) [address] [facility] [place], [address], 09/09/2024 11:11:50 09/09/19 25 09/09/2024 COMP. METAB OLIC PANEL (14) chloride 103 mmol/ L 96-106 normal Not Available [facility] [facility]) [address] [facility] [place], [address], 09/09/2024 11:11:50 09/09/19 25 09/09/2024 COMP. METAB OLIC PANEL (14) carbon dioxide, total 22 mmol/ L 20-29 normal Not Available [facility] ([facility]) [address] [facility] [place], [address], 09/09/2024 11:11:50 09/09/19 25 09/09/2024 COMP. METAB OLIC PANEL (14) calcium 9.5 mg/dL 8.7-10 .2 normal Not Available [facility] ([facility]) [address] [facility] [place], [address], 09/09/2024 11:11:50 09/09/19 25 09/09/2024 COMP. METAB OLIC PANEL (14) protein, total 6.5 g/dL 6.0-8. 5 normal Not Available [facility] ([facility]) [address] [facility] [place], [address], 09/09/2024 11:11:50 09/09/19 25 09/09/2024 COMP. METAB OLIC PANEL (14) albumin 4.2 g/dL 3.8-4. 9 normal Not Available [facility] ([facility]) [address] [facility] [place], [address], 09/09/2024 11:11:50 09/09/19 25 09/09/2024 COMP. METAB OLIC PANEL (14) globulin, total 2.3 g/dL 1.5-4. 5 Not Available [facility] ([facility]) [address] [place], [address], 09/09/2024 11:11:50 09/09/19 25 09/09/2024 COMP. METAB OLIC PANEL (14) bilirubin, total 0.2 mg/dL 0.0-1. 2 normal Not Available [facility] ([facility]) [address] [place], [address], 09/09/2024 11:11:50 09/09/19 25 09/09/2024 COMP. METAB OLIC PANEL (14) alkaline phosphatase 106 IU/L 44-121 normal Not Available [facility] ([facility]) [address] [place], [address], 09/09/2024 11:11:50 09/09/19 25 09/09/2024 COMP. METAB OLIC PANEL (14) AST (SGOT) 19 IU/L 0-40 normal Not Available [facility] ([facility]) [address] [place], [address], 09/09/2024 11:11:50 09/09/19 25 09/09/2024 COMP. METAB OLIC PANEL (14) ALT (SGPT) 30 IU/L 0-32 normal Not Available [facility] ([facility]) [address] [place], [address], 09/09/2024 11:11:50 09/09/19 25 09/09/2024 VITAM IN [...] um and D. Yuly roman [place]: [facility] . 2. Cinthya mariee MF, Jose Manuel sheridan [place], Jyoti off-F errar i WHITE, et al. Evalu ation , treat ment, and preve ntion of vitam in D defic iency : an Endoc rine Socie ty clini jose pract ice guide line. JCEM. 2010; 96(7) :1911 -30. Not Available [facility] ([facility]) [address] [place], [address], 09/09/2024 11:11:51 09/09/19 25 09/09/2024 THYRO ID PEROX IDASE (TPO) AB thyroid peroxidase (tpo) Ab 170 IU/mL 0-34 above high normal Not Available [facility] ([facility]) [address] [place], [address], 09/09/2024 11:11:52 11/06/19 25 11/07/2024 URINE CULTU RE, ROUTI NE urine culture, routine Final report Not Available [facility] ([facility]) [address] [place], [address], 11/07/2024 03:06:45 11/06/19 25 11/07/2024 URINE CULTU RE, ROUTI NE result 1 No growth Not Available [facility] ([facility]) [address] [place], [address], 11/07/2024 03:06:45 11/06/19 25 11/05/2024 urina lysis , dipst ick Leukocytes Negati ve Not Available [address], [place], [address], 11/05/2024 13:01:19 11/06/19 25 11/05/2024 urina lysis , dipst ick Nitrite negati ve Not Available [address], [place], [address], 11/05/2024 13:01:19 11/06/19 25 11/05/2024 urina lysis , dipst ick Urobilinogen .2 Not Available [address], [place], [address], 11/05/2024 13:01:19 11/06/19 25 11/05/2024 urina lysis , dipst ick Protein Negati ve Not Available [address], [place], [address], 11/05/2024 13:01:19 11/06/19 25 11/05/2024 urina lysis , dipst ick pH 6.5 Not Available [address], [place], [address], 11/05/2024 13:01:19 11/06/19 25 11/05/2024 urina lysis , dipst ick Blood Negati ve Not Available [address], [place], [address], 11/05/2024 13:01:19 11/06/19 25 11/05/2024 urina lysis , dipst ick Specific Idalia 1.015 Not Available [address], [place], [address], 11/05/2024 13:01:19 11/06/19 25 11/05/2024 urina lysis , dipst ick Ketone Negati ve Not Available [address], [place], [address], 11/05/2024 13:01:19 11/06/19 25 11/05/2024 urina lysis , dipst ick Bilirubin Negati ve Not Available [address], [place], [address], 11/05/2024 13:01:19 11/06/19 25 11/05/2024 urina lysis , dipst ick Glucose Negati ve Not Available [address], [place], [address], 11/05/2024 13:01:19 11/06/19 25 11/05/2024 urina lysis , dipst ick Appearance Slight ly Cloudy Not Available [address], [place], [address], 11/05/2024 13:01:19 11/06/19 25 11/05/2024 urina lysis , dipst ick Color Yellow Not Available [address], [place], [address], 11/05/2024 13:01:19 11/12/19 25 11/11/2024 HbA1c (hemo globi n A1c), blood HbA1c 5.8 Not Available [address], [place], [address], 11/11/2024 14:26:50 11/06/19 25 XR, kidne y + urete r + bladd er No observ ation record ed. [address], [place], [address], 11/06/2024 12:23:47 11/12/19 25 MRI, knee, w/o contr ast No observ ation record ed. [email or web address] Not Available 2024 14:28:03 Result Notes None recorded. Problems Name Problem SNOMED Code Status Onset Date Resolution Date Notes Provider Name and Address Organization Details Recorded Time Chronic obstructive pulmonary disease 21086752 Active 2023 Mary Khan NP [address] [place] [address], [address] 8, [employer] 4 14:19:16 Acute exacerbatio n of chronic obstructive pulmonary disease 961737078 Active 2023 Mary Khan NP [address] [place] [address], 57[address] 8, [employer] 4 14:31:26 Acute sinusitis 50629320 Active 2023 Mary Khan NP [address] [place] [address], 27[address] 8, [employer] 4 11:11:39 Essential hypertensio n 05922978 Active 2023 Mary Khan NP [address] [place] [address], 37068[address]067 8, [employer] 5 16:15:40 Fatigue 96798358 Active 2023 Mary Khan NP [address] [place] [address], 36892-478 8, [employer] 4 10:40:53 Acute back pain with sciatica 869251405 Active 2023 Mary Khan NP [address] [place] [address], 24[address]731 8, [employer] 4 10:42:24 Hypothyroid ism 36249299 Active 2023 Mary Khan NP [address] [place] [address], 74588[address]324 8, [employer] 4 11:16:52 Nicotine dependence 04881869 Active 2023 Mary Khan NP [address] [place] [address], 19759-070 8, [employer] 10/28/202 4 11:20:48 Type 2 diabetes mellitus without complicatio n 248480084 Active 2023 Mary Khan NP [address] [place] [address], 40374-075 8, [employer] 4 15:54:53 Vitamin D deficiency 47136529 Active 2023 Mary Khan NP [address] [place] [address], 34[address]738 8, [employer] 4 16:03:26 Laboratory test result abnormal 622431582 Active 2023 Mary Khan NP [address] [place] [address], 25817[address] 8, [employer] 4 10:35:37 Polyuria 93180847 Active 2023 Mary Khan NP [address] [place] [address], 73854-336 8, [employer] 4 10:26:36 Hyperlipide chana 52038068 Active 2023 Mary Khan NP [address] [place] [address], 83406-526 8, [employer] 4 08:20:26 Restless legs syndrome 56660145 Active 2023 Mary Khan NP [address] [place] [address], 90847-560 8, [employer] 4 08:38:05 Desire thyroiditis 80136846 Active 2024 Mary Khan NP [address] [place] [address], 31516[address] 8, [employer] 5 16:15:10 Seasonal allergy 288670976 Active 2024 Mary Khan NP [address] [place] [address], 93700-058 8, [employer] 5 09:50:44 Acute bilateral otitis media 114033346 Active 2024 Mary Khan NP [address] [place] [address], 224[address]67 8, [employer] 5 14:21:55 Prediabetes 624383201 Active 2024 Mary Khan NP [address] [place] [address], 56605-166 8, [employer] 5 16:09:26 Generalized chronic body pains 303818986 Active 2024 Mary Khan NP [address] [place] [address], 15744-871 8, [employer] 5 16:33:44 Chronic low back pain 293912914 Active 2024 Mary Khan NP [address] [place] [address], 34504-557 8, [employer] 17:07:21 Pain of left knee joint 7424004674657 07 Active 2024 Mary Khan NP [address] [place] [address], 05136-274 8, [employer] 16:14:21 Anxiety 35763272 Active 2024 Mary Khan NP [address] [place] [address], 39480-965 8, [employer] 10:57:43 Dysuria 96020556 Active 2024 Gaby Nazario PA-C [address] [place] [address], 41461-564 8, [employer] 13:27:35 Spasm of urinary bladder 408994457 Active 2024 Gaby Nazario PA-C [address] [place] [address], 447[address]-895 8, [employer] 13:27:44 Suprapubic pain 096088561 Active 2024 Gaby Nazario PA-C [address] [place] [address], 59324-553 8, [employer] 06/19/202 5 13:27:58 Constipatio n 20187791 Active 2024 Gaby Nazario PA-C [address] [place] [address], 95091-948 8, [employer] 5 12:24:01 Irritable bowel syndrome characteriz ed by sun n 090778198 Active 2024 Mary Khan NP [address] [place] [address], 80464-649 8, [employer] 14:22:17 Type 2 diabetes mellitus 86845747 Active 2024 Mary Khan NP [address] [place] [address], 90984-830 8, [employer] 14:26:43 Tobacco dependence caused by cigarettes 2265924587317 9107 Active 2024 Mary Khan NP [address] [place] [address], 21548-224 8, [employer] 5 11:39:59 Body mass index 40+ - severely obese 033625795 Active 2024 Mary Khan NP [address] [place] [address], 53642-483 8, [employer] 12:18:24 Problem Notes None recorded. Procedures Surgical History Date Name Laterality Status Provider Name and Address Organization Details Recorded Time 03/16/20 Most Recent Mammogram completed Sayda Alfaro [employer] 03/18/2024 14:58:58 Tonsillectomy completed [employer] 03/02/2024 13:52:34 Partial Hysterectomy completed [employer] 03/02/2024 13:52:42 manipulation of displaced nasal septum completed [employer] 03/02/2024 13:52:53 procedure on shoulder completed [employer] 03/02/2024 13:53:00 operative procedure on knee completed [employer] 03/02/2024 13:53:10 operative procedure on knee completed Errol [employer] 12/09/2024 11:32:23 Imaging Results None recorded. Procedure Notes None recorded. Medical Equipment None Reported. Allergies Allergen ID Allergen Name Allergen Category Reaction Reaction Severity Criticality Documentation Date Start Date Code Code System Note Provider Name and Address Organization Details Recorded Time 27043 metformin medicatio n Not available Not available high 04/07/20252022 6809 RxNorm unrec ogniz ed react ion (text : Nause a And Vomit ing, code: 39201 000) (from exter nal sourc e) Not Available shayna - External Data Service - prod 19:06:49 Medications Name Sig Start Date Stop Date Status Note LastModified by Organization Details LastModified Time amantadin e HCl 100 mg tablet 08/10 completed Not Available Not Available Not Available losartan 50 mg tablet TAKE 1 TABLET EVERY DAY BY ORAL ROUTE FOR 30 DAYS. active Not Available Not [...] Not Available cetirizin e 10 mg tablet TAKE 1 TABLET EVERY DAY BY ORAL ROUTE 2024 active Not Available Not Available Not Avai lable atorvasta tin 10 mg tablet TAKE 1 TABLET BY MOUTH EVERY DAY 2024 active Not Available Not Available Not Avai lable benzonata te 200 mg capsule 03/16 completed Not Available Not Available Not Available hydrocodo ne 5 mg-acetam inophen 325 mg tablet TAKE ONE TABLET BY MOUTH EVERY 6 HOURS NEEDED FOR post op pain MAY CAUSE DROWSINE SS active Not Available Not Available No t Available meloxicam 15 mg tablet active Not [...] capsule TAKE 1 TABLET EVERY DAY BY MOUTH 2024 active Not Available Not Available Not Avai lable gabapenti n 300 mg capsule TAKE 1 CAPSULE BY MOUTH TWICE DAILY active Not Available Not Available No t Available sertralin e 25 mg tablet active Not Available Not Available Not Available hydroxyzi ne HCl 25 mg tablet TAKE 1 TABLET 3 TIMES A DAY BY ORAL ROUTE NEEDED FOR 30 DAYS 2024 active Not Available Not Available Not [...] Available hydrochlo rothiazid e 12.5 mg tablet TAKE 1 TABLET BY MOUTH EVERY DAY active Not Available Not Available No t Available cholecalc iferol (vitamin D3) 1,250 mcg (50,000 [...] BY MOUTH EVERY DAY FOR 30 DAYS. 2024 active Not Available Not Available Not Avai lab[facility] COVID-19 Antigen Rapid Home Test kit [...] weight Body temperature Heart rate Oxygen saturation Provider Name and Address Organization Details Last Updated DateTime 5 162.56 cm 44.1 kg/m2 868294. 24 g 97.8 [degF] 77 /min 97 % [employer] 5 16:01:07 Date Recorded Body height Body mass index (BMI) Body weight Body temperature Heart rate Oxygen saturation Systolic And Diastolic Provider Name and Address Organization Details Last Updated DateTime 5 162.56 cm 43.3 kg/m2 403721. 28 g 98.7 [degF] 72 /min 97 % 138/73 mm[Hg] [employer] 5 15:44:10 Date Recorded Body height Body mass index (BMI) Body weight Body temperature Heart rate Oxygen saturation Systolic And Diastolic Provider Name and Address Organization Details Last Updated DateTime 5 162.56 cm 43.7 kg/m2 756623. 26 g 97.8 [degF] 77 /min 96 % 105/70 mm[Hg] Samson Andrade [employer] 5 13:00:46 Date Recorded Body height Body mass index (BMI) Body weight Body temperature Heart rate Oxygen saturation Systolic And Diastolic Provider Name and Address Organization Details Last Updated DateTime 5 162.56 cm 43.8 kg/m2 005680. 05 g 97.5 [degF] 73 /min 98 % 136/83 mm[Hg] [employer] 5 14:12:00 Date Recorded Body height Body mass index (BMI) Body weight Body temperature Heart rate Oxygen saturation Systolic And Diastolic Provider Name and Address Organization Details Last Updated DateTime 5 162.56 cm 45 kg/m2 311113. 2 g 98.4 [degF] 82 /min 97 % 138/78 mm[Hg] [employer] 11:33:33 Social History Question Answer Notes LastModified by Organizat ion Details LastModified Time Tobacco Smoking Status Current Every Day Smoker [facility] [employer] 03/02/2024 13:50:47 Do You Have An Advance [...] Information not available 03/02/2024 What Type Of Telephone Operator Chief Do You Use? None Information not available [...] Or The Highest Degree You Have Received? [id number] Information not available 03/16/2024 How Many Days [...] Do You Have A Medical Power Of Clinical Orthoptist? No Information not available 03/02/2024 What Was The Date Of Your Most Recent Tobacco Screening? 12/09/2024 [email or web address] Information not available 12/09/2024 Have You Ever Been Counseled For Unhealthy [...] What Date Was Tobacco Cessation Counseling Provided? 12/09/2024 [email or web address] Information not available 12/09/2024 How Many Years Have You Smoked Tobacco? [...] not available 03/02/2024 Are you able to walk independently without assistance or assistive devices? YESWOREST Information not available 03/02/2024 Do you have difficulty doing errands alone? No Information not available 03/02/2024 Are you able to care for yourself independently? Yes Information not available 03/02/2024 Do you have difficulty dressing, bathing, grooming, or toileting? No Information not available 03/02/2024 What is your exercise level? Moderate Information not available 04/20/2024 Mental Status Question Answer Note LastModified by Organizat ion Details LastModified Time Do you feel stressed (tense, restless, nervous, or anxious, or unable to sleep at night)? [id number] Information not available 03/16/2024 Do you have [...] Immunizations Vaccine Type Date Status Note Provider Royer jackson and Address Organization Details Recorded Time [facility]oster recombinant [facility] 04/29/2024 13:39:09 pneumococcal polysaccharide PPV23 4 completed Errol Nacho null, [employer] 04/29/2024 13:39:09 zoster recombinant 5 completed Errol Nacho null, [employer] 06/29/2024 10:04:53 Tdap 5 completed Mary Khan NP [address] [place] [address], [address], [employer] 08/10/2024 15:11:36 Hep A, adult 8 completed Errol Nacho null, [employer] 06/29/2024 09:42:10 Past Encounters Encounter ID Performer Location Encounter Start Date Encounter Closed Date Diagnosis/Indication Diagnosis SNOMED-CT Code Diagnosis ICD10 Code Diagnosis IMO Codes Diagnosis Note [id number] Mary Khan NP [address] [address] 03/02/2024 13:06:42 03/02/2024 14:42:22 Screening mammography 06285061 Z12.31 Cough 22799293 R05.9 Chronic ob structive pulmonary disease 62050549 J44.9 Acute exac erbation of chronic obstructive pulmonary disease 402437586 J44.1 [id number] Mary Khan NP [address] [address] 03/09/2024 10:05:21 03/09/2024 11:09:10 Cough 77470382 R05.9 Essential hypertension 30853872 I10 Patient to keep bp log and return to clinic in 2 weeks Acute sinusitis 75402656 J01.90 [id number] Mary Khan NP [address] [address] 03/16/2024 09:14:07 03/16/2024 11:11:48 Adult health examination 933275268 Z00.00 Hyperlipid emia screening 151575184 Z13.220 Fatigue 91712770 R53.83 Acute back pain with sciatica 261115716 M54.42 Chronic ob structive pulmonary disease 03356503 J44.9 Stop flovent and start trelegy Screening colonoscopy 44 7996632 Z12.11 Hypothyroidism 80080910 E03.9 Continue levothyrox ine as prescribed Essential hypertension 94876439 I10 Continue losartan and hctz as prescribed Nicotine dependence 5629 4008 F17.366 [id number] Mary Khan NP [address] [address] 03/18/2024 14:52:16 03/18/2024 15:31:47 Type 2 diabetes mellitus without complication 511025903 E11.9 Hypothyroidism 67094507 E03.9 Vitamin D deficiency 347 06403 E55.9 stop vitamin D3 25 mcg Nicotine dependence 5629 4008 F17.026 [id number] Mary Khan NP [address] [address] 03/30/2024 08:31:06 03/30/2024 09:01:50 Essential hypertension 68456473 I10 Continue losartan Type 2 shreya betes mellitus without complication 574677678 E11.9 [facility] denied. Body mass index 40+ - severely obese 474215738 Z68.41 [id number] Mary Khan NP [address] [address] 04/20/2024 08:49:23 04/20/2024 10:45:24 Body mass index 40+ - severely obese 516149500 Z68.41 Discussed weight loss and healthy diet and exercise. Recommende d food diary with [employer] kaylee. Patient voiced understand ing. Laboratory test result abnormal 787509183 R89.9 Discussed elevated ferritin. Will repeat labwork at next appt. Hypothyroidism 65935806 E03.9 Pt. states thinks she has Hashimotos , but is unsure. Will repeat lab work at next appt to include, TPO [id number] Mary Khan NP [address] [address] 04/29/2024 08:56:15 04/29/2024 11:40:29 Screening for malignant neoplasm of cervix 062167191 Z12.4 Type 2 shreya betes mellitus without complication 473914164 E11.9 Administra tion of viral vaccine 73658720 Z23 Polyuria 94934609 R35.89 Administra tion of pneumococcal vaccine 97437380 Z23 [id number] Mary Khan [address] [address] 05/18/2024 07:58:59 05/18/2024 08:50:58 Type 2 diabetes mellitus without complication 291590065 E11.9 Hyperlipidemia 36127776 E78.5 Hypothyroidism 24688733 E03.9 Restless l egs syndrome 73217988 G25.81 Essential hypertension 46735697 I10 Continue losartan [id number] Mary Khan [address] [address] 06/01/2024 08:25:43 06/01/2024 09:01:39 Herpes zoster vaccination given 7835763004 88831 Z23 [id number] Mary Khan [address] [address] 2 06/29/2024 09:30:45 06/29/2024 11:05:55 Herpes zoster vaccination given 1902244103 46967 Z23 [id number] Mary Khan [address] [address] 2 08/10/2024 13:26:42 08/10/2024 14:51:37 Cough 67145271 R05.9 Acute bila teral otitis media 604107073 H66.93 Type 2 shreya betes mellitus without complication 249210290 E11.9 Hypothyroidism 87476690 E03.9 Vitamin D deficiency 347 80416 E55.9 Chronic ob structive pulmonary disease 72417501 J44.9 Viral screening 32428890 4 Z11.59 Administra tion of diphtheria, pertussis, and tetanus vaccine 764484622 Z23 [id number] Mary Khan [address] [address] 09/07/2024 15:50:06 09/07/2024 17:14:02 Prediabetes 143990779 R73.03 Essential hypertension 10284077 I10 continue meds as prescribed . Hypothyroidism 78704431 E03.9 Generalize d chronic body pains 403733609 G89.29 Vitamin D deficiency 347 79496 E55.9 Screening for cardiovascular system disease 624656265 Z13.6 11.1% lifetime ASCVD Risk Discussed with patient Chronic low back pain 27 8926557 M54.50 Continue f/u with Dr. Beck at pain management . Body mass index 40+ - severely obese 745376128 Z68.41 Discussed weight loss and healthy diet and exercise. Recommende d food diary with [employer] kaylee. Recommende d pool exercises at [facility]. Patient voiced understand ing. [id number] Mary Khan NP [address] [address] 09/21/2024 15:30:08 09/21/2024 16:34:31 Pain of left knee joint 9549315070 36688 M25.562 135997 keep appt with pain mgmt. Desire thyroiditis 21 380842 E06.3 62097 continue medication as prescribed . Essential hypertension 37424919 I10 32326 continue meds as prescribed . [id number] Gaby Nazario PA-C [address] [address] 11/05/2024 12:42:43 11/05/2024 13:50:09 Dysuria 95048569 R30.0 58993 Spasm of u rinary bladder 892072444 N32.89 084321 Suprapubic pain 17268854 6 R10.2 0114983 [id number] Mary Khan NP [address] [address] 7 11/11/2024 13:56:20 11/13/2024 10:01:23 Irritable bowel syndrome characterized by constipation 928579284 K58.1 777344 Chronic ob structive pulmonary disease 26406343 J44.9 Screening for cardiovascular system disease 089161037 Z13.6 Type 2 shreya betes mellitus 61276244 E11.9 67276043 Family his tory of Hypercholesterolemia 402958720 Z83.42 208715 [id number] Mary Khan NP [address] [address] 7 12/09/2024 11:26:41 12/09/2024 12:32:49 Essential hypertension 12857157 I10 continue meds as prescribed . Screening for malignant neoplasm of lung 442486485 Z12.2 8489508962 Irritable bowel syndrome characterized by constipation 907012942 K58.1 Tobacco de pendence caused by cigarettes 4485878807 7402056 F17.823 7544837 Body mass index 40+ - severely obese 292959840 E66.01 Z68.42 14781085 Discussed weight loss and healthy diet and exercise. Recommende d food diary with [employer] kaylee. Recommende d pool exercises at [facility]. Patient voiced understand ing. Health Concerns Section Related Observation LastModified by Organization Detai ls LastModified Time None Recorded Concern Status LastModified by Organization Details LastModified Time None Recorded Advance Directives Directive N: Payers Insurance Date Sequence Insurance Name Policy Number Policy Green Covered Member ID Green Member ID Guarantor Name 07/02/2024 1 UNSPECIFIED REMIT PAYOR aSritha Moody 03/11/2024 1 APOLONIA Moody [id number] Saritha Moody 03/08/2025 1 HUMANElizabeth [facility] (MEDICAID REPLACEMENT - HMO) Saritha Moody [id number] Saritha Moody Notes Date Note Type Note Provider Name and Address Organization Details Recorded Time 09/07/2024 text/html ROS as noted in the HPI Patient presented to clinic today complaining with overall joint [...] Patient does report that she went to [place] approx 2 weeks ago and her allergies have been acting up some with runny nose and some drainage. Patient denies any additional symtpoms, complaints or concerns for today's visit. Mary Khan NP [address] [facility], [place], [address], [employer] 09/07/2024 17:20:48 09/21/2024 text/html ROS as noted in the HPI Patient presented to clinic today to follow-up on lab [...] for today's visit. Mary Khan NP [address] [place], [address], [employer] 09/21/2024 16:16:11 11/05/2024 text/html Lower Urinary Tr act Symptoms (LUTS)Reported by PatientHPIFor associated symptoms, patient reportsstraining,nina quency,dysuria,urine odor, andsuprapubic painbut reportsno fever,no nausea,no vomiting, andno gross hematuria. For location, patient reportsbladder. For quality, patient reportspressure. For severity, patient reportsworseningandm ild. For onset/timing, patient reports1-3 times a day. For duration, patient reports< 1 week. For context, patient reportsdenies excessive fluid intakeanddenies excessive caffeine intake.ROS as noted in the HPI Gaby Nazario PA-C [address] [place] [address], [id number], [employer] 11/17/2024 00:54:27 11/11/2024 text/html ROS as noted in the HPI Patient presents to clinic today to follow-up [...] for today's visit. Mary Khan NP [address] [place], [phone], [employer] 11/12/2024 13:38:35 12/09/2024 text/html ROS as noted in the HPI Presents to office today to follow-up chronic conditions of essential hypertension, irritable bowel syndrome, and nicotine dependence. Patient does report that on November 24 she did have her left knee surgery done and states it did not very well. Patient states that she is walking well and recently received her order for physical therapy. Patient states that the knee pain is better and so is her low back pain. Patient states orthopedic Mason Campos at [facility] and states has f/u in 6 weeks. Patient reports bp has been doing well and reports that Linzess is really helping. Patient does report she continues to smoke and is down to less than a 1/2 pack per day and is trying to quit. Patient does report would like to lose weight. Patient has no additional complaints or concerns for today's visit. Mary Khan NP [address] [place], [phone], [employer] 12/09/2024 12:58:26 OBGyn Episode No OBEpisode recorded.
--- NOTE | 2025-04-14 09:22 | XR_ITS ---
FINAL REPORT CLINICAL HISTORY: screening COMPARISON: None FINDINGS: Using L1-4, the bone mineral density of the spine is 0.950 g/cm2, corresponding to T-score of -0.9. Using the left hip, the bone mineral density of the femoral neck is 0.899 g/cm2, corresponding to a T-score of 0.5. Using the right hip, the bone mineral density of the femoral neck is 1.022 g/cm2, corresponding to a T-score of 1.6. NOTE: T-score: Standard deviation compared with peak bone mass of young adult mean. *Following the recommendations of the International Society of Bone densitometry, classification of hip BMD is based on the lower of two T-scores; total hip or femoral neck. IMPRESSION: Normal bone mineral density of the lumbar spine and bilateral hips. Reviewed, Interpreted and Dictated by Wm Knox MD Transcribed by Anali Hernandez Authenticated and [facility]
--- NOTE | 2025-04-14 09:22 | MM_ITS ---
PROCEDURE INFORMATION: Exam: MG Bilateral Screening 3D Mammography Exam date and time: 04/14/2025 9:21 AM Age: 60 years old Clinical indication: Screening. No family history of breast cancer. TECHNIQUE: Imaging protocol: Bilateral Screening tomosynthesis and 2D mammography including computer-aided detection (CAD) when performed. COMPARISON: 1. MG MM DIG SCREENING MAMM BI W/CAD 03/16/2024 4:33 PM 2. MG MM DIG SCREENING MAMM BI W/CAD 07/21/2021 8:18 AM FINDINGS: MAMMOGRAPHY: Breast composition: The breasts are almost entirely fatty. Mass: No suspicious mass. Architectural distortion: None. Calcifications: No suspicious calcifications. Asymmetric density: None. Skin thickening: None. Axillary adenopathy: None. IMPRESSION: No mammographic evidence of malignancy. Annual screening is recommended unless otherwise clinically indicated. ASSESSMENT: BI-RADS Category 1: Negative.
--- NOTE | 2025-04-14 09:23 | CT_ITS ---
FINAL REPORT TECHNIQUE: Thin section axial images were obtained through the lungs using a low-dose technique per lung cancer screening protocol. Reconstruction images were obtained using the axial data. This study was performed with techniques to keep radiation doses as low as reasonably achievable, (ALARA). Individualized dose reduction techniques using automated exposure control or adjustment of mA and/or kV according to the patient's size were employed. CLINICAL HISTORY: SCREENING CURRENT SMOKER 1/2PPD X20+ YEARS COMPARISON: None FINDINGS: CTDLvol: 2.90 DLP: 98.21 Current smoker 10 pack year history Lungs: There is evidence of prior granulomatous disease. The lungs are otherwise clear. Lymph nodes: There is no axillary lymphadenopathy. There is a mildly enlarged subcarinal lymph node measuring 20 mm. There is no other lymphadenopathy. Mediastinum: Heart size is normal. Pleura/pericardium: No pleural or pericardial effusion. Other: No acute abnormality in the upper abdomen. IMPRESSION: No suspicious pulmonary nodule or mass. Lung RADS: 1 Recommendation: 12-month follow-up low-dose chest CT. Reviewed, Interpreted and Dictated by Vijaya Nicole MD Transcribed by Naina Barcenas Authenticated and [facility]
== END 2025-04-14 23:59 | disposition home or self-care (01) ==
LOC: RAD 09:17
PROVIDERS: PCP Internal Medicine; Visit Provider Internal Medicine
DX: Z12.31 Encounter for screening mammogram for malignant neoplasm of breast (principal); R92.313 Mammographic fatty tissue density, bilateral breasts; Z13.820 Encounter for screening for osteoporosis; Z12.2 Encounter for screening for malignant neoplasm of respiratory organs; F17.210 Nicotine dependence, cigarettes, uncomplicated; Z78.0 Asymptomatic menopausal state
CPT/HCPCS: 71271; 77063; 77067; 77080